=== PATIENT | female | born 1965 | race Caucasian/White ===

== ENCOUNTER 2022-12-14 13:15 | Emergency (ER) | payer OTHER, SELFPAY ==
[2022-12-14 13:18] VITALS: PULSE 85; RESP 20; TEMP 36.8; O2SAT 95; BMI 39.9
[2022-12-14 13:22] VITALS: BP 150/90
--- NOTE | 2022-12-14 13:31 | XR_ITS ---
The [address] [address] Patient Name: BRENDON FONG MRN: [id number] date: 1965 Sex: F Assigned Patient Location: ER Current Patient Location: ER Accession/Order Number: [id number] Exam Date: 12/14/2022 13:45 Report Date: 12/14/2022 14:14 At the request of: EFRAIN TOLEDO Procedure: XR knee RT 4V EXAM: XR knee RT 4V HISTORY: injury COMPARISON: 08/25/2020 TECHNIQUE: 3 views of the right knee. FINDINGS: Bones: No acute fracture or aggressive appearing bony lesion. Joints: Moderate tricompartmental osteoarthritis. Small knee joint effusion. Soft tissues: Unremarkable. XR/XR knee RT 4V IMPRESSION: No acute fracture. Electronically authenticated by: YOSELIN JOSEPH Date: 12/14/2022 14:14
--- NOTE | 2022-12-14 13:31 | PC.NURSE ---
Pain and swelling to left knee. Denies injury to area. Skin to right leg pink and warm
--- NOTE | 2022-12-14 14:18 | ED.LOWEXI1 ---
HPI - Extremity Injury (Lower) General Chief Complaint: Extremity Injury, Lower Stated Complaint: LOWER EXTREMITY INJURY R KNEE Time Seen by Provider: 12/14/22 14:15 Source: patient Mode of arrival: walk-in Limitations: no limitations History of Present Illness HPI Narrative: 57-year-old female presents for right knee pain. She's had issues with bone spurs and recently it's been hurting. Sometimes it gives out and sometimes feels like it is locking up. Contralateral knee does not hurt and it's moderate and it's worse when she pushes on the medial aspect. Related Data Previous Rx's Medication Instructions Recorded acetaminophen 300 mg-codeine 30 mg 1 tab PO Q6H PRN pain #20 tabs 12/14/22 tablet Allergies Allergy/AdvReac Type Severity Reaction Status Date / Time naproxen [From Naprosyn] Allergy Intermediate Verified 12/14/22 13:22 Review of Systems ROS Narrative A ten point review of systems is negative except as noted above. PFSH PFSH Social History Smoking status: Never smoker Exam Narrative Exam Narrative: Nurses note and vital signs reviewed and patient is not hypoxic. General: The patient appears well and in no apparent distress. Patient is resting comfortably on cart. Skin: Warm, dry, no pallor noted. There is no rash noted. Head: Normocephalic, atraumatic Eye: Normal conjunctiva, no drainage Ears, Nose, Mouth, and Throat: oral mucosa is moist. Nares patent. Cardiovascular: Regular Rate and Rhythm Respiratory: Patient is in no distress, no accessory muscle use, lungs are clear to auscultation, no wheezing, rales or rhonchi Back: non-tender GI: soft and nontender Musculoskeletal: the right knee is not erythematous or warm to touch. She has some tenderness medially and laterally. The knee joint is stable Neurological: A&O, normal speech Psychiatric: Cooperative Constitutional Vital Signs, click to edit/add: Last Vital Signs Temp 98.2 F 12/14/22 13:18 Pulse 85 12/14/22 13:18 Resp 20 12/14/22 13:18 BP 150/90 H 12/14/22 13:22 Pulse Ox 95 12/14/22 13:18 O2 Del Method Room Air 12/14/22 13:18 Course Vital Signs Vital signs: Vital Signs Temperature 98.2 F 12/14/22 13:18 Pulse Rate 85 12/14/22 13:18 Respiratory Rate 20 12/14/22 13:18 Pulse Oximetry 95 12/14/22 13:18 Oxygen Delivery Method Room Air 12/14/22 13:18 Temperature 98.2 F 12/14/22 13:18 Pulse Rate 85 12/14/22 13:18 Respiratory Rate 20 12/14/22 13:18 Blood Pressure 150/90 H 12/14/22 13:22 Pulse Oximetry 95 12/14/22 13:18 Oxygen Delivery Method Room Air 12/14/22 13:18 MDM - Extremity Injury (Lower) MDM Narrative Medical decision making narrative: x-ray findings are discussed with the patient. She has an established orthopedist with whom she will follow. She is provided pain medication. Treatment diagnosis and follow-up were discussed with the patient. Differential Diagnosis Differential diagnosis: Likely acute internal derangement of knee and ankle fracture (arthritis, knee fracture) Discharge Plan Discharge Chief Complaint: Extremity Injury, Lower Clinical Impression: Acute pain of right knee Patient Disposition: Home, Self-Care Time of Disposition Decision: 14:35 Condition: Good Mode of Transportation: Private Vehicle Prescriptions / Home Meds: New acetaminophen-codeine 300-30 mg tablet 1 tab PO Q6H PRN (Reason: pain) Qty: 20 0RF Instructions: Osteoarthritis (ED), Knee Pain (ED) Additional Instructions: follow-up with your orthopedist Stand Alone Forms: Portal Instructions Referrals: Physician,Non-Staff, MD [Primary Care Provider] - 1 week
== END 2022-12-14 15:00 | disposition home or self-care (01) ==
PROVIDERS: Emergency Provider Emergency Medicine
DX: M25.561 Pain in right knee (principal)
CPT/HCPCS: 73564; 99283

== ENCOUNTER 2023-04-04 11:50 | Observation (INO) | payer OTHER, SELFPAY ==
[2023-04-04 11:56] VITALS: BP 160/88; PULSE 101; RESP 16; TEMP 36.7; O2SAT 99; BMI 43.3
--- OUTSIDE RECORDS SUMMARY | 2023-04-04 12:03 | XMS_ITS | CCD ---
Author Name Unknown Address [address] [place] [address] Organization [facility] Care Team Providers Care [employer]eral [employer] Attendant Name Role Phone Nguyễn, Yazan A Primary Care Physician Unavailab le Bouts, Yazan Trinh Unavailable Unavailable Bouts, Yazan Trinh Primary Care Provider Bouts, Yazan A Primary Care Physician Unavailab le Bouts, Yazan Trinh Primary Care Physician Unavailab le Bouts, Yazan Trinh Primary Care Provider Bouts, Yazan Trinh Primary Care Physician Unavailab le Bouts, Yazan Trinh Primary Care Physician Unavailab le Bouts, Yazan Trinh Primary Care Provider Bouts, Yazan Trinh Primary Care Physician Unavailab le Bouts, Yazan Trinh Primary Care Physician Unavailab le ROSEMARIE ALMAZAN Attending Unavailable MISC, DR JOHNS Primary Care Unavailable ABRAHAM, KARIN BOATENG Consulting Unavailable NORAH, ROSEMARIE Admitting Unavailable MARK, TONYA Consulting Unavailable Bouts, Yazan Trinh Primary Care Physician Unavailab le Nguyễn, Yazan Trinh Unavailable Unavailable NGUYỄN, MD YAZAN Trinh Primary Care Unavailable NGUYỄN, MD YAZAN Trinh Attending Unavailable Bouts, Yazan Trinh Primary Care Physician Unavailab le Bouts Yazan KELLER Primary Care Provider Bouts Yazan KELLER Primary Care Provider [phone] Bouts, Yazan Trinh Primary Care Physician Unavailab le Bouts, Yazan Trinh Primary Care Physician Unavailab le Bouts Yazan KELLER Primary Care Provider [phone] BOUTS, YAZAN Trinh Referring Unavailable BOUTS, YAZAN Trinh Primary Care Unavailable BOUTS, YAZAN Trinh Referring Unavailable BOUTS, YAZAN Trinh Primary Care Unavailable BOUTS, YAZAN Trinh Referring Unavailable BOUTS, YAZAN Trinh Primary Care Unavailable Bouts, Yazan Trinh Primary Care Physician Unavailab le Allergies Allergy Classification Reported Allergen(s) Allergy Type Date of Onset Reaction(s) Facility NSAIDs (1 source) Naproxen Drug Allergy 3 [facility] Repository (2 sources) atorvastatin; Translations: [atorvastatin] Drug Allergy unable to move legs [facility] (2 sources) Naproxen; Translations: [naproxen sodium] Drug Allergy nausea [facility] (8 sources) Naproxen; Translations: [naproxen] Drug Allergy [address] [place] [address] (13 sources) atorvastatin; Translations: [atorvastatin] Drug Allergy unable to move legs [facility] (13 sources) ceftibuten; Translations: [naproxen sodium] Drug Allergy nausea [facility] Medications Current Medications Medication Drug Class(es) Dates Sig (Normalized) Sig (Original) 3 ml insulin detemir 100 unt/ml pen injector (1 source) Insulin Analog Start: 12-11-2021 Levemir FlexTouch U-100 Insulin 100 unit/mL (3 mL) subcutaneous pen 12/11/2021 inject 20 units by subcutaneous route twice Start: 12-11-2021 Levemir FlexTo uch U-100 Insulin 100 unit/mL (3 mL) subcutaneous pen 12/11/2021 inject 20 units by subcutaneous route twice 3 ml insulin glargine 100 unt/ml / lixisenatide 0.033 mg/ml pen injector (12 sources) Insulin Analog Start: 08-14-2021 End: 12-11-2021 Soliqua 100/33 subcutaneous insulin pen 100 unit-33 mcg/mL 08/14/2021 12/11/2021 40 units sq daily Start: 05-06-2021 Soliqua 100/33 subcutaneous insulin pen 100 unit-33 mcg/mL 05/06/2021 40 units sq daily Start: 01-03-2021 Soliqua 100/33 subcutaneous insulin pen 100 unit-33 mcg/mL 01/03/2021 30 units daily SQ Start: 08-22-2019 inject 25 [IU] by hayden bcutaneous injection once daily at mealtime Soliqua 100/33 100 unit-33 mcg/mL subcutaneous insulin pen 08/22/2019 inject 25 unit as insulin glargine by subcutaneous route once daily within the hour prior to the first meal of the day Start: 07-19-2019 inject 20 [IU] by hayden bcutaneous injection once daily at mealtime Soliqua 100/33 100 unit-33 mcg/mL subcutaneous insulin pen 07/19/2019 inject 20 unit as insulin glargine by subcutaneous route once daily within the hour prior to the first meal of the day Insulin Glargine -Lixisenatide (SOLIQUA) 100-33 UNT-MCG/ML SOPN Inject 25 Units into the skin every morning 0 Active lisinopril 20 mg oral tablet (20 sources) Angiotensin Converting Enzyme Inhibitor Start: 12-11-2021 take 2 tablets by mouth once daily lisinopril 20 mg tablet 12/11/2021 take 2 tablets by oral route daily Start: 08-14-2021 take 1 tablet by juan carlos th once daily lisinopril 20 mg tablet 08/14/2021 take 1 tablet (20 mg) by oral route once daily Start: 01-03-2021 End: 12-29-2021 take 1 tablet by mouth once daily lisinopril 10 mg oral tablet 01/03/2021 12/29/2021 Take 1 tablet by mouth once daily Start: 12-07-2018 take 1 tablet by juan carlos th once daily lisinopril 10 mg oral tablet 12/07/2018 take 1 tablet (10 mg) by oral route once daily Start: 12-02-2017 take 1 tablet by juan carlos th once daily lisinopril 5 mg oral tablet 12/02/2017 take 1 tablet by oral route daily take 5 mg by mouth once daily li sinopril (PRINIVIL;ZESTRIL) 10 MG tablet Take 5 mg by mouth daily 0 Active oxyCODONE hydrochloride 10 mg oral tablet (1 source) Opioid Agonist Start: 12-02-2019 End: 12-07-2019 take 1 tablet by mouth every eight hours as needed for pain oxyCODONE HCl (OXY-IR) 10 MG immediate release tablet Indications: COVID-19 virus infection , Cough , Bronchitis Take 1 tablet by mouth every 8 hours as needed for Pain for up to 5 days. 15 tablet 0 12/02/2019 12/07/2019 Active Completed/Discontinued Medications Medication Drug Class(es) Dates Sig (Normalized) Sig (Original) acetaminophen 325 mg / HYDROcodone bitartrate 5 mg oral tablet (16 sources) Opioid Agonist Start: 12-02-2019 End: 12-02-2019 HYDROcodone-acetam inophen (NORCO) 5-325 MG per tablet 1 tablet End: 05-23-2016 take 1 tablet by mouth every six hours as needed for pain hydrocodone-acetaminophen 5-325 mg oral tablet 05/23/2016 take 1 tablet by oral route every 6 hours as needed for pain atorvastatin 20 mg oral tablet (15 sources) HMG-CoA Reductase Inhibitor Start: 02-05-2015 End: 05-03-2015 take 1 tablet by mouth once daily atorvastatin 20 mg oral tablet 02/05/2015 05/03/2015 take 1 tablet (20 mg) by oral route once daily azithromycin 250 mg oral tablet (15 sources) Macrolide Antimicrobial Start: 05-03-2014 End: 07-24-2014 take 2 tablets by mouth once daily, then take 1 tablet by mouth once daily azithromycin 250 mg oral tablet 05/03/2014 07/24/2014 take 2 tablets (500 mg) by oral route once daily for 1 day then 1 tablet (250 mg) by oral route once daily for 4 days benzonatate 100 mg oral capsule (20 sources) Non-narcotic Antitussive Start: 03-19-2017 End: 06-04-2017 take 1 capsule by mouth three times daily as needed for cough benzonatate 100 mg oral capsule 03/19/2017 06/04/2017 take 1 capsule (100 mg) by oral route 3 times per day as needed for cough Start: 05-04-2014 End: 07-24-2014 take 1 capsule by mouth three times daily Tessalon Perles 100 mg oral capsule 05/04/2014 07/24/2014 take 1 capsule (100 mg) by oral route 3 times per day canagliflozin 300 mg oral tablet (15 sources) Sodium-Glucose Cotransporter 2 Inhibitor Start: 05-19-2017 End: 08-04-2017 take 1 tablet by mouth once daily at mealtime Invokana 300 mg oral tablet 05/19/2017 08/04/2017 TAKE ONE TABLET BY MOUTH ONCE DAILY BEFORE THE FIRST MEAL OF THE DAY cefuroxime 500 mg oral tablet (15 sources) Cephalosporin Antibacterial Start: 07-24-2014 End: 08-03-2014 take 1 tablet by mouth twice daily cefuroxime axetil 500 mg oral tablet 07/24/2014 08/03/2014 take 1 tablet (500 mg) by oral route 2 times per day for 10 days cholecalciferol 0.05 mg oral capsule (12 sources) Vitamin D Start: 08-14-2021 take 1 capsule by mouth once daily Vitamin D3 50 mcg (2,000 unit) capsule 08/14/2021 take 1 capsule by oral route daily Start: 09-03-2020 take 1 capsule by mo [facility] once daily Vitamin D3 50 mcg (2,000 unit) capsule 09/03/2020 take 1 capsule by oral route daily take 1 tablet by juan carlos every week Cholecalciferol (VITAMIN D3) 5000 units TABS Take 5,000 Units by mouth once a week 0 Active citalopram 10 mg oral tablet (15 sources) Serotonin Reuptake Inhibitor Start: 12-07-2018 citalopram 10 mg ora l tablet 12/07/2018 ON HOLD Start: 02-11-2018 take 1 tablet by juan carlos once daily citalopram 10 mg oral tablet 02/11/2018 take 1 tablet (10 mg) by oral route once daily ergocalciferol 1.25 mg oral capsule (20 sources) Provitamin D2 Compound Start: 09-03-2020 End: 06-06-2021 take 1 capsule by mouth once daily ergocalciferol (vitamin D2) 1,250 mcg (50,000 unit) capsule 09/03/2020 06/06/2021 take 1 capsule by oral route daily Start: 09-05-2019 End: 09-03-2020 take 1 capsule by mouth every week Vitamin D2 1,250 mcg (50,000 unit) oral capsule 09/05/2019 09/03/2020 TAKE 1 CAPSULE BY MOUTH ONCE A WEEK DUPLICATE Start: 08-22-2019 take 1 capsule by mo [facility] every week Vitamin D2 1,250 mcg (50,000 unit) oral capsule 08/22/2019 TAKE 1 CAPSULE BY MOUTH ONCE A WEEK Start: 05-23-2019 take 1 capsule by mo ut every week Vitamin D2 1,250 mcg (50,000 unit) oral capsule 05/23/2019 TAKE 1 CAPSULE BY MOUTH ONCE A WEEK Start: 03-25-2018 End: 12-07-2018 take 1 capsule by mouth every week ergocalciferol (vitamin D2) 50,000 unit oral capsule 03/25/2018 12/07/2018 TAKE ONE CAPSULE BY MOUTH ONCE A WEEK Start: 05-19-2017 End: 09-02-2017 take 1 capsule by mouth every week Vitamin D2 50,000 unit oral capsule 05/19/2017 09/02/2017 TAKE ONE CAPSULE BY MOUTH ONCE A WEEK Start: 10-24-2013 End: 02-05-2015 take 1 capsule by mouth every week Vitamin D2 50,000 unit oral capsule 10/24/2013 02/05/2015 take 1 capsule (50,000 unit) by oral route once weekly duplicate on list glipiZIDE 5 mg oral tablet (4 sources) Sulfonylurea Start: 05-06-2021 take 1 tablet by mouth twice daily before mealtime glipizide oral tablet 5 mg 05/06/2021 take 1 tablet (5 mg) by oral route 2 times per day before meals hydroCHLOROthiazide 25 mg oral tablet (15 sources) Thiazide Diuretic Start: 08-15-2016 End: 08-21-2016 take 1 tablet by mouth once daily hydrochlorothiazide 25 mg Oral tablet 08/15/2016 08/21/2016 take 1 tablet (25 mg) by oral route once daily ibuprofen 800 mg oral tablet (20 sources) Nonsteroidal Anti-inflammator y Drug Start: 08-14-2021 take 1 tablet by mouth three times daily at mealtime ibuprofen 800 mg oral tablet 08/14/2021 take 1 tablet (800 mg) by oral route 3 times per day with food Start: 09-03-2020 take 1 tablet by juan carlos th three times daily at mealtime ibuprofen 800 mg oral tablet 09/03/2020 take 1 tablet (800 mg) by oral route 3 times per day with food Start: 08-22-2019 take 1 tablet by juan carlos th three times daily at mealtime ibuprofen 800 mg oral tablet 08/22/2019 take 1 tablet (800 mg) by oral route 3 times per day with food Start: 12-07-2018 take 1 tablet by juan carlos th three times daily at mealtime ibuprofen 800 mg oral tablet 12/07/2018 take 1 tablet (800 mg) by oral route 3 times per day with food Start: 12-02-2017 take 1 tablet by juan carlos th three times daily at mealtime ibuprofen 800 mg oral tablet 12/02/2017 take 1 tablet (800 mg) by oral route 3 times per day with food End: 05-23-2016 take 1 tablet by mouth three times daily at mealtime ibuprofen 800 mg oral tablet 05/23/2016 take 1 tablet (800 mg) by oral route 3 times per day with food take 1 tablet by juan carlos th every eight hours as needed for pain ibuprofen (ADVIL;MOTRIN) 800 MG tablet Take 800 mg by mouth every 8 hours as needed for Pain 0 Active 3 ml liraglutide 6 mg/ml pen injector (20 sources) GLP-1 Receptor Agonist Start: 12-07-2018 End: 08-22-2019 Victoza 3-Darinel 0.6 mg/0.1 mL (18 mg/3 mL) subcutaneous pen injector 12/07/2018 08/22/2019 inject 1.8 mg by subcutaneous route once daily Start: 08-14-2017 End: 12-02-2019 Victoza 3-Darinel 0.6 mg/0.1 mL (18 mg/3 mL) subcutaneous pen injector 08/14/2017 09/02/2017 inject 1.2 mg by subcutaneous route once daily loratadine 10 mg oral tablet (20 sources) Start: 09-03-2020 take 1 tablet by mouth once daily Allergy Relief (loratadine) 10 mg oral tablet 09/03/2020 TAKE 1 TABLET BY MOUTH ONCE DAILY Start: 08-24-2019 take 1 tablet by juan carlos once daily Allergy Relief (loratadine) 10 mg oral tablet 08/24/2019 TAKE 1 TABLET BY MOUTH ONCE DAILY Start: 08-22-2019 take 1 tablet by juan carlos once daily Allergy Relief (loratadine) 10 mg oral tablet 08/22/2019 TAKE 1 TABLET BY MOUTH ONCE DAILY Start: 07-29-2018 End: 07-19-2019 take 1 tablet by mouth once daily loratadine 10 mg oral tablet 07/29/2018 07/19/2019 take 1 tablet (10 mg) by oral route once daily Start: 09-06-2015 End: 05-23-2016 take 1 tablet by mouth once daily loratadine 10 mg oral tablet 09/06/2015 05/23/2016 take 1 tablet (10 mg) by oral route once daily 24 hr metFORMIN hydrochloride 500 mg extended release oral tablet (20 sources) Biguanide Start: 08-14-2021 take 2 tablets by mouth twice daily metformin 500 mg oral tablet extended release 24 hr 08/14/2021 TAKE TWO TABLETS BY MOUTH TWICE DAILY Start: 09-03-2020 take 2 tablets by mo [facility] twice daily metformin 500 mg oral tablet extended release 24 hr 09/03/2020 TAKE TWO TABLETS BY MOUTH TWICE DAILY Start: 03-15-2019 take 2 tablets by [facility] twice daily metformin 500 mg oral tablet extended release 24 hr 03/15/2019 TAKE TWO TABLETS BY MOUTH TWICE DAILY Start: 03-25-2018 take 2 tablets by [facility] twice daily metformin 500 mg oral tablet extended release 24 hr 03/25/2018 TAKE TWO TABLETS BY MOUTH TWICE DAILY take 1 tablet by [facility] twice daily at mealtime metFORMIN (GLUCOPHAGE) 500 MG tablet Take 500 mg by mouth 2 times daily (with meals) 0 Active 1 ml morphine sulfate 4 mg/ml cartridge (1 source) Opioid Agonist Start: 12-02-2019 End: 12-02-2019 morphine injection 4 mg omeprazole 20 mg delayed release oral capsule (15 sources) Proton Pump Inhibitor Start: 08-14-2021 take 1 capsule by mouth once daily before mealtime omeprazole 20 mg oral capsule,delayed release(DR/EC) 08/14/2021 take 1 capsule (20 mg) by oral route once daily before a meal Start: 09-03-2020 take 1 capsule by [facility] once daily before mealtime omeprazole 20 mg oral capsule,delayed release(DR/EC) 09/03/2020 take 1 capsule (20 mg) by oral route once daily before a meal Start: 03-15-2019 take 1 capsule by [facility] once daily before mealtime omeprazole 20 mg oral capsule,delayed release(DR/EC) 03/15/2019 take 1 capsule (20 mg) by oral route once daily before a meal Start: 03-25-2018 take 1 capsule by [facility] once daily before mealtime omeprazole 20 mg oral capsule,delayed release(DR/EC) 03/25/2018 take 1 capsule (20 mg) by oral route once daily before a meal 2 ml ondansetron 2 mg/ml injection (1 source) Serotonin-3 Receptor Antagonist Start: 12-02-2019 End: 12-02-2019 ondansetron (ZOFRAN) injection 4 mg oseltamivir 75 mg oral capsule (15 sources) Neuraminidase Inhibitor Start: 03-19-2017 End: 03-24-2017 take 1 capsule by mouth twice daily Tamiflu 75 mg oral capsule 03/19/2017 03/24/2017 take 1 capsule (75 mg) by oral route 2 times per day for 5 days regular insulin, human 100 unt/ml injectable solution (1 source) Insulin Start: 12-02-2019 End: 12-02-2019 insulin regular (HUMULIN R;NOVOLIN R) injection 10 Units 0.25 mg, 0.5 mg dose 1.5 ml semaglutide 1.34 mg/ml pen injector (20 sources) Start: 08-04-2017 End: 12-02-2017 Ozempic 0.25 mg or 0.5 mg(2 mg/1.5 mL) subcutaneous pen injector 08/04/2017 08/14/2017 inject 0.25 mg by subcutaneous route once weekly on the same day of each week, in the abdomen, thighs, or upper arm rotating injection sites 50 ml sodium chloride 9 mg/ml injection (1 source) Start: 12-02-2019 End: 12-02-2019 0.9 % NaCl bolus tamsulosin hydrochloride 0.4 mg oral capsule (11 sources) alpha-Adrenergic June Start: 12-14-2018 End: 01-03-2021 take 1 capsule by mouth once daily at mealtime tamsulosin 0.4 mg oral capsule 12/14/2018 01/03/2021 take 1 capsule (0.4 mg) by oral route once daily 1/2 hour following the same meal each day triamcinolone acetonide 0.001 mg/mg topical ointment (8 sources) Corticosteroid Start: 05-25-2019 End: 07-19-2019 triamcinolone acetonide 0.1 % topical ointment 05/25/2019 07/19/2019 apply a thin layer to the affected area(s) by topical route 2 times per day Problems Active Problems Problem Classification Problem Date Documented Da te Episodic/Chronic Diabetes mellitus with complications (20 sources) Diabetes mellitus without mention of complication, type II or unspecified type, uncontrolled; Translations: [Type 2 diabetes mellitus with hyperglycemia] Onset: 05-03-2014 Chronic Diabetes mellitus without complication (20 sources) Diabetes mellitus without mention of complication, type II or unspecified type, not stated as uncontrolled; Translations: [Type 2 diabetes mellitus without complications] Onset: 05-04-2014 Chronic Diabetes mellitus without complication (20 sources) Diabetes mellitus without complication Onset: 06-04-2017 Disorders of lipid metabolism (20 sources) Mixed hyperlipidemia; Translations: [Mixed hyperlipidemia] Onset: 02-05-2015 Chronic E Codes: Fall (1 source) Other fall on same level, initial encounter; Translations: [OTHER FALL ON SAME LEVEL INITIAL] Onset: 08-28-2020 Episodic Esophageal disorders (15 sources) Reflux esophagitis; Translations: [Gastro-esophageal reflux disease with esophagitis] Onset: 12-02-2017 Chronic Essential hypertension (20 sources) Unspecified essential hypertension; Translations: [Essential (primary) hypertension] Onset: 06-24-2016 Chronic Osteoarthritis (2 sources) Primary osteoarthritis, right ankle and foot; Translations: [Unilateral primary osteoarthritis, right knee] Onset: 08-28-2020 Chronic Other non-traumatic joint disorders (3 sources) Pain in right ankle and joints of right foot; Translations: [PAIN IN RIGHT ANKLE] Onset: 08-25-2020 Episodic Other upper respiratory infections (15 sources) Unspecified sinusitis (chronic); Translations: [Chronic sinusitis, unspecified] Onset: 07-24-2014 Chronic Past or Other Problems Problem Classification Problem Date Documented Date Episodic/Chronic Abdominal pain (20 sources) Abdominal pain, other specified site; Translations: [Abdominal pain, epigastric] Onset: 02-05-2015 Episodic Chronic obstructive pulmonary disease and bronchiectasis (20 sources) Bronchitis, not specified as acute or chronic; Translations: [Bronchitis] Onset: 05-03-2014 12-02-2019 Episodic Genitourinary symptoms and ill-defined conditions (20 sources) Dysuria; Translations: [Polyuria] Onset: 05-03-2014 Episodic Malaise and fatigue (10 sources) Other malaise and fatigue Onset: 10-04-2014 Episodic Nonspecific chest pain (4 sources) Other chest pain Onset: 01-17-2021 Episodic Other connective tissue disease (20 sources) Myalgia and myositis, unspecified Onset: 05-09-2016 Episodic Other connective tissue disease (20 sources) Trigger finger (acquired) Onset: 07-29-2018 Episodic Other connective tissue disease (10 sources) Myalgia Onset: 05-09-2016 Episodic Other connective tissue disease (20 sources) Trigger finger, right ring finger Onset: 07-29-2018 Episodic Other lower respiratory disease (5 sources) Cough; Translations: [Cough] Onset: 12-02-2019 Resolved: 01-01-2020 12-02-2019 Episodic Other lower respiratory disease (20 sources) Dyspnea, unspecified; Translations: [Dyspnea, unspecified] Onset: 01-03-2021 Episodic Other screening for suspected conditions (not mental disorders or infectious disease) (4 sources) Abnormal electrocardiogram [ECG] [EKG] Onset: 01-17-2021 Episodic Other skin disorders (20 sources) Sebaceous cyst Onset: 09-02-2017 Episodic Other skin disorders (20 sources) Alopecia, unspecified Onset: 05-09-2016 Episodic Other skin disorders (10 sources) Nonscarring hair loss, unspecified Onset: 05-09-2016 Episodic Other skin disorders (15 sources) Epidermal cyst Onset: 09-02-2017 Episodic Other upper respiratory infections (20 sources) Acute upper respiratory infections of unspecified site; Translations: [Acute upper respiratory infection, unspecified] Onset: 03-19-2017 Episodic Residual codes; unclassified (15 sources) Family history of other blood disorders Onset: 06-05-2014 Episodic Sprains and strains (7 sources) Sprain of unspecified ligament of right ankle, initial encounter; Translations: [Sprain of unspecified site of right knee, initial encounter] Onset: 08-28-2020 Episodic Unclassified (1 source) [id number] [email or web address] Onset: 07-24-2014 Unclassified (1 source) [id number] ss_[email or web address] Onset: 10-04-2014 Unclassified (1 source) [id number] ss_[email or web address] Onset: 10-04-2014 Unclassified (1 source) [id number] ss_[email or web address] Onset: 07-24-2014 Unclassified (1 source) [id number] ss_name_12 Onset: 10-04-2014 Unclassified (1 source) [id number] ss_[email or web address] Onset: 10-04-2014 Unclassified (1 source) [id number] ss_[email or web address] Onset: 07-24-2014 Unclassified (1 source) [id number] ss_name_12 Onset: 10-04-2014 Unclassified (1 source) [id number] ss_[email or web address] Onset: 10-04-2014 Unclassified (1 source) [id number] ss_name_10 Onset: 07-24-2014 Unclassified (1 source) [id number] ss_name_12 Onset: 10-04-2014 Unclassified (1 source) [id number] ss_[email or web address] Onset: 10-04-2014 Unclassified (1 source) [id number] ss_[email or web address] Onset: 07-24-2014 Unclassified (1 source) [id number] ss_name_12 Onset: 10-04-2014 Unclassified (1 source) [id number] ss_name_13 Onset: 10-04-2014 Viral infection (20 sources) Other specified viral infection; Translations: [Other viral agents as the cause of diseases classified elsewhere] Onset: 03-19-2017 12-02-2019 Episodic Results Test Name Value Interpretation Reference Range Facility Hemoglobin A1Con 12-07-2021 Glucose [Mass/Vol] 335 mg/dL Normal [facility] Comment on above: Result Comment: The ADA and AACC recommend providing the estimated average glucose result to permit better patient understanding of their HBA1c result. Performed By: #### G LYHGB, LIPRF, URNMAB #### [facility] [address] [id number] Craft Center Director: Harlan Yates MD #### BMP #### [facility] [address] [place], [place] [id number] Craft Center Director: César Rueda MD HbA1c (Bld) [Mass fraction] 13.3 % High 4.0-6.0 [facility] Comment on above: Performed By: #### G LYHGB, LIPRF, URNMAB #### [address] [address] Craft Center Director: Harlan Yates MD #### BMP #### [facility] [address] [place] [id number] Craft Center Director: César Rueda MD Microalb.,Random Uron 2021 Creatinine [Mass/Vol] 32.1 mg/dL Normal 28.0-217.0 [facility] Comment on above: Performed By: #### G LYHGB, LIPRF, URNMAB #### [address] [address] Craft Center Director: Harlan Yates MD #### BMP #### [address] [place] [id number] Craft Center Director: César Rueda MD Microalb/Creat Ratio Can not be calculated Normal <25 [facility] Comment on above: Performed By: #### G LYHGB, LIPRF, URNMAB #### [address] [address] Craft Center Director: Harlan Yates MD #### BMP #### [facility] [address] [place] [address] [place] [id number] Craft Center Director: César Rueda MD Microalbumin conc. <12 Normal <21 [facility] Comment on above: Performed By: #### G LYHGB, LIPRF, URNMAB #### [address] [address] Craft Center Director: Harlan Yates MD #### BMP #### [facility] [address] [place] [address] Craft Center Director: César Rueda MD Basic Metabolic Panelon 10- Anion gap [Moles/Vol] 13 mmol/L 9 - 17 mmol/L [facility] Calcium [Mass/Vol] 9.1 mg/dL 8.6 - 10. 4 mg/dL [facility] Chloride [Moles/Vol] 98 mmol/L 98 - 10 7 mmol/L [facility] CO2 [Moles/Vol] 25 mmol/L 20 - 31 mmol/L [facility] Creatinine [Mass/Vol] 0.62 mg/dL 0.50 - 0.90 mg/dL [facility] GFR/1.73 sq M.predicted MDRD (S/P/Bld) [Vol rate/Area] - PINF [facility] Comment on above: Effective Nov 18, 2021 These results are not intended for use in patients <18 years of age. eGFR results are calculated without a race factor using the 2020 CKD-EPI equation. Careful clinical correlation is recommended, particularly when comparing to results calculated using previous equations. The CKD-EPI equation is less accurate in patients with extremes of muscle mass, extra-renal metabolism of creatine, excessive creatine ingestion, or following therapy that affects renal tubular secretion. Glucose [Mass/Vol] 530 mg/dL Critically high 70 - 99 mg/d L [facility] Interpretation and review of laboratory results Abnormal [facility] Potassium [Moles/Vol] 4.6 mmol/L 3.7 - 5.3 mmol/L [facility] Sodium [Moles/Vol] 136 mmol/L 135 - 144 mmol/L [facility] Urea nitrogen (BldV) [Mass/Vol] 22 mg/dL High 6 - 20 mg/dL [facility] Urea nitrogen/Creatinine (Bld) [Mass ratio] 35 High 9 - 20 [facility] Basic Metabolic Profon 12-06 Glucose [Mass/Vol] 530 mg/dL Critically high 70-99 M [facility] Comment on above: Performed By: #### G LYHGB, LIPRF, URNMAB #### [facility] [address] [place] [address] Craft Center Director: Harlan Yates MD #### BMP #### [facility] [address] [place], [place] [id number] Craft Center Director: César Rueda MD Anion gap [Moles/Vol] 13 mmol/L Normal 9-17 [facility] Comment on above: Performed By: #### G LYHGB, LIPRF, URNMAB #### [address] [address] Craft Center Director: Harlan Yates MD #### BMP #### [facility] [address] [place], [place] [id number] Craft Center Director: César Rueda MD BUN/CRE Ratio 35 High 9-20 [facility] Comment on above: Performed By: #### G LYHGB, LIPRF, URNMAB #### [address] [address] Craft Center Director: Harlan Yates MD #### BMP #### [facility] [address] [place] [address] Dr[address] [place], [place] [phone] Craft Center Director: César Rueda MD Calcium [Mass/Vol] 9.1 mg/dL Normal 8.6-10.4 [facility] Comment on above: Performed By: #### G LYHGB, LIPRF, URNMAB #### [address] [address] Craft Center Director: Harlan Yates MD #### BMP #### [facility] [address] [place], [place] [phone] Craft Center Director: César Rueda MD Chloride [Moles/Vol] 98 mmol/L Normal 98-107 [facility] Comment on above: Performed By: #### G LYHGB, LIPRF, URNMAB #### [facility] [address] [place] [address] Craft Center Director: Harlan Yates MD #### BMP #### [facility] [address] [place], [place] [id number] Craft Center Director: César Rueda MD CO2 [Moles/Vol] 25 mmol/L Normal 20-31 [facility] Comment on above: Performed By: #### G LYHGB, LIPRF, URNMAB #### [address] [place] [address] Craft Center Director: Harlan Yates MD #### BMP #### [facility] [address] [place], [place] [phone] Craft Center Director: César Rueda MD Creatinine [Mass/Vol] 0.62 mg/dL Normal 0.50-0.90 [facility] Comment on above: Performed By: #### G LYHGB, LIPRF, URNMAB #### [address] [address] Craft Center Director: Harlan Yates MD #### BMP #### [facility] [address] [place] [address] [place], [place] [phone] Craft Center Director: César Rueda MD GFR/1.73 sq M.predicted among non-blacks MDRD (S/P/Bld) [Vol rate/Area] mL/min/{1.73_m2} Normal >60 [facility] Comment on above: Result Comment: Effective Nov 18, 2021 These results are not intended for use in patients <18 years of age. eGFR results are calculated without a race factor using the 2020 CKD-EPI equation. Careful clinical correlation is recommended, particularly when comparing to results calculated using previous equations. The CKD-EPI equation is less accurate in patients with extremes of muscle mass, extra-renal metabolism of creatine, excessive creatine ingestion, or following therapy that affects renal tubular secretion. Performed By: #### G LYHGB, LIPRF, URNMAB #### [address] [place] [address] Craft Center Director: Harlan Yates MD #### BMP #### [facility] [address] [place] [address] [address]. [place], [place] [phone] Craft Center Director: César Rueda MD Potassium [Moles/Vol] 4.6 mmol/L Normal 3.7-5.3 [facility] Comment on above: Performed By: #### G LYHGB, LIPRF, URNMAB #### [address] [address] Craft Center Director: Harlan Yates MD #### BMP #### [address] [place], [place] 1778283 Craft Center Director: César Rueda MD Sodium [Moles/Vol] 136 mmol/L Normal 135-144 [facility] Comment on above: Performed By: #### G LYHGB, LIPRF, URNMAB #### [address] [address] Craft Center Director: Harlan Yates MD #### BMP #### [address] [place] [address] Craft Center Director: César Rueda MD Urea nitrogen [Mass/Vol] 22 mg/dL High 6-20 [facility] Comment on above: Performed By: #### G LYHGB, LIPRF, URNMAB #### [address] [address] Craft Center Director: Harlan Yates MD #### BMP #### [address] [place], [place] [phone] Craft Center Director: César Rueda MD Lipid Prof, Fastingon 2021 Cholesterol [Mass/Vol] 241 mg/dL High <200 [facility] Comment on above: Result Comment: Cholesterol Guidelines: <200 Desirable 200-240 Borderline >240 Undesirable Performed By: #### G LYHGB, LIPRF, URNMAB #### [address] [address] Craft Center Director: Harlan Yates MD #### BMP #### [facility] [address] [place] [address] [address]. [place], [place] [phone] Craft Center Director: César Rueda MD Cholesterol in HDL [Mass/Vol] 34 mg/dL Low >40 [facility] Comment on above: Result Comment: HDL Guidelines: <40 Undesirable 40-59 Borderline >59 Desirable Performed By: #### G LYHGB, LIPRF, URNMAB #### [address] [address] Craft Center Director: Harlan Yates MD #### BMP #### [address] [place] [phone] Craft Center Director: César Rueda MD Cholesterol in LDL [Mass/Vol] 149 mg/dL High 0-130 [facility] Comment on above: Result Comment: LDL Guidelines: <100 Desirable 100-129 Near to/above Desirable 130-159 Borderline >159 Undesirable Direct (measured) LDL and calculated LDL are not interchangeable tests. Performed By: #### G LYHGB, LIPRF, URNMAB #### [address] [address] Craft Center Director: Harlan Yates MD #### BMP #### [address] [place] [phone] Craft Center Director: César Rueda MD Cholesterol.total/Chol esterol in HDL [Mass ratio] 7.1 {ratio} High <5 [facility] Comment on above: Performed By: #### G LYHGB, LIPRF, URNMAB #### [address] [address] Craft Center Director: Harlan Yates MD #### BMP #### [facility] [address] [place] [address] Craft Center Director: César Rueda MD Triglyceride,Fasting 290 mg/dL High <150 [facility] Comment on above: Result Comment: Triglyceride Guidelines: <150 Desirable 150-199 Borderline 200-499 High >499 Very high Based on AHA Guidelines for fasting triglyceride, November 2011. Performed By: #### G LYHGB, LIPRF, URNMAB #### [facility] [employer] [address] [place], [place] [phone] Craft Center Director: Harlan Yates MD #### BMP #### [facility] [address] [place] [address] Craft Center Director: César Rueda MD Lipid, Fastingon 12-06-2021 Cholesterol [Mass/Vol] 241 mg/dL High NINF - 200 mg/dL [facility] Comment on above: Cholesterol Guidelines: <200 Desirable 200-240 Borderline >240 Undesirable Cholesterol in HDL [Mass/Vol] 34 mg/dL Low 40 - PINF mg/dL [facility] Comment on above: HDL Guidelines: <40 Undesirable 40-59 Borderline >59 Desirable Cholesterol in LDL [Mass/Vol] 149 mg/dL High 0 - 130 mg/dL [facility] Comment on above: LDL Guidelines: <100 Desirable 100-129 Near to/above Desirable 130-159 Borderline >159 Undesirable Direct (measured) LDL and calculated LDL are not interchangeable tests. Cholesterol.total/Chol esterol in HDL [Mass ratio] 7.1 {ratio} High NINF - 5 [facility] Interpretation and review of laboratory results Abnormal [facility] Triglyceride, Fasting 290 mg/dL High NINF - 150 mg/dL [facility] Comment on above: Triglyceride Guidelines: <150 Desirable 150-199 Borderline 200-499 High >499 Very high Based on AHA Guidelines for fasting triglyceride, November 2011. [facility] Microalbumin, Uron 2 Albumin/Creatinine DL <= 20 mg/L (24H U) [Mass ratio] mg/L NINF - 21 mg/L [facility] Albumin/Creatinine DL <= 20 mg/L (U) [Ratio] Can not be calculated NINF [facility] Creatinine [Mass/Vol] 32.1 mg/dL 28.0 - 217.0 mg/dL [facility] Basic Metabolic Panelon - Anion gap [Moles/Vol] 10 mmol/L 9 - 17 mmol/L [facility] Calcium [Mass/Vol] 8.9 mg/dL 8.6 - 10. 4 mg/dL [facility] Chloride [Moles/Vol] 106 mmol/L 98 - 10 7 mmol/L [facility] CO2 [Moles/Vol] 23 mmol/L 20 - 31 mmol/L [facility] Creatinine [Mass/Vol] 0.55 mg/dL 0.50 - 0.90 mg/dL [facility] GFR >60 >60 mL/min [facility] GFR Non- >60 >60 mL/min [facility] Glucose [Mass/Vol] 293 mg/dL High 70 - 99 mg/dL [facility] Interpretation and review of laboratory results Abnormal [facility] Potassium [Moles/Vol] 4.4 mmol/L 3.7 - 5.3 mmol/L [facility] Sodium [Moles/Vol] 139 mmol/L 135 - 144 mmol/L [facility] Urea nitrogen (BldV) [Mass/Vol] 20 mg/dL 6 - 20 mg/dL [facility] Urea nitrogen/Creatinine (Bld) [Mass ratio] 36 High [facility] Basic Metabolic Profon 08-06 (cont.) Normal [facility] Comment on above: Result Comment: Aver age GFR for 50-59 years old: 93 mL/min/1.73sq m Chronic Kidney Disease: <60 mL/min/1.73sq m Kidney failure: <15 mL/min/1.73sq m eGFR calculated using average adult body mass. Additional eGFR calculator available at: http://www.[employer].Civicon/multiple_crcl_2012.htm Performed By: #### B MP, TSH #### [facility] [address] [place] [address] [address] [phone] Craft Center Director: César Rueda MD #### GLYHGB, LIPR #### [address] [place], [place] [phone] Craft Center Director: Harlan Yates MD Anion gap [Moles/Vol] 10 mmol/L Normal 9-17 [facility] Comment on above: Performed By: #### B MP, TSH #### [facility] [address] [place] [address] [address] [phone] Craft Center Director: César Rueda MD #### GLYHGB, LIPR #### [address] [address] Craft Center Director: Harlan Yates MD BUN/CRE Ratio 36 High 9-20 [facility] Comment on above: Performed By: #### B MP, TSH #### [address] [place] [phone] ( Craft Center Director: César Rueda MD #### GLYHGB, LIPR #### [address] [address] Craft Center Director: Harlan Yates MD Calcium [Mass/Vol] 8.9 mg/dL Normal 8.6-10.4 [facility] Comment on above: Performed By: #### B MP, TSH #### [facility] [address] [place] [address] [address]. [place] [phone] Craft Center Director: César Rueda MD #### GLYHGB, LIPR #### [address] [address] Craft Center Director: Harlan Yates MD Chloride [Moles/Vol] 106 mmol/L Normal 98-107 [facility] Comment on above: Performed By: #### B MP, TSH #### [facility] [address] [place] [address] [address] [place] [phone] Craft Center Director: César Rueda MD #### GLYHGB, LIPR #### [address] [place] [address] Craft Center Director: Harlan Yates MD CO2 [Moles/Vol] 23 mmol/L Normal 20-31 [facility] Comment on above: Performed By: #### B MP, TSH #### [facility] [address] [place], [place] [phone] Craft Center Director: César Rueda MD #### GLYHGB, LIPR #### [address] [address] Craft Center Director: Harlan Yates MD Creatinine [Mass/Vol] 0.55 mg/dL Normal 0.50-0.90 [facility] Comment on above: Performed By: #### B MP, TSH #### [facility] [address] [place], [place] 7245783 Craft Center Director: César Rueda MD #### GLYHGB, LIPR #### [address] [address] Craft Center Director: Harlan Yates MD GFR, Amer >60 Normal >60 [facility] Comment on above: Performed By: #### B MP, TSH #### [facility] [address] [place], [place] [phone] Craft Center Director: César Rueda MD #### GLYHGB, LIPR #### [address] [address] Craft Center Director: Harlan Yates MD GFR,non Amer >60 Normal >60 [facility] Comment on above: Performed By: #### B MP, TSH #### [facility] [address] [place] [address] Craft Center Director: César Rueda MD #### GLYHGB, LIPR #### [address] [place] [address] Craft Center Director: Harlan Yates MD Glucose [Mass/Vol] 293 mg/dL High 70-99 [facility] Comment on above: Performed By: #### B MP, TSH #### [facility] [address] [place] [address] Dr. [place], [place] [phone] Craft Center Director: César Rueda MD #### GLYHGB, LIPR #### [address] [address] Craft Center Director: Harlan Yates MD Potassium [Moles/Vol] 4.4 mmol/L Normal 3.7-5.3 [facility] Comment on above: Performed By: #### B MP, TSH #### [address] [place], [place] [phone] Craft Center Director: César Rueda MD #### GLYHGB, LIPR #### [address] [address] Craft Center Director: Harlan Yates MD Sodium [Moles/Vol] 139 mmol/L Normal 135-144 [facility] Comment on above: Performed By: #### B MP, TSH #### [address] [place], [place] [phone] Craft Center Director: César Rueda MD #### GLYHGB, LIPR #### [address] [address] Craft Center Director: Harlan Yates MD Staging: Normal [facility] Comment on above: Result Comment: Stag e 1: Some kidney damage normal GFR Stage 2: Mild kidney damage GFR 60-89 Stage 3: Moderate kidney damage GFR 30-59 Stage 4: Severe kidney damage GFR 15-29 Stage 5: Severe kidney damage GFR <15 ESRD - chronic treatment by dialysis or transplant Performed By: #### B MP, TSH #### [address] [place], [place] [phone] Craft Center Director: César Rueda MD #### GLYHGB, LIPR #### [facility] [address] [place] [address] Craft Center Director: Harlan Yates MD Urea nitrogen [Mass/Vol] 20 mg/dL Normal 6-20 [facility] Comment on above: Performed By: #### B MP, TSH #### [facility] [address] [place] [address] [place]. [place], [place] [phone] Craft Center Director: César Rueda MD #### GLYHGB, LIPR #### [address] [place] [address] Craft Center Director: Harlan Yates MD Hemoglobin A1Con 08-06-2021 Glucose [Mass/Vol] 235 mg/dL [facility] Comment on above: Result Comment: The ADA and AACC recommend providing the estimated average glucose result to permit better patient understanding of their HBA1c result. Performed By: #### B MP, TSH #### [facility] [address] [place] [address] [address] [place], [place] [phone] Craft Center Director: César Rueda MD #### GLYHGB, LIPR #### [address] [place] [address] Craft Center Director: Harlan Yates MD HbA1c (Bld) [Mass fraction] 9.8 % High 4.0-6.0 [facility] Comment on above: Performed By: #### B MP, TSH #### [facility] [address] [place] [address] [place]. [place], [place] [phone] Craft Center Director: César Rueda MD #### GLYHGB, LIPR #### [facility] [address] [place] [address] Craft Center Director: Harlan Yates MD Glucose [Mass/Vol] 235 mg/dL [facility] Comment on above: The ADA and AACC rec ommend providing the estimated average glucose result to permit better patient understanding of their HBA1c result. HbA1c (Bld) [Mass fraction] 9.8 % High 4.0 - 6.0 % [facility] Interpretation and review of laboratory results Abnormal [facility] - Chemistry and C hemistry - challengeon 08-06-2021 GFR/1.73 sq M.predicted MDRD (S/P/Bld) [Vol rate/Area] [facility] Comment on above: Average GFR for 50-5 9 years old: 93 mL/min/1.73sq m Chronic Kidney Disease: <60 mL/min/1.73sq m Kidney failure: <15 mL/min/1.73sq m eGFR calculated using average adult body mass. Additional eGFR calculator available at: http://www.[employer]qa/multiple_crcl_2012.htm Stage 1: Some kidney damage normal GFR Stage 2: Mild kidney damage GFR 60-89 Stage 3: Moderate kidney damage GFR 30-59 Stage 4: Severe kidney damage GFR 15-29 Stage 5: Severe kidney damage GFR <15 ESRD - chronic treatment by dialysis or transplant Lipid Panelon 08-06-2021 Cholesterol [Mass/Vol] 216 mg/dL High <200 [facility] [employer] Comment on above: Cholesterol Guidelines: <200 Desirable 200-240 Borderline >240 Undesirable Cholesterol in HDL [Mass/Vol] 32 mg/dL Low >40 [facility] [employer] Comment on above: HDL Guidelines: <40 Undesirable 40-59 Borderline >59 Desirable Cholesterol in LDL [Mass/Vol] 146 mg/dL High 0 - 130 mg/dL [facility] Comment on above: LDL Guidelines: <100 Desirable 100-129 Near to/above Desirable 130-159 Borderline >159 Undesirable Direct (measured) LDL and calculated LDL are not interchangeable tests. Cholesterol.total/Chol esterol in HDL [Mass ratio] 6.8 {ratio} High <5 [facility] [employer] Interpretation and review of laboratory results Abnormal [facility] [employer] Triglyceride [Mass/Vol] 189 mg/dL High <150 [facility] Comment on above: Triglyceride Guidelines: <150 Desirable 150-199 Borderline 200-499 High >499 Very high Based on AHA Guidelines for fasting triglyceride, November 2011. [facility] [employer] Lipid Profileon 08-06-2021 Cholesterol [Mass/Vol] 216 mg/dL High <200 [facility] Comment on above: Result Comment: Cholesterol Guidelines: <200 Desirable 200-240 Borderline >240 Undesirable Performed By: #### B MP, TSH #### [facility] [address] [place] [address] [address]. [place], [place] [phone] Craft Center Director: César Rueda MD #### GLYHGB, LIPR #### [address] [place], [place] [phone] Craft Center Director: Harlan Yates MD Cholesterol in HDL [Mass/Vol] 32 mg/dL Low >40 [facility] Comment on above: Result Comment: HDL Guidelines: <40 Undesirable 40-59 Borderline >59 Desirable Performed By: #### B MP, TSH #### [address] [place], [place] [phone] Craft Center Director: César Rueda MD #### GLYHGB, LIPR #### [address] [place] [address] Craft Center Director: Harlan Yates MD Cholesterol in LDL [Mass/Vol] 146 mg/dL High 0-130 [facility] Comment on above: Result Comment: LDL Guidelines: <100 Desirable 100-129 Near to/above Desirable 130-159 Borderline >159 Undesirable Direct (measured) LDL and calculated LDL are not interchangeable tests. Performed By: #### B ANILA, TSH #### [facility] [address] [place] [address] Dr. [place], [place] [phone] Craft Center Director: César Rueda MD #### GLYHGB, LIPR #### [address] [place], [place] [phone] Craft Center Director: Harlan Yates MD Cholesterol.total/Chol esterol in HDL [Mass ratio] 6.8 {ratio} High <5 [facility] Comment on above: Performed By: #### B ANILA, TSH #### [address] [place], [place] [phone] Craft Center Director: César Rueda MD #### GLYHGB, LIPR #### [facility] [address] [place] [address] Craft Center Director: Harlan Yates MD Triglyceride [Mass/Vol] 189 mg/dL High <150 [facility] Comment on above: Result Comment: Triglyceride Guidelines: <150 Desirable 150-199 Borderline 200-499 High >499 Very high Based on AHA Guidelines for fasting triglyceride, November 2011. Performed By: #### B MP, TSH #### [facility] [address] [place] [address] Craft Center Director: César Rueda MD #### ALIYAH, LIPR #### [facility] [address] [place], [place] [phone] Craft Center Director: Harlan Yates MD No Panel Informationon 08-06 [facility] TSHon 08-06-2021 TSH Qn 1.10 m[IU]/L [facility] Thyroid Stim. Horm.on 2021 Thyroid Stim. Horm. 1.10 uIU/mL Normal 0.30-5.00 [facility] Comment on above: Performed By: #### B MP, TSH #### [address] [place] [address] Craft Center Director: César Rueda MD #### ALIYAH, LIPR #### [facility] [address] [place] [address] Craft Center Director: Harlan Yates MD Basic Metabolic Panelon 04-2 Anion gap [Moles/Vol] 10 mmol/L 9 - 17 mmol/L [facility] Calcium [Mass/Vol] 9.3 mg/dL 8.6 - 10. 4 mg/dL [facility] Chloride [Moles/Vol] 102 mmol/L 98 - 10 7 mmol/L [facility] CO2 [Moles/Vol] 27 mmol/L 20 - 31 mmol/L [facility] Creatinine [Mass/Vol] 0.61 mg/dL 0.50 - 0.90 mg/dL [facility] GFR >60 >60 mL/min [facility] GFR Non- >60 >60 mL/min [facility] Glucose [Mass/Vol] 196 mg/dL High 70 - 99 mg/dL [facility] Interpretation and review of laboratory results Abnormal [facility] Potassium [Moles/Vol] 4.5 mmol/L 3.7 - 5.3 mmol/L [facility] Sodium [Moles/Vol] 139 mmol/L 135 - 144 mmol/L [facility] Urea nitrogen (BldV) [Mass/Vol] 21 mg/dL High 6 - 20 mg/dL [facility] Urea nitrogen/Creatinine (Bld) [Mass ratio] 34 High [facility] Basic Metabolic Profon 06-05 (cont.) Normal [facility] Comment on above: Result Comment: Aver age GFR for 50-59 years old: 93 mL/min/1.73sq m Chronic Kidney Disease: <60 mL/min/1.73sq m Kidney failure: <15 mL/min/1.73sq m eGFR calculated using average adult body mass. Additional eGFR calculator available at: http://www.[employer].Civicon/multiple_crcl_2012.htm Performed By: #### B ANILA UA #### [facility] [address] [place] [address] [place] [address] Craft Center Director: César Rueda MD #### GLYHGB #### [facility] [address] [place] [address] Craft Center Director: Harlan Yates MD Anion gap [Moles/Vol] 10 mmol/L Normal - [facility] Comment on above: Performed By: #### Pito HIGH, UA #### [facility] [address] [place] [address] Craft Center Director: César Rueda MD #### GLYHGB #### [facility] [address] [place] [address] Craft Center Director: Harlan Yates MD BUN/CRE Ratio 34 High - [facility] Comment on above: Performed By: #### B MP, UA #### [facility] [address] [place], [place] [phone] Craft Center Director: César Rueda MD #### GLYHGB #### [address] [id number] Craft Center Director: Harlan Yates MD Calcium [Mass/Vol] 9.3 mg/dL Normal 8.6-10.4 [facility] Comment on above: Performed By: #### B MP, UA #### [facility] [address] [place], [place] 8151683 Craft Center Director: César Rueda MD #### GLYHGB #### [address] [address] Craft Center Director: Harlan Yates MD Chloride [Moles/Vol] 102 mmol/L Normal 98-107 [facility] Comment on above: Performed By: #### B MP, UA #### [facility] [address] [place] [address] [address] [place], [place] [phone] Craft Center Director: César Rueda MD #### GLYHGB #### [address] [address] Craft Center Director: Harlan Yates MD CO2 [Moles/Vol] 27 mmol/L Normal 20-31 [facility] Comment on above: Performed By: #### B MP, UA #### [facility] [address] [place] [address] [address] [place], [place] [phone] Craft Center Director: César Rueda MD #### GLYHGB #### [address] [address] Craft Center Director: Harlan Yates MD Creatinine [Mass/Vol] 0.61 mg/dL Normal 0.50-0.90 [facility] Comment on above: Performed By: #### B MP, UA #### [facility] [address] [place] [address] [place] [place], [place] [phone] Craft Center Director: César Rueda MD #### GLYHGB #### [facility] [address] [place] [address] Craft Center Director: Harlan Yates MD GFR, Amer >60 Normal >60 [facility] Comment on above: Performed By: #### B MP, UA #### [facility] [address] [place], [place] [phone] Craft Center Director: César Rueda MD #### GLYHGB #### [address] [address] Craft Center Director: Harlan Yates MD GFR,non Amer >60 Normal >60 [facility] Comment on above: Performed By: #### B MP, UA #### [address] [place], [place] [id number] Craft Center Director: César Rueda MD #### GLYHGB #### [address] [address] Craft Center Director: Harlan Yates MD Glucose [Mass/Vol] 196 mg/dL High 70-99 [facility] Comment on above: Performed By: #### B MP, UA #### [facility] [address] [place] [address] Dr. [place], [place] [id number] Craft Center Director: César Rueda MD #### GLYHGB #### [address] [address] Craft Center Director: Harlan Yates MD Potassium [Moles/Vol] 4.5 mmol/L Normal 3.7-5.3 [facility] Comment on above: Performed By: #### B MP, UA #### [facility] [address] [place] [address] Dr. [place], [place] [id number] Craft Center Director: César Rueda MD #### GLYHGB #### [facility] [address] [place] [address] Craft Center Director: Harlan Yates MD Sodium [Moles/Vol] 139 mmol/L Normal 135-144 [facility] Comment on above: Performed By: #### B MP, UA #### [facility] [address] [place], [place] [id number] Craft Center Director: César Rueda MD #### GLYHGB #### [address] [place] [address] Craft Center Director: Harlan Yates MD Staging: Normal [facility] Comment on above: Result Comment: Stag e 1: Some kidney damage normal GFR Stage 2: Mild kidney damage GFR 60-89 Stage 3: Moderate kidney damage GFR 30-59 Stage 4: Severe kidney damage GFR 15-29 Stage 5: Severe kidney damage GFR <15 ESRD - chronic treatment by dialysis or transplant Performed By: #### B MP, UA #### [facility] [address] [place], [place] [id number] Craft Center Director: César Rueda MD #### GLYHGB #### [address] [address] Craft Center Director: Harlan Yates MD Urea nitrogen [Mass/Vol] 21 mg/dL High 6-20 [facility] Comment on above: Performed By: #### B MP, UA #### [facility] [address] [place] [address] Dr. [place], [place] [phone] Craft Center Director: César Rueda MD #### GLYHGB #### [facility] [address] [place] [address] Craft Center Director: Harlan Yates MD Hemoglobin A1Con 06-05-2021 Glucose [Mass/Vol] 258 mg/dL [facility] Comment on above: Result Comment: The ADA and AACC recommend providing the estimated average glucose result to permit better patient understanding of their HBA1c result. Performed By: #### G LYHGB, MANDYRF, URNMAB #### [facility] [address] [place], [place] [phone] Craft Center Director: Harlan Yates MD #### BMP #### [facility] [address] [place] [address] Dr. [place], [place] [phone] Craft Center Director: César Rueda MD HbA1c (Bld) [Mass fraction] 10.6 % High 4.0-6.0 [facility] Comment on above: Performed By: #### G LYHGB, LIPRF, URNMAB #### [facility] [address] [place], [place] [phone] Craft Center Director: Harlan Yates MD #### BMP #### [facility] [address] [place] [address] [place] [address] Craft Center Director: César Rueda MD Glucose [Mass/Vol] 258 mg/dL [facility] Comment on above: The ADA and AACC rec ommend providing the estimated average glucose result to permit better patient understanding of their HBA1c result. HbA1c (Bld) [Mass fraction] 10.6 % High 4.0 - 6.0 % [facility] Interpretation and review of laboratory results Abnormal [facility] - Chemistry and C hemistry - challengeon 06-05-2021 GFR/1.73 sq M.predicted MDRD (S/P/Bld) [Vol rate/Area] [facility] Comment on above: Average GFR for 50-5 9 years old: 93 mL/min/1.73sq m Chronic Kidney Disease: <60 mL/min/1.73sq m Kidney failure: <15 mL/min/1.73sq m eGFR calculated using average adult body mass. Additional eGFR calculator available at: http://www.[employer].Civicon/multiple_crcl_2012.htm Stage 1: Some kidney damage normal GFR Stage 2: Mild kidney damage GFR 60-89 Stage 3: Moderate kidney damage GFR 30-59 Stage 4: Severe kidney damage GFR 15-29 Stage 5: Severe kidney damage GFR <15 ESRD - chronic treatment by dialysis or transplant Urinalysison 04-20-2022 Bilirubin Urine Negative NEGATIVE [facility] Color, UA Yellow Yellow [facility] Glucose, Ur Negative NEGATIVE [facility] Interpretation and review of laboratory results Abnormal [facility] Ketones Ql (U) Negative NEGATIVE [facility] Leukocyte esterase Test strip Ql (U) Negative NEGATIVE [facility] Nitrite, Urine Negative NEGATIVE [facility] pH, UA 5.5 [facility] Protein, UA Negative NEGATIVE [facility] Specific Tiller, UA 1.025 High [facility] Turbidity UA Clear Clear [facility] Urine Hgb Negative NEGATIVE [facility] Urobilinogen, Urine Normal Normal [facility] Urinalysis, Routineon 2021 Bilirubin, SemiQt,Ur Negative Normal NEG [facility] Comment on above: Performed By: #### B MP, UA #### [address] [place] [address] Craft Center Director: César Rueda MD #### GLYHGB #### [address] [phone] Craft Center Director: Harlan Yates MD Blood, Urine Negative Normal NEG [facility] Comment on above: Performed By: #### B MP, UA #### [address] [place] [phone] Craft Center Director: César Rueda MD #### GLYHGB #### [address] [id number] Craft Center Director: Harlan Yates MD Clarity (U) Clear Normal CLEAR [facility] Comment on above: Performed By: #### B MP, UA #### [address] [place] [address] Craft Center Director: César Rueda MD #### GLYHGB #### [address] [address] Craft Center Director: Harlan Yates MD Color (U) Yellow Normal YEL [facility] Comment on above: Performed By: #### B MP, UA #### [facility] [address] [place] [address] [place] [address] Craft Center Director: César Rueda MD #### GLYHGB #### [facility] [address] [place] [address] Craft Center Director: Harlan Yates MD Glucose Ql (U) Negative Normal NEG [facility] Comment on above: Performed By: #### B MP, UA #### [facility] [address] [place] [address] [place] [address] Craft Center Director: César Rueda MD #### GLYHGB #### [facility] [address] [place] [address] Craft Center Director: Harlan Yates MD Ketones Ql (U) Negative Normal NEG [facility] Comment on above: Performed By: #### B MP, UA #### [address] [place] [address] Craft Center Director: César Rueda MD #### GLYHGB #### [address] [address] Craft Center Director: Harlan Yates MD Leukocyte esterase Test strip Ql (U) Negative Normal NEG [facility] Comment on above: Performed By: #### B MP, UA #### [address] [place], [place] [phone] Craft Center Director: César Rueda MD #### GLYHGB #### [facility] [address] [place] [address] Craft Center Director: Harlan Yates MD Nitrite,Ur Negative Normal NEG [facility] Comment on above: Performed By: #### B MP, UA #### [address] [place] [address] Craft Center Director: César Rueda MD #### GLYHGB #### [address] [address] Craft Center Director: Harlan Yates MD PH,Ur 5.5 Normal 5.0-9.0 [facility] Comment on above: Performed By: #### B MP, UA #### [facility] [address] [place] [address] Dr. [place], [place] [phone] Craft Center Director: César Rueda MD #### GLYHGB #### [address] [address] Craft Center Director: Harlan Yates MD Protein Ql (U) Negative Normal NEG [facility] Comment on above: Performed By: #### B ANILA, UA #### [facility] [address] [place] [address] [place] [address] Craft Center Director: César Rueda MD #### GLYHGB #### [address] [address] Craft Center Director: Harlan Yates MD Spec. Tiller,Ur 1.025 High 1.010-1.020 [facility] Comment on above: Performed By: #### B ANILA, UA #### [address] [place], [place] [phone] Craft Center Director: César Rueda MD #### GLYHGB #### [address] [address] Craft Center Director: Harlan Yates MD Urobilinogen,Ur Normal Normal NORM [facility] Comment on above: Performed By: #### B MP, UA #### [address] [place], [place] [phone] Craft Center Director: César Rueda MD #### GLYHGB #### [address] [address] Craft Center Director: Harlan Yates MD Gastroenterology Office/Clin ic Noteon 01-07-2021 Gastroenterology Office/Clinic Note Chief Complaint Here for Colonscopy Screening-No Symptoms History of Present Illness This is a 55-year-old female here for screening colonoscopy. She has never had a colonoscopy. She has had no dark tarry stools no hematochezia. She has a bowel movement almost every other day sometimes she gets constipated when she does not eat her vegetables. She has a mother who from pancreatic cancer last July a sister who 2 years ago from pancreatic cancer and uncle who passed from colon cancer. She has been talking with Dr. Adrian about getting screening for pancreatic cancer. Patient is diabetic not on blood thinners does not see cardiology or pulmonology she will not need preprocedure clearance Review of Systems Constitutional: No fevers, chills, sweats Eye: No recent visual problems ENMT: No ear pain, nasal congestion, sore throat Respiratory: No shortness of breath, cough Cardiovascular: No Chest pain, palpitations, syncope Gastrointestinal: See HPI above Genitourinary: No hematuria Nimesh/Lymph: Negative for bruising tendency, swollen lymph glands Endocrine: Negative for excessive thirst, excessive hunger Musculoskeletal: No back pain, neck pain, joint pain, muscle pain, decreased range of motion Integumentary: No rash, pruritus, abrasions Neurologic: Alert & oriented X 4 Psychiatric: No anxiety, depression Physical Exam Vitals & Measurements BP: 180/95 SpO2: 98 HT: 165 cm WT: 116.7 kg BMI: 42.87 General: Alert and oriented, well nourished, no acute distress. Eye: PERR, normal conjunctiva, no scleral icterus. HENT: Normocephalic, No active drainage noted to external ears, normal hearing, no active nasal drainage, mask in place Neck: Supple, non-tender. Lungs: non-labored respiration., Lung sounds clear Heart: Vitals reviewed, regular rate rhythm Abdomen: Soft nontender Musculoskeletal: Observed good range of motion. Skin: Skin is warm, dry and pink, no rashes or lesions to exposed areas. Neurologic: Awake, alert, and oriented X3. Psychiatric: Cooperative, appropriate mood and affect. Additional Vitals No qualifying data available. Assessment/Plan 1. Encounter for screening colonoscopy Colonoscopy: The benefits and risks associated with a colonoscopy have been outlined with the patient. The patient was advised that all potential complications include but are not limited to, perforation of the bowel, bleeding, infection, electrolyte disturbance from prep, pain/discomfort, sedation complications, . Discussed in detail with the patient the importance of adequate bowel prep, the need for a pile driver operator helper the day of procedure, to call us if unable to perform adequate bowel prep. Pt verbalize understanding. Lifestyle changes (ETOH, Smoking, NSAIDS/Tylenol, exercise, sleep, sunscreen): Diet: Immunizations: Labs: Diagnostics: Screening colonoscopy Medications/Rx: Francisca Refer/appt clearance from cardiology or pulmonology if indicated: None Follow-up 2 to 3 weeks after Time Spent with the Patient I have personally spent 12 minutes on this date, directly related to today's patient visit, including pre and post visit work, for this date of service. Time listed does not include time spent on separately billable services. Problem List/Past Medical History Ongoing Arthritis Diabetes Encounter for screening colonoscopy HTN Lipoma rt shoulder Historical No qualifying data Procedure/Surgical History c section tubal ligation Excision lipoma right shoulder (10/05/2020) Medications ibuprofen Invokana, Oral, Daily, Not taking lisinopril, Oral, Daily loratadine, Daily metFORMIN, Oral Soliqua 100/33, Subcutaneous Vitamin B Complex oral capsule, 1 caps, Oral, Daily, Not taking VITAMIN D3 50 MCG (2,000 UNIT) CAPSULE Allergies naproxen (nausea) Social History Alcohol Current Nutrition/Health Caffeine intake amount: pop 1 every other day. Substance Abuse Denies All Tobacco Never (less than 100 in lifetime) Use:. Family History Colon cancer: Uncle. Electronically signed by Monet Means 01/07/21 08:54 EST Normal [facility] Surgery Office/Clinic Noteon 10-05-2020 Surgery Office/Clinic Note Chief Complaint Lipoma of right shoulder History of Present Illness Patient presents today for excision of right shoulder lipoma. Review of Systems Respiratory: No Shortness of breath Cardiovascular: No Edema Hematological/Lymph atic: NoBruising Physical Exam Vitals & Measurements T: 37 ?C (Temporal Artery) Procedure: Multi-lobulated lipoma of the right shoulder which has been enlarging is excised. Skin incision 6cm?s in length is made in the right upper posterior shoulder region. The underlying lipoma is completely sharply dissected free. It measures approximately 5 X 6 X 1.5cm?s in size. Typical multi-lobulated lipoma and is discarded. Closed with deep interrupted 4-0 Vicryl followed by subcuticular 4-0 undyed Vicryl. Steri-strips applied. Additional Vitals No qualifying data available. Assessment/Plan Impression: 1) Lipoma right shoulder. Plan: Return p.r.n.. Scribed for Dr. Underwood by Heidi Hernandez. Scribe Attestation: The information in this document, created by the medical unit secretary for me, accurately reflects the services I personally performed and the decisions made by me. Problem List/Past Medical History Ongoing Arthritis Diabetes HTN Lipoma rt shoulder Historical No qualifying data Procedure/Surgical History c section tubal ligation Medications ibuprofen Invokana, Oral, Daily lisinopril, Oral, Daily loratadine, Daily metFORMIN, Oral Vitamin B Complex oral capsule, 1 caps, Oral, Daily Allergies naproxen (nausea) Social History Alcohol Never Nutrition/Health Caffeine intake amount: pop 1 every other day. Substance Abuse Denies All Tobacco Never (less than 100 in lifetime) Use:. Electronically signed by Osei Underwood MD 10/08/20 17:49 EDT Electronically signed by Kasandra Amor 10/08/2020 08:55 EDT Electronically signed by Heidi Hernandez 10/08/2020 11:39 EDT Normal [facility] Provider Letteron 09-19-2020 Provider Letter September 19, 2020 Dr. Zachary Adrian [address] [place] [address] RE: Milana Hteal Carbajal 67 Dear Yazan, I saw your patient Milana Red in the office today. 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 I will be excising it for her in the office in the near future. Thanks for allowing me to assist in her management. Sincerely, Osei RICO/martha Dictated but not read Normal [facility] Surgery Office/Clinic Noteon 09-19-2020 Surgery Office/Clinic Note Chief Complaint lump on right shoulder History of Present Illness 55 year old woman with a one year history of an enlarging mass of the right posterior shoulder upper back region. Review of Systems Constitutional: No Unexpected weight loss, + History of diabetes Respiratory: No Shortness of breath NOCOPD no PULMONARY EMBOLISM + Hoarseness Cardiovascular: No Chest pain or pressure, No Edema, No History of NH/CAD, No History of A-Fib Gastrointestinal: No Abdominal Pain, No Constipation, No Diarrhea, + Heartburn, No Dysphagia, No Nausea, No Black/bloody Stools, No Vomiting, No Vomiting bloodNo Liver Urinary: No Hesitancy, + Nocturia, No Prior kidney disease Skin: No Lesions, No Change in moles Musculoskeletal: + Joint Pain Neuro: No Seizures, No History of stroke Psychiatric: No Anxiety, No Depression Hematological/Lymph atic: No Bruising, No Bleeding Tendencies, No History of Transfusions no History of DVT/BLOOD CLOTS Physical Exam Vitals & Measurements T: 35.3 ?C (Temporal Artery) HT: 164 cm WT: 112.70 kg WT: 112.70 kg (Dosing) BMI: 41.9 This has now reached at least 3 to 3.5cm?s in diameter. Likely will continue to grow. Some shoulder discomfort although some of her pain probably does not relate to the lipoma. Additional Vitals No qualifying data available. Assessment/Plan Impression: 1) Lipoma, right posterior shoulder. Plan: Options discussed and we will plan to excise this for her in the office on a return appointment. ( appt: 10/05/20) Time Spent with the Patient I have personally spent 15 minutes on this date, directly related to today?s patient visit, including pre and post visit work, for this date of service. Time listed does not include time spent on separately billable services. Scribed for Dr. Underwood by Heidi Hernandez. Scribe Attestation: The information in this document, created by the medical unit secretary for me, accurately reflects the services I personally performed and the decisions made by me. Problem List/Past Medical History Ongoing Arthritis Diabetes HTN Lump Historical No qualifying data Procedure/Surgical History c section tubal ligation Medications ibuprofen Invokana, Oral, Daily lisinopril, Oral, Daily loratadine, Daily metFORMIN, Oral Vitamin B Complex oral capsule, 1 caps, Oral, Daily Allergies naproxen (nausea) Social History Alcohol Never Nutrition/Health Caffeine intake amount: pop 1 every other day. Substance Abuse Denies All Tobacco Never (less than 100 in lifetime) Use:. Electronically signed by Osei Underwood MD 09/21/20 14:34 EDT Electronically signed by Jahaira Hill 09/19/2020 16:02 EDT Electronically signed by Heidi Hernandez 09/20/2020 06:46 EDT Normal [facility] Laboratory - Chemistry and C hemistry - challengeon 09-03-2020 Albumin [Mass/Vol] 4.20 g/dL Invalid Interpretation Code 3.7-4.5 [email or web address] Albumin/Globulin [Mass ratio] 1.3 {ratio} Invalid Interpretation Code 1.0-2.4 [id number] ALP [Catalytic activity/Vol] 83.0 U/L Invalid Interpretation Code 31-155 [employer] ALT [Catalytic activity/Vol] 23.0 U/L Invalid Interpretation Code 0-50 [employer] Anion gap [Moles/Vol] 15 mmol/L Invalid Interpretation Code 10-20 [employer] AST [Catalytic activity/Vol] 15.0 U/L Invalid Interpretation Code 0-40 [employer] Bilirubin [Mass/Vol] 0.40 mg/dL Invalid Interpretation Code 0.0-1.0 [employer] Bilirubin Ql (U) Negative Invalid Interpretation Code Negative [employer] Calcium [Mass/Vol] 9.40 mg/dL Invalid Interpretation Code 8.5-10.8 [employer] Chloride [Moles/Vol] 98.0 mmol/L Invalid Interpretation Code 100-112 [employer] Cholesterol [Mass/Vol] 275.0 mg/dL Invalid Interpretation Code 0-200 [employer] Cholesterol in HDL [Mass/Vol] 37.0 mg/dL Invalid Interpretation Code 50-100 [employer] Cholesterol in LDL [Mass/Vol] 167.0 mg/dL Invalid Interpretation Code 0-130 [employer] Cholesterol in VLDL [Mass/Vol] 71.0 mg/dL Invalid Interpretation Code 0-39 [employer] Cholesterol.total/Chol esterol in HDL [Mass ratio] 7 {ratio} Invalid Interpretation Code [employer] CO2 [Moles/Vol] 29.0 mmol/L Invalid Interpretation Code 23-30 [employer] Creatinine [Mass/Vol] 0.50 mg/dL Invalid Interpretation Code 0.5-1.5 [facility] GFR/1.73 sq M.predicted among non-blacks MDRD (S/P/Bld) [Vol rate/Area] 128 mL/min/{1.73_m2} Invalid Interpretation Code [facility] Glucose [Mass/Vol] 365.0 mg/dL Invalid Interpretation Code 80-117 [facility] Ketones Ql (U) 3+ Invalid Interpretation Code Negative [facility] pH (U) 5 [pH] Invalid Interpretation Code 5.0-9.0 [facility] Potassium [Moles/Vol] 5.0 mmol/L Invalid Interpretation Code 3.5-5.3 [facility] Protein [Mass/Vol] 7.40 g/dL Invalid Interpretation Code 6.3-7.9 [facility] Sodium [Moles/Vol] 137.0 mmol/L Invalid Interpretation Code 135-148 [facility] Specific gravity (U) [Rel density] 1.015 Invalid Interpretation Code 1.003-1.030 [facility] Triglyceride [Mass/Vol] 353.0 mg/dL Invalid Interpretation Code 30-150 [facility] Urea nitrogen [Mass/Vol] 12.0 mg/dL Invalid Interpretation Code 7-25 [facility] Urea nitrogen/Creatinine [Mass ratio] 24 mg/mg Invalid Interpretation Code 6-20 [facility] Urobilinogen (U) [Mass/Vol] normal Invalid Interpretation Code normal [facility] Laboratory - Hematology and Cell countson 09-03-2020 Erythrocyte distribution width (RBC) [Ratio] 12.40 % Invalid Interpretation Code 11.5-15.5 [facility] HbA1c (Bld) [Mass fraction] 13.20 % Invalid Interpretation Code 4.3-6.3 [facility] Hematocrit (Bld) [Volume fraction] 43.40 % Invalid Interpretation Code 35.7-47.1 [facility] Hemoglobin (Bld) [Mass/Vol] 14.50 g/dL Invalid Interpretation Code 11.9-15.7 [facility] Hemoglobin Ql (U) Negative Invalid Interpretation Code Negative [facility] MCH (RBC) [Entitic mass] 30.30 pg Invalid Interpretation Code 23.2-33.3 [facility] MCHC (RBC) [Mass/Vol] 33.40 g/dL Invalid Interpretation Code 32.0-36.0 [facility] MCV (RBC) [Entitic vol] 90.60 fL Invalid Interpretation Code 83.4-101.4 [facility] Platelet mean volume (Bld) [Entitic vol] 10.80 fL Invalid Interpretation Code 8.3-11.5 [facility] Platelets (Bld) [#/Vol] 278.0 10*3/uL Invalid Interpretation Code 150-400 [facility] RBC (Bld) [#/Vol] 4.790 10*6/uL Invalid Interpretation Code 3.72-5.24 [facility] WBC (Bld) [#/Vol] 6.80 10*3/uL Invalid Interpretation Code 3.9-10.3 [facility] - Specimen inform ationon 09-03-2020 Clarity (U) clear Invalid Interpretation Code Clear [facility] Color (U) yellow Invalid Interpretation Code yellow [facility] Laboratory - Urinalysison Glucose Test strip (U) [Mass/Vol] 4+ Invalid Interpretation Code Negative [facility] Leukocyte esterase Test strip Ql (U) Negative Invalid Interpretation Code Negative [facility] Nitrite Ql (U) Negative Invalid Interpretation Code Negative [facility] Protein Ql (U) Negative Invalid Interpretation Code Negative [facility] No Panel Informationon 09-03 332.0 mg/dL Invalid Interpretation Code [facility] 574 Invalid Interpretation Code 243-911 [facility] 15.3 Invalid Interpretation Code >5.4 [employer] XR ANKLE RT MIN 3 VIEWSon XR ANKLE RT MIN 3 VIEWS IMAGES REVIEWED: XR ANKLE RT MIN 3 VIEWS COMPARISON: X-ray right tibia/fibula 09/15/2018. CLINICAL INDICATION: Injury, pain. FINDINGS/IMPRESSION : No definite radiographic evidence of acute osseous abnormality of the right ankle. Suspect 9 mm osteochondral lesion in the lateral talar dome, likely chronic. Calcaneal spurring/enthesopat hic change. Scattered mild degenerative change of the midfoot. Electronically authenticated by: TONYA FLORES Date: 2020-08-25 19:17 Normal [facility] XR KNEE RT 4V or >on 021 XR KNEE RT 4V or > IMAGES REVIEWED: XR KNEE RT 4V or > COMPARISON: None available. CLINICAL INDICATION: Pain. FINDINGS/IMPRESSION : No definite radiographic evidence of acute osseous abnormality of the right knee. No suprapatellar joint effusion. Severe patellofemoral osteoarthritis and moderate osteoarthritis of the medial femorotibial compartment. Apparent chronically fragmented suprapatellar osteophytes. Question intra-articular bodies projecting over the region of the tibial spines. Electronically authenticated by: TONYA FLORES Date: 2020-08-25 19:20 Normal [facility] Basic Metabolic Panelon 11-16 Anion gap [Moles/Vol] 11 mmol/L 9 - 17 mmol/L [place], [place] Bun/Cre Ratio 22 High [place], [place] Calcium [Mass/Vol] 8.9 mg/dL 8.6 - 10. 4 mg/dL [place] Chloride [Moles/Vol] 93 mmol/L Low 98 - 10 7 mmol/L [place] CO2 [Moles/Vol] 26 mmol/L 20 - 31 mmol/L [place] Creatinine [Mass/Vol] 0.67 mg/dL 0.5 - 0.9 mg/dL [place] GFR >60 >60 mL/min [place], [place] GFR Non- >60 >60 mL/min [place] Glucose [Mass/Vol] 365 mg/dL High 70 - 99 mg/dL [place] Interpretation and review of laboratory results Abnormal [place] Potassium [Moles/Vol] 4.3 mmol/L 3.7 - 5.3 mmol/L [place] Sodium [Moles/Vol] 130 mmol/L Low 135 - 144 mmol/L [place] Urea nitrogen [Mass/Vol] 15 mg/dL 6 - 20 mg/dL [place] CBC Auto Differentialon 11-16 Basophils (Bld) [#/Vol] 10*3/uL [place] Basophils/100 WBC (Bld) 0 % 0 - 2 % [place] Differential Type NOT REPORTED [place] Eosinophils (Bld) [#/Vol] 10*3/uL [place] Eosinophils/100 WBC (Bld) 0 % Low 1 - 4 % [place] Erythrocyte distribution width (RBC) [Ratio] 13.2 % 11.8 - 14.4 % [place] Hematocrit (Bld) [Volume fraction] 44.1 % 36.3 - 47.1 % [place] Hemoglobin (Bld) [Mass/Vol] 14.3 g/dL 11.9 - 15.1 g/dL [place] Immature granulocytes (Bld) [#/Vol] 10*3/uL [place] Immature granulocytes (Bld) [#/Vol] 0 % 0 [place] Interpretation and review of laboratory results Abnormal [place] Lymphocytes (Bld) [#/Vol] 1.03 10*3/uL Low [place] Lymphocytes/100 WBC (Bld) 18 % Low 24 - 43 % [place] MCH (RBC) [Entitic mass] 30.0 pg 25.2 - 33.5 pg [place] MCHC (RBC) [Mass/Vol] 32.4 g/dL 28.4 - 34.8 g/dL [place] MCV (RBC) [Entitic vol] 92.5 fL 82.6 - 102.9 fL [place] Monocytes (Bld) [#/Vol] 0.39 10*3/uL [place] Monocytes/100 WBC (Bld) 7 % 3 - 12 % [place] Platelet mean volume (Bld) [Entitic vol] 10.5 fL 8.1 - 13.5 fL [place] Platelets (Bld) [#/Vol] 220 10*3/uL [place] Platelets (Bld) [#/Vol] NOT REPORTED [place] RBC (Bld) [#/Vol] 4.77 10*6/uL 3.95 - 5.1 1 m/uL [place] RBC morphology finding Nom (Bld) NOT REPORTED [place] Segmented neutrophils/100 WBC (Bld) 75 % High 36 - 65 % [place] Segs Absolute 4.46 [place] WBC (Bld) [#/Vol] 5.9 10*3/uL [place] WBC (Bld) [#/Vol] 0.0 10*3/uL 0.0 per 10 0 WBC [place] WBC Morphology NOT REPORTED [place] COVID-19on 12-02-2019 Interpretation and review of laboratory results Abnormal [place] SARS-CoV-2, Rapid DETECTED Abnormal Not Detected [place] Comment on above: Rapid NAAT: The specimen is POSITIVE for SARS-Cov-2, the novel coronavirus associated with COVID-19. This test has been authorized by the FDA under an Emergency Use Authorization (EUA) for use by authorized laboratories. The ID NOW COVID-19 assay is designed to detect the virus that causes COVID-19 in patients with signs and symptoms of infection who are suspected of COVID-19. An individual without symptoms of COVID-19 and who is not shedding SARS-CoV-2 virus would expect to have a negative (not detected) result in this assay. Fact sheet for Healthcare Providers: https://www.fda.gov/media/846349/download Fact sheet for Patients: https://www.fda.gov/media/499948/download Methodology: Isothermal Nucleic Acid Amplification Results reported to the appropriate Health Department Source .NASOPHARYNGEAL SWAB [place] Glucose, Whole Bloodon 12-01 Glucose [Mass/Vol] 227 mg/dL High 74 - 100 mg/dL [place] Interpretation and review of laboratory results Abnormal [place] Lactate, Sepsison 12-02-2019 Interpretation and review of laboratory results Abnormal [place] Lactic Acid, Sepsis 2.0 mmol/L High 0.5 - 1. 9 mmol/L [place] Lactic Acid, Sepsis, Whole Blood NOT REPORTED 0.5 - 1.9 mmol/L [place] Metabolic Panelon 12-02-2019 GFR/1.73 sq M predicted among non-blacks MDRD (S/P/Bld) [Vol rate/Area] [place] Comment on above: Average GFR for 50-5 9 years old: 93 mL/min/1.73sq m Chronic Kidney Disease: <60 mL/min/1.73sq m Kidney failure: <15 mL/min/1.73sq m eGFR calculated using average adult body mass. Additional eGFR calculator available at: http://www.[employer].Civicon/multiple_crcl_2012.htm Stage 1: Some kidney damage normal GFR Stage 2: Mild kidney damage GFR 60-89 Stage 3: Moderate kidney damage GFR 30-59 Stage 4: Severe kidney damage GFR 15-29 Stage 5: Severe kidney damage GFR <15 ESRD - chronic treatment by dialysis or transplant Otheron 12-02-2019 SARS-CoV-2 [place] POCT Glucoseon 12-02-2019 Glucose [Mass/Vol] 227 mg/dL [place] Interpretation and review of laboratory results Normal [place] QC OK? yes [place] XR CHEST 1 VIEWon 12-02-2019 Andrew, [facility] Incoming Radiant Results From [employer] - 12/02/2019 12:43 PM EDT EXAMINATION: ONE XRAY VIEW OF THE CHEST 12/02/2019 12:28 pm COMPARISON: None. HISTORY: ORDERING SYSTEM PROVIDED HISTORY: ProbableCOVID-19 pneumonia TECHNOLOGIST PROVIDED HISTORY: ProbableCOVID-19 pneumonia FINDINGS: Limited low lung volume examination. Cardiac silhouette is borderline prominent. Generalized interstitial prominence noted with subtle lower lung opacities, accentuated by hypoaeration. No definite pleural effusion or pneumothorax. Osseous structures and soft tissues are grossly intact. IMPRESSION: Generalized interstitial prominence accentuated by hypoaeration. Bibasilar opacities favor atelectasis/scarrin g. No obvious focal airspace consolidation, pleural effusion, or pneumothorax. [place] EXAMINATION: ONE XRAY VIEW OF THE CHEST 12/02/2019 12:28 pm COMPARISON: None. HISTORY: ORDERING SYSTEM PROVIDED HISTORY: ProbableCOVID-19 pneumonia TECHNOLOGIST PROVIDED HISTORY: ProbableCOVID-19 pneumonia FINDINGS: Limited low lung volume examination. Cardiac silhouette is borderline prominent. Generalized interstitial prominence noted with subtle lower lung opacities, accentuated by hypoaeration. No definite pleural effusion or pneumothorax. Osseous structures and soft tissues are grossly intact. [place] Generalized interstitial prominence accentuated by hypoaeration. Bibasilar opacities favor atelectasis/scarrin g. No obvious focal airspace consolidation, pleural effusion, or pneumothorax. [facility] [place], [place] Laboratory - Chemistry and C hemistry - challengeon 10-03-2019 Bilirubin Ql (U) Negative Invalid Interpretation Code Negative [facility] Ketones Ql (U) 1+ Invalid Interpretation Code Negative [employer] pH (U) 6 [pH] Invalid Interpretation Code 5.0-9.0 [facility] Specific gravity (U) [Rel density] 1.010 Invalid Interpretation Code 1.003-1.030 [facility] Urobilinogen (U) [Mass/Vol] normal Invalid Interpretation Code normal [email or web address] Laboratory - Hematology and Cell countson 10-03-2019 HbA1c (Bld) [Mass fraction] 10.10 % Invalid Interpretation Code 4.3-6.3 [facility] Hemoglobin Ql (U) Negative Invalid Interpretation Code Negative [facility] Laboratory - Specimen inform ationon 10-03-2019 Clarity (U) clear Invalid Interpretation Code Clear [facility] Color (U) yellow Invalid Interpretation Code yellow [facility] Laboratory - Urinalysison Glucose Test strip (U) [Mass/Vol] 4+ Invalid Interpretation Code Negative [facility] Leukocyte esterase Test strip Ql (U) Negative Invalid Interpretation Code Negative [facility] Nitrite Ql (U) Negative Invalid Interpretation Code Negative [facility] Protein Ql (U) Negative Invalid Interpretation Code Negative [facility] No Panel Informationon 10-02 243.0 mg/dL Invalid Interpretation Code [employer] Basic Metabolic Panelon 06-17 Anion gap [Moles/Vol] 11 mmol/L 9 - 17 mmol/L [place] Bun/Cre Ratio 38 High [place] Calcium [Mass/Vol] 9.1 mg/dL 8.6 - 10. 4 mg/dL [place] Chloride [Moles/Vol] 103 mmol/L 98 - 10 7 mmol/L [place] CO2 [Moles/Vol] 25 mmol/L 20 - 31 mmol/L [place] Creatinine [Mass/Vol] 0.55 mg/dL 0.5 - 0.9 mg/dL [place] GFR >60 >60 mL/min [place] GFR Non- >60 >60 mL/min [place] Glucose [Mass/Vol] 291 mg/dL High 70 - 99 mg/dL [place] Potassium [Moles/Vol] 4.8 mmol/L 3.7 - 5.3 mmol/L [place] Sodium [Moles/Vol] 139 mmol/L 135 - 144 mmol/L [place] Urea nitrogen [Mass/Vol] 21 mg/dL High 6 - 20 mg/dL [place] Hemoglobin A1Con 07-14-2019 Glucose [Mass/Vol] 280 mg/dL [place] Comment on above: The ADA and AACC rec ommend providing the estimated average glucose result to permit better patient understanding of their HBA1c result. HbA1c (Bld) [Mass fraction] 11.4 % High 4.8 - 5.9 % [place] Interpretation and review of laboratory results Abnormal [place] Insulin, totalon 07-14-2019 INR Coag (Bld) [Relative time] [place] Comment on above: Fastin.6-24.9 30 min: 20-112 60 min: 29-88 90 min: 26-84 120 min: 22-79 Insulin 7.7 mU/L [place] Insulin Comment [address] [facility] [place] [place] Lipid Panelon 07-14-2019 Cholesterol [Mass/Vol] 219 mg/dL High <200 [place] Comment on above: Cholesterol Guidelines: <200 Desirable 200-240 Borderline >240 Undesirable Cholesterol in HDL [Mass/Vol] 33 mg/dL Low >40 [place] Comment on above: HDL Guidelines: <40 Undesirable 40-59 Borderline >59 Desirable Cholesterol in LDL [Mass/Vol] 110 mg/dL 0 - 130 mg/dL [place] Comment on above: LDL Guidelines: <100 Desirable 100-129 Near to/above Desirable 130-159 Borderline >159 Undesirable Direct (measured) LDL and calculated LDL are not interchangeable tests. Cholesterol in VLDL [Mass/Vol] NOT REPORTED High 1 - 30 mg/dL [place] Cholesterol.total/Chol esterol in HDL [Mass ratio] 6.6 {ratio} High <5 [place] Triglyceride [Mass/Vol] 381 mg/dL High <150 [place] Comment on above: Triglyceride Guidelines: <150 Desirable 150-199 Borderline 200-499 High >499 Very high Based on AHA Guidelines for fasting triglyceride, November 2011. Metabolic Panelon 07-14-2019 GFR/1.73 sq M predicted among non-blacks MDRD (S/P/Bld) [Vol rate/Area] [place] Comment on above: Stage 1: Some kidney damage normal GFR Stage 2: Mild kidney damage GFR 60-89 Stage 3: Moderate kidney damage GFR 30-59 Stage 4: Severe kidney damage GFR 15-29 Stage 5: Severe kidney damage GFR <15 ESRD - chronic treatment by dialysis or transplant Average GFR for 50-5 9 years old: 93 mL/min/1.73sq m Chronic Kidney Disease: <60 mL/min/1.73sq m Kidney failure: <15 mL/min/1.73sq m eGFR calculated using average adult body mass. Additional eGFR calculator available at: http://www.[employer].Civicon/multiple_crcl_2012.htm Otheron 07-14-2019 Interpretation and review of laboratory results Abnormal [place] Basic Metabolic PanelOrdered By: Yazan Adrian on 03-11-2019 Anion gap [Moles/Vol] 13 mmol/L 9 - 17 mmol/L [facility] Work Phone: Bun/Cre Ratio 28 High [facility] Work Phone: Calcium [Mass/Vol] 8.9 mg/dL 8.6 - 10. 4 mg/dL [place] Phone: Chloride [Moles/Vol] 102 mmol/L 98 - 10 7 mmol/L [facility] Phone: CO2 [Moles/Vol] 24 mmol/L 20 - 31 mmol/L [place] Phone: Creatinine [Mass/Vol] 0.54 mg/dL 0.5 - 0.9 mg/dL [place] Phone: GFR >60 >60 mL/min [place] Phone: GFR Comment [facility] Phone: Comment on above: Average GFR for 50-5 9 years old: 93 mL/min/1.73sq m Chronic Kidney Disease: <60 mL/min/1.73sq m Kidney failure: <15 mL/min/1.73sq m eGFR calculated using average adult body mass. Additional eGFR calculator available at: http://www.Spoqa/multiple_crcl_2012.htm GFR Non- >60 >60 mL/min [facility] Phone: GFR Staging [facility] Phone: Comment on above: Stage 1: Some kidney damage normal GFR Stage 2: Mild kidney damage GFR 60-89 Stage 3: Moderate kidney damage GFR 30-59 Stage 4: Severe kidney damage GFR 15-29 Stage 5: Severe kidney damage GFR <15 ESRD - chronic treatment by dialysis or transplant Glucose [Mass/Vol] 333 mg/dL High 70 - 99 mg/dL [employer] Work Phone: Potassium [Moles/Vol] 4.3 mmol/L 3.7 - 5.3 mmol/L [facility] Phone: Sodium [Moles/Vol] 139 mmol/L 135 - 144 mmol/L [facility] Phone: Urea nitrogen [Mass/Vol] 15 mg/dL 6 - 20 mg/dL [place] Phone: Hemoglobin [id number] By: Priya Adrian on 03-11-2019 Glucose [Mass/Vol] 298 mg/dL [place] Phone: Comment on above: The ADA and AACC rec ommend providing the estimated average glucose result to permit better patient understanding of their HBA1c result. HbA1c (Bld) [Mass fraction] 12.0 % High 4.8 - 5.9 % [place] Phone: Interpretation and review of laboratory results Abnormal [place] Phone: Lipid PanelOrdered By: Yazan Adrian on 03-11-2019 Cholesterol [Mass/Vol] 239 mg/dL High <200 [facility] [employer] Phone: Comment on above: Cholesterol Guidelines: <200 Desirable 200-240 Borderline >240 Undesirable Cholesterol in HDL [Mass/Vol] 39 mg/dL Low >40 [place] Phone: Comment on above: HDL Guidelines: <40 Undesirable 40-59 Borderline >59 Desirable Cholesterol in LDL [Mass/Vol] 150 mg/dL High 0 - 130 mg/dL [place] Phone: Comment on above: LDL Guidelines: <100 Desirable 100-129 Near to/above Desirable 130-159 Borderline >159 Undesirable Direct (measured) LDL and calculated LDL are not interchangeable tests. Cholesterol.total/Chol esterol in HDL [Mass ratio] 6.1 {ratio} High <5 [place] Phone: Triglyceride [Mass/Vol] 250 mg/dL High <150 [place] Phone: Comment on above: Triglyceride Guidelines: <150 Desirable 150-199 Borderline 200-499 High >499 Very high Based on AHA Guidelines for fasting triglyceride, November 2011. VLDL NOT REPORTED High 1 - 30 mg/dL [employer] Work Phone: Microalbumin, UrOrdered By: Yazan Adrian on 03-11-2019 Albumin/Creatinine DL <= 20 mg/L (24H U) [Mass ratio] <12 <21 mg/L [facility] Phone: Albumin/Creatinine DL <= 20 mg/L (U) [Ratio] CANNOT BE CALCULATED <25 mcg/mg creat [place] Phone: Creatinine [Mass/Vol] 120.7 mg/dL 28 - 2 17 mg/dL [place] Phone: No Panel InformationOrdered By: Yazan Adrian on 03-11-2019 Interpretation and review of laboratory results Abnormal [facility] Phone: Basic Metabolic Panelon 11-16 Anion gap [Moles/Vol] 13 mmol/L 9 - 17 mmol/L [place] Bun/Cre Ratio 34 High [place] Calcium [Mass/Vol] 9.2 mg/dL 8.6 - 10. 4 mg/dL [place] Chloride [Moles/Vol] 97 mmol/L Low 98 - 10 7 mmol/L [place] CO2 [Moles/Vol] 24 mmol/L 20 - 31 mmol/L [place] Creatinine [Mass/Vol] 0.47 mg/dL Low 0.5 - 0.9 mg/dL [place] GFR >60 >60 mL/min [place] GFR Non- >60 >60 mL/min [place] Glucose [Mass/Vol] 288 mg/dL High 70 - 99 mg/dL [place] Interpretation and review of laboratory results Abnormal [place] Potassium [Moles/Vol] 4.6 mmol/L 3.7 - 5.3 mmol/L [place] Sodium [Moles/Vol] 134 mmol/L Low 135 - 144 mmol/L [place] Urea nitrogen [Mass/Vol] 16 mg/dL 6 - 20 mg/dL [place] Hemoglobin A1Con 12-04-2018 Glucose [Mass/Vol] 246 mg/dL [place] Comment on above: The ADA and AACC rec ommend providing the estimated average glucose result to permit better patient understanding of their HBA1c result. HbA1c (Bld) [Mass fraction] 10.2 % High 4.8 - 5.9 % [place] Interpretation and review of laboratory results Abnormal [place] Metabolic Panelon 12-04-2018 GFR/1.73 sq M predicted among non-blacks MDRD (S/P/Bld) [Vol rate/Area] [place] Comment on above: Stage 1: Some kidney damage normal GFR Stage 2: Mild kidney damage GFR 60-89 Stage 3: Moderate kidney damage GFR 30-59 Stage 4: Severe kidney damage GFR 15-29 Stage 5: Severe kidney damage GFR <15 ESRD - chronic treatment by dialysis or transplant Average GFR for 50-5 9 years old: 93 mL/min/1.73sq m Chronic Kidney Disease: <60 mL/min/1.73sq m Kidney failure: <15 mL/min/1.73sq m eGFR calculated using average adult body mass. Additional eGFR calculator available at: http://www.Spoqa/multiple_crcl_2012.htm [facility] 12-02-2017 Cholesterol [Mass/Vol] 200.0 mg/dL Invalid Interpretation Code 0-200 [facility] Cholesterol in HDL [Mass/Vol] 45.0 mg/dL Invalid Interpretation Code 50-100 [facility] Cholesterol in LDL [Mass/Vol] 126.0 mg/dL Invalid Interpretation Code 0-130 [facility] Triglyceride [Mass/Vol] 144.0 mg/dL Invalid Interpretation Code 30-150 [facility] Laboratory - Urinalysison Glucose Test strip (U) [Mass/Vol] Negative Invalid Interpretation Code negative [facility] Protein (U) [Mass/Vol] Negative Invalid Interpretation Code negative [facility] Metabolic Panelon 12-02-2017 Glucose [Mass/Vol] 147.0 mg/dL Invalid Interpretation Code 80-117 [facility] HbA1c (Bld) [Mass fraction] 6.50 % Invalid Interpretation Code 4.3-6.3 [facility] No Panel Informationon 12-02 140.0 mg/dL Invalid Interpretation Code [facility] Otheron 12-02-2017 Cholesterol in VLDL [Mass/Vol] 29.0 mg/dL Invalid Interpretation Code 0-39 [facility] Cholesterol.total/Chol esterol in HDL [Mass ratio] 4 {ratio} Invalid Interpretation Code [id number] Glucose Test strip (U) [Mass/Vol] Negative negative [email or web address] 140 [email or web address] Urinalysison 12-02-2017 Protein (U) [Mass/Vol] Negative negative [facility] Hematologyon 05-09-2016 ESR Velocity (Bld) 10 mm/h Invalid Interpretation Code 0-20 [facility] Thyroidon 05-09-2016 T4 mass conc 4.82 ug/dL Invalid Interpretation Code 5.00-12.00 [facility] Thyrotropin Qn 1.41 m[IU]/L Invalid Interpretation Code 0.50-4.00 [facility] 01-29-2015 Cholesterol in HDL mass conc 42.0 mg/dL Invalid Interpretation Code 50-100 [employer] Cholesterol in LDL mass conc 155.0 mg/dL Invalid Interpretation Code 0-130 [facility] Cholesterol mass conc 224.0 mg/dL Invalid Interpretation Code 0-200 [facility] Triglyceride mass conc 135.0 mg/dL Invalid Interpretation Code 30-150 [facility] Laboratory - Chemistry and C hemistry - challengeon 01-29-2015 Bilirubin Ql (U) Negative Invalid Interpretation Code Negative [facility] Ketones Ql (U) Negative Invalid Interpretation Code Negative [facility] Urobilinogen (U) [Mass/Vol] normal Invalid Interpretation Code normal [facility] Laboratory - Hematology and Cell countson 01-29-2015 Hemoglobin Ql (U) Negative Invalid Interpretation Code Negative [facility] Laboratory - Urinalysison Leukocyte esterase Test strip Ql (U) Negative Invalid Interpretation Code Negative [facility] Nitrite Ql (U) Negative Invalid Interpretation Code Negative [facility] Protein Ql (U) Negative Invalid Interpretation Code Negative [facility] Metabolic Panelon 01-29-2015 Anion gap molar conc 21 mmol/L Invalid Interpretation Code 10-20 [facility] Calcium mass conc 9.20 mg/dL Invalid Interpretation Code 8.5-10.8 [facility] Chloride molar conc 99 mmol/L Invalid Interpretation Code 100-112 [facility] CO2 molar conc 24 mmol/L Invalid Interpretation Code 23-30 [facility] Creatinine mass conc 0.70 mg/dL Invalid Interpretation Code 0.5-1.5 [facility] GFR/1.73 sq M predicted among non-blacks MDRD vol rate/area (S/P/Bld) 89 mL/min/{1.73_m2} Invalid Interpretation Code [facility] Glucose mass conc 172.0 mg/dL Invalid Interpretation Code 80-117 [facility] Hemoglobin A1c/Hemoglobin.total mass fraction (Bld) 6.90 % Invalid Interpretation Code 4.3-6.3 [facility] [place] Potassium molar conc 5.0 mmol/L Invalid Interpretation Code 3.5-5.3 [facility] [place] Sodium molar conc 139 mmol/L Invalid Interpretation Code 135-148 [facility] [place] Urea nitrogen mass conc 15.0 mg/dL Invalid Interpretation Code 7-25 [facility] [place] Urea nitrogen/Creatinine mass ratio 21 mg/mg Invalid Interpretation Code 6-20 [facility] [place] No Panel Informationon 01-29 151.0 mg/dL Invalid Interpretation Code [facility] Otheron 01-29-2015 Bilirubin Ql (U) Negative Negative [facility] Cholesterol in VLDL mass conc 27.0 mg/dL Invalid Interpretation Code 0-39 [facility] [place] Cholesterol.total/Chol esterol in HDL mass ratio 5 {ratio} Invalid Interpretation Code [facility] [place] Glucose Test strip mass conc (U) 4+ Invalid Interpretation Code Negative [facility] [place] Hemoglobin Ql (U) Negative Negative [facility] Nitrite Ql (U) Negative Negative [facility] [place] pH (U) 5 [pH] Invalid Interpretation Code 4.5-7.8 [facility] [place] Protein Ql (U) Negative Negative [facility] [place] Urobilinogen Test strip mass conc (U) normal normal [facility] [place] 151 [email or web address] Urinalysison 01-29-2015 Clarity Nom (U) clear Invalid Interpretation Code Clear [facility] Color Nom (U) yellow Invalid Interpretation Code yellow [facility] Ketones Ql (U) Negative Negative [facility] Leukocyte esterase Test strip Ql (U) Negative Negative [facility] Specific gravity Relative Density (U) 1.020 Invalid Interpretation Code 1.003-1.029 [facility] 09-25-2014 Cholesterol in HDL mass conc 35.0 mg/dL Invalid Interpretation Code 50-100 [facility] Cholesterol in LDL mass conc 121.0 mg/dL Invalid Interpretation Code 0-130 [facility] Cholesterol mass conc 194.0 mg/dL Invalid Interpretation Code 0-200 [facility] Triglyceride mass conc 189.0 mg/dL Invalid Interpretation Code 30-150 [facility] Laboratory - Chemistry and C hemistry - challengeon 09-25-2014 Bilirubin Ql (U) Negative Invalid Interpretation Code Negative [facility] Ketones Ql (U) Negative Invalid Interpretation Code Negative [facility] Urobilinogen (U) [Mass/Vol] normal Invalid Interpretation Code normal [facility] Laboratory - Hematology and Cell countson 09-25-2014 Hemoglobin Ql (U) Negative Invalid Interpretation Code Negative [facility] Laboratory - Urinalysison Nitrite Ql (U) Negative Invalid Interpretation Code Negative [facility] Protein Ql (U) Negative Invalid Interpretation Code Negative [facility] Metabolic Panelon 09-25-2014 Anion gap molar conc 17 mmol/L Invalid Interpretation Code 10-20 [facility] [place] Calcium mass conc 9.30 mg/dL Invalid Interpretation Code 8.5-10.8 [facility] [place] Chloride molar conc 105 mmol/L Invalid Interpretation Code 100-112 [facility] [place] CO2 molar conc 27 mmol/L Invalid Interpretation Code 23-30 [facility] [place] Creatinine mass conc 0.70 mg/dL Invalid Interpretation Code 0.5-1.5 [facility] [place] GFR/1.73 sq M predicted among non-blacks MDRD vol rate/area (S/P/Bld) 89 mL/min/{1.73_m2} Invalid Interpretation Code [facility] [place] Glucose mass conc 162.0 mg/dL Invalid Interpretation Code 80-117 [facility] [place] Hemoglobin A1c/Hemoglobin.total mass fraction (Bld) 7.70 % Invalid Interpretation Code 4.3-6.3 [facility] [place] Potassium molar conc 4.7 mmol/L Invalid Interpretation Code 3.5-5.3 [facility] [place] Sodium molar conc 144 mmol/L Invalid Interpretation Code 135-148 [facility] [place] Urea nitrogen mass conc 16.0 mg/dL Invalid Interpretation Code 7-25 [facility] [place] Urea nitrogen/Creatinine mass ratio 23 mg/mg Invalid Interpretation Code 6-20 [facility] [place] No Panel Informationon 09-25 174.0 mg/dL Invalid Interpretation Code [facility] [place] Otheron 09-25-2014 Bilirubin Ql (U) Negative Negative [facility] [place] Cholesterol in VLDL mass conc 38.0 mg/dL Invalid Interpretation Code 0-39 [facility] Cholesterol.total/Chol esterol in HDL mass ratio 6 {ratio} Invalid Interpretation Code [facility] Glucose Test strip mass conc (U) 4+ Invalid Interpretation Code Negative [facility] Hemoglobin Ql (U) Negative Negative [facility] Nitrite Ql (U) Negative Negative [facility] [employer] [facility] pH (U) 5 [pH] Invalid Interpretation Code 4.5-7.8 [facility] [employer] [facility] Protein Ql (U) Negative Negative [facility] Urobilinogen Test strip mass conc (U) normal normal [facility] [employer] [facility] 174 [facility] [place] Urinalysison 09-25-2014 Clarity Nom (U) clear Invalid Interpretation Code Clear [facility] [facility] Color Nom (U) yellow Invalid Interpretation Code yellow [facility] [employer] [facility] Ketones Ql (U) Negative Negative [facility] [employer] [facility] Leukocyte esterase Test strip Ql (U) Trace Invalid Interpretation Code Negative [facility] Specific gravity Relative Density (U) 1.020 Invalid Interpretation Code 1.003-1.029 [facility] Laboratory - Chemistry and C hemistry - challengeon 07-21-2014 Bilirubin Ql (U) Negative Invalid Interpretation Code Negative [facility] [employer] [facility] Ketones Ql (U) Negative Invalid Interpretation Code Negative [facility] [employer] [facility] Urobilinogen (U) [Mass/Vol] normal Invalid Interpretation Code normal [facility] Laboratory - Hematology and Cell countson 07-21-2014 Hemoglobin Ql (U) Negative Invalid Interpretation Code Negative [facility] Laboratory - Urinalysison Leukocyte esterase Test strip Ql (U) Negative Invalid Interpretation Code Negative [facility] Nitrite Ql (U) Negative Invalid Interpretation Code Negative [facility] Metabolic Panelon 07-21-2014 Anion gap molar conc 18 mmol/L Invalid Interpretation Code 10-20 [facility] Calcium mass conc 9.40 mg/dL Invalid Interpretation Code 8.5-10.8 [facility] Chloride molar conc 103 mmol/L Invalid Interpretation Code 100-112 [facility] CO2 molar conc 24 mmol/L Invalid Interpretation Code 23-30 [facility] Creatinine mass conc 0.60 mg/dL Invalid Interpretation Code 0.5-1.5 [facility] GFR/1.73 sq M predicted among non-blacks MDRD vol rate/area (S/P/Bld) 106 mL/min/{1.73_m2} Invalid Interpretation Code [facility] Glucose mass conc 236.0 mg/dL Invalid Interpretation Code 80-117 [facility] Hemoglobin A1c/Hemoglobin.total mass fraction (Bld) 9.30 % Invalid Interpretation Code 4.3-6.3 [facility] Potassium molar conc 4.7 mmol/L Invalid Interpretation Code 3.5-5.3 [facility] Sodium molar conc 140 mmol/L Invalid Interpretation Code 135-148 [facility] Urea nitrogen mass conc 15.0 mg/dL Invalid Interpretation Code 7-25 [facility] Urea nitrogen/Creatinine mass ratio 25 mg/mg Invalid Interpretation Code 6-20 [facility] Otheron 07-21-2014 Bilirubin Ql (U) Negative Negative [facility] Glucose Test strip mass conc (U) 3+ Invalid Interpretation Code Negative [facility] Hemoglobin Ql (U) Negative Negative [facility] Nitrite Ql (U) Negative Negative [facility] pH (U) 5 [pH] Invalid Interpretation Code 4.5-7.8 [facility] Protein Ql (U) 1+ Invalid Interpretation Code Negative [facility] Urobilinogen Test strip mass conc (U) normal normal [facility] 220.0 mg/dL Invalid Interpretation Code [facility] Urinalysison 07-21-2014 Clarity Nom (U) clear Invalid Interpretation Code Clear [place] [facility] Color Nom (U) yellow Invalid Interpretation Code yellow [facility] Ketones Ql (U) Negative Negative [facility] Leukocyte esterase Test strip Ql (U) Negative Negative [place] [facility] Specific gravity Relative Density (U) 1.025 Invalid Interpretation Code 1.003-1.029 [facility] Otheron 06-05-2014 MTHFR gene targeted mutation analysis [employer] [facility] (Bld/Tiss) COMMENT Invalid Interpretation Code [place] [facility] COMMENT Invalid Interpretation Code [facility] Laboratory - Chemistry and C hemistry - challengeon 05-03-2014 Bilirubin Ql (U) Negative Invalid Interpretation Code Negative [facility] Ketones Ql (U) Negative Invalid Interpretation Code Negative [facility] Urobilinogen (U) [Mass/Vol] normal Invalid Interpretation Code normal [email or web address] - Hematology and Cell countson 05-03-2014 Hemoglobin Ql (U) Negative Invalid Interpretation Code Negative [facility] Laboratory - Urinalysison Leukocyte esterase Test strip Ql (U) Negative Invalid Interpretation Code Negative [facility] Nitrite Ql (U) Negative Invalid Interpretation Code Negative [facility] Protein Ql (U) Negative Invalid Interpretation Code Negative [facility] Metabolic Panelon 05-03-2014 Anion gap molar conc 19 mmol/L Invalid Interpretation Code 10-20 [facility] Calcium mass conc 9.50 mg/dL Invalid Interpretation Code 8.5-10.8 [facility] Chloride molar conc 97 mmol/L Invalid Interpretation Code 100-112 [facility] CO2 molar conc 28 mmol/L Invalid Interpretation Code 23-30 [facility] Creatinine mass conc 0.50 mg/dL Invalid Interpretation Code 0.5-1.5 [facility] GFR/1.73 sq M predicted among non-blacks MDRD vol rate/area (S/P/Bld) 132 mL/min/{1.73_m2} Invalid Interpretation Code [facility] Glucose mass conc 450.0 mg/dL Invalid Interpretation Code 80-117 [facility] Hemoglobin A1c/Hemoglobin.total mass fraction (Bld) 11.30 % Invalid Interpretation Code 4.3-6.3 [facility] Potassium molar conc 4.6 mmol/L Invalid Interpretation Code 3.5-5.3 [facility] Sodium molar conc 139 mmol/L Invalid Interpretation Code 135-148 [facility] Urea nitrogen mass conc 17.0 mg/dL Invalid Interpretation Code 7-25 [facility] Urea nitrogen/Creatinine mass ratio 34 mg/mg Invalid Interpretation Code 6-20 [facility] Otheron 05-03-2014 Bilirubin Ql (U) Negative Negative [facility] Collection time Date and time (Yahaira) 11:35 am Invalid Interpretation Code [facility] Glucose Test strip mass conc (U) 4+ Invalid Interpretation Code Negative [facility] Hemoglobin Ql (U) Negative Negative [facility] [employer] Nitrite Ql (U) Negative Negative [facility] pH (U) 5 [pH] Invalid Interpretation Code 4.5-7.8 [facility] Protein Ql (U) Negative Negative [facility] Urobilinogen Test strip mass conc (U) normal normal [facility] 278.0 mg/dL Invalid Interpretation Code [facility] Urinalysison 05-03-2014 Clarity Nom (U) clear Invalid Interpretation Code Clear [facility] Color Nom (U) yellow Invalid Interpretation Code yellow [facility] Ketones Ql (U) Negative Negative [facility] Leukocyte esterase Test strip Ql (U) Negative Negative [facility] Specific gravity Relative Density (U) 1.015 Invalid Interpretation Code 1.003-1.029 [facility] Vital Signs Date Time Vital Sign Value Performing Clinician Mynori ashley 12-11-2021 10:08-0400 Body weight 108.41 kg [employer] 12-11-2021 10:08-0400 Diastolic blood pressure 86 mm[Hg] [employer] 12-11-2021 10:08-0400 Heart rate 72 /min [employer] 12-11-2021 10:08-0400 Systolic blood pressure 164 mm[Hg] [employer] 08-14-2021 10:25-0400 Body height 165.1 cm [employer] 08-14-2021 10:25-0400 Body mass index (BMI) [Ratio] 42.35 kg/m2 [employer] 08-14-2021 10:25-0400 Body surface area Derived from formula 2.3 m2 [employer] 08-14-2021 10:25-0400 Body weight 115.44 kg [employer] 08-14-2021 10:25-0400 Diastolic blood pressure 90 mm[Hg] [employer] 08-14-2021 10:25-0400 Heart rate 72 /min [employer] 08-14-2021 10:25-0400 Systolic blood pressure 186 mm[Hg] [facility] 06-06-2021 10:21-0400 Body height 165.1 cm [facility] [employer] 06-06-2021 10:21-0400 Body mass index (BMI) [Ratio] 43.1 kg/m2 [employer] 06-06-2021 10:21-0400 Body surface area Derived from formula 2.32 m2 [employer] 06-06-2021 10:040 Body weight 117.48 kg [employer] 06-06-2021 10:21-0400 Diastolic blood pressure 86 mm[Hg] [employer] 06-06-2021 10:21-0400 Heart rate 90 /min [employer] 06-06-2021 10:21-0400 Systolic blood pressure 162 mm[Hg] [employer] 05-06-2021 11:25-0400 Body height 165.1 cm [employer] 05-06-2021 11:25-0400 Body mass index (BMI) [Ratio] 40.77 kg/m2 [employer] 05-06-2021 11:25-0400 Body surface area Derived from formula 2.26 m2 [employer] 05-06-2021 11:25-0400 Body weight 111.13 kg [employer] 05-06-2021 11:25-0400 Diastolic blood pressure 60 mm[Hg] Yazan [facility] 05-06-2021 11:25-0400 Heart rate 72 /min [employer] 05-06-2021 11:25-0400 Systolic blood pressure 122 mm[Hg] [employer] 01-03-2021 10:10-0500 Body height 165.1 cm [employer] 01-03-2021 10:10-0500 Body mass index (BMI) [Ratio] 41.6 kg/m2 [employer] 01-03-2021 10:10-0500 Body surface area Derived from formula 2.28 m2 [employer] 01-03-2021 10:10-0500 Body weight 113.4 kg [employer] 01-03-2021 10:10-0500 Diastolic blood pressure 84 mm[Hg] [employer] 01-03-2021 10:10-0500 Heart rate 76 /min [employer] 01-03-2021 10:10-0500 Systolic blood pressure 160 mm[Hg] [employer] 09-03-2020 13:40-0400 Body height 165.1 cm [employer] 09-03-2020 13:40-0400 Body mass index (BMI) [Ratio] 41.6 kg/m2 [employer] 09-03-2020 13:40-0400 Body surface area Derived from formula 2.28 m2 [employer] 09-03-2020 13:40-0400 Body weight 113.4 kg [employer] 09-03-2020 13:40-0400 Diastolic blood pressure 90 mm[Hg] [employer] 09-03-2020 13:40-0400 Heart rate 72 /min [facility] [employer] 09-03-2020 13:40-0400 Systolic blood pressure 160 mm[Hg] [employer] 12-02-2019 14:56-0400 BP Diastolic 58 mm[Hg] Joey Richardtrick [employer] [facility] 12-02-2019 14:56-0400 BP Systolic 147 mm[Hg] Joey BootheKaleidoscope [facility] 12-02-2019 14:56-0400 Pulse Oximetry 92 % Joey WaiteVenari Resources [facility] 12-02-2019 11:36-0400 BMI (Body Mass Index) 47.05 kg/m2 Joey WaiteKaleidoscope[facility] [place] 12-02-2019 11:36-0400 Body Temperature 100 [degF] Joey Rosa [facility] 12-02-2019 11:36-0400 Body weight 112.95 kg Joey Waite [employer] [facility] 12-02-2019 11:36-0400 Height 154.9 cm Joey WaiteVenari Resources [facility] 12-02-2019 11:36-0400 Pulse (Heart Rate) 98 /min [facility] [place] 12-02-2019 11:36-0400 Respiratory Rate 20 /min Joey Rosa [facility] [place] [place] 10-03-2019 10:30-0400 BMI (Body Mass Index) 42.1 kg/m2 [employer] 10-03-2019 10:30-0400 Body Temperature 98 [degF] [employer] 10-03-2019 10:30-0400 Body weight 114.76 kg [employer] 10-03-2019 10:30-0400 BP Diastolic 84 mm[Hg] [employer] 10-03-2019 10:30-0400 BP Systolic 154 mm[Hg] [employer] 10-03-2019 10:30-0400 BSA (Body Surface Area) 2.29 m2 [employer] 10-03-2019 10:30040 Height 165.1 cm [employer] 10-03-2019 10:30-0400 Pulse (Heart Rate) 84 /min Yazan [employer] 08-22-2019 11:26-0400 BMI (Body Mass Index) 41.49 kg/m2 [employer] 08-22-2019 11:26-0400 Body Temperature 98.7 [degF] [employer] 08-22-2019 11:26-0400 Body weight 113.09 kg [facility] [employer] 08-22-2019 11:26-0400 BP Diastolic 98 mm[Hg] [employer] 08-22-2019 11:26-0400 BP Systolic 160 mm[Hg] [employer] 08-22-2019 11:26-0400 BSA (Body Surface Area) 2.28 m2 [employer] 08-22-2019 11:260400 Height 165.1 cm [employer] 08-22-2019 11:26-0400 Pulse (Heart Rate) 84 /min Yazan [employer] 07-19-2019 10:20-0400 BMI (Body Mass Index) 41.35 kg/m2 [employer] 07-19-2019 10:20-0400 Body Temperature 97.6 [degF] [employer]an [employer] 07-19-2019 10:20-0400 Body weight 112.72 kg [employer] 07-19-2019 10:20-0400 BP Diastolic 82 mm[Hg] [employer] 07-19-2019 10:20-0400 BP Systolic 130 mm[Hg] [employer] 07-19-2019 10:20-0400 BSA (Body Surface Area) 2.27 m2 [employer] 07-19-2019 10:20-0400 Height 165.1 cm [employer] 07-19-2019 10:20-0400 Pulse (Heart Rate) 78 /min [employer] 03-15-2019 18:47-0500 BMI (Body Mass Index) 41.68 kg/m2 [employer] 03-15-2019 18:47-0500 BMI (Body Mass Index) 41.69 kg/m2 [employer] 03-15-2019 18:47-0500 Body weight 113.63 kg [employer] 03-15-2019 18:47-0500 BP Diastolic 84 mm[Hg] [employer] 03-15-2019 18:47-0500 BP Systolic 140 mm[Hg] [employer] 03-15-2019 18:47-0500 BSA (Body Surface Area) 2.28 m2 [employer] 03-15-2019 18:47-0500 Height 165.1 cm [employer] 03-15-2019 18:47-0500 Pulse (Heart Rate) 78 /min Yazan [employer] 01-26-2019 11:20-0500 BMI (Body Mass Index) 40.64 kg/m2 [employer] 01-26-2019 11:20-0500 Body weight 112.49 kg [employer] 01-26-2019 11:20-0500 BP Diastolic 84 mm[Hg] [employer] 01-26-2019 11:20-0500 BP Systolic 150 mm[Hg] [employer] 01-26-2019 11:20-0500 BSA (Body Surface Area) 2.28 m2 [employer] 01-26-2019 11:20-0500 Height 166.37 cm [employer] 01-26-2019 11:20-0500 Pulse (Heart Rate) 80 /min [employer] 12-07-2018 10:01-0400 BMI (Body Mass Index) 39.82 kg/m2 [employer] 12-07-2018 10:01-0400 Body weight 110.22 kg [employer] 12-07-2018 10:-0400 BP Diastolic 76 mm[Hg] [employer] 12-07-2018 10:01-0400 BP Systolic 160 mm[Hg] [employer] 12-07-2018 10:0400 BSA (Body Surface Area) 2.26 m2 [employer] 12-07-2018 10:040 Height 166.37 cm [employer] 12-07-2018 10:01-0400 Pulse (Heart Rate) 78 /min [employer] 07-29-2018 10:24-0400 BMI (Body Mass Index) 39.99 kg/m2 [employer] 07-29-2018 10:24-0400 Body weight 110.68 kg [employer] 07-29-2018 10:24-0400 BP Diastolic 86 mm[Hg] [employer] 07-29-2018 10:24-0400 BP Systolic 150 mm[Hg] [employer] 07-29-2018 10:0400 BSA (Body Surface Area) 2.26 m2 [employer] 07-29-2018 10:24040 Height 166.37 cm [employer] 07-29-2018 10:24-0400 Pulse (Heart Rate) 90 /min [employer] 07-29-2018 10:24-0400 Weight 110.68 kg [employer] 03-25-2018 10:34-0500 BMI (Body Mass Index) 40.48 kg/m2 [employer] 03-25-2018 10:34-0500 Body weight 112.04 kg [employer] 03-25-2018 10:34-0500 BP Diastolic 96 mm[Hg] [employer] 03-25-2018 10:34-0500 BP Systolic 140 mm[Hg] [employer] 03-25-2018 10:34-0500 BSA (Body Surface Area) 2.28 m2 [employer] 03-25-2018 10:34-0500 Height 166.37 cm [employer] 03-25-2018 10:34-0500 Pulse (Heart Rate) 78 /min [employer] 03-25-2018 10:34-0500 Weight 112.04 kg [employer] 12-24-2017 10:13-0500 BMI (Body Mass Index) 39.99 kg/m2 [employer] 12-24-2017 10:13-0500 Body weight 110.68 kg [employer] 12-24-2017 10:13-0500 BP Diastolic 78 mm[Hg] [employer] 12-24-2017 10:13-0500 BP Systolic 152 mm[Hg] [employer] 12-24-2017 10:13-0500 BSA (Body Surface Area) 2.26 m2 [employer] 12-24-2017 10:13-0500 Height 166.37 cm [employer] [employer] 12-24-2017 10:13-0500 Pulse (Heart Rate) 72 /min [employer] 12-24-2017 10:13-0500 Weight 110.68 kg [employer] 12-02-2017 10:49-0400 BMI (Body Mass Index) 39.87 kg/m2 [employer] 12-02-2017 10:49-0400 Body weight 110.37 kg [employer] 12-02-2017 10:49-0400 BP Diastolic 80 mm[Hg] [employer] 12-02-2017 10:49-0400 BP Systolic 142 mm[Hg] [employer] 12-02-2017 10:49-0400 BSA (Body Surface Area) 2.26 m2 [employer] 12-02-2017 10:49-0400 Height 166.37 cm [employer] 12-02-2017 10:49-0400 Pulse (Heart Rate) 72 /min [employer] 12-02-2017 10:49-0400 Weight 110.37 kg [employer] 09-02-2017 10:52-0400 BMI (Body Mass Index) 39.25 kg/m2 [employer] 09-02-2017 10:52-0400 Body weight 108.64 kg [employer] 09-02-2017 10:52-0400 BP Diastolic 94 mm[Hg] [facility] [employer] 09-02-2017 10:52-0400 BP Systolic 150 mm[Hg] [employer] 09-02-2017 10:52-0400 BSA (Body Surface Area) 2.24 m2 [employer] 09-02-2017 10:52-0400 Height 166.37 cm [employer] 09-02-2017 10:52-0400 Pulse (Heart Rate) 78 /min [employer] 09-02-2017 10:52-0400 Weight 108.64 kg [employer] 08-04-2017 18:01-0400 BMI (Body Mass Index) 39.41 kg/m2 [employer] 08-04-2017 18:01-0400 Body weight 109.09 kg [employer] 08-04-2017 18:01-0400 BP Diastolic 76 mm[Hg] [employer] 08-04-2017 18:01-0400 BP Systolic 140 mm[Hg] [employer] 08-04-2017 18:01-0400 BSA (Body Surface Area) 2.25 m2 [employer] 08-04-2017 18:01-0400 Height 166.37 cm [employer] 08-04-2017 18:01-0400 Pulse (Heart Rate) 88 /min [employer] 08-04-2017 18:01-0400 Weight 109.09 kg [employer] 06-04-2017 17:52-0400 BMI (Body Mass Index) 39.99 kg/m2 [employer] 06-04-2017 17:52-0400 Body weight 110.68 kg [employer] 06-04-2017 17:52-0400 BP Diastolic 74 mm[Hg] [employer] 06-04-2017 17:52-0400 BP Systolic 128 mm[Hg] [employer] 06-04-2017 17:52-0400 BSA (Body Surface Area) 2.26 m2 [employer] 06-04-2017 17:52-0400 Height 166.37 cm [employer] 06-04-2017 17:52-0400 Pulse (Heart Rate) 78 /min [employer] 06-04-2017 17:52-0400 Weight 110.68 kg [employer] 03-19-2017 11:54-0500 BMI (Body Mass Index) 39.82 kg/m2 [employer] 03-19-2017 11:54-0500 Body Temperature 97.1 [degF] [employer] 03-19-2017 11:54-0500 Body weight 110.22 kg [employer] 03-19-2017 11:54-0500 BP Diastolic 66 mm[Hg] [employer] 03-19-2017 11:54-0500 BP Systolic 110 mm[Hg] [employer] 03-19-2017 11:54-0500 BSA (Body Surface Area) 2.26 m2 [employer] 03-19-2017 11:54-0500 Height 166.37 cm [employer] 03-19-2017 11:54-0500 Pulse (Heart Rate) 66 /min [employer] 03-19-2017 11:54-0500 Weight 110.22 kg [employer] 01-30-2017 16:12-0500 BMI (Body Mass Index) 39.87 kg/m2 [employer] 01-30-2017 16:12-0500 Body weight 110.37 kg [employer] 01-30-2017 16:12-0500 BP Diastolic 72 mm[Hg] [employer] 01-30-2017 16:12-0500 BP Systolic 130 mm[Hg] [employer] 01-30-2017 16:12-0500 BSA (Body Surface Area) 2.26 m2 [employer] 01-30-2017 16:12-0500 Height 166.37 cm [employer] 01-30-2017 16:12-0500 Pulse (Heart Rate) 68 /min [employer] 01-30-2017 16:12-0500 Weight 110.37 kg [employer] 10-03-2016 13:34-0400 BMI (Body Mass Index) 40.07 kg/m2 [employer] 10-03-2016 13:34-0400 Body weight 110.91 kg [employer] 10-03-2016 13:34-0400 BP Diastolic 76 mm[Hg] Yazan [employer] 10-03-2016 13:34-0400 BP Systolic 132 mm[Hg] [employer] 10-03-2016 13:34-0400 BSA (Body Surface Area) 2.26 m2 [employer] 10-03-2016 13:34-0400 Height 166.37 cm [employer] 10-03-2016 13:34-0400 Pulse (Heart Rate) 72 /min Yazan [employer] 10-03-2016 13:34-0400 Weight 110.91 kg [employer] 08-21-2016 12:00-0400 BMI (Body Mass Index) 40.89 kg/m2 [employer] 08-21-2016 12:00-0400 Body weight 113.17 kg [employer] 08-21-2016 12:00-0400 BP Diastolic 88 mm[Hg] [employer] 08-21-2016 12:00-0400 BP Systolic 146 mm[Hg] [employer] 08-21-2016 12:00-0400 BSA (Body Surface Area) 2.29 m2 [employer] 08-21-2016 12:00-0400 Height 166.37 cm [employer] 08-21-2016 12:00-0400 Pulse (Heart Rate) 70 /min [employer] 08-21-2016 12:00-0400 Weight 113.17 kg [facility] [employer] 06-24-2016 13:39-0400 BMI (Body Mass Index) 41.54 kg/m2 [employer] 06-24-2016 13:39-0400 Body weight 114.99 kg [employer] 06-24-2016 13:39-0400 BP Diastolic 70 mm[Hg] [employer] 06-24-2016 13:39-0400 BP Systolic 122 mm[Hg] [employer] 06-24-2016 13:39-0400 BSA (Body Surface Area) 2.31 m2 [employer] 06-24-2016 13:39-0400 Height 166.37 cm [employer] 06-24-2016 13:39-0400 Pulse (Heart Rate) 76 /min [employer] 06-24-2016 13:39-0400 Weight 114.99 kg [employer] 05-23-2016 16:06-0400 Body weight 114 kg [employer] 05-23-2016 16:06-0400 BP Diastolic 70 mm[Hg] [employer] 05-23-2016 16:06-0400 BP Systolic 112 mm[Hg] [employer] 05-23-2016 16:06-0400 Pulse (Heart Rate) 68 /min [employer] 05-23-2016 16:06-0400 Weight 114 kg [facility] [employer] 05-09-2016 16:50-0400 BMI (Body Mass Index) 41.3 kg/m2 [employer] 05-09-2016 16:50-0400 Body weight 114.31 kg [employer] 05-09-2016 16:50-0400 BP Diastolic 80 mm[Hg] [employer] 05-09-2016 16:50-0400 BP Systolic 140 mm[Hg] [employer] 05-09-2016 16:50-0400 BSA (Body Surface Area) 2.3 m2 [employer] 05-09-2016 16:50-0400 Height 166.37 cm [employer] 05-09-2016 16:50-0400 Pulse (Heart Rate) 64 /min [employer] 05-09-2016 16:50-0400 Weight 114.31 kg [employer] 01-03-2016 11:53-0500 Body weight 115.21 kg [employer] 01-03-2016 11:53-0500 BP Diastolic 80 mm[Hg] [employer] 01-03-2016 11:53-0500 BP Systolic 140 mm[Hg] [employer] 01-03-2016 11:53-0500 Pulse (Heart Rate) 72 /min [employer] 01-03-2016 11:53-0500 Weight 115.21 kg [employer] [employer] 09-06-2015 12:07040 BMI (Body Mass Index) 40.27 kg/m2 [employer] 09-06-2015 12:07040 Body weight 109.77 kg [employer] 09-06-2015 12:07-0400 BP Diastolic 78 mm[Hg] [employer] 09-06-2015 12:070400 BP Systolic 122 mm[Hg] [employer] 09-06-2015 12:040 BSA (Body Surface Area) 2.24 m2 [employer] 09-06-2015 12:040 Height 165.1 cm [employer] 09-06-2015 12:070400 Pulse (Heart Rate) 76 /min [employer] 09-06-2015 12:070400 Weight 109.77 kg [employer] 05-03-2015 10:040 BMI (Body Mass Index) 41.35 kg/m2 [employer] 05-03-2015 10:29040 Body weight 112.72 kg [employer] 05-03-2015 10:29-0400 BP Diastolic 98 mm[Hg] [employer] 05-03-2015 10:290400 BP Systolic 138 mm[Hg] [employer] 05-03-2015 10:290400 BSA (Body Surface Area) 2.27 m2 [employer] 05-03-2015 10:290400 Height 165.1 cm [employer] 05-03-2015 10:290400 Pulse (Heart Rate) 72 /min [employer] 05-03-2015 10:290400 Weight 112.72 kg [employer] 02-05-2015 11:02-0500 BMI (Body Mass Index) 40.52 kg/m2 [employer] 02-05-2015 11:02-0500 Body weight 110.45 kg [employer] 02-05-2015 11:02-0500 BP Diastolic 68 mm[Hg] [employer] 02-05-2015 11:02-0500 BP Systolic 128 mm[Hg] [employer] 02-05-2015 11:02-0500 BSA (Body Surface Area) 2.25 m2 [employer] 02-05-2015 11:020500 Height 165.1 cm [employer] 02-05-2015 11:02-0500 Pulse (Heart Rate) 72 /min [employer] 02-05-2015 11:02-0500 Weight 110.45 kg [employer] 10-04-2014 12:26-0400 BMI (Body Mass Index) 40.77 kg/m2 [employer] 10-04-2014 12:26-0400 Body weight 111.13 kg [employer] 10-04-2014 12:26-0400 BP Diastolic 80 mm[Hg] [employer] 10-04-2014 12:26-0400 BP Systolic 130 mm[Hg] [employer] 10-04-2014 12:26-0400 BSA (Body Surface Area) 2.26 m2 [employer] 10-04-2014 12:260400 Height 165.1 cm [employer] 10-04-2014 12:26-0400 Pulse (Heart Rate) 80 /min [employer] 10-04-2014 12:26-0400 Weight 111.13 kg [employer] 07-24-2014 14:38-0400 BMI (Body Mass Index) 42.6 kg/m2 [employer] 07-24-2014 14:38-0400 Body weight 116.12 kg [employer] 07-24-2014 14:38-0400 BP Diastolic 78 mm[Hg] [employer] 07-24-2014 14:38-0400 BP Systolic 132 mm[Hg] [employer] 07-24-2014 14:38-0400 BSA (Body Surface Area) 2.31 m2 [employer] 07-24-2014 14:38-0400 Height 165.1 cm [employer] 07-24-2014 14:38-0400 Pulse (Heart Rate) 66 /min [employer] 07-24-2014 14:38-0400 Weight 116.12 kg [facility]azan Adrian [employer] 06-05-2014 11:05-0400 Body weight 116.8 kg Yazan [employer] 06-05-2014 11:05-0400 Weight 116.8 kg Yazan Adrian [employer] 05-03-2014 12:54-0400 BMI (Body Mass Index) 43.77 kg/m2 [facility]azan [employer] 05-03-2014 12:54-0400 Body Temperature 98.7 [degF] Yazan Ellis [employer] 05-03-2014 12:54-0400 Body weight 119.3 kg [facility] [employer] 05-03-2014 12:54-0400 BP Diastolic 80 mm[Hg] [employer] 05-03-2014 12:54-0400 BP Systolic 120 mm[Hg] [employer] 05-03-2014 12:54-0400 BSA (Body Surface Area) 2.34 m2 Yazan [employer] 05-03-2014 12:54-0400 Height 165.1 cm [employer] 05-03-2014 12:54-0400 Pulse (Heart Rate) 72 /min Yazan Adrian [place] Sylvia gusman [employer] 05-03-2014 12:54-0400 Weight 119.3 kg [facility] [employer] Encounters Encounter Date Encounter Type Care Provider Facility Start: 12-11-2021 Office outpatient visit 15 minutes Yazan Ike Adrian Other [facility] Office Start: 12-06-2021 End: 12-07-2021 [facility] Start: 12-06-2021 End: 12-06-2021 Subsequent hospital visit by physician Yazan Adrian MD Work Phone: [facility] Laboratory Start: 08-14-2021 Office outpatient visit 15 minutes Yazan A Bouts Other [facility] Office Start: 08-06-2021 End: 08-07-2021 [facility] Start: 08-06-2021 End: 08-06-2021 Subsequent hospital visit by physician Yazan Adrian MD Work Phone: [facility] Laboratory Start: 06-06-2021 Office outpatient visit 15 minutes Yazan A Bouts Other [facility] Office Start: 06-05-2021 End: 06-06-2021 [facility] Start: 06-05-2021 End: 06-05-2021 Subsequent hospital visit by physician Yazan Adrian MD Work Phone: [facility] Laboratory Start: 05-06-2021 Office outpatient visit 15 minutes Yazan A Bouts Other [facility] [place] Office Start: 01-17-2021 End: 01-17-2021 Split Srvc Yazan A Bouts Other [facility] [place] Office Start: 01-16-2021 ambulatory MD YAZAN ADRIAN Facili ty:[facility] Start: 01-03-2021 Office outpatient visit 25 minutes Yazan A Bouts Other [facility] [place] Office Start: 09-03-2020 Office outpatient visit 25 minutes Yazan A Bouts [facility] [facility] Office Start: 08-25-2020 End: 08-25-2020 ambulatory ROSEMARIE NORAH Facility:[facility]1 Start: 12-02-2019 End: 12-02-2019 Emergency department patient visit [facility] ED Comment on above: COVID-19 virus infec tion (Primary Dx); Cough; Bronchitis Start: 10-03-2019 Office outpatient visit 15 minutes Yazan A Bouts Other [facility] Office Start: 08-22-2019 Office outpatient visit 15 minutes Yazan A Bouts Other [facility] Office Start: 07-19-2019 Office outpatient visit 15 minutes Yazan A Bouts Other [facility] Office Start: 07-14-2019 End: 07-14-2019 Subsequent hospital visit by physician Yazan Adrian [facility] Laboratory Start: 03-15-2019 Office outpatient visit 15 minutes Yazan A Bouts Other [facility] Office Start: 03-11-2019 End: 03-11-2019 Subsequent hospital visit by physician Yazan Adrian MD Work Phone: [facility] Laboratory Start: 01-26-2019 Office outpatient visit 15 minutes Yazan A Bouts Other [facility] Office Start: 12-07-2018 Office outpatient visit 25 minutes Yazan A Bouts Other [facility] Office Start: 12-04-2018 End: 12-04-2018 Subsequent hospital visit by physician Yazan Adrian [facility] Laboratory Start: 07-29-2018 Office outpatient visit 25 minutes Yazan A Bouts Other [facility] Office Start: 03-25-2018 Office outpatient visit 15 minutes Yazan A Bouts Other [facility] Office Start: 12-24-2017 Office outpatient visit 15 minutes Yazan A Bouts Other [facility] Office Start: 12-02-2017 Office outpatient visit 15 minutes Yazan A Bouts Other [facility] Office Start: 09-02-2017 Office outpatient visit 15 minutes Yazan A Bouts Other [facility] Office Start: 08-04-2017 Office outpatient visit 15 minutes Yazan A Bouts Other [facility] Office Start: 06-04-2017 Office outpatient visit 15 minutes Yazan A Bouts Other [facility] Office Start: 03-19-2017 Office outpatient visit 15 minutes Yazan A Bouts Other [facility] Office Start: 01-30-2017 Office outpatient visit 15 minutes Yazan A Bouts Other [facility] Office Start: 10-03-2016 Office outpatient visit 15 minutes Yazan A Bouts Other [facility] Office Start: 08-21-2016 Office outpatient visit 15 minutes Yazan A Bouts Other [facility] Office Start: 06-24-2016 Office outpatient visit 15 minutes Yazan A Bouts Other [facility] Office Start: 05-23-2016 Office outpatient visit 15 minutes Yazan A Bouts Other [facility] Office Start: 05-09-2016 Office outpatient visit 15 minutes Yazan A Bouts Other [facility] Office Start: 01-03-2016 Office outpatient visit 15 minutes Yazan A Bouts Other [facility] Office Start: 09-06-2015 Office outpatient visit 15 minutes Yazan A Bouts Other [facility] Office Start: 05-03-2015 Office outpatient visit 15 minutes Yazan A Bouts Other [facility] Office Start: 02-05-2015 Office outpatient visit 15 minutes Yazan A Bouts Other [facility] Office Start: 01-29-2015 Lab Yazan A Bouts Other [facility] Office Start: 10-04-2014 Office outpatient visit 15 minutes Yazan A Bouts Other [facility] Office Start: 09-25-2014 Lab Yazan A Bouts Other [facility] Office Start: 07-24-2014 Office outpatient visit 25 minutes Yazan A Bouts Other [facility] Office Start: 07-21-2014 Lab Yazan A Bouts Other [facility] Office Start: 06-05-2014 Postop follow up vis it related to original px Yazan A Bouts Other [facility] Office Start: 05-04-2014 Office Services Yazan A Bouts Other [facility] Office Start: 05-03-2014 Office outpatient visit 15 minutes Yazan A Bouts Other [facility] Office Procedures Date Procedure Procedure Detail Performing Clinician Start: 12-11-2021 Docrev cur meds by toro Hand Bouts Start: 12-06-2021 Basic metabolic panel calcium total Yazan Adrian MD Work Phone: Start: 12-06-2021 Lipid panel Yazan Adrian MD Work Phone: Start: 12-06-2021 Urine albumin quantitative Yazan Ike Adrian MD Work Phone: Start: 11-14-2021 Basic metabolic panel calcium total Yazan Bouts Start: 11-14-2021 Hemoglobin A1c measurement Yazan Bouts Start: 11-14-2021 Lipid panel Yazan Bouts Start: 11-14-2021 MICROALBUMIN/Urine Creat Ratio Yazan Ilan ts Start: 08-14-2021 Docrev cur meds by 24/7 Card Yazan Bouts Start: 08-06-2021 Hemoglobin A1c measurement Yazan Bouts Start: 08-06-2021 Lipid panel Yazan Bouts Start: 08-06-2021 Thyroid stimulating hormone measurement Yazan Bouts Start: 08-06-2021 End: 08-06-2021 Basic metabolic panel calcium total Yazan A Bouts Work Phone: Start: 08-06-2021 Lipid panel Yazan A Bouts Work Phone: Start: 06-06-2021 Docrev cur meds by 24/7 Card Yazan Bouts Start: 06-05-2021 Basic metabolic panel calcium total Yazan A Bouts Work Phone: Start: 06-05-2021 Urnls dip stick/tablet rgnt auto w/o microscopy Yazan Ike Adrian MD Work Phone: Start: 05-06-2021 Docrev cur meds by 24/7 Card Yazan Bouts Start: 05-06-2021 Hemoglobin A1c measurement Yazan Bouts Start: 05-06-2021 Blood chemistry Yazan Bouts Start: 05-06-2021 Dip UA (for Ketones) Yazan Bouts Start: 01-17-2021 Electrocardiogram with exercise test Yazan Bouts Start: 01-16-2021 Electrocardiogram with exercise test Yazan Bouts Start: 01-03-2021 Docrev cur meds by 24/7 Card Yazan Bouts Start: 01-03-2021 Electrocardiographic procedure Yazan Ilan ts Start: 01-03-2021 Hemoglobin A1c measurement Yazan Bouts Start: 01-03-2021 Lipid panel Yazan Bouts Start: 01-03-2021 MICROALBUMIN/Urine Creat Ratio Yazan Ilan ts Start: 01-03-2021 Blood chemistry Yazan Bouts Start: 01-03-2021 Dip UA (for Ketones) Yazan Bouts Start: 01-03-2021 Mammogram, screening Yazan Bouts Start: 09-03-2020 Dip UA (for Ketones) Yazan Bouts Start: 09-03-2020 Comprehensive metabolic panel Yazan Bout s Start: 09-03-2020 Docrev cur meds by toro garcia Ayzan Bouts Start: 09-03-2020 Erythrocyte mean corpuscular volume determination Yazan Bouts Start: 09-03-2020 Hemoglobin A1c measurement Yazan Bouts Start: 09-03-2020 Lipid panel Yazan Bouts Start: 09-03-2020 Vitamin B12 and Folate Yazan Bouts Start: 12-03-2019 Basic metabolic panel calcium total Yazan Bouts Start: 12-03-2019 Hemoglobin A1c measurement Yazan Bouts Start: 12-03-2019 Lipid panel Yazan Bouts Start: 12-03-2019 MICROALBUMIN/Urine Creat Ratio Yazan Ilan ts Start: 12-02-2019 Gluc bld gluc mntr dev cleared fda spec home use Joey Waite Start: 12-02-2019 GLUCOSE, WHOLE BLOOD Joey Rooney ck Start: 12-02-2019 Basic metabolic panel calcium total Joey Waite Start: 12-02-2019 Blood count complete auto&auto difrntl wbc Joey Waite Start: 12-02-2019 LACTATE, SEPSIS Joey currie Start: 12-02-2019 Radiologic exam chest single view Joey Waite Start: 12-02-2019 COVID-19 Joey currie Start: 10-03-2019 Doc meds verified w/pt or re Yazan Bouts Start: 10-03-2019 Hemoglobin A1c measurement Yazan Bouts Start: 10-03-2019 Hemoglobin glycosylated a1c Yazan Bouts Start: 10-03-2019 Dip UA (for Ketones) Yazan Bouts Start: 08-22-2019 Doc meds verified w/pt or re Yazan Bouts Start: 07-19-2019 Doc meds verified w/pt or re Yazan Bouts Start: 07-14-2019 Hemoglobin A1c measurement Yazan Bouts Start: 07-14-2019 Insulin, total measurement Yazan Bouts Start: 07-14-2019 Lipid panel Yazan Bouts Start: 07-14-2019 End: 07-14-2019 Assay of insulin total Yazan A Bouts Work Phone: Start: 07-14-2019 End: 07-14-2019 Basic metabolic panel calcium total Yazan A Bouts Work Phone: Start: 07-14-2019 End: 07-14-2019 Hemoglobin glycosylated a1c Yazan A Bout s Work Phone: Start: 07-14-2019 End: 07-14-2019 Lipid panel Yazan A Bouts Work Phone: Start: 03-15-2019 Doc meds verified w/pt or re Yazan Bouts Start: 03-11-2019 Basic metabolic panel calcium total Yazan A Bouts Work Phone: Start: 03-11-2019 Lipid panel Yazan A Bouts Work Phone: Start: 03-11-2019 Urine albumin quantitative Yazan A Bouts Work Phone: Start: 03-09-2019 Basic metabolic panel calcium total Yazan Bouts Start: 03-09-2019 Hemoglobin A1c measurement Yazan Bouts Start: 03-09-2019 Hemoglobin glycosylated a1c Yazan Bouts Start: 03-09-2019 Lipid panel Yazan Bouts Start: 03-09-2019 Lipid panel Yazan Bouts Start: 03-09-2019 MICROALBUMIN/Urine Creat Ratio Yazan Ilan ts Start: 01-26-2019 Doc meds verified w/pt or re Yazan Bouts Start: 12-28-2018 Ultrasonography of abdomen and urinary system Yazan Bouts Start: 12-28-2018 Us retroperitoneal real time w/image complete Yazan Bouts Start: 12-14-2018 Us retroperitoneal real time w/image complete Yazan Bouts Start: 12-14-2018 Us retroperitoneal real time w/image limited Yazan Bouts Start: 12-07-2018 Doc meds verified w/pt or re Yazan Bouts Start: 12-07-2018 Us retroperitoneal real time w/image limited Yazan A Bouts Other Start: 12-04-2018 Basic metabolic panel calcium total Yazan A Bouts Work Phone: Start: 12-04-2018 Hemoglobin glycosylated a1c Yazan A Bout s Work Phone: Start: 11-28-2018 Basic metabolic panel calcium total Yazan Bouts Start: 11-28-2018 Hemoglobin A1c measurement Yazan Bouts Start: 07-29-2018 Doc meds verified w/pt or re Yazan Bouts Start: 07-23-2018 Basic metabolic panel calcium total Yazan Bouts Start: 07-23-2018 Hemoglobin A1c measurement Yazan Bouts Start: 07-23-2018 Hemoglobin glycosylated a1c Yazan Bouts Start: 07-23-2018 Lipid panel Yazan Bouts Start: 07-23-2018 Lipid panel Yazan Bouts Start: 07-23-2018 MICROALBUMIN/Urine Creat Ratio Yazan Ilan ts Start: 03-26-2018 Basic metabolic panel calcium total Yazan Bouts Start: 03-26-2018 Hemoglobin A1c measurement Yazan Bouts Start: 03-26-2018 Hemoglobin glycosylated a1c Yazan Bouts Start: 03-26-2018 Lipid panel Yazan Bouts Start: 03-26-2018 Lipid panel Yazan Bouts Start: 03-26-2018 MICROALBUMIN/Urine Creat Ratio Yazan Ilan ts Start: 03-25-2018 Doc meds verified w/pt or re Yazan Bouts Start: 12-24-2017 Doc meds verified w/pt or re Yazan Bouts Start: 12-02-2017 Doc meds verified w/pt or re Yazan Bouts Start: 12-02-2017 Glucose measurement, quantitative Yazan Bouts Start: 12-02-2017 Glucose quantitative blood xcpt reagent strip Yazan Bouts Start: 12-02-2017 Hemoglobin A1c measurement Yazan Bouts Start: 12-02-2017 Hemoglobin glycosylated a1c Yazan Bouts Start: 12-02-2017 Lipid panel Yazan Bouts Start: 12-02-2017 Lipid panel Yazan Bouts Start: 12-02-2017 BS-Dip Yazan Bouts Start: 09-02-2017 Doc meds verified w/pt or re Yazan Bouts Start: 09-02-2017 Incision & drainage abscess simple/single Yazan Bouts Start: 09-02-2017 Incision and drainage of abscess Yazan Bouts Start: 08-04-2017 Doc meds verified w/pt or re Yazan Bouts Start: 06-04-2017 Doc meds verified w/pt or re Yazan Bouts Start: 05-31-2017 Basic metabolic panel calcium ionized Yazan Bouts Start: 05-31-2017 Blood chemistry Yazan Bouts Start: 05-31-2017 Hemoglobin A1c measurement Yazan Bouts Start: 05-31-2017 Hemoglobin glycosylated a1c Yazan Bouts Start: 03-19-2017 Doc meds verified w/pt or re Yazan Bouts Start: 2017 Basic metabolic panel calcium total Yazan Bouts Start: 2017 Hemoglobin A1c measurement Yazan Bouts Start: 2017 Hemoglobin glycosylated a1c Yazan Bouts Start: 2017 Lipid panel Yazan Bouts Start: 2017 Lipid panel Yazan Bouts Start: 2017 MICROALBUMIN/Urine Creat Ratio Yazan Ilan ts Start: 01-30-2017 Current Medications Verified MIPS Yazan Bouts Start: 09-24-2016 Basic metabolic panel calcium ionized Yazan Bouts Start: 09-24-2016 Blood chemistry Yazan Bouts Start: 09-24-2016 Hemoglobin A1c measurement Yazan Bouts Start: 09-24-2016 Hemoglobin glycosylated a1c Yazan Bouts Start: 05-14-2016 Pelvic echography Yazan Bouts Start: 05-14-2016 Ultrasonography of abdomen Yazan Bouts Start: 05-14-2016 Us abdominal real time w/image documentation Yazan Bouts Start: 05-14-2016 Us pelvic nonobstetric real-time image complete Yazan Bouts Start: 05-09-2016 Ct abdomen & pelvis w/contrast material Yazan A Bouts Other Start: 05-09-2016 Assay of thyroid stimulating hormone tsh Yazan Bouts Start: 05-09-2016 Assay of thyroxine total Yazan Bouts Start: 05-09-2016 Erythrocyte sedimentation rate, non-automated Yazan Bouts Start: 05-09-2016 Sedimentation rate rbc non-automated Yazan Bouts Start: 05-09-2016 Thyroid stimulating hormone measurement Yazan Bouts Start: 05-09-2016 Thyroxine measurement Yazan Bouts Start: 05-02-2016 Basic metabolic panel calcium total Yazan Bouts Start: 05-02-2016 Hemoglobin A1c measurement Yazan Bouts Start: 05-02-2016 Hemoglobin glycosylated a1c Yazan Bouts Start: 05-02-2016 Lipid panel Yazan Bouts Start: 05-02-2016 Lipid panel Yazan Bouts Start: 01-07-2016 Basic metabolic panel calcium total Yazan Bouts Start: 01-07-2016 Hemoglobin A1c measurement Yazan Bouts Start: 01-07-2016 Hemoglobin glycosylated a1c Yazan Bouts Start: 01-07-2016 Lipid panel Yazan Bouts Start: 01-07-2016 Lipid panel Yazan Bouts Start: 01-07-2016 MICROALBUMIN/Urine Creat Ratio Yazan Ilan ts Start: 09-02-2015 Basic metabolic panel calcium total Yazan Bouts Start: 09-02-2015 Hemoglobin A1c measurement Yazan Bouts Start: 09-02-2015 Hemoglobin glycosylated a1c Yazan Bouts Start: 09-02-2015 Lipid panel Yazan Bouts Start: 09-02-2015 Lipid panel Yazan Bouts Start: 05-07-2015 Basic metabolic panel calcium total Yazan Bouts Start: 05-07-2015 Hemoglobin A1c measurement Yazan Bouts Start: 05-07-2015 Hemoglobin glycosylated a1c Yazan Bouts Start: 05-07-2015 Lipid panel Yazan Bouts Start: 05-07-2015 Lipid panel Yazan Bouts Start: 02-12-2015 Ultrasonography of abdomen Yazan Bouts Start: 02-12-2015 Us abdominal real time w/image limited Yazan Bouts Start: 02-03-2015 Basic metabolic panel calcium total Yazan Bouts Start: 02-03-2015 Hemoglobin A1c measurement Yazan Bouts Start: 02-03-2015 Hemoglobin glycosylated a1c Yazan Bouts Start: 02-03-2015 Lipid panel Yazan Bouts Start: 02-03-2015 Lipid panel Yazan Bouts Start: 10-04-2014 Doc meds verified w/pt or re Yazan Bouts Start: 10-04-2014 Hemoglobin A1c measurement Yazan Bouts Start: 10-04-2014 Hemoglobin glycosylated a1c Yazan Bouts Start: 10-04-2014 Lipid panel Yazan Bouts Start: 10-04-2014 Lipid panel Yazan Bouts Start: 10-04-2014 TOBACCO NON-USER Yazan Bouts Start: 09-23-2014 Basic metabolic panel calcium total Yazan Bouts Start: 09-23-2014 Hemoglobin A1c measurement Yazan Bouts Start: 09-23-2014 Hemoglobin glycosylated a1c Yazan Bouts Start: 09-23-2014 Lipid panel Yazan Bouts Start: 09-23-2014 Lipid panel Yazan Bouts Start: 07-24-2014 Doc meds verified w/pt or re Yazan Bouts Start: 07-24-2014 TOBACCO NON-USER Yazan Bouts Start: 07-21-2014 Basic metabolic panel calcium total Yazan Bouts Start: 07-21-2014 Hemoglobin A1c measurement Yazan Bouts Start: 07-21-2014 Hemoglobin glycosylated a1c Yazan Bouts Start: 07-21-2014 Urnls dip stick/tablet rgnt auto w/o microscopy Yazan Bouts Start: 06-05-2014 5,10-methylenetetrahydrofolate reductase gene analysis Yazan Bouts Start: 06-05-2014 Mthfr gene analysis common variants Yazan Bouts Start: 05-04-2014 Diab manage trn per indiv Yazan Bouts Start: 05-04-2014 Diabetes self-monitoring health education Yazan Bouts Start: 05-03-2014 Basic metabolic panel calcium ionized Yazan Bouts Start: 05-03-2014 Basic metabolic panel calcium total Yazan Bouts Start: 05-03-2014 Blood chemistry Yazan Bouts Start: 05-03-2014 Doc meds verified w/pt or re Yazan Bouts Start: 05-03-2014 Flu immunize no order/admin Yazan Bouts Start: 05-03-2014 Hemoglobin glycosylated a1c Yazan Bouts Start: 05-03-2014 TOBACCO NON-USER Yazan Bouts Start: 05-03-2014 Urinalysis, automated Yazan Bouts Start: 05-03-2014 Urnls dip stick/tablet rgnt auto w/o microscopy Yazan Nguyễn Plan of Treatment Date Care Activity Detail Author Start: 12-06-2022 Lipid panel Lipids [facility] Start: 08-06-2022 [facility] Start: 02-10-2022 Basic metabolic panel calcium ionized CHEM 8 PANEL [email or web address] Start: 02-10-2022 Hemoglobin glycosylated a1c A1c [email or web address] Start: 11-14-2021 Basic metabolic panel calcium total Chem 8 [email or web address] Start: 11-14-2021 Hemoglobin glycosylated a1c Hgb A1c [email or web address] Start: 11-14-2021 Lipid panel Lipid profile [email or web address] Start: 11-06-2021 Hemoglobin A1c measurement A1C test (Diabetic or Prediabetic) [facility] Start: 10-17-2021 Influenza vaccination Flu vaccine (Season Ended) [facility] Start: 09-16-2021 Influenza vaccination Flu vaccine (#1) [facility] Start: 08-06-2021 Assay of thyroid stimulating hormone tsh TSH [email or web address] Start: 08-06-2021 Basic metabolic panel calcium total Chem 8 [email or web address] Start: 08-06-2021 Hemoglobin glycosylated a1c A1c [employer] Start: 08-06-2021 Lipid panel Lipid panel [email or web address] Start: 06-03-2021 Basic metabolic panel calcium total Chem 8 [email or web address] Start: 06-03-2021 Hemoglobin glycosylated a1c A1c [employer] Start: 05-06-2021 Basic metabolic panel calcium total Chem 8 [email or web address] Start: 01-16-2021 Cv strs tst xers&/or rx cont ecg w/si&r Treadmill Stress [facility] Start: 01-03-2021 Screening mammography Mammogram breast screening digital [employer] Start: 12-01-2020 Creatinine measurement Creatinine [employer] Start: 12-01-2020 Potassium [Moles/volume] in Serum or Plasma Potassium [employer] Start: 10-02-2020 Hemoglobin A1c measurement [facility]C test [facility] Prediabetic[facility] Start: 07-13-2020 [facility]inine [facility] [place] Start: 07-13-2020 Lipid panel [facility] Start: 07-13-2020 Potassium monitoring Potassium monitoring [place], [place] Start: 03-11-2020 Diabetic microalbuminuria test Diabetic microalbuminuria test [place], [place] Start: 03-11-2020 Urine screening for protein Diabetic microalbuminuria test [employer] Start: 12-05-2019 Creatinine monitoring Creatinine monitoring [employer] Work Phone: Start: 12-05-2019 Potassium [facility] Work [facility]: Start: 12-03-2019 Basic metabolic panel calcium total Chem 8 [email or web address] Start: 12-03-2019 HbA1c (Bld) [Mass fraction] Hgb A1c [facility] Start: 12-03-2019 Lipid panel Lipid profile [facility] Start: 10-18-2019 Influenza vaccination [place], [place] Start: 10-14-2019 HbA1c (Bld) [Mass fraction] A1C test (Diabetic or Prediabetic) [place] Start: 10-03-2019 HbA1c (Bld) [Mass fraction] A1c [facility] Start: 08-17-2019 Creatinine monitoring Creatinine monitoring [place], [place] Start: 08-17-2019 Potassium monitoring Potassium monitoring [place], [place] Start: 07-25-2019 Diabetic microalbuminuria test Diabetic microalbuminuria test [place], [place] Start: 07-25-2019 Lipid screen Lipid screen [place], [place] Start: 07-14-2019 Assay of insulin total INSULIN [email or web address] Start: 07-14-2019 Basic metabolic panel calcium total Chem 8 [email or web address] Start: 07-14-2019 HbA1c (Bld) [Mass fraction] Hgb A1c [employer] Start: 07-14-2019 Lipid panel Lipid profile [email or web address] Start: 03-09-2019 Basic metabolic panel calcium total Chem 8 [email or web address] Start: 03-09-2019 HbA1c (Bld) [Mass fraction] Hgb A1c [employer] Start: 03-09-2019 Lipid panel Lipid profile [employer] Start: 03-06-2019 A1C test (Diabetic or Prediabetic) A1C test (Diabetic or Prediabetic) [facility] Work Phone: Start: 12-28-2018 Ultrasonography of abdomen and urinary system US kidney and bladder [employer] Start: 12-14-2018 Ultrasound Kidneys and Bladder [employer] Start: 11-28-2018 Basic metabolic panel calcium total Chem 8 [email or web address] Start: 11-28-2018 Hemoglobin A1c/Hemoglobin.total mass fraction (Bld) A1c [employer] Start: 10-24-2018 A1C test (Diabetic or Prediabetic) A1C test (Diabetic or Prediabetic) [place], [place] Start: 10-17-2018 Influenza vaccination Flu vaccine (#1) [place], [place] Start: 07-29-2018 Basic metabolic panel calcium total Chem 8 [email or web address] Start: 07-29-2018 Hemoglobin A1c/Hemoglobin.total mass fraction (Bld) A1c [facility] [employer] Start: 02-03-2016 Breast cancer screen Breast cancer screen [place], [place] Start: 02-03-2016 Colon cancer screen colonoscopy Colon cancer screen colonoscopy [place], [place] Start: 02-03-2016 Screening for malignant neoplasm of breast Breast cancer screen [facility] Start: 02-03-2016 Screening for malignant neoplasm of colon Colon cancer screen colonoscopy [place], [place] Start: 02-03-2016 Shingles Vaccine (1 of 2) Shingles Vaccine (1 of 2) [facility] Start: 2011 Screening for malignant neoplasm of colon [facility] Start: 02-03-1996 Screening for malignant neoplasm of cervix [facility] Start: 1987 Cervical cancer screen Cervical cancer screen [place], [place] Start: 1987 Screening for malignant neoplasm of cervix [facility] Start: 1985 DTaP/Tdap/Td vaccine (1 - Tdap) DTaP/Tdap/Td vaccine (1 - Tdap) [facility] Start: 02-03-1984 Diabetic retinal exam Diabetic retinal exam [facility] Start: 02-03-1984 Hepatitis C screening Hepatitis C screen [facility] Start: 1981 HIV screen HIV screen [place], [place] Start: 1981 HIV screening HIV screen [facility] Start: 1978 Depression Screen Depression Screen [facility] Start: 1977 DTaP/Tdap/Td vaccine (1 - Tdap) DTaP/Tdap/Td vaccine (1 - Tdap) [facility] Work Phone: Start: 02-03-1976 [object Object] Diabetic foot exam [place], [place] Start: 02-03-1976 Diabetic foot examination Diabetic foot exam [facility] Start: 02-03-1976 Diabetic retinal exam Diabetic retinal exam [place], [place] Start: 1971 COVID-19 Vaccine (1) COVID-19 Vaccine (1) [facility] Start: 1966 COVID-19 Vaccine (#1) COVID-19 Vaccine (#1) [facility] End: 12-02-2019 Culture, Blood 1 Culture, Blood 1 Microbiology STAT One Time for 1 Occurrences starting 12/02/2019 until 12/02/2019 [place], [place] Comment on above: One Time for 1 Occurrences starting 11/16 until 12/02/2019 Culture, Blood 1 Culture, Blood 1 Microbiology STAT 12/02/2019 1:10 PM EDT [place], [place] End: 12-02-2019 Culture, Blood 2 Culture, Blood 2 Microbiology STAT One Time for 1 Occurrences starting 12/02/2019 until 12/02/2019 [place], [place] Comment on above: One Time for 1 Occurrences starting 11/16 until 12/02/2019 Culture, Blood 2 Culture, Blood 2 Microbiology STAT 12/02/2019 1:07 PM EDT [place], [place] End: 12-06-2021 Hemoglobin A1c/Hemoglobin.total in Blood [facility] Work Phone: Comment on above: Once for 1 Occurrences starting 12/07/19 until 12/06/2021 Immunizations Immunization Date Immunization Notes Care Provider Collin botello 01-03-2021 Influenza, injectabl e, Madin Dai Canine Kidney, quadrivalent with preservative; Translations: [Influenza virus vaccine, quadrivalent (cciiv4), derived from cell cultures, subunit, antibiotic free, 0.5 ml dosage, for intramuscular use] [employer] 01-03-2021 influenza, injectabl e, quadrivalent, contains preservative [employer] 01-03-2021 IMMUNIZATION ADMIN; Translations: [IMMUNIZATION ADMIN] [employer] 12-02-2017 influenza, seasonal, injectable; Translations: [FLU VACCINE 3 YRS & > IM] [employer] 12-02-2017 IMMUNIZATION ADMIN; Translations: [IMMUNIZATION ADMIN] [employer] Payers Date Payer Category Payer Unknown [address] [facility] [employer] [facility] xxxxxxxxxxxx 2016-Present [phone] [address] [place] [address] xxxxxxxxxxxx [id number] 1966 Unknown [id number] 1966 Unknown [id number] 1966 Unknown [id number] 1966 Unknown [id number] 1966 Unknown [id number] 1958 Medicaid [id number] Private Health Insurance [id number] Social History Date Type Detail Facility Start: [email or web address] Start: soda [email or web address] Start: 11-24-2017 End: 12-02-2019 Tobacco smoking status NHIS Never smoker [place], [place] Start: 1965 Sex Assigned At Not on file M [place], [place] Start: 11-24-2017 End: 12-02-2019 Tobacco use and exposure Never used [employer] [place], [place] Exposure to SARS-CoV -2 (event) Yes [place], [place] Medical Equipment Procedure Code Equipment Code Equipment Origin al Text Equipment Identifier Dates USE DIRECTED Start: 03-04-2019 Advance Directives No Advanced Directives Records FoundDocuments on File Type Date Recorded Patient Automatic Trimming Sewer Expl anation Advance Directives and Living Will Power of Business Travel Consultant Documents on File Type Date Recorded Patient Automatic Trimming Sewer Expl anation ACP-Advance Directive ACP-Power of Business Travel Consultant Discharge Instructions * Instructions* Joey Waite MD - 12/02/2019 Please return to the ED if you are feeling worse or short of breath. * Attachments The following attachments cannot be sent through Care Everywhere. * Coronavirus Disease (COVID-19): General Info (Armenian) * Video: COVID-19: Taking Care of Yourself If You Have It (Armenian) documented in this encounter Assessments Diagnosis COVID-19 virus infection Cough Bronchitis Bronchitis, not specified as acute or chronic Summary Purpose Family History No Family History Records FoundNo Family History Records FoundNo Family History Records Found Additional Source Comments Reason for Visit (unrecogniz ed section and content) Reason Comments Cough Daughter tested posi tive for Covid. C/o cough and fever. Fever INFORMATION SOURCE (unrecogn ized section and content) DATE CREATED AUTHOR 08/29/2020 [facility] DATE CREATED AUTHOR AUTHOR'S ORGANIZ ATION 01/17/2021 [facility] DATE CREATED AUTHOR AUTHOR'S ORGANIZ ATION 12/10/2021 [facility] Care Teams (unrecognized sec tion and content) Funeral Home Attendant Relationship Specialty Start Date End Date Yazan Adrian MD [address] [place] [address] PCP - General Internal Medicine 04/26/15 [employer] Relationship Specialty Start Date End Date Yazan Adrian MD [address] [place] [address] PCP - General Internal Medicine 04/26/15 [employer] Home Attendant Relationship Specialty Start Date End Date Yazan Adrian MD [address] [place] [address] PCP - General Internal Medicine 04/26/15 FOR RECORDS PERTAINING TO PATIENTS WHO ARE OR HAVE BEEN ENROLLED IN A CHEMICAL DEPENDENCY/SUBSTANCEABUSE PROGRAM, SOME INFORMATION MAY BE OMITTED. This clinical summary was aggregated from multiple sources. Caution should be exercised in using it in the provision of clinical care. This summary normalizes information from multiple sources, and as a consequence, information in this document may materially change the coding, format and clinical context of patient data. In addition, data may be omitted in some cases. CLINICAL DECISIONS SHOULD BE BASED ON THE PRIMARY CLINICAL RECORDS. [facility]. provides no warranty or guarantee of the accuracy or completeness of information in this document.
--- NOTE | 2023-04-04 12:13 | CT_ITS ---
The [address] [address] Patient Name: BRENDON FONG MRN: [id number] date: 1965 Sex: F Assigned Patient Location: ER Current Patient Location: ER Accession/Order Number: [id number] Exam Date: 04/04/2023 13:05 Report Date: 04/04/2023 14:04 At the request of: EFRAIN TOLEDO Procedure: CT pelvis w con EXAMINATION: CT pelvis w con REASON FOR EXAM: Painful, red, superior inner thigh. Swelling inside the left thigh and groin region. TECHNIQUE: Dose reduction techniques were achieved by using automated exposure control and/or adjustment of mA and/or kV according to patient size and/or use of iterative reconstruction technique. FINDINGS: There is skin thickening in the inner left thigh region and subjacent subcutaneous fluid/stranding. This suggests cellulitis. No organized abscess. No gas-forming infection. This is not emanating from the anal sphincter or rectum. Borderline prominent left inguinal lymph nodes measuring up to 1.1 cm. Uterus and adnexa otherwise unremarkable. No abnormal bladder distention or thickening. CT/CT pelvis w con IMPRESSION: 1. The inflammatory changes in the inner left thigh region involve the skin and underlying subcutaneous fat with no evidence for abscess or gas-forming infection or foreign body. Findings suggest cellulitis. 2. No drainable abscess. 3. No other acute findings. Electronically authenticated by: YOGI SOLANO Date: 04/04/2023 14:04
--- NOTE | 2023-04-04 12:14 | ED.GENADUL1 ---
HPI - General Adult General Chief complaint: Ear Stated complaint: EAR & GROIN PAIN Time Seen by Provider: 04/04/23 11:53 Source: patient Mode of arrival: walk-in History of Present Illness HPI narrative: 58-year-old female presents for pain to her left ear. No sore throat or drainage. Sometimes her voice sounds muffled. Second she is complaining of a red painful swollen area on her left inner thigh superiorly. It has been there for about a week. No drainage. No injury. Related Data Allergies Allergy/AdvReac Type Severity Reaction Status Date / Time naproxen [From Naprosyn] Allergy Intermediate Verified 12/14/22 13:22 Review of Systems ROS Narrative A ten point review of systems is negative except as noted above. PFSH PFSH Social History Smoking status: Never smoker Exam Narrative Exam Narrative: Nurses note and vital signs reviewed and patient is not hypoxic. General: The patient appears well and in no apparent distress. Patient is resting comfortably on cart. Skin: Warm, dry, no pallor noted. There is no rash noted. Head: Normocephalic, atraumatic Eye: Normal conjunctiva, no drainage Ears, Nose, Mouth, and Throat: oral mucosa is moist. Nares patent. Both TMs are normal in appearance and both external canals are normal in appearance. Cardiovascular: Regular Rate and Rhythm Respiratory: Patient is in no distress, no accessory muscle use, lungs are clear to auscultation, no wheezing, rales or rhonchi Back: non-tender GI: Soft and nontender Musculoskeletal: Left superior medial thigh adjacent to the inguinal area has an erythematous tender nonfluctuant area approximately 3 inches in diameter. Neurological: A&O, normal speech Psychiatric: Cooperative Constitutional Vital Signs, click to edit/add: Last Vital Signs Temp 98.0 F 04/04/23 11:56 Pulse 101 H 04/04/23 13:57 Resp 18 04/04/23 13:57 BP 164/87 H 04/04/23 13:57 Pulse Ox 97 04/04/23 13:57 O2 Del Method Room Air 04/04/23 11:56 Course Vital Signs Vital signs: Vital Signs Temperature 98.0 F 04/04/23 11:56 Pulse Rate 101 H 04/04/23 11:56 Respiratory Rate 16 04/04/23 11:56 Blood Pressure 160/88 H 04/04/23 11:56 Pulse Oximetry 99 04/04/23 11:56 Oxygen Delivery Method Room Air 04/04/23 11:56 Temperature 98.0 F 04/04/23 11:56 Pulse Rate 101 H 04/04/23 13:57 Respiratory Rate 18 04/04/23 13:57 Blood Pressure 164/87 H 04/04/23 13:57 Pulse Oximetry 97 04/04/23 13:57 Oxygen Delivery Method Room Air 04/04/23 11:56 Medical Decision Making MDM Narrative Medical decision making narrative: CAT scan shows no abscess. Cellulitis is identified. She has diabetes and will require admission the hospital for IV antibiotic. Findings are discussed with the patient. Differential Diagnosis Differential Diagnosis: Abscess, cellulitis Lab Data Lab results reviewed: Yes I reviewed the patient's lab results Labs: Lab Results 04/04/23 Range/Units 12:21 WBC 10.4 (4.0-11.0) 10^3/uL RBC 4.30 (4.20-5.40) 10^6/uL Hgb 13.0 (12.0-16.0) g/dL Hct 40.8 (36.0-48.0) % MCV 94.9 (81.0-99.0) fL MCH 30.2 (26.7-34.0) pg MCHC 31.9 (29.9-35.2) g/dL RDW 13.1 (11.0-15.0) % Plt Count 235 (150-450) 10^3/uL MPV 10.4 (9.5-13.5) fL Neut % (Auto) 77.1 H (43.0-75.0) % Lymph % (Auto) 13.0 L (20.5-60.0) % [place] % (Auto) 7.5 (1.7-12.0) % Eos % (Auto) 1.3 (0.9-7.0) % Baso % (Auto) 0.8 (0.2-2.0) % Neut # (Auto) 8.0 H (1.4-6.5) 10^3/uL Lymph # (Auto) 1.4 (1.2-3.8) 10^3/uL [place] # (Auto) 0.8 (0.3-0.8) 10^3/uL Eos # (Auto) 0.1 (0.0-0.7) 10^3/uL Baso # (Auto) 0.1 (0.0-0.1) 10^3/uL Abs Immat Gran (auto) 0.03 (0.00-0.03) 10^3/uL Imm/Tot Granulo (auto) 0.3 (0.0-0.5) % Sodium 135 L (136-145) mmol/L Potassium 4.7 (3.5-5.1) mmol/L Chloride 99 (98-107) mmol/L Carbon Dioxide 22.0 (21.0-32.0) mmol/L Anion Gap 18.7 BUN 18.0 (7.0-18.0) mg/dL Creatinine 0.79 (0.55-1.02) mg/dL Est GFR ( Amer) >60 (>=60) Est GFR (Non-Af Amer) >60 (>=60) BUN/Creatinine Ratio 22.8 Glucose 493 H (74-106) mg/dL Calcium 9.0 (8.5-10.1) mg/dL Imaging Data CT pelvis: Radiologist's impression: ITS Impressions Pelvis CT 04/04/23 12:13 IMPRESSION: 1. The inflammatory changes in the inner left thigh region involve the skin and underlying subcutaneous fat with no evidence for abscess or gas-forming infection or foreign body. Findings suggest cellulitis. 2. No drainable abscess. 3. No other acute findings. Electronically authenticated by: YOGI SOLANO Date: 04/04/2023 14:04 Discharge Plan Discharge Chief Complaint: Ear Clinical Impression: Cellulitis Patient Disposition: Admitted As Inpatient Time of Disposition Decision: 14:16 Condition: Good
[2023-04-04 12:28] LABS: Basophils Absolute Auto 0.1 10^3/uL (0.0-0.1); Basophils Percent Auto 0.8 % (0.2-2.0); Eosinophils Absolute Auto 0.1 10^3/uL (0.0-0.7); Eosinophils Percent Auto 1.3 % (0.9-7.0); Hematocrit 40.8 % (36.0-48.0); Immature Granulocytes Abs Auto 0.03 10^3/uL (0.00-0.03); Immature Granulocytes Pct Auto 0.3 % (0.0-0.5); Lymphocytes Absolute Auto 1.4 10^3/uL (1.2-3.8); Mean Corpuscular HGB Conc 31.9 g/dL (29.9-35.2); Mean Corpuscular Hemoglobin 30.2 pg (26.7-34.0); Mean Corpuscular Volume 94.9 fL (81.0-99.0); Mean Platelet Volume 10.4 fL (9.5-13.5); Monocytes Absolute Auto 0.8 10^3/uL (0.3-0.8); Monocytes Percent Auto 7.5 % (1.7-12.0); Neutrophils Percent Auto 77.1 % (43.0-75.0); Platelet Count 235 10^3/uL (150-450); Red Cell Distribution Width 13.1 % (11.0-15.0); White Blood Count 10.4 10^3/uL (4.0-11.0)
[2023-04-04 12:35] LABS: Anion Gap 18.7; BUN Creatinine Ratio 22.8; Chloride 99 mmol/L (98-107); Estimated GFR (African America >60 (>=60); Estimated GFR (Non-African Ame >60 (>=60); Glucose 493 mg/dL (74-106); Potassium 4.7 mmol/L (3.5-5.1); Sodium 135 mmol/L (136-145)
[2023-04-04 13:57] VITALS: BP 164/87; PULSE 101; RESP 18; O2SAT 97
[2023-04-04] MEDS: VANCOMYCIN HCL 2,000 MG in 0.9 % SODIUM CHLORIDE 500 ML 250 MG IV (14:34)
[2023-04-04 14:39] LABS: Lactate/Lactic Acid 0.8 mmol/L (0.4-2.0)
[2023-04-04 14:46] LABS: Alanine Aminotransferase 20 U/L (14-59); Albumin Globulin Ratio 0.6; Alkaline Phosphatase 101 U/L (46-116); Aspartate Amino Transferase 11 U/L (15-37); Bilirubin Direct 0.1 mg/dL (0.0-0.2); Bilirubin Total 0.7 mg/dL (0.2-1.0); Globulin 4.9 g/dL; Total Protein 7.9 g/dL (6.4-8.2)
[2023-04-04 14:48] VITALS: BP 150/90; PULSE 60; RESP 18; O2SAT 96
[2023-04-04 14:53] LABS: Bilirubin Urine NEGATIVE (NEGATIVE); Blood Urine NEGATIVE (NEGATIVE); Clarity Urine CLEAR (CLEAR); Color Urine LT. YELLOW (YELLOW); Glucose Urine UA >=1000 mg/dL (NEGATIVE); Ketones Urine >=80 mg/dL (NEGATIVE); Leukocyte Esterase Urine NEGATIVE (NEGATIVE); Nitrite Urine NEGATIVE (NEGATIVE); Protein Urine NEGATIVE (NEG/TRACE); Urobilinogen Urine 0.2 EU/dL (0.2-1.0); pH Urine 5.5 (5.0-9.0)
[2023-04-04 14:54] LABS: Urine Microscopic Indicated NO
[2023-04-04] MEDS: MORPHINE SULFATE 4 MG/ML VIAL IV (14:58)
[2023-04-04] MEDS: ONDANSETRON PF 4 MG/2 ML VIAL IV (14:58)
[2023-04-04 15:08] LABS: PROCALCITONIN <0.05 ng/mL (0.00-0.50)
--- OUTSIDE RECORDS SUMMARY | 2023-04-04 15:35 | XMS_ITS | CCD ---
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 Name Role Phone Nguyễn, Yazan A Primary Care Physician Unavailab le Bouts, Yazan Trinh Unavailable Unavailable Bouts, Yazan Trinh Primary Care Provider Bouts, Yazan A Primary Care Physician Unavailab le Bouts, Yazan Trinh Primary Care Physician Unavailab le Bouts, Yazan Trinh Primary Care Provider [phone] Bouts, Yazan Trinh Primary Care Physician Unavailab [...] Provider Bouts Yazan KELLER Primary Care Provider [phone] Bouts, Yazan Trinh Primary Care Physician Unavailab le Bouts, Yazan Trinh Primary Care Physician Unavailab le Bouts Yazan KELLER Primary Care Provider BOUTS, YAZAN Trinh Referring Unavailable BOUTS, YAZAN Trinh Primary Care Unavailable BOUTS, YAZAN Trinh Referring Unavailable BOUTS, YAZAN Trinh Primary Care Unavailable BOUTS, YAZAN Trinh Referring Unavailable BOUTS, YAZAN Trinh Primary Care Unavailable Bouts, Yazan Trinh Primary Care Physician Unavailab le Allergies Allergy Classification Reported Allergen(s) Allergy Type Date of Onset Reaction(s) Facility NSAIDs (1 source) Naproxen Drug Allergy 3 [facility] (2 sources) atorvastatin; Translations: [atorvastatin] Drug Allergy unable to move legs [facility] (2 sources) Naproxen; Translations: [naproxen sodium] Drug Allergy nausea [facility] (8 sources) Naproxen; Translations: [naproxen] Drug Allergy [address] [place] [address] (13 sources) atorvastatin; Translations: [atorvastatin] Drug Allergy unable to move legs [facility] (13 sources) ceftibuten; Translations: [naproxen sodium] Drug Allergy nausea [facility] Medications Current Medications Medication Drug Class(es) Dates [...] Start: 09-03-2020 take 1 capsule by mo [facility] once daily Vitamin D3 50 mcg (2,000 [...] Start: 08-22-2019 take 1 capsule by mo [facility] every week Vitamin D2 1,250 mcg (50,000 [...] Start: 09-03-2020 take 2 tablets by mo [facility] twice daily metformin 500 mg oral tablet extended release 24 hr 09/03/2020 TAKE TWO TABLETS BY MOUTH TWICE DAILY Start: 03-15-2019 take 2 tablets by [facility] twice daily metformin 500 mg oral tablet extended release 24 hr 03/15/2019 TAKE TWO TABLETS BY MOUTH TWICE DAILY Start: 03-25-2018 take 2 tablets by [facility] twice daily metformin 500 mg oral tablet extended release 24 hr 03/25/2018 TAKE TWO TABLETS BY MOUTH TWICE DAILY take 1 tablet by [facility] twice daily at mealtime metFORMIN (GLUCOPHAGE) 500 [...] meal Start: 09-03-2020 take 1 capsule by [facility] once daily before mealtime omeprazole 20 mg oral capsule,delayed release(DR/EC) 09/03/2020 take 1 capsule (20 mg) by oral route once daily before a meal Start: 03-15-2019 take 1 capsule by [facility] once daily before mealtime omeprazole 20 mg oral capsule,delayed release(DR/EC) 03/15/2019 take 1 capsule (20 mg) by oral route once daily before a meal Start: 03-25-2018 take 1 capsule by [facility] once daily before mealtime omeprazole 20 mg [...] Onset: 08-28-2020 Episodic Unclassified (1 source) [id number] ss_name_10 Onset: 07-24-2014 Unclassified (1 source) [id number] ss_name_12 Onset: 10-04-2014 Unclassified (1 source) [id number] ss_name_13 Onset: 10-04-2014 Unclassified (1 source) [id number] ss_name_13 Onset: 10-04-2014 Unclassified (1 source) [id number] ss_name_10 Onset: 07-24-2014 Unclassified (1 source) [id number] ss_name_12 Onset: 10-04-2014 Unclassified (1 source) [id number] ss_name_13 Onset: 10-04-2014 Viral infection (20 sources) Other specified viral infection; Translations: [Other viral agents as the cause of diseases classified elsewhere] Onset: 03-19-2017 12-02-2019 Episodic Results Test Name Value Interpretation Reference Range Facility Hemoglobin A1Con 12-07-2021 Glucose [Mass/Vol] 335 mg/dL Normal [facility] Comment on above: Result Comment: The ADA and AACC recommend providing the estimated average glucose result to permit better patient understanding of their HBA1c result. Performed By: #### G LYHGB, LIPRF, URNMAB #### [facility] [address] [id number] Waiter/Waitress Head: Harlan Yates MD #### BMP #### [facility] [address] [place], [place] [phone] Waiter/Waitress Head: César Rueda MD HbA1c (Bld) [Mass fraction] 13.3 % High 4.0-6.0 [facility] Comment on above: Performed By: #### G LYHGB, LIPRF, URNMAB #### [address] [address] Waiter/Waitress Head: Harlan Yates MD #### BMP #### [facility] [address] [place] [id number] Waiter/Waitress Head: César Rueda MD Microalb.,Random Uron 2021 Creatinine [Mass/Vol] 32.1 mg/dL Normal 28.0-217.0 [facility] Comment on above: Performed By: #### G LYHGB, LIPRF, URNMAB #### [address] [address] Waiter/Waitress Head: Harlan Yates MD #### BMP #### [address] [place] [id number] Waiter/Waitress Head: César Rueda MD Microalb/Creat Ratio Can not be calculated Normal <25 [facility] Comment on above: Performed By: #### G LYHGB, LIPRF, URNMAB #### [address] [address] Waiter/Waitress Head: Harlan Yates MD #### BMP #### [facility] [address] [place] [address] [address]. [place] [phone] Waiter/Waitress Head: César Rueda MD Microalbumin conc. <12 Normal <21 [facility] Comment on above: Performed By: #### G LYHGB, LIPRF, URNMAB #### [address] [address] Waiter/Waitress Head: Harlan Yates MD #### BMP #### [facility] [address] [place] [place] [address] Waiter/Waitress Head: César Rueda MD Basic Metabolic Panelon 10- Anion gap [Moles/Vol] 13 mmol/L 9 - 17 mmol/L [facility] Calcium [Mass/Vol] 9.1 mg/dL 8.6 - 10. 4 mg/dL [facility] Chloride [Moles/Vol] 98 mmol/L 98 - 10 7 mmol/L [facility] CO2 [Moles/Vol] 25 mmol/L 20 - 31 mmol/L [facility] Creatinine [Mass/Vol] 0.62 mg/dL 0.50 - 0.90 mg/dL [facility] GFR/1.73 sq M.predicted MDRD (S/P/Bld) [Vol rate/Area] - PINF [facility] Comment on above: Effective Nov 18, 2021 [...] Critically high 70 - 99 mg/d L [facility] Interpretation and review of laboratory results Abnormal [facility] Potassium [Moles/Vol] 4.6 mmol/L 3.7 - 5.3 mmol/L [facility] Sodium [Moles/Vol] 136 mmol/L 135 - 144 mmol/L [facility] Urea nitrogen (BldV) [Mass/Vol] 22 mg/dL High 6 - 20 mg/dL [facility] Urea nitrogen/Creatinine (Bld) [Mass ratio] 35 High 9 - 20 [facility] Basic Metabolic Profon 12-06 Glucose [Mass/Vol] 530 mg/dL Critically high 70-99 M [facility] Comment on above: Performed By: #### G LYHGB, LIPRF, URNMAB #### [facility] [address] [place] [address] Waiter/Waitress Head: Harlan Yates MD #### BMP #### [facility] [address] [place], [place] [phone] Waiter/Waitress Head: César Rueda MD Anion gap [Moles/Vol] 13 mmol/L Normal 9-17 [facility] Comment on above: Performed By: #### G LYHGB, LIPRF, URNMAB #### [address] [address] Waiter/Waitress Head: Harlan Yates MD #### BMP #### [facility] [address] [place], [place] [phone] Waiter/Waitress Head: César Rueda MD BUN/CRE Ratio 35 High 9-20 [facility] Comment on above: Performed By: #### G LYHGB, LIPRF, URNMAB #### [address] [address] Waiter/Waitress Head: Harlan Yates MD #### BMP #### [facility] [address] [place] [address] Dr. [place], [place] [phone] Waiter/Waitress Head: César Rueda MD Calcium [Mass/Vol] 9.1 mg/dL Normal 8.6-10.4 [facility] Comment on above: Performed By: #### G LYHGB, LIPRF, URNMAB #### [address] [address] Waiter/Waitress Head: Harlan Yates MD #### BMP #### [facility] [address] [place], [place] [phone] Waiter/Waitress Head: César Rueda MD Chloride [Moles/Vol] 98 mmol/L Normal 98-107 [facility] Comment on above: Performed By: #### G LYHGB, LIPRF, URNMAB #### [facility] [address] [place] [address] Waiter/Waitress Head: Harlan Yates MD #### BMP #### [facility] [address] [place], [place] [phone] Waiter/Waitress Head: César Rueda MD CO2 [Moles/Vol] 25 mmol/L Normal 20-31 [facility] Comment on above: Performed By: #### G LYHGB, LIPRF, URNMAB #### [address] [place] [address] Waiter/Waitress Head: Harlan Yates MD #### BMP #### [facility] [address] [place], [place] [phone] Waiter/Waitress Head: César Rueda MD Creatinine [Mass/Vol] 0.62 mg/dL Normal 0.50-0.90 [facility] Comment on above: Performed By: #### G LYHGB, LIPRF, URNMAB #### [address] [address] Waiter/Waitress Head: Harlan Yates MD #### BMP #### [facility] [address] [place] [address] [place], [place] [phone] Waiter/Waitress Head: César Rueda MD GFR/1.73 sq M.predicted among non-blacks MDRD (S/P/Bld) [Vol rate/Area] mL/min/{1.73_m2} Normal >60 [facility] Comment on above: Result Comment: Effective Nov [...] By: #### G LYHGB, LIPRF, URNMAB #### [address] [place] [address] Waiter/Waitress Head: Harlan Yates MD #### BMP #### [facility] [address] [place] [address] Dr. [place], [place] [phone] Waiter/Waitress Head: César Rueda MD Potassium [Moles/Vol] 4.6 mmol/L Normal 3.7-5.3 [facility] Comment on above: Performed By: #### G LYHGB, LIPRF, URNMAB #### [address] [address] Waiter/Waitress Head: Harlan Yates MD #### BMP #### [address] [place], [place] [phone] Waiter/Waitress Head: César Rueda MD Sodium [Moles/Vol] 136 mmol/L Normal 135-144 [facility] Comment on above: Performed By: #### G LYHGB, LIPRF, URNMAB #### [address] [address] Waiter/Waitress Head: Harlan Yates MD #### BMP #### [address] [place] [address] Waiter/Waitress Head: César Rueda MD Urea nitrogen [Mass/Vol] 22 mg/dL High 6-20 [facility] Comment on above: Performed By: #### G LYHGB, LIPRF, URNMAB #### [address] [address] Waiter/Waitress Head: Harlan Yates MD #### BMP #### [address] [place], [place] [phone] Waiter/Waitress Head: César Rueda MD Lipid Prof, Fastingon 2021 Cholesterol [Mass/Vol] 241 mg/dL High <200 [facility] Comment on above: Result Comment: Cholesterol Guidelines: <200 Desirable 200-240 Borderline >240 Undesirable Performed By: #### G LYHGB, LIPRF, URNMAB #### [address] [address] Waiter/Waitress Head: Harlan Yates MD #### BMP #### [facility] [address] [place] [address] Dr. [place], [place] [phone] Waiter/Waitress Head: César Rueda MD Cholesterol in HDL [Mass/Vol] 34 mg/dL Low >40 [facility] Comment on above: Result Comment: HDL Guidelines: <40 Undesirable 40-59 Borderline >59 Desirable Performed By: #### G LYHGB, LIPRF, URNMAB #### [address] [address] Waiter/Waitress Head: Harlan Yates MD #### BMP #### [address] [place] [phone] Waiter/Waitress Head: César Rueda MD Cholesterol in LDL [Mass/Vol] 149 mg/dL High 0-130 [facility] Comment on above: Result Comment: LDL Guidelines: <100 Desirable 100-129 Near to/above Desirable 130-159 Borderline >159 Undesirable Direct (measured) LDL and calculated LDL are not interchangeable tests. Performed By: #### G LYHGB, LIPRF, URNMAB #### [address] [address] Waiter/Waitress Head: Harlan Yates MD #### BMP #### [address] [place] [phone] Waiter/Waitress Head: César Rueda MD Cholesterol.total/Chol esterol in HDL [Mass ratio] 7.1 {ratio} High <5 [facility] Comment on above: Performed By: #### G LYHGB, LIPRF, URNMAB #### [address] [address] Waiter/Waitress Head: Harlan Yates MD #### BMP #### [facility] [address] [place] [place] [address] Waiter/Waitress Head: César Rueda MD Triglyceride,Fasting 290 mg/dL High <150 [facility] Comment on above: Result Comment: Triglyceride Guidelines: <150 Desirable 150-199 Borderline 200-499 High >499 Very high Based on AHA Guidelines for fasting triglyceride, November 2011. Performed By: #### G LYHGB, LIPRF, URNMAB #### [facility] [employer] [address] [place], [place] [id number] Waiter/Waitress Head: Harlan Yates MD #### BMP #### [facility] [address] [place] [place] [address] Waiter/Waitress Head: César Rueda MD Lipid, Fastingon 12-06-2021 Cholesterol [Mass/Vol] 241 mg/dL High NINF - 200 mg/dL [facility] Comment on above: Cholesterol Guidelines: <200 Desirable 200-240 Borderline >240 Undesirable Cholesterol in HDL [Mass/Vol] 34 mg/dL Low 40 - PINF mg/dL [facility] Comment on above: HDL Guidelines: <40 Undesirable 40-59 Borderline >59 Desirable Cholesterol in LDL [Mass/Vol] 149 mg/dL High 0 - 130 mg/dL [facility] Comment on above: LDL Guidelines: <100 Desirable 100-129 Near to/above Desirable 130-159 Borderline >159 Undesirable Direct (measured) LDL and calculated LDL are not interchangeable tests. Cholesterol.total/Chol esterol in HDL [Mass ratio] 7.1 {ratio} High NINF - 5 [facility] Interpretation and review of laboratory results Abnormal [facility] Triglyceride, Fasting 290 mg/dL High NINF - 150 mg/dL [facility] Comment on above: Triglyceride Guidelines: <150 Desirable 150-199 Borderline 200-499 High >499 Very high Based on AHA Guidelines for fasting triglyceride, November 2011. [facility] Microalbumin, Uron 2 Albumin/Creatinine DL <= 20 mg/L (24H U) [Mass ratio] mg/L NINF - 21 mg/L [facility] Albumin/Creatinine DL <= 20 mg/L (U) [Ratio] Can not be calculated NINF [facility] Creatinine [Mass/Vol] 32.1 mg/dL 28.0 - 217.0 mg/dL [facility] Basic Metabolic Panelon - Anion gap [Moles/Vol] 10 mmol/L 9 - 17 mmol/L [facility] Calcium [Mass/Vol] 8.9 mg/dL 8.6 - 10. 4 mg/dL [facility] Chloride [Moles/Vol] 106 mmol/L 98 - 10 7 mmol/L [facility] CO2 [Moles/Vol] 23 mmol/L 20 - 31 mmol/L [facility] Creatinine [Mass/Vol] 0.55 mg/dL 0.50 - 0.90 mg/dL [facility] GFR >60 >60 mL/min [facility] GFR Non- >60 >60 mL/min [facility] Glucose [Mass/Vol] 293 mg/dL High 70 - 99 mg/dL [facility] Interpretation and review of laboratory results Abnormal [facility] Potassium [Moles/Vol] 4.4 mmol/L 3.7 - 5.3 mmol/L [facility] Sodium [Moles/Vol] 139 mmol/L 135 - 144 mmol/L [facility] Urea nitrogen (BldV) [Mass/Vol] 20 mg/dL 6 - 20 mg/dL [facility] Urea nitrogen/Creatinine (Bld) [Mass ratio] 36 High [facility] Basic Metabolic Profon 08-06 (cont.) Normal [facility] Comment on above: Result Comment: Aver age GFR for 50-59 years old: 93 mL/min/1.73sq m Chronic Kidney Disease: <60 mL/min/1.73sq m Kidney failure: <15 mL/min/1.73sq m eGFR calculated using average adult body mass. Additional eGFR calculator available at: http://www.Covario.PrimeSense/multiple_crcl_2012.htm Performed By: #### B MP, TSH #### [facility] [address] [place] [address] [address] [place] [phone] Waiter/Waitress Head: César Rueda MD #### GLYHGB, LIPR #### [address] [place], [place] [phone] Waiter/Waitress Head: Harlan Yates MD Anion gap [Moles/Vol] 10 mmol/L Normal 9-17 [facility] Comment on above: Performed By: #### B MP, TSH #### [facility] [address] [place] [address] Dr. [place] [phone] Waiter/Waitress Head: César Rueda MD #### GLYHGB, LIPR #### [address] [address] Waiter/Waitress Head: Harlan Yates MD BUN/CRE Ratio 36 High 9-20 [facility] Comment on above: Performed By: #### B MP, TSH #### [address] [place] [phone] ( Waiter/Waitress Head: César Rueda MD #### GLYHGB, LIPR #### [address] [address] Waiter/Waitress Head: Harlan Yates MD Calcium [Mass/Vol] 8.9 mg/dL Normal 8.6-10.4 [facility] Comment on above: Performed By: #### B MP, TSH #### [facility] [address] [place] [address] Dr. [place] [phone] Waiter/Waitress Head: César Rueda MD #### GLYHGB, LIPR #### [address] [address] Waiter/Waitress Head: Harlan Yates MD Chloride [Moles/Vol] 106 mmol/L Normal 98-107 [facility] Comment on above: Performed By: #### B MP, TSH #### [facility] [address] [place] [address] Dr. [place] [phone] Waiter/Waitress Head: César Rueda MD #### GLYHGB, LIPR #### [address] [place] [address] Waiter/Waitress Head: Harlan Yates MD CO2 [Moles/Vol] 23 mmol/L Normal 20-31 [facility] Comment on above: Performed By: #### B MP, TSH #### [facility] [address] [place], [place] [phone] Waiter/Waitress Head: César Rueda MD #### GLYHGB, LIPR #### [address] [address] Waiter/Waitress Head: Harlan Yates MD Creatinine [Mass/Vol] 0.55 mg/dL Normal 0.50-0.90 [facility] Comment on above: Performed By: #### B MP, TSH #### [facility] [address] [place], [place] [phone] Waiter/Waitress Head: César Rueda MD #### GLYHGB, LIPR #### [address] [address] Waiter/Waitress Head: Harlan Yates MD GFR, Amer >60 Normal >60 [facility] Comment on above: Performed By: #### B MP, TSH #### [facility] [address] [place], [place] [phone] Waiter/Waitress Head: César Rueda MD #### GLYHGB, LIPR #### [address] [address] Waiter/Waitress Head: Harlan Yates MD GFR,non Amer >60 Normal >60 [facility] Comment on above: Performed By: #### B MP, TSH #### [facility] [address] [place] [address] Waiter/Waitress Head: César Rueda MD #### GLYHGB, LIPR #### [address] [place] [address] Waiter/Waitress Head: Harlan Yates MD Glucose [Mass/Vol] 293 mg/dL High 70-99 [facility] Comment on above: Performed By: #### B MP, TSH #### [facility] [address] [place] [address] Dr. [place], [place] [phone] Waiter/Waitress Head: César Rueda MD #### GLYHGB, LIPR #### [address] [address] Waiter/Waitress Head: Harlan Yates MD Potassium [Moles/Vol] 4.4 mmol/L Normal 3.7-5.3 [facility] Comment on above: Performed By: #### B MP, TSH #### [address] [place], [place] [phone] Waiter/Waitress Head: César Rueda MD #### GLYHGB, LIPR #### [address] [address] Waiter/Waitress Head: Harlan Yates MD Sodium [Moles/Vol] 139 mmol/L Normal 135-144 [facility] Comment on above: Performed By: #### B MP, TSH #### [address] [place], [place] [phone] Waiter/Waitress Head: César Rueda MD #### GLYHGB, LIPR #### [address] [address] Waiter/Waitress Head: Harlan Yates MD Staging: Normal [facility] Comment on above: Result Comment: Stag e 1: Some kidney damage normal GFR Stage 2: Mild kidney damage GFR 60-89 Stage 3: Moderate kidney damage GFR 30-59 Stage 4: Severe kidney damage GFR 15-29 Stage 5: Severe kidney damage GFR <15 ESRD - chronic treatment by dialysis or transplant Performed By: #### B MP, TSH #### [address] [place], [place] [id number] Waiter/Waitress Head: César Rueda MD #### GLYHGB, LIPR #### [facility] [address] [place] [address] Waiter/Waitress Head: Harlan Yates MD Urea nitrogen [Mass/Vol] 20 mg/dL Normal 6-20 [facility] Comment on above: Performed By: #### B MP, TSH #### [facility] [address] [place] [address] Dr. [place], [place] [phone] Waiter/Waitress Head: César Rueda MD #### GLYHGB, LIPR #### [address] [place] [address] Waiter/Waitress Head: Harlan Yates MD Hemoglobin A1Con 08-06-2021 Glucose [Mass/Vol] 235 mg/dL [facility] Comment on above: Result Comment: The ADA and AACC recommend providing the estimated average glucose result to permit better patient understanding of their HBA1c result. Performed By: #### B MP, TSH #### [facility] [address] [place] [address] Dr. [place], [place] [phone] Waiter/Waitress Head: César Rueda MD #### GLYHGB, LIPR #### [address] [place] [address] Waiter/Waitress Head: Harlan Yates MD HbA1c (Bld) [Mass fraction] 9.8 % High 4.0-6.0 [facility] Comment on above: Performed By: #### B MP, TSH #### [facility] [address] [place] [address] Dr. [place], [place] [phone] Waiter/Waitress Head: César Rueda MD #### GLYHGB, LIPR #### [facility] [address] [place] [address] Waiter/Waitress Head: Harlan Yates MD Glucose [Mass/Vol] 235 mg/dL [facility] Comment on above: The ADA and AACC rec ommend providing the estimated average glucose result to permit better patient understanding of their HBA1c result. HbA1c (Bld) [Mass fraction] 9.8 % High 4.0 - 6.0 % [facility] Interpretation and review of laboratory results Abnormal [facility] - Chemistry and C hemistry - challengeon 08-06-2021 GFR/1.73 sq M.predicted MDRD (S/P/Bld) [Vol rate/Area] [facility] Comment on above: Average GFR for 50-5 9 years old: 93 mL/min/1.73sq m Chronic Kidney Disease: <60 mL/min/1.73sq m Kidney failure: <15 mL/min/1.73sq m eGFR calculated using average adult body mass. Additional eGFR calculator available at: http://www.Opathica/multiple_crcl_2012.htm Stage 1: Some kidney damage normal GFR Stage 2: Mild kidney damage GFR 60-89 Stage 3: Moderate kidney damage GFR 30-59 Stage 4: Severe kidney damage GFR 15-29 Stage 5: Severe kidney damage GFR <15 ESRD - chronic treatment by dialysis or transplant Lipid Panelon 08-06-2021 Cholesterol [Mass/Vol] 216 mg/dL High <200 [facility] [employer] Comment on above: Cholesterol Guidelines: <200 Desirable 200-240 Borderline >240 Undesirable Cholesterol in HDL [Mass/Vol] 32 mg/dL Low >40 [facility] [employer] Comment on above: HDL Guidelines: <40 Undesirable 40-59 Borderline >59 Desirable Cholesterol in LDL [Mass/Vol] 146 mg/dL High 0 - 130 mg/dL [facility] Comment on above: LDL Guidelines: <100 Desirable 100-129 Near to/above Desirable 130-159 Borderline >159 Undesirable Direct (measured) LDL and calculated LDL are not interchangeable tests. Cholesterol.total/Chol esterol in HDL [Mass ratio] 6.8 {ratio} High <5 [facility] [employer] Interpretation and review of laboratory results Abnormal [facility] [employer] Triglyceride [Mass/Vol] 189 mg/dL High <150 [facility] Comment on above: Triglyceride Guidelines: <150 Desirable 150-199 Borderline 200-499 High >499 Very high Based on AHA Guidelines for fasting triglyceride, November 2011. [facility] [employer] Lipid Profileon 08-06-2021 Cholesterol [Mass/Vol] 216 mg/dL High <200 [facility] Comment on above: Result Comment: Cholesterol Guidelines: <200 Desirable 200-240 Borderline >240 Undesirable Performed By: #### B MP, TSH #### [facility] [address] [place] [address] Dr. [place], [place] [id number] Waiter/Waitress Head: César Rueda MD #### GLYHGB, LIPR #### [address] [place], [place] [id number] Waiter/Waitress Head: Harlan Yates MD Cholesterol in HDL [Mass/Vol] 32 mg/dL Low >40 [facility] Comment on above: Result Comment: HDL Guidelines: <40 Undesirable 40-59 Borderline >59 Desirable Performed By: #### B MP, TSH #### [address] [place], [place] [id number] Waiter/Waitress Head: César Rueda MD #### GLYHGB, LIPR #### [id number] [place] [address] Waiter/Waitress Head: Harlan Yates MD Cholesterol in LDL [Mass/Vol] 146 mg/dL High 0-130 [facility] Comment on above: Result Comment: LDL Guidelines: <100 Desirable 100-129 Near to/above Desirable 130-159 Borderline >159 Undesirable Direct (measured) LDL and calculated LDL are not interchangeable tests. Performed By: #### B ANILA, TSH #### [facility] [address] [place] [address] Dr. [place], [place] [phone] Waiter/Waitress Head: César Rueda MD #### GLYHGB, LIPR #### [id number] [place], [place] [id number] Waiter/Waitress Head: Harlan Yates MD Cholesterol.total/Chol esterol in HDL [Mass ratio] 6.8 {ratio} High <5 [facility] Comment on above: Performed By: #### B ANILA, TSH #### [address] [place], [place] [id number] Waiter/Waitress Head: César Rueda MD #### GLYHGB, LIPR #### [facility] [address] [place] [address] Waiter/Waitress Head: Harlan Yates MD Triglyceride [Mass/Vol] 189 mg/dL High <150 [facility] Comment on above: Result Comment: Triglyceride Guidelines: <150 Desirable 150-199 Borderline 200-499 High >499 Very high Based on AHA Guidelines for fasting triglyceride, November 2011. Performed By: #### B MP, TSH #### [facility] [address] [place] [address] Waiter/Waitress Head: César Rueda MD #### ALIAYH, LIPR #### [facility] [address] [place], [place] [phone] Waiter/Waitress Head: Harlan Yates MD No Panel Informationon 08-06 [facility] TSHon 08-06-2021 TSH Qn 1.10 m[IU]/L [facility] Thyroid Stim. Horm.on 2021 Thyroid Stim. Horm. 1.10 uIU/mL Normal 0.30-5.00 [facility] Comment on above: Performed By: #### B MP, TSH #### [address] [place] [address] Waiter/Waitress Head: César Rueda MD #### ALIYAH, LIPR #### [facility] [address] [place] [address] Waiter/Waitress Head: Harlan Yates MD Basic Metabolic Panelon 04-2 Anion gap [Moles/Vol] 10 mmol/L 9 - 17 mmol/L [facility] Calcium [Mass/Vol] 9.3 mg/dL 8.6 - 10. 4 mg/dL [facility] Chloride [Moles/Vol] 102 mmol/L 98 - 10 7 mmol/L [facility] CO2 [Moles/Vol] 27 mmol/L 20 - 31 mmol/L [facility] Creatinine [Mass/Vol] 0.61 mg/dL 0.50 - 0.90 mg/dL [facility] GFR >60 >60 mL/min [facility] GFR Non- >60 >60 mL/min [facility] Glucose [Mass/Vol] 196 mg/dL High 70 - 99 mg/dL [facility] Interpretation and review of laboratory results Abnormal [facility] Potassium [Moles/Vol] 4.5 mmol/L 3.7 - 5.3 mmol/L [facility] Sodium [Moles/Vol] 139 mmol/L 135 - 144 mmol/L [facility] Urea nitrogen (BldV) [Mass/Vol] 21 mg/dL High 6 - 20 mg/dL [facility] Urea nitrogen/Creatinine (Bld) [Mass ratio] 34 High [facility][Note 2] Basic Metabolic Profon 06-05 (cont.) Normal [facility] Comment on above: Result Comment: Aver age GFR for 50-59 years old: 93 mL/min/1.73sq m Chronic Kidney Disease: <60 mL/min/1.73sq m Kidney failure: <15 mL/min/1.73sq m eGFR calculated using average adult body mass. Additional eGFR calculator available at: http://www.Covario.PrimeSense/multiple_crcl_2012.htm Performed By: #### B ANILA UA #### [facility] [address] [place] [address] [place] [address] Waiter/Waitress Head: César Rueda MD #### GLYHGB #### [facility] [address] [place] [address] Waiter/Waitress Head: Harlan Yates MD Anion gap [Moles/Vol] 10 mmol/L Normal - [facility] Comment on above: Performed By: #### Pito HIGH, UA #### [facility] [address] [place] [address] Waiter/Waitress Head: César Rueda MD #### GLYHGB #### [facility] [address] [place] [address] Waiter/Waitress Head: Harlan Yates MD BUN/CRE Ratio 34 High - [facility] Comment on above: Performed By: #### B MP, UA #### [facility] [address] [place], [place] [phone] Waiter/Waitress Head: César Rueda MD #### GLYHGB #### [address] [id number] Waiter/Waitress Head: Harlan Yates MD Calcium [Mass/Vol] 9.3 mg/dL Normal 8.6-10.4 [facility] Comment on above: Performed By: #### B MP, UA #### [facility] [address] [place], [place] [id number] Waiter/Waitress Head: César Rueda MD #### GLYHGB #### [address] [address] Waiter/Waitress Head: Harlan Yates MD Chloride [Moles/Vol] 102 mmol/L Normal 98-107 [facility] Comment on above: Performed By: #### B MP, UA #### [facility] [address] [place] [address] Dr. [place], [place] [id number] Waiter/Waitress Head: César Rueda MD #### GLYHGB #### [address] [address] Waiter/Waitress Head: Harlan Yates MD CO2 [Moles/Vol] 27 mmol/L Normal 20-31 [facility] Comment on above: Performed By: #### B MP, UA #### [facility] [address] [place] [address] Dr. [place], [place] [id number] Waiter/Waitress Head: César Rueda MD #### GLYHGB #### [address] [address] Waiter/Waitress Head: Harlan Yates MD Creatinine [Mass/Vol] 0.61 mg/dL Normal 0.50-0.90 [facility] Comment on above: Performed By: #### B MP, UA #### [facility] [address] [place] [address] Dr. [place], [place] [phone] Waiter/Waitress Head: César Rueda MD #### GLYHGB #### [facility] [address] [place] [address] Waiter/Waitress Head: Harlan Yates MD GFR, Amer >60 Normal >60 [facility] Comment on above: Performed By: #### B MP, UA #### [facility] [address] [place], [place] [phone] Waiter/Waitress Head: César Rudea MD #### GLYHGB #### [address] [address] Waiter/Waitress Head: Harlan Yates MD GFR,non Amer >60 Normal >60 [facility] Comment on above: Performed By: #### B MP, UA #### [address] [place], [place] 1599383 Waiter/Waitress Head: César Rueda MD #### GLYHGB #### [address] [address] Waiter/Waitress Head: Harlan Yates MD Glucose [Mass/Vol] 196 mg/dL High 70-99 [facility] Comment on above: Performed By: #### B MP, UA #### [facility] [address] [place] [address] Dr. [place], [place] [phone] Waiter/Waitress Head: César Rueda MD #### GLYHGB #### [address] [address] Waiter/Waitress Head: Harlan Yates MD Potassium [Moles/Vol] 4.5 mmol/L Normal 3.7-5.3 [facility] Comment on above: Performed By: #### B MP, UA #### [facility] [address] [place] [address] Dr. [place], [place] [phone] Waiter/Waitress Head: César Rueda MD #### GLYHGB #### [facility] [address] [place] [address] Waiter/Waitress Head: Harlan Yates MD Sodium [Moles/Vol] 139 mmol/L Normal 135-144 [facility] Comment on above: Performed By: #### B MP, UA #### [facility] [address] [place], [place] [phone] Waiter/Waitress Head: César Rueda MD #### GLYHGB #### [address] [place] [address] Waiter/Waitress Head: Harlan Yates MD Staging: Normal [facility] Comment on above: Result Comment: Stag e 1: Some kidney damage normal GFR Stage 2: Mild kidney damage GFR 60-89 Stage 3: Moderate kidney damage GFR 30-59 Stage 4: Severe kidney damage GFR 15-29 Stage 5: Severe kidney damage GFR <15 ESRD - chronic treatment by dialysis or transplant Performed By: #### B MP, UA #### [facility] [address] [place], [place] [phone] Waiter/Waitress Head: César Rueda MD #### GLYHGB #### [address] [address] Waiter/Waitress Head: Harlan Yates MD Urea nitrogen [Mass/Vol] 21 mg/dL High 6-20 [facility] Comment on above: Performed By: #### B MP, UA #### [facility] [address] [place] [address] Dr. [place], [place] [phone] Waiter/Waitress Head: César Rueda MD #### GLYHGB #### [facility] [address] [place] [address] Waiter/Waitress Head: Harlan Yates MD Hemoglobin A1Con 06-05-2021 Glucose [Mass/Vol] 258 mg/dL [facility] Comment on above: Result Comment: The ADA and AACC recommend providing the estimated average glucose result to permit better patient understanding of their HBA1c result. Performed By: #### G LYHGB, MANDYRF, URNMAB #### [facility] [address] [place], [place] [phone] Waiter/Waitress Head: Harlan Yates MD #### BMP #### [facility] [address] [place] [address] Dr. [place], [place] [phone] Waiter/Waitress Head: César Rueda MD HbA1c (Bld) [Mass fraction] 10.6 % High 4.0-6.0 [facility] Comment on above: Performed By: #### G LYHGB, LIPRF, URNMAB #### [facility] [address] [place], [place] [phone] Waiter/Waitress Head: Harlan Yates MD #### BMP #### [facility] [address] [place] [address] [place] [address] Waiter/Waitress Head: César Rueda MD Glucose [Mass/Vol] 258 mg/dL [facility] Comment on above: The ADA and AACC rec ommend providing the estimated average glucose result to permit better patient understanding of their HBA1c result. HbA1c (Bld) [Mass fraction] 10.6 % High 4.0 - 6.0 % [facility] Interpretation and review of laboratory results Abnormal [facility][Note 2] Laboratory - Chemistry and C hemistry - challengeon 06-05-2021 GFR/1.73 sq M.predicted MDRD (S/P/Bld) [Vol rate/Area] [facility] Comment on above: Average GFR for 50-5 9 years old: 93 mL/min/1.73sq m Chronic Kidney Disease: <60 mL/min/1.73sq m Kidney failure: <15 mL/min/1.73sq m eGFR calculated using average adult body mass. Additional eGFR calculator available at: http://www.Covario.PrimeSense/multiple_crcl_2012.htm Stage 1: Some kidney damage normal GFR Stage 2: Mild kidney damage GFR 60-89 Stage 3: Moderate kidney damage GFR 30-59 Stage 4: Severe kidney damage GFR 15-29 Stage 5: Severe kidney damage GFR <15 ESRD - chronic treatment by dialysis or transplant Urinalysison 04-20-2022 Bilirubin Urine Negative NEGATIVE [facility] Color, UA Yellow Yellow [facility] Glucose, Ur Negative NEGATIVE [facility] Interpretation and review of laboratory results Abnormal [facility] Ketones Ql (U) Negative NEGATIVE [facility] Leukocyte esterase Test strip Ql (U) Negative NEGATIVE [facility] Nitrite, Urine Negative NEGATIVE [facility] pH, UA 5.5 [facility] Protein, UA Negative NEGATIVE [facility] Specific [place], UA 1.025 High [facility] Turbidity UA Clear Clear [facility] Urine Hgb Negative NEGATIVE [facility] Urobilinogen, Urine Normal Normal [facility][Note 2] Urinalysis, Routineon 2021 Bilirubin, SemiQt,Ur Negative Normal NEG [facility] Comment on above: Performed By: #### B MP, UA #### [address] [place] [address] Waiter/Waitress Head: César Rueda MD #### GLYHGB #### [address] [phone] Waiter/Waitress Head: Harlan Yates MD Blood, Urine Negative Normal NEG [facility] Comment on above: Performed By: #### B MP, UA #### [address] [place] [id number] Waiter/Waitress Head: César Rueda MD #### GLYHGB #### [address] [phone] Waiter/Waitress Head: Harlan Yates MD Clarity (U) Clear Normal CLEAR [facility] Comment on above: Performed By: #### B MP, UA #### [address] [place] [address] Waiter/Waitress Head: César Rueda MD #### GLYHGB #### [address] [address] Waiter/Waitress Head: Harlan Yates MD Color (U) Yellow Normal YEL [facility] Comment on above: Performed By: #### B MP, UA #### [facility] [address] [place] [address] [place] [address] Waiter/Waitress Head: César Rueda MD #### GLYHGB #### [facility] [address] [place] [address] Waiter/Waitress Head: Harlan Yates MD Glucose Ql (U) Negative Normal NEG [facility] Comment on above: Performed By: #### B MP, UA #### [facility] [address] [place] [address] [place] [address] Waiter/Waitress Head: César Rueda MD #### GLYHGB #### [facility] [address] [place] [address] Waiter/Waitress Head: Harlan Yates MD Ketones Ql (U) Negative Normal NEG [facility] Comment on above: Performed By: #### B MP, UA #### [address] [place] [address] Waiter/Waitress Head: César Rueda MD #### GLYHGB #### [address] [address] Waiter/Waitress Head: Harlan Yates MD Leukocyte esterase Test strip Ql (U) Negative Normal NEG [facility] Comment on above: Performed By: #### B MP, UA #### [address] [place], [place] [phone] Waiter/Waitress Head: César Rueda MD #### GLYHGB #### [facility] [address] [place] [address] Waiter/Waitress Head: Harlan Yates MD Nitrite,Ur Negative Normal NEG [facility] Comment on above: Performed By: #### B MP, UA #### [address] [place] [address] Waiter/Waitress Head: César Rueda MD #### GLYHGB #### [address] [address] Waiter/Waitress Head: Harlan Yates MD PH,Ur 5.5 Normal 5.0-9.0 [facility] Comment on above: Performed By: #### B MP, UA #### [facility] [address] [place] [address] Dr. [place], [place] [phone] Waiter/Waitress Head: César Rueda MD #### GLYHGB #### [address] [address] Waiter/Waitress Head: Harlan Yates MD Protein Ql (U) Negative Normal NEG [facility] Comment on above: Performed By: #### B ANILA, UA #### [facility] [address] [place] [address] [place] [address] Waiter/Waitress Head: César Rueda MD #### GLYHGB #### [address] [address] Waiter/Waitress Head: Harlan Yates MD Spec. Otis,Ur 1.025 High 1.010-1.020 [facility] Comment on above: Performed By: #### B ANILA, UA #### [address] [place], [place] 3664583 Waiter/Waitress Head: César Rueda MD #### GLYHGB #### [address] [address] Waiter/Waitress Head: Harlan Yates MD Urobilinogen,Ur Normal Normal NORM [facility] Comment on above: Performed By: #### B MP, UA #### [address] 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 Zachary Adrian [address] [place] [address] RE: Milana Hetal Carbajal 67 Dear Yazan, I saw your [...] Osei RICO/martha Dictated but not read Normal [facility] Surgery Office/Clinic Noteon 09-19-2020 Surgery Office/Clinic Note [...] or pressure, No Edema, No History of [place]/CAD, No History of A-Fib Gastrointestinal: No Abdominal [...] in this document, created by the medical director of hospice for me, accurately reflects the services I [...] by Heidi Hernandez 09/20/2020 06:46 EDT Normal [facility] Laboratory - Chemistry and C hemistry - challengeon 09-03-2020 Albumin [Mass/Vol] 4.20 g/dL Invalid Interpretation Code 3.7-4.5 [facility] Albumin/Globulin [Mass ratio] 1.3 {ratio} Invalid Interpretation Code 1.0-2.4 [facility] ALP [Catalytic activity/Vol] 83.0 U/L Invalid Interpretation Code 31-155 [facility] ALT [Catalytic activity/Vol] 23.0 U/L Invalid Interpretation Code 0-50 [facility] Anion gap [Moles/Vol] 15 mmol/L Invalid Interpretation Code 10-20 [facility] AST [Catalytic activity/Vol] 15.0 U/L Invalid Interpretation Code 0-40 [facility] Bilirubin [Mass/Vol] 0.40 mg/dL Invalid Interpretation Code 0.0-1.0 [facility] Bilirubin Ql (U) Negative Invalid Interpretation Code Negative [facility] Calcium [Mass/Vol] 9.40 mg/dL Invalid Interpretation Code 8.5-10.8 [facility] Chloride [Moles/Vol] 98.0 mmol/L Invalid Interpretation Code 100-112 [facility] Cholesterol [Mass/Vol] 275.0 mg/dL Invalid Interpretation Code 0-200 [facility] Cholesterol in HDL [Mass/Vol] 37.0 mg/dL Invalid Interpretation Code 50-100 [facility] Cholesterol in LDL [Mass/Vol] 167.0 mg/dL Invalid Interpretation Code 0-130 [facility] Cholesterol in VLDL [Mass/Vol] 71.0 mg/dL Invalid Interpretation Code 0-39 [facility] Cholesterol.total/Chol esterol in HDL [Mass ratio] 7 {ratio} Invalid Interpretation Code [facility] CO2 [Moles/Vol] 29.0 mmol/L Invalid Interpretation Code 23-30 [facility] Creatinine [Mass/Vol] 0.50 mg/dL Invalid Interpretation Code 0.5-1.5 [employer] GFR/1.73 sq M.predicted among non-blacks MDRD (S/P/Bld) [Vol rate/Area] 128 mL/min/{1.73_m2} Invalid Interpretation Code [employer] Glucose [Mass/Vol] 365.0 mg/dL Invalid Interpretation Code 80-117 [employer] Ketones Ql (U) 3+ Invalid Interpretation Code Negative [employer] pH (U) 5 [pH] Invalid Interpretation Code 5.0-9.0 [facility] Potassium [Moles/Vol] 5.0 mmol/L Invalid Interpretation Code 3.5-5.3 [employer] [facility] Protein [Mass/Vol] 7.40 g/dL Invalid Interpretation Code 6.3-7.9 [employer] Sodium [Moles/Vol] 137.0 mmol/L Invalid Interpretation Code 135-148 [employer] Specific gravity (U) [Rel density] 1.015 Invalid Interpretation Code 1.003-1.030 [employer] [facility] Triglyceride [Mass/Vol] 353.0 mg/dL Invalid Interpretation Code 30-150 [employer] [facility] Urea nitrogen [Mass/Vol] 12.0 mg/dL Invalid Interpretation Code 7-25 [employer] Urea nitrogen/Creatinine [Mass ratio] 24 mg/mg Invalid Interpretation Code 6-20 [employer] [facility] Urobilinogen (U) [Mass/Vol] normal Invalid Interpretation Code normal [employer] [facility] Laboratory - Hematology and Cell countson 09-03-2020 Erythrocyte distribution width (RBC) [Ratio] 12.40 % Invalid Interpretation Code 11.5-15.5 [employer] [facility] HbA1c (Bld) [Mass fraction] 13.20 % Invalid Interpretation Code 4.3-6.3 [employer] Hematocrit (Bld) [Volume fraction] 43.40 % Invalid Interpretation Code 35.7-47.1 [employer] Hemoglobin (Bld) [Mass/Vol] 14.50 g/dL Invalid Interpretation Code 11.9-15.7 [employer] Hemoglobin Ql (U) Negative Invalid Interpretation Code Negative [employer] MCH (RBC) [Entitic mass] 30.30 pg Invalid Interpretation Code 23.2-33.3 [employer] [facility] MCHC (RBC) [Mass/Vol] 33.40 g/dL Invalid Interpretation Code 32.0-36.0 [employer] MCV (RBC) [Entitic vol] 90.60 fL Invalid Interpretation Code 83.4-101.4 [employer] Platelet mean volume (Bld) [Entitic vol] 10.80 fL Invalid Interpretation Code 8.3-11.5 [employer] Platelets (Bld) [#/Vol] 278.0 10*3/uL Invalid Interpretation Code 150-400 [employer] RBC (Bld) [#/Vol] 4.790 10*6/uL Invalid Interpretation Code 3.72-5.24 [employer] WBC (Bld) [#/Vol] 6.80 10*3/uL Invalid Interpretation Code 3.9-10.3 [employer] [facility] Laboratory - Specimen inform ationon 09-03-2020 Clarity (U) clear Invalid Interpretation Code Clear [facility] Color (U) yellow Invalid Interpretation Code yellow [facility] Laboratory - Urinalysison Glucose Test strip (U) [Mass/Vol] 4+ Invalid Interpretation Code Negative [facility] Leukocyte esterase Test strip Ql (U) Negative Invalid Interpretation Code Negative [facility] Nitrite Ql (U) Negative Invalid Interpretation Code Negative [facility] Protein Ql (U) Negative Invalid Interpretation Code Negative [facility] No Panel Informationon 09-03 332.0 mg/dL Invalid Interpretation Code [facility] 574 Invalid Interpretation Code 243-911 [facility] 15.3 Invalid Interpretation Code >5.4 [facility] XR ANKLE RT MIN 3 VIEWSon XR [...] by: TONYA FLORES Date: 2020-08-25 19:17 Normal [facility] XR KNEE RT 4V or >on 021 [...] TONYA FLORES Date: 2020-08-25 19:20 Normal [facility] Basic Metabolic Panelon 11-16 Anion gap [Moles/Vol] 11 mmol/L 9 - 17 mmol/L [place] Bun/Cre Ratio 22 High [place], [place] Calcium [Mass/Vol] 8.9 mg/dL 8.6 - 10. 4 mg/dL [place] Chloride [Moles/Vol] 93 mmol/L Low 98 - 10 7 mmol/L [place] CO2 [Moles/Vol] 26 mmol/L 20 - 31 mmol/L [place] Creatinine [Mass/Vol] 0.67 mg/dL 0.5 - 0.9 mg/dL [place] GFR >60 >60 mL/min [place] GFR Non- >60 >60 mL/min [place] Glucose [Mass/Vol] 365 mg/dL High 70 - 99 mg/dL [place], [place] Interpretation and review of laboratory results Abnormal [place] Potassium [Moles/Vol] 4.3 mmol/L 3.7 - 5.3 mmol/L [place] Sodium [Moles/Vol] 130 mmol/L Low 135 - 144 mmol/L [place] Urea nitrogen [Mass/Vol] 15 mg/dL 6 - 20 mg/dL [place] CBC Auto Differentialon 11-16 Basophils (Bld) [#/Vol] 10*3/uL [place] Basophils/100 WBC (Bld) 0 % 0 - 2 % [place] Differential Type NOT REPORTED [place] Eosinophils (Bld) [#/Vol] 10*3/uL [place] Eosinophils/100 WBC (Bld) 0 % Low 1 - 4 % [place] Erythrocyte distribution width (RBC) [Ratio] 13.2 % 11.8 - 14.4 % [place] Hematocrit (Bld) [Volume fraction] 44.1 % 36.3 - 47.1 % [place] Hemoglobin (Bld) [Mass/Vol] 14.3 g/dL 11.9 - 15.1 g/dL [place] Immature granulocytes (Bld) [#/Vol] 10*3/uL [place] Immature granulocytes (Bld) [#/Vol] 0 % 0 [place] Interpretation and review of laboratory results Abnormal [place] Lymphocytes (Bld) [#/Vol] 1.03 10*3/uL Low [place] Lymphocytes/100 WBC (Bld) 18 % Low 24 - 43 % [place] MCH (RBC) [Entitic mass] 30.0 pg 25.2 - 33.5 pg [place] MCHC (RBC) [Mass/Vol] 32.4 g/dL 28.4 - 34.8 g/dL [place] MCV (RBC) [Entitic vol] 92.5 fL 82.6 - 102.9 fL [place] Monocytes (Bld) [#/Vol] 0.39 10*3/uL [place] Monocytes/100 WBC (Bld) 7 % 3 - 12 % [place] Platelet mean volume (Bld) [Entitic vol] 10.5 fL 8.1 - 13.5 fL [place] Platelets (Bld) [#/Vol] 220 10*3/uL [place] Platelets (Bld) [#/Vol] NOT REPORTED [place] RBC (Bld) [#/Vol] 4.77 10*6/uL 3.95 - 5.1 1 m/uL [place] RBC morphology finding Nom (Bld) NOT REPORTED [place] Segmented neutrophils/100 WBC (Bld) 75 % High 36 - 65 % [place] Segs Absolute 4.46 [place] WBC (Bld) [#/Vol] 5.9 10*3/uL [place] WBC (Bld) [#/Vol] 0.0 10*3/uL 0.0 per 10 0 WBC [place] WBC Morphology NOT REPORTED [place] COVID-19on 12-02-2019 Interpretation and review of laboratory results Abnormal [place] SARS-CoV-2, Rapid DETECTED Abnormal Not Detected [place] Comment on above: Rapid NAAT: The [...] this assay. Fact sheet for Healthcare Providers: https://www.fda.gov/media/961861/download Fact sheet for Patients: https://www.fda.gov/media/110271/download Methodology: Isothermal Nucleic Acid Amplification Results reported to the appropriate Health Department Source .NASOPHARYNGEAL SWAB [place], [place] Glucose, Whole Bloodon 12-01 Glucose [Mass/Vol] 227 mg/dL High 74 - 100 mg/dL [place] Interpretation and review of laboratory results Abnormal [place] Lactate, Sepsison 12-02-2019 Interpretation and review of laboratory results Abnormal [place] Lactic Acid, Sepsis 2.0 mmol/L High 0.5 - 1. 9 mmol/L [place] Lactic Acid, Sepsis, Whole Blood NOT REPORTED 0.5 - 1.9 mmol/L [place] Metabolic Panelon 12-02-2019 GFR/1.73 sq M predicted among non-blacks MDRD (S/P/Bld) [Vol rate/Area] [place] Comment on above: Average GFR for 50-5 9 years old: 93 mL/min/1.73sq m Chronic Kidney Disease: <60 mL/min/1.73sq m Kidney failure: <15 mL/min/1.73sq m eGFR calculated using average adult body mass. Additional eGFR calculator available at: http://www.Covario.PrimeSense/multiple_crcl_2012.htm Stage 1: Some kidney damage normal GFR Stage 2: Mild kidney damage GFR 60-89 Stage 3: Moderate kidney damage GFR 30-59 Stage 4: Severe kidney damage GFR 15-29 Stage 5: Severe kidney damage GFR <15 ESRD - chronic treatment by dialysis or transplant Otheron 12-02-2019 SARS-CoV-2 [place] POCT Glucoseon 12-02-2019 Glucose [Mass/Vol] 227 mg/dL [place] Interpretation and review of laboratory results Normal [place] QC OK? yes [place] XR CHEST 1 VIEWon 12-02-2019 Andrew, Mhpn Incoming Radiant Results From [employer] - 12/02/2019 12:43 PM EDT EXAMINATION: ONE [...] focal airspace consolidation, pleural effusion, or pneumothorax. [place] EXAMINATION: ONE XRAY VIEW OF THE CHEST 12/02/2019 12:28 pm COMPARISON: None. HISTORY: ORDERING SYSTEM PROVIDED HISTORY: ProbableCOVID-19 pneumonia TECHNOLOGIST PROVIDED HISTORY: ProbableCOVID-19 pneumonia FINDINGS: Limited low lung volume examination. Cardiac silhouette is borderline prominent. Generalized interstitial prominence noted with subtle lower lung opacities, accentuated by hypoaeration. No definite pleural effusion or pneumothorax. Osseous structures and soft tissues are grossly intact. [place] Generalized interstitial prominence accentuated by hypoaeration. Bibasilar opacities favor atelectasis/scarrin g. No obvious focal airspace consolidation, pleural effusion, or pneumothorax. [facility] [place], [place] Laboratory - Chemistry and C hemistry - challengeon 10-03-2019 Bilirubin Ql (U) Negative Invalid Interpretation Code Negative [facility] Ketones Ql (U) 1+ Invalid Interpretation Code Negative [facility] pH (U) 6 [pH] Invalid Interpretation Code 5.0-9.0 [facility] Specific gravity (U) [Rel density] 1.010 Invalid Interpretation Code 1.003-1.030 [facility] Urobilinogen (U) [Mass/Vol] normal Invalid Interpretation Code normal [facility] - Hematology and Cell countson 10-03-2019 HbA1c (Bld) [Mass fraction] 10.10 % Invalid Interpretation Code 4.3-6.3 [facility] Hemoglobin Ql (U) Negative Invalid Interpretation Code Negative [facility] Laboratory - Specimen inform ationon 10-03-2019 Clarity (U) clear Invalid Interpretation Code Clear [facility] Color (U) yellow Invalid Interpretation Code yellow [facility] - Urinalysison Glucose Test strip (U) [Mass/Vol] 4+ Invalid Interpretation Code Negative [facility] Leukocyte esterase Test strip Ql (U) Negative Invalid Interpretation Code Negative [facility] Nitrite Ql (U) Negative Invalid Interpretation Code Negative [facility] Protein Ql (U) Negative Invalid Interpretation Code Negative [facility] No Panel Informationon 10-02 243.0 mg/dL Invalid Interpretation Code [facility] Basic Metabolic Panelon 06-17 Anion gap [Moles/Vol] 11 mmol/L 9 - 17 mmol/L [place] Bun/Cre Ratio 38 High [place] Calcium [Mass/Vol] 9.1 mg/dL 8.6 - 10. 4 mg/dL [place] Chloride [Moles/Vol] 103 mmol/L 98 - 10 7 mmol/L [place] CO2 [Moles/Vol] 25 mmol/L 20 - 31 mmol/L [place] Creatinine [Mass/Vol] 0.55 mg/dL 0.5 - 0.9 mg/dL [place] GFR >60 >60 mL/min [place] GFR Non- >60 >60 mL/min [place] Glucose [Mass/Vol] 291 mg/dL High 70 - 99 mg/dL [place], [place] Potassium [Moles/Vol] 4.8 mmol/L 3.7 - 5.3 mmol/L [place] Sodium [Moles/Vol] 139 mmol/L 135 - 144 mmol/L [place] Urea nitrogen [Mass/Vol] 21 mg/dL High 6 - 20 mg/dL [place] Hemoglobin A1Con 07-14-2019 Glucose [Mass/Vol] 280 mg/dL [place] Comment on above: The ADA and AACC rec ommend providing the estimated average glucose result to permit better patient understanding of their HBA1c result. HbA1c (Bld) [Mass fraction] 11.4 % High 4.8 - 5.9 % [place] Interpretation and review of laboratory results Abnormal [place] Insulin, totalon 07-14-2019 INR Coag (Bld) [Relative time] [place] Comment on above: Fastin.6-24.9 30 min: 20-112 60 min: 29-88 90 min: 26-84 120 min: 22-79 Insulin 7.7 mU/L [place] Insulin Comment [address] [place] Lipid Panelon 07-14-2019 Cholesterol [Mass/Vol] 219 mg/dL High <200 [place], [place] Comment on above: Cholesterol Guidelines: <200 Desirable 200-240 Borderline >240 Undesirable Cholesterol in HDL [Mass/Vol] 33 mg/dL Low >40 [place] Comment on above: HDL Guidelines: <40 Undesirable 40-59 Borderline >59 Desirable Cholesterol in LDL [Mass/Vol] 110 mg/dL 0 - 130 mg/dL [place] Comment on above: LDL Guidelines: <100 Desirable 100-129 Near to/above Desirable 130-159 Borderline >159 Undesirable Direct (measured) LDL and calculated LDL are not interchangeable tests. Cholesterol in VLDL [Mass/Vol] NOT REPORTED High 1 - 30 mg/dL [place] Cholesterol.total/Chol esterol in HDL [Mass ratio] 6.6 {ratio} High <5 [place] Triglyceride [Mass/Vol] 381 mg/dL High <150 [place] Comment on above: Triglyceride Guidelines: <150 Desirable 150-199 Borderline 200-499 High >499 Very high Based on AHA Guidelines for fasting triglyceride, November 2011. Metabolic Panelon 07-14-2019 GFR/1.73 sq M predicted among non-blacks MDRD (S/P/Bld) [Vol rate/Area] [place] Comment on above: Stage 1: Some [...] body mass. Additional eGFR calculator available at: http://www.Covario.PrimeSense/multiple_crcl_2012.htm Otheron 07-14-2019 Interpretation and review of laboratory results Abnormal [place] Basic Metabolic PanelOrdered By: Yazan Adrian on 03-11-2019 Anion gap [Moles/Vol] 13 mmol/L 9 - 17 mmol/L [facility] Work Phone: Bun/Cre Ratio 28 High [facility] Work Phone: Calcium [Mass/Vol] 8.9 mg/dL 8.6 - 10. 4 mg/dL [employer] Phone: Chloride [Moles/Vol] 102 mmol/L 98 - 10 7 mmol/L [facility] Phone: CO2 [Moles/Vol] 24 mmol/L 20 - 31 mmol/L [employer] Phone: Creatinine [Mass/Vol] 0.54 mg/dL 0.5 - 0.9 mg/dL [employer] Phone: GFR >60 >60 mL/min [employer] Phone: GFR Comment [facility] Phone: Comment on above: Average GFR for 50-5 9 years old: 93 mL/min/1.73sq m Chronic Kidney Disease: <60 mL/min/1.73sq m Kidney failure: <15 mL/min/1.73sq m eGFR calculated using average adult body mass. Additional eGFR calculator available at: http://www.Opathica/multiple_crcl_2012.htm GFR Non- >60 >60 mL/min [facility] Phone: GFR Staging [facility] Phone: Comment on above: Stage 1: Some kidney damage normal GFR Stage 2: Mild kidney damage GFR 60-89 Stage 3: Moderate kidney damage GFR 30-59 Stage 4: Severe kidney damage GFR 15-29 Stage 5: Severe kidney damage GFR <15 ESRD - chronic treatment by dialysis or transplant Glucose [Mass/Vol] 333 mg/dL High 70 - 99 mg/dL [employer] Work Phone: Potassium [Moles/Vol] 4.3 mmol/L 3.7 - 5.3 mmol/L [facility] Phone: Sodium [Moles/Vol] 139 mmol/L 135 - 144 mmol/L [facility] Phone: Urea nitrogen [Mass/Vol] 15 mg/dL 6 - 20 mg/dL [employer] Phone: Hemoglobin [id number] By: Priya Adrian on 03-11-2019 Glucose [Mass/Vol] 298 mg/dL [employer] Phone: Comment on above: The ADA and AACC rec ommend providing the estimated average glucose result to permit better patient understanding of their HBA1c result. HbA1c (Bld) [Mass fraction] 12.0 % High 4.8 - 5.9 % [employer] Phone: Interpretation and review of laboratory results Abnormal [employer] Phone: Lipid PanelOrdered By: Yazan Adrian on 03-11-2019 Cholesterol [Mass/Vol] 239 mg/dL High <200 [facility] [employer] Phone: Comment on above: Cholesterol Guidelines: <200 Desirable 200-240 Borderline >240 Undesirable Cholesterol in HDL [Mass/Vol] 39 mg/dL Low >40 [employer] Phone: Comment on above: HDL Guidelines: <40 Undesirable 40-59 Borderline >59 Desirable Cholesterol in LDL [Mass/Vol] 150 mg/dL High 0 - 130 mg/dL [employer] Phone: Comment on above: LDL Guidelines: <100 Desirable 100-129 Near to/above Desirable 130-159 Borderline >159 Undesirable Direct (measured) LDL and calculated LDL are not interchangeable tests. Cholesterol.total/Chol esterol in HDL [Mass ratio] 6.1 {ratio} High <5 [employer] Phone: Triglyceride [Mass/Vol] 250 mg/dL High <150 [employer] Phone: Comment on above: Triglyceride Guidelines: <150 Desirable 150-199 Borderline 200-499 High >499 Very high Based on AHA Guidelines for fasting triglyceride, November 2011. VLDL NOT REPORTED High 1 - 30 mg/dL [employer] Work Phone: Microalbumin, UrOrdered By: Yazan Adrian on 03-11-2019 Albumin/Creatinine DL <= 20 mg/L (24H U) [Mass ratio] <12 <21 mg/L [facility] Phone: Albumin/Creatinine DL <= 20 mg/L (U) [Ratio] CANNOT BE CALCULATED <25 mcg/mg creat [employer] Phone: Creatinine [Mass/Vol] 120.7 mg/dL 28 - 2 17 mg/dL [employer] Phone: No Panel InformationOrdered By: Yazan Adrian on 03-11-2019 Interpretation and review of laboratory results Abnormal [facility] Phone: Basic Metabolic Panelon 11-16 Anion gap [Moles/Vol] 13 mmol/L 9 - 17 mmol/L [place] Bun/Cre Ratio 34 [place] Calcium [Mass/Vol] 9.2 mg/dL 8.6 - 10. 4 mg/dL [place] Chloride [Moles/Vol] 97 mmol/L Low 98 - 10 7 mmol/L [place] CO2 [Moles/Vol] 24 mmol/L 20 - 31 mmol/L [place] Creatinine [Mass/Vol] 0.47 mg/dL Low 0.5 - 0.9 mg/dL [place] GFR >60 >60 mL/min [place] GFR Non- >60 >60 mL/min [place] Glucose [Mass/Vol] 288 mg/dL High 70 - 99 mg/dL [place] Interpretation and review of laboratory results Abnormal [place] Potassium [Moles/Vol] 4.6 mmol/L 3.7 - 5.3 mmol/L [place] Sodium [Moles/Vol] 134 mmol/L Low 135 - 144 mmol/L [place] Urea nitrogen [Mass/Vol] 16 mg/dL 6 - 20 mg/dL [place] Hemoglobin A1Con 12-04-2018 Glucose [Mass/Vol] 246 mg/dL [place] Comment on above: The ADA and AACC rec ommend providing the estimated average glucose result to permit better patient understanding of their HBA1c result. HbA1c (Bld) [Mass fraction] 10.2 % High 4.8 - 5.9 % [place] Interpretation and review of laboratory results Abnormal [place] Metabolic Panelon 12-04-2018 GFR/1.73 sq M predicted among non-blacks MDRD (S/P/Bld) [Vol rate/Area] [place] Comment on above: Stage 1: Some [...] body mass. Additional eGFR calculator available at: http://www.Opathica/multiple_crcl_2012.htm [facility] 12-02-2017 Cholesterol [Mass/Vol] 200.0 mg/dL Invalid Interpretation Code 0-200 [facility] Cholesterol in HDL [Mass/Vol] 45.0 mg/dL Invalid Interpretation Code 50-100 [facility] Cholesterol in LDL [Mass/Vol] 126.0 mg/dL Invalid Interpretation Code 0-130 [facility] Triglyceride [Mass/Vol] 144.0 mg/dL Invalid Interpretation Code 30-150 [facility] Laboratory - Urinalysison Glucose Test strip (U) [Mass/Vol] Negative Invalid Interpretation Code negative [facility] Protein (U) [Mass/Vol] Negative Invalid Interpretation Code negative [facility] Metabolic Panelon 12-02-2017 Glucose [Mass/Vol] 147.0 mg/dL Invalid Interpretation Code 80-117 [facility] HbA1c (Bld) [Mass fraction] 6.50 % Invalid Interpretation Code 4.3-6.3 [facility] No Panel Informationon 12-02 140.0 mg/dL Invalid Interpretation Code [employer] Otheron 12-02-2017 Cholesterol in VLDL [Mass/Vol] 29.0 mg/dL Invalid Interpretation Code 0-39 [facility] Cholesterol.total/Chol esterol in HDL [Mass ratio] 4 {ratio} Invalid Interpretation Code [facility] Glucose Test strip (U) [Mass/Vol] Negative negative [facility] 140 [facility] Urinalysison 12-02-2017 Protein (U) [Mass/Vol] Negative negative Bl [facility] [employer] Hematologyon 05-09-2016 ESR Velocity (Bld) 10 mm/h Invalid Interpretation Code 0-20 [facility] Thyroidon 05-09-2016 T4 mass conc 4.82 ug/dL Invalid Interpretation Code 5.00-12.00 [facility] Thyrotropin Qn 1.41 m[IU]/L Invalid Interpretation Code 0.50-4.00 [facility] 01-29-2015 Cholesterol in HDL mass conc 42.0 mg/dL Invalid Interpretation Code 50-100 [facility] Cholesterol in LDL mass conc 155.0 mg/dL Invalid Interpretation Code 0-130 [facility] Cholesterol mass conc 224.0 mg/dL Invalid Interpretation Code 0-200 [facility] Triglyceride mass conc 135.0 mg/dL Invalid Interpretation Code 30-150 [facility] Laboratory - Chemistry and C hemistry - challengeon 01-29-2015 Bilirubin Ql (U) Negative Invalid Interpretation Code Negative [facility] Ketones Ql (U) Negative Invalid Interpretation Code Negative [facility] Urobilinogen (U) [Mass/Vol] normal Invalid Interpretation Code normal [facility] - Hematology and Cell countson 01-29-2015 Hemoglobin Ql (U) Negative Invalid Interpretation Code Negative [facility] - Urinalysison Leukocyte esterase Test strip Ql (U) Negative Invalid Interpretation Code Negative [facility] Nitrite Ql (U) Negative Invalid Interpretation Code Negative [facility] Protein Ql (U) Negative Invalid Interpretation Code Negative [facility] Metabolic Panelon 01-29-2015 Anion gap molar conc 21 mmol/L Invalid Interpretation Code 10-20 [facility] Calcium mass conc 9.20 mg/dL Invalid Interpretation Code 8.5-10.8 [facility] Chloride molar conc 99 mmol/L Invalid Interpretation Code 100-112 [facility] CO2 molar conc 24 mmol/L Invalid Interpretation Code 23-30 [facility] Creatinine mass conc 0.70 mg/dL Invalid Interpretation Code 0.5-1.5 [facility] GFR/1.73 sq M predicted among non-blacks MDRD vol rate/area (S/P/Bld) 89 mL/min/{1.73_m2} Invalid Interpretation Code [facility] Glucose mass conc 172.0 mg/dL Invalid Interpretation Code 80-117 [facility] Hemoglobin A1c/Hemoglobin.total mass fraction (Bld) 6.90 % Invalid Interpretation Code 4.3-6.3 [place] [employer] Potassium molar conc 5.0 mmol/L Invalid Interpretation Code 3.5-5.3 [place] [employer] Sodium molar conc 139 mmol/L Invalid Interpretation Code 135-148 [place] [employer] Urea nitrogen mass conc 15.0 mg/dL Invalid Interpretation Code 7-25 [place] [employer] Urea nitrogen/Creatinine mass ratio 21 mg/mg Invalid Interpretation Code 6-20 [place] [employer] No Panel Informationon 01-29 151.0 mg/dL Invalid Interpretation Code [place] [employer] Otheron 01-29-2015 Bilirubin Ql (U) Negative Negative [facility] [employer] Cholesterol in VLDL mass conc 27.0 mg/dL Invalid Interpretation Code 0-39 [place] [employer] Cholesterol.total/Chol esterol in HDL mass ratio 5 {ratio} Invalid Interpretation Code [place] [employer] Glucose Test strip mass conc (U) 4+ Invalid Interpretation Code Negative [place] [employer] Hemoglobin Ql (U) Negative Negative [facility] [employer] Nitrite Ql (U) Negative Negative [place] [employer] pH (U) 5 [pH] Invalid Interpretation Code 4.5-7.8 [place] [employer] Protein Ql (U) Negative Negative [place] [employer] Urobilinogen Test strip mass conc (U) normal normal [place] [employer] 151 [facility] Urinalysison 01-29-2015 Clarity Nom (U) clear Invalid Interpretation Code Clear [facility] Color Nom (U) yellow Invalid Interpretation Code yellow [facility] Ketones Ql (U) Negative Negative [facility] Leukocyte esterase Test strip Ql (U) Negative Negative [facility] Specific gravity Relative Density (U) 1.020 Invalid Interpretation Code 1.003-1.029 [facility] 09-25-2014 Cholesterol in HDL mass conc 35.0 mg/dL Invalid Interpretation Code 50-100 [facility] Cholesterol in LDL mass conc 121.0 mg/dL Invalid Interpretation Code 0-130 [facility] Cholesterol mass conc 194.0 mg/dL Invalid Interpretation Code 0-200 [facility] Triglyceride mass conc 189.0 mg/dL Invalid Interpretation Code 30-150 [facility] Laboratory - Chemistry and C hemistry - challengeon 09-25-2014 Bilirubin Ql (U) Negative Invalid Interpretation Code Negative [facility] Ketones Ql (U) Negative Invalid Interpretation Code Negative [facility] Urobilinogen (U) [Mass/Vol] normal Invalid Interpretation Code normal [facility] - Hematology and Cell countson 09-25-2014 Hemoglobin Ql (U) Negative Invalid Interpretation Code Negative [facility] - Urinalysison Nitrite Ql (U) Negative Invalid Interpretation Code Negative [facility] Protein Ql (U) Negative Invalid Interpretation Code Negative [facility] Metabolic Panelon 09-25-2014 Anion gap molar conc 17 mmol/L Invalid Interpretation Code 10-20 [place] [employer] Calcium mass conc 9.30 mg/dL Invalid Interpretation Code 8.5-10.8 [place] [employer] Chloride molar conc 105 mmol/L Invalid Interpretation Code 100-112 [place] [employer] CO2 molar conc 27 mmol/L Invalid Interpretation Code 23-30 [place] [employer] Creatinine mass conc 0.70 mg/dL Invalid Interpretation Code 0.5-1.5 [place] [employer] GFR/1.73 sq M predicted among non-blacks MDRD vol rate/area (S/P/Bld) 89 mL/min/{1.73_m2} Invalid Interpretation Code [place] [employer] Glucose mass conc 162.0 mg/dL Invalid Interpretation Code 80-117 [place] [employer] Hemoglobin A1c/Hemoglobin.total mass fraction (Bld) 7.70 % Invalid Interpretation Code 4.3-6.3 [place] [employer] Potassium molar conc 4.7 mmol/L Invalid Interpretation Code 3.5-5.3 [place] [employer] Sodium molar conc 144 mmol/L Invalid Interpretation Code 135-148 [place] [employer] Urea nitrogen mass conc 16.0 mg/dL Invalid Interpretation Code 7-25 [place] [employer] Urea nitrogen/Creatinine mass ratio 23 mg/mg Invalid Interpretation Code 6-20 [place] [employer] No Panel Informationon 09-25 174.0 mg/dL Invalid Interpretation Code [place] [employer] Otheron 09-25-2014 Bilirubin Ql (U) Negative Negative [facility] [employer] Cholesterol in VLDL mass conc 38.0 mg/dL Invalid Interpretation Code 0-39 [facility] [employer] [facility] Cholesterol.total/Chol esterol in HDL mass ratio 6 {ratio} Invalid Interpretation Code [facility] [employer] [facility] Glucose Test strip mass conc (U) 4+ Invalid Interpretation Code Negative [facility] [employer] [facility] Hemoglobin Ql (U) Negative Negative [facility] [employer] [facility] Nitrite Ql (U) Negative Negative [facility] [employer] [facility] pH (U) 5 [pH] Invalid Interpretation Code 4.5-7.8 [facility] [employer] [facility] Protein Ql (U) Negative Negative [facility] [employer] [facility] Urobilinogen Test strip mass conc (U) normal normal [facility] [employer] [facility] 174 [place] [employer] Urinalysison 09-25-2014 Clarity Nom (U) clear Invalid Interpretation Code Clear [facility] [employer] [facility] Color Nom (U) yellow Invalid Interpretation Code yellow [facility] [employer] [facility] Ketones Ql (U) Negative Negative [facility] [employer] [facility] Leukocyte esterase Test strip Ql (U) Trace Invalid Interpretation Code Negative [facility] [employer] [facility] Specific gravity Relative Density (U) 1.020 Invalid Interpretation Code 1.003-1.029 [facility] [employer] Laboratory - Chemistry and C hemistry - challengeon 07-21-2014 Bilirubin Ql (U) Negative Invalid Interpretation Code Negative [facility] [employer] [facility] Ketones Ql (U) Negative Invalid Interpretation Code Negative [facility] [employer] [facility] Urobilinogen (U) [Mass/Vol] normal Invalid Interpretation Code normal [facility] - Hematology and Cell countson 07-21-2014 Hemoglobin Ql (U) Negative Invalid Interpretation Code Negative [facility] Laboratory - Urinalysison Leukocyte esterase Test strip Ql (U) Negative Invalid Interpretation Code Negative [facility] Nitrite Ql (U) Negative Invalid Interpretation Code Negative [facility] Metabolic Panelon 07-21-2014 Anion gap molar conc 18 mmol/L Invalid Interpretation Code 10-20 [facility] Calcium mass conc 9.40 mg/dL Invalid Interpretation Code 8.5-10.8 [facility] Chloride molar conc 103 mmol/L Invalid Interpretation Code 100-112 [facility] CO2 molar conc 24 mmol/L Invalid Interpretation Code 23-30 [facility] Creatinine mass conc 0.60 mg/dL Invalid Interpretation Code 0.5-1.5 [facility] GFR/1.73 sq M predicted among non-blacks MDRD vol rate/area (S/P/Bld) 106 mL/min/{1.73_m2} Invalid Interpretation Code [facility] Glucose mass conc 236.0 mg/dL Invalid Interpretation Code 80-117 [facility] Hemoglobin A1c/Hemoglobin.total mass fraction (Bld) 9.30 % Invalid Interpretation Code 4.3-6.3 [facility] Potassium molar conc 4.7 mmol/L Invalid Interpretation Code 3.5-5.3 [facility] Sodium molar conc 140 mmol/L Invalid Interpretation Code 135-148 [facility] Urea nitrogen mass conc 15.0 mg/dL Invalid Interpretation Code 7-25 [place] [employer] Urea nitrogen/Creatinine mass ratio 25 mg/mg Invalid Interpretation Code 6-20 [place] [employer] Otheron 07-21-2014 Bilirubin Ql (U) Negative Negative [facility] [employer] Glucose Test strip mass conc (U) 3+ Invalid Interpretation Code Negative [place] [employer] Hemoglobin Ql (U) Negative Negative [facility] [employer] Nitrite Ql (U) Negative Negative [place] [employer] pH (U) 5 [pH] Invalid Interpretation Code 4.5-7.8 [place] [employer] Protein Ql (U) 1+ Invalid Interpretation Code Negative [place] [employer] Urobilinogen Test strip mass conc (U) normal normal [place] [employer] 220.0 mg/dL Invalid Interpretation Code [place] [employer] Urinalysison 07-21-2014 Clarity Nom (U) clear Invalid Interpretation Code [facility] [employer] Color Nom (U) yellow Invalid Interpretation Code yellow [place] [employer] Ketones Ql (U) Negative Negative [place] [employer] Leukocyte esterase Test strip Ql (U) Negative Negative [facility] [employer] Specific gravity Relative Density (U) 1.025 Invalid Interpretation Code 1.003-1.029 [place] [employer] Otheron 06-05-2014 MTHFR gene targeted mutation analysis [employer] (Bld/Tiss) COMMENT Invalid Interpretation Code [facility] [employer] COMMENT Invalid Interpretation Code [facility] Laboratory - Chemistry and C hemistry - challengeon 05-03-2014 Bilirubin Ql (U) Negative Invalid Interpretation Code Negative [facility] Ketones Ql (U) Negative Invalid Interpretation Code Negative [facility] Urobilinogen (U) [Mass/Vol] normal Invalid Interpretation Code normal [facility] Laboratory - Hematology and Cell countson 05-03-2014 Hemoglobin Ql (U) Negative Invalid Interpretation Code Negative [facility] Laboratory - Urinalysison Leukocyte esterase Test strip Ql (U) Negative Invalid Interpretation Code Negative [facility] Nitrite Ql (U) Negative Invalid Interpretation Code Negative [facility] Protein Ql (U) Negative Invalid Interpretation Code Negative [facility] Metabolic Panelon 05-03-2014 Anion gap molar conc 19 mmol/L Invalid Interpretation Code 10-20 [facility] Calcium mass conc 9.50 mg/dL Invalid Interpretation Code 8.5-10.8 [facility] Chloride molar conc 97 mmol/L Invalid Interpretation Code 100-112 [facility] CO2 molar conc 28 mmol/L Invalid Interpretation Code 23-30 [facility] Creatinine mass conc 0.50 mg/dL Invalid Interpretation Code 0.5-1.5 [facility] GFR/1.73 sq M predicted among non-blacks MDRD vol rate/area (S/P/Bld) 132 mL/min/{1.73_m2} Invalid Interpretation Code [facility] Glucose mass conc 450.0 mg/dL Invalid Interpretation Code 80-117 [place] [employer] Hemoglobin A1c/Hemoglobin.total mass fraction (Bld) 11.30 % Invalid Interpretation Code 4.3-6.3 [place] [employer] Potassium molar conc 4.6 mmol/L Invalid Interpretation Code 3.5-5.3 [place] [employer] Sodium molar conc 139 mmol/L Invalid Interpretation Code 135-148 [place] [employer] Urea nitrogen mass conc 17.0 mg/dL Invalid Interpretation Code 7-25 [place] [employer] Urea nitrogen/Creatinine mass ratio 34 mg/mg Invalid Interpretation Code 6-20 [place] [employer] Otheron 05-03-2014 Bilirubin Ql (U) Negative Negative [facility] [employer] Collection time Date and time (Yahaira) 11:35 am Invalid Interpretation Code [place] [employer] Glucose Test strip mass conc (U) 4+ Invalid Interpretation Code Negative [place] [employer] Hemoglobin Ql (U) Negative Negative [facility] [employer] Nitrite Ql (U) Negative Negative [place] [employer] pH (U) 5 [pH] Invalid Interpretation Code 4.5-7.8 [place] [employer] Protein Ql (U) Negative Negative [place] [employer] Urobilinogen Test strip mass conc (U) normal normal [place] [employer] 278.0 mg/dL Invalid Interpretation Code [place] [employer] Urinalysison 05-03-2014 Clarity Nom (U) clear Invalid Interpretation Code Clear [place] [employer] Color Nom (U) yellow Invalid Interpretation Code yellow [facility] Ketones Ql (U) Negative Negative [facility] Leukocyte esterase Test strip Ql (U) Negative Negative [facility] Specific gravity Relative Density (U) 1.015 Invalid Interpretation Code 1.003-1.029 [facility] Vital Signs Date Time Vital Sign Value Performing Clinician Mynori ashley 12-11-2021 10:08-0400 Body weight 108.41 kg [employer] 12-11-2021 10:08-0400 Diastolic blood pressure 86 mm[Hg] [employer] 12-11-2021 10:08-0400 Heart rate 72 /min [employer] 12-11-2021 10:08-0400 Systolic blood pressure 164 mm[Hg] [employer] 08-14-2021 10:25-0400 Body height 165.1 cm [employer] 08-14-2021 10:25-0400 Body mass index (BMI) [Ratio] 42.35 kg/m2 [employer] 08-14-2021 10:25-0400 Body surface area Derived from formula 2.3 m2 [employer] 08-14-2021 10:25-0400 Body weight 115.44 kg [employer] 08-14-2021 10:25-0400 Diastolic blood pressure 90 mm[Hg] [employer] 08-14-2021 10:25-0400 Heart rate 72 /min [employer] 08-14-2021 10:25-0400 Systolic blood pressure 186 mm[Hg] Yazan Tabber 06-06-2021 10:21-0400 Body height 165.1 cm Yazan [facility] 06-06-2021 10:21-0400 Body mass index (BMI) [Ratio] 43.1 kg/m2 [employer] 06-06-2021 10:21-0400 Body surface area Derived from formula 2.32 m2 [employer] 06-06-2021 10:040 Body weight 117.48 kg [employer] 06-06-2021 10:21-0400 Diastolic blood pressure 86 mm[Hg] [employer] 06-06-2021 10:21-0400 Heart rate 90 /min [employer] 06-06-2021 10:21-0400 Systolic blood pressure 162 mm[Hg] [employer] 05-06-2021 11:25-0400 Body height 165.1 cm [employer] 05-06-2021 11:25-0400 Body mass index (BMI) [Ratio] 40.77 kg/m2 [employer] 05-06-2021 11:25-0400 Body surface area Derived from formula 2.26 m2 [employer] 05-06-2021 11:25-0400 Body weight 111.13 kg [employer] 05-06-2021 11:25-0400 Diastolic blood pressure 60 mm[Hg] Yazan [employer] [facility] 05-06-2021 11:25-0400 Heart rate 72 /min [employer] 05-06-2021 11:25-0400 Systolic blood pressure 122 mm[Hg] [employer] 01-03-2021 10:10-0500 Body height 165.1 cm [employer] 01-03-2021 10:10-0500 Body mass index (BMI) [Ratio] 41.6 kg/m2 [employer] 01-03-2021 10:10-0500 Body surface area Derived from formula 2.28 m2 [employer] 01-03-2021 10:10-0500 Body weight 113.4 kg [employer] 01-03-2021 10:10-0500 Diastolic blood pressure 84 mm[Hg] [employer] 01-03-2021 10:10-0500 Heart rate 76 /min [employer] 01-03-2021 10:10-0500 Systolic blood pressure 160 mm[Hg] [employer] 09-03-2020 13:40-0400 Body height 165.1 cm [employer] 09-03-2020 13:40-0400 Body mass index (BMI) [Ratio] 41.6 kg/m2 [employer] 09-03-2020 13:40-0400 Body surface area Derived from formula 2.28 m2 [employer] 09-03-2020 13:40-0400 Body weight 113.4 kg Yazan [employer] 09-03-2020 13:40-0400 Diastolic blood pressure 90 mm[Hg] Yazan [employer] 09-03-2020 13:40-0400 Heart rate 72 /min Yazan Tabber 09-03-2020 13:40-0400 Systolic blood pressure 160 mm[Hg] Yazan Tabber 12-02-2019 14:56-0400 BP Diastolic 58 mm[Hg] Joey Richardtrick [employer] [facility] [place] 12-02-2019 14:56-0400 BP Systolic 147 mm[Hg] Joey BoothePriori Data [facility] 12-02-2019 14:56-0400 Pulse Oximetry 92 % Joey WaiteBooms[employer] [facility], [place] 12-02-2019 11:36-0400 BMI (Body Mass Index) 47.05 kg/m2 [facility] WaitePriori [facility] [place] 12-02-2019 11:36-0400 Body Temperature 100 [degF] Joey Rosa [facility] 12-02-2019 11:36-0400 Body weight 112.95 kg Joey Waite [employer] [facility] 12-02-2019 11:36-0400 Height 154.9 cm Joey Waite[employer] [facility] 12-02-2019 11:36-0400 Pulse (Heart Rate) 98 /min [facility] [place] 12-02-2019 11:36-0400 Respiratory Rate 20 /min Joey Rosa [facility] [place] [place] 10-03-2019 10:30-0400 BMI (Body Mass Index) 42.1 kg/m2 [employer] 10-03-2019 10:30-0400 Body Temperature 98 [degF] Consano [employer] 10-03-2019 10:30-0400 Body weight 114.76 kg Yazan [employer] 10-03-2019 10:30-0400 BP Diastolic 84 mm[Hg] Yazan [employer] 10-03-2019 10:30-0400 BP Systolic 154 mm[Hg] Yazan [employer] 10-03-2019 10:30-0400 BSA (Body Surface Area) 2.29 m2 Yazan [employer] 10-03-2019 10:30040 Height 165.1 cm [employer] 10-03-2019 10:30-0400 Pulse (Heart Rate) 84 /min [facility]azan [facility] [facility] 08-22-2019 11:26-0400 BMI (Body Mass Index) 41.49 kg/m2 Yazan [employer] 08-22-2019 11:26-0400 Body Temperature 98.7 [degF] Yazan [employer] 08-22-2019 11:26-0400 Body weight 113.09 kg Yazan Tab[facility] 08-22-2019 11:26-0400 BP Diastolic 98 mm[Hg] Yazan [employer] 08-22-2019 11:26-0400 BP Systolic 160 mm[Hg] [employer] 08-22-2019 11:26-0400 BSA (Body Surface Area) 2.28 m2 Yazan Tabber 08-22-2019 11:260400 Height 165.1 cm Yazan Tabber 08-22-2019 11:26-0400 Pulse (Heart Rate) 84 /min Yazan [employer] 07-19-2019 10:20-0400 BMI (Body Mass Index) 41.35 kg/m2 Yazan Tabber 07-19-2019 10:20-0400 Body Temperature 97.6 [degF] Yazan [employer] 07-19-2019 10:20-0400 Body weight 112.72 kg Yazan Tabber 07-19-2019 10:20-0400 BP Diastolic 82 mm[Hg] [employer] 07-19-2019 10:20-0400 BP Systolic 130 mm[Hg] [employer] 07-19-2019 10:20-0400 BSA (Body Surface Area) 2.27 m2 [employer] 07-19-2019 10:20-0400 Height 165.1 cm [employer] 07-19-2019 10:20-0400 Pulse (Heart Rate) 78 /min [employer] 03-15-2019 18:47-0500 BMI (Body Mass Index) 41.68 kg/m2 [employer] 03-15-2019 18:47-0500 BMI (Body Mass Index) 41.69 kg/m2 [employer] 03-15-2019 18:47-0500 Body weight 113.63 kg [employer] 03-15-2019 18:47-0500 BP Diastolic 84 mm[Hg] [employer] 03-15-2019 18:47-0500 BP Systolic 140 mm[Hg] Yazan [employer] 03-15-2019 18:47-0500 BSA (Body Surface Area) 2.28 m2 Y[facility]an [employer] 03-15-2019 18:47-0500 Height 165.1 cm Yazan [employer] 03-15-2019 18:47-0500 Pulse (Heart Rate) 78 /min Yazan [employer] 01-26-2019 11:20-0500 BMI (Body Mass Index) 40.64 kg/m2 [employer] 01-26-2019 11:20-0500 Body weight 112.49 kg [employer] 01-26-2019 11:20-0500 BP Diastolic 84 mm[Hg] [employer] 01-26-2019 11:20-0500 BP Systolic 150 mm[Hg] [employer] 01-26-2019 11:20-0500 BSA (Body Surface Area) 2.28 m2 Y[facility]an [employer] 01-26-2019 11:20-0500 Height 166.37 cm [employer] 01-26-2019 11:20-0500 Pulse (Heart Rate) 80 /min [employer] 12-07-2018 10:01-0400 BMI (Body Mass Index) 39.82 kg/m2 Yazan [employer] 12-07-2018 10:01-0400 Body weight 110.22 kg [employer] 12-07-2018 10:-0400 BP Diastolic 76 mm[Hg] [employer] [employer] 12-07-2018 10:01-0400 BP Systolic 160 mm[Hg] Y[facility]an [employer] 12-07-2018 10:0400 BSA (Body Surface Area) 2.26 m2 [employer] 12-07-2018 10:040 Height 166.37 cm [employer] 12-07-2018 10:01-0400 Pulse (Heart Rate) 78 /min [employer] 07-29-2018 10:24-0400 BMI (Body Mass Index) 39.99 kg/m2 [employer] 07-29-2018 10:24-0400 Body weight 110.68 kg [employer] 07-29-2018 10:24-0400 BP Diastolic 86 mm[Hg] [employer] 07-29-2018 10:24-0400 BP Systolic 150 mm[Hg] [employer] 07-29-2018 10:0400 BSA (Body Surface Area) 2.26 m2 [employer] 07-29-2018 10:24040 Height 166.37 cm [employer] 07-29-2018 10:24-0400 Pulse (Heart Rate) 90 /min [employer] 07-29-2018 10:24-0400 Weight 110.68 kg [employer] 03-25-2018 10:34-0500 BMI (Body Mass Index) 40.48 kg/m2 [employer] 03-25-2018 10:34-0500 Body weight 112.04 kg Yazan [employer] 03-25-2018 10:34-0500 BP Diastolic 96 mm[Hg] [employer] 03-25-2018 10:34-0500 BP Systolic 140 mm[Hg] [employer] 03-25-2018 10:34-0500 BSA (Body Surface Area) 2.28 m2 [employer] 03-25-2018 10:34-0500 Height 166.37 cm [employer] 03-25-2018 10:34-0500 Pulse (Heart Rate) 78 /min [employer] 03-25-2018 10:34-0500 Weight 112.04 kg [employer] 12-24-2017 10:13-0500 BMI (Body Mass Index) 39.99 kg/m2 [employer] 12-24-2017 10:13-0500 Body weight 110.68 kg [employer] 12-24-2017 10:13-0500 BP Diastolic 78 mm[Hg] [employer] 12-24-2017 10:13-0500 BP Systolic 152 mm[Hg] [employer] 12-24-2017 10:13-0500 BSA (Body Surface Area) 2.26 m2 [employer] 12-24-2017 10:13-0500 Height 166.37 cm Yazan [facility]ber 12-24-2017 10:13-0500 Pulse (Heart Rate) 72 /min [employer] 12-24-2017 10:13-0500 Weight 110.68 kg [employer] 12-02-2017 10:49-0400 BMI (Body Mass Index) 39.87 kg/m2 [employer] 12-02-2017 10:49-0400 Body weight 110.37 kg [employer] 12-02-2017 10:49-0400 BP Diastolic 80 mm[Hg] [employer] 12-02-2017 10:49-0400 BP Systolic 142 mm[Hg] [employer] 12-02-2017 10:49-0400 BSA (Body Surface Area) 2.26 m2 [employer] 12-02-2017 10:49-0400 Height 166.37 cm [employer] 12-02-2017 10:49-0400 Pulse (Heart Rate) 72 /min [employer] 12-02-2017 10:49-0400 Weight 110.37 kg [employer] 09-02-2017 10:52-0400 BMI (Body Mass Index) 39.25 kg/m2 [employer] 09-02-2017 10:52-0400 Body weight 108.64 kg [employer] 09-02-2017 10:52-0400 BP Diastolic 94 mm[Hg] Yazan Tabber 09-02-2017 10:52-0400 BP Systolic 150 mm[Hg] [employer] 09-02-2017 10:52-0400 BSA (Body Surface Area) 2.24 m2 [employer] 09-02-2017 10:52-0400 Height 166.37 cm [employer] 09-02-2017 10:52-0400 Pulse (Heart Rate) 78 /min [employer] 09-02-2017 10:52-0400 Weight 108.64 kg [employer] 08-04-2017 18:01-0400 BMI (Body Mass Index) 39.41 kg/m2 [employer] 08-04-2017 18:01-0400 Body weight 109.09 kg [employer] 08-04-2017 18:01-0400 BP Diastolic 76 mm[Hg] [employer] 08-04-2017 18:01-0400 BP Systolic 140 mm[Hg] [employer] 08-04-2017 18:01-0400 BSA (Body Surface Area) 2.25 m2 [employer] 08-04-2017 18:01-0400 Height 166.37 cm [employer] 08-04-2017 18:01-0400 Pulse (Heart Rate) 88 /min [employer] 08-04-2017 18:01-0400 Weight 109.09 kg [employer] 06-04-2017 17:52-0400 BMI (Body Mass Index) 39.99 kg/m2 [facility] [employer] 06-04-2017 17:52-0400 Body weight 110.68 kg Yazan [employer] 06-04-2017 17:52-0400 BP Diastolic 74 mm[Hg] [employer] 06-04-2017 17:52-0400 BP Systolic 128 mm[Hg] [employer] 06-04-2017 17:52-0400 BSA (Body Surface Area) 2.26 m2 [employer] 06-04-2017 17:52-0400 Height 166.37 cm [employer] 06-04-2017 17:52-0400 Pulse (Heart Rate) 78 /min [facility] 06-04-2017 17:52-0400 Weight 110.68 kg [employer] 03-19-2017 11:54-0500 BMI (Body Mass Index) 39.82 kg/m2 [employer] 03-19-2017 11:54-0500 Body Temperature 97.1 [degF] [facility] 03-19-2017 11:54-0500 Body weight 110.22 kg [employer] 03-19-2017 11:54-0500 BP Diastolic 66 mm[Hg] [employer] 03-19-2017 11:54-0500 BP Systolic 110 mm[Hg] [employer] 03-19-2017 11:54-0500 BSA (Body Surface Area) 2.26 m2 [employer] 03-19-2017 11:54-0500 Height 166.37 cm [employer] 03-19-2017 11:54-0500 Pulse (Heart Rate) 66 /min [facility] Sylvia [employer] 03-19-2017 11:54-0500 Weight 110.22 kg [employer] 01-30-2017 16:12-0500 BMI (Body Mass Index) 39.87 kg/m2 [employer] 01-30-2017 16:12-0500 Body weight 110.37 kg [employer] 01-30-2017 16:12-0500 BP Diastolic 72 mm[Hg] [employer] 01-30-2017 16:12-0500 BP Systolic 130 mm[Hg] [employer] 01-30-2017 16:12-0500 BSA (Body Surface Area) 2.26 m2 [employer] 01-30-2017 16:12-0500 Height 166.37 cm [employer] 01-30-2017 16:12-0500 Pulse (Heart Rate) 68 /min [facility] [employer]via [employer] 01-30-2017 16:12-0500 Weight 110.37 kg [employer] 10-03-2016 13:34-0400 BMI (Body Mass Index) 40.07 kg/m2 [employer] 10-03-2016 13:34-0400 Body weight 110.91 kg Yazan [employer] 10-03-2016 13:34-0400 BP Diastolic 76 mm[Hg] Yazan [employer] 10-03-2016 13:34-0400 BP Systolic 132 mm[Hg] [employer]an [employer] 10-03-2016 13:34-0400 BSA (Body Surface Area) 2.26 m2 [facility] [employer] 10-03-2016 13:34-0400 Height 166.37 cm [facility]an [employer] 10-03-2016 13:34-0400 Pulse (Heart Rate) 72 /min Yazan [employer]via [employer] 10-03-2016 13:34-0400 Weight 110.91 kg Yazan [employer] 08-21-2016 12:00-0400 BMI (Body Mass Index) 40.89 kg/m2 [employer] 08-21-2016 12:00-0400 Body weight 113.17 kg Yazan [employer] 08-21-2016 12:00-0400 BP Diastolic 88 mm[Hg] [employer] [employer] 08-21-2016 12:00-0400 BP Systolic 146 mm[Hg] [employer] [employer] 08-21-2016 12:00-0400 BSA (Body Surface Area) 2.29 m2 [facility] [employer] 08-21-2016 12:00-0400 Height 166.37 cm [employer] 08-21-2016 12:00-0400 Pulse (Heart Rate) 70 /min [employer] 08-21-2016 12:00-0400 Weight 113.17 kg Yazan Tabber 06-24-2016 13:39-0400 BMI (Body Mass Index) 41.54 kg/m2 [employer] 06-24-2016 13:39-0400 Body weight 114.99 kg [employer] 06-24-2016 13:39-0400 BP Diastolic 70 mm[Hg] [employer] 06-24-2016 13:39-0400 BP Systolic 122 mm[Hg] [employer] 06-24-2016 13:39-0400 BSA (Body Surface Area) 2.31 m2 [employer] 06-24-2016 13:39-0400 Height 166.37 cm [employer] 06-24-2016 13:39-0400 Pulse (Heart Rate) 76 /min [employer] 06-24-2016 13:39-0400 Weight 114.99 kg [employer] 05-23-2016 16:06-0400 Body weight 114 kg [employer] 05-23-2016 16:06-0400 BP Diastolic 70 mm[Hg] [employer] 05-23-2016 16:06-0400 BP Systolic 112 mm[Hg] [employer] 05-23-2016 16:06-0400 Pulse (Heart Rate) 68 /min [employer] 05-23-2016 16:06-0400 Weight 114 kg Yazan Tabber 05-09-2016 16:50-0400 BMI (Body Mass Index) 41.3 kg/m2 [employer] 05-09-2016 16:50-0400 Body weight 114.31 kg [employer] 05-09-2016 16:50-0400 BP Diastolic 80 mm[Hg] [employer] 05-09-2016 16:50-0400 BP Systolic 140 mm[Hg] [employer] 05-09-2016 16:50-0400 BSA (Body Surface Area) 2.3 m2 [employer] 05-09-2016 16:50-0400 Height 166.37 cm [employer] 05-09-2016 16:50-0400 Pulse (Heart Rate) 64 /min [employer] 05-09-2016 16:50-0400 Weight 114.31 kg [employer] 01-03-2016 11:53-0500 Body weight 115.21 kg [employer] 01-03-2016 11:53-0500 BP Diastolic 80 mm[Hg] [employer] 01-03-2016 11:53-0500 BP Systolic 140 mm[Hg] [employer] 01-03-2016 11:53-0500 Pulse (Heart Rate) 72 /min [employer] 01-03-2016 11:53-0500 Weight 115.21 kg Yazan [facility] 09-06-2015 12:07040 BMI (Body Mass Index) 40.27 kg/m2 [employer] 09-06-2015 12:07040 Body weight 109.77 kg [employer] 09-06-2015 12:07-0400 BP Diastolic 78 mm[Hg] [employer] 09-06-2015 12:070400 BP Systolic 122 mm[Hg] [employer] 09-06-2015 12:040 BSA (Body Surface Area) 2.24 m2 [employer] 09-06-2015 12:040 Height 165.1 cm [employer] 09-06-2015 12:070400 Pulse (Heart Rate) 76 /min [employer] 09-06-2015 12:070400 Weight 109.77 kg [employer] 05-03-2015 10:040 BMI (Body Mass Index) 41.35 kg/m2 [employer] 05-03-2015 10:29040 Body weight 112.72 kg [employer] 05-03-2015 10:29-0400 BP Diastolic 98 mm[Hg] [employer] 05-03-2015 10:290400 BP Systolic 138 mm[Hg] [employer] 05-03-2015 10:290400 BSA (Body Surface Area) 2.27 m2 [employer] 05-03-2015 10:290400 Height 165.1 cm [employer] 05-03-2015 10:290400 Pulse (Heart Rate) 72 /min [employer] 05-03-2015 10:290400 Weight 112.72 kg [employer] 02-05-2015 11:02-0500 BMI (Body Mass Index) 40.52 kg/m2 [employer] 02-05-2015 11:02-0500 Body weight 110.45 kg [employer] 02-05-2015 11:02-0500 BP Diastolic 68 mm[Hg] [employer] 02-05-2015 11:02-0500 BP Systolic 128 mm[Hg] [employer] 02-05-2015 11:02-0500 BSA (Body Surface Area) 2.25 m2 [employer] 02-05-2015 11:020500 Height 165.1 cm [employer] 02-05-2015 11:02-0500 Pulse (Heart Rate) 72 /min [employer] 02-05-2015 11:02-0500 Weight 110.45 kg [employer] 10-04-2014 12:26-0400 BMI (Body Mass Index) 40.77 kg/m2 [employer] 10-04-2014 12:26-0400 Body weight 111.13 kg [employer] 10-04-2014 12:26-0400 BP Diastolic 80 mm[Hg] [employer] 10-04-2014 12:26-0400 BP Systolic 130 mm[Hg] [employer] 10-04-2014 12:26-0400 BSA (Body Surface Area) 2.26 m2 [employer] 10-04-2014 12:260400 Height 165.1 cm [employer] 10-04-2014 12:26-0400 Pulse (Heart Rate) 80 /min [employer] 10-04-2014 12:26-0400 Weight 111.13 kg [employer] 07-24-2014 14:38-0400 BMI (Body Mass Index) 42.6 kg/m2 [employer] 07-24-2014 14:38-0400 Body weight 116.12 kg [employer] 07-24-2014 14:38-0400 BP Diastolic 78 mm[Hg] [employer] 07-24-2014 14:38-0400 BP Systolic 132 mm[Hg] [employer] 07-24-2014 14:38-0400 BSA (Body Surface Area) 2.31 m2 [employer] 07-24-2014 14:38-0400 Height 165.1 cm [employer] 07-24-2014 14:38-0400 Pulse (Heart Rate) 66 /min [facility] 07-24-2014 14:38-0400 Weight 116.12 kg Yazan Adrian [employer] 06-05-2014 11:05-0400 Body weight 116.8 kg Yazan [employer] 06-05-2014 11:05-0400 Weight 116.8 kg Yazan Adrian [employer] 05-03-2014 12:54-0400 BMI (Body Mass Index) 43.77 kg/m2 [facility]azan [employer] 05-03-2014 12:54-0400 Body Temperature 98.7 [degF] Yazan Ellis [employer] 05-03-2014 12:54-0400 Body weight 119.3 kg Yazan [facility] 05-03-2014 12:54-0400 BP Diastolic 80 mm[Hg] Yazan [facility] 05-03-2014 12:54-0400 BP Systolic 120 mm[Hg] Yazan [facility] 05-03-2014 12:54-0400 BSA (Body Surface Area) 2.34 m2 [employer]azan [employer] 05-03-2014 12:54-0400 Height 165.1 cm Yazan [facility] 05-03-2014 12:54-0400 Pulse (Heart Rate) 72 /min Yazan Adrian [place] Sylvia gusman [employer] 05-03-2014 12:54-0400 Weight 119.3 kg Yazan Tabber Encounters Encounter Date Encounter Type Care Provider Facility Start: 12-11-2021 Office outpatient visit 15 minutes Yazan Ike Adrian Other [facility] Office Start: 12-06-2021 End: 12-07-2021 [facility] Start: 12-06-2021 End: 12-06-2021 Subsequent hospital visit by physician Yazan Adrian MD Work Phone: [facility] Start: 08-14-2021 Office outpatient visit 15 minutes Yazan A Bouts Other [facility] Office Start: 08-06-2021 End: 08-07-2021 [facility] Start: 08-06-2021 End: 08-06-2021 Subsequent hospital visit by physician Yazan Adrian MD Work Phone: [facility] Start: 06-06-2021 Office outpatient visit 15 minutes Yazan A Bouts Other [facility] Office Start: 06-05-2021 End: 06-06-2021 [facility] Start: 06-05-2021 End: 06-05-2021 Subsequent hospital visit by physician Yazan Adrian MD Work Phone: [facility] Start: 05-06-2021 Office outpatient visit 15 minutes Yazan A Bouts Other [facility] Office Start: 01-17-2021 End: 01-17-2021 Split Srvc Yazan A Bouts Other [facility] Office Start: 01-16-2021 ambulatory MD YAZAN ADRIAN Facili ty:[facility] Start: 01-03-2021 Office outpatient visit 25 minutes Yazan A Bouts Other [facility] Office Start: 09-03-2020 Office outpatient visit 25 minutes Yazan A Bouts Other [facility] Office Start: 08-25-2020 End: 08-25-2020 ambulatory ROSEMARIE NORAH Facility:[facility] Start: 12-02-2019 End: 12-02-2019 Emergency department patient visit [facility] ED Comment on above: COVID-19 virus infec tion (Primary Dx); Cough; Bronchitis Start: 10-03-2019 Office outpatient visit 15 minutes Yazan A Bouts Other [facility] Office Start: 08-22-2019 Office outpatient visit 15 minutes Yazan A Bouts Other [facility] Office Start: 07-19-2019 Office outpatient visit 15 minutes Yazan A Bouts Other [facility] Office Start: 07-14-2019 End: 07-14-2019 Subsequent hospital visit by physician Yazan Adrian [facility] Start: 03-15-2019 Office outpatient visit 15 minutes Yazan A Bouts Other [facility] Office Start: 03-11-2019 End: 03-11-2019 Subsequent hospital visit by physician Yazan Adrian MD Work Phone: [facility] Start: 01-26-2019 Office outpatient visit 15 minutes Yazan A Bouts Other [facility] Office Start: 12-07-2018 Office outpatient visit 25 minutes Yazan A Bouts Other [facility] Office Start: 12-04-2018 End: 12-04-2018 Subsequent hospital visit by physician Yazan Adrian [facility] Start: 07-29-2018 Office outpatient visit 25 minutes Yazan A Bouts Other [facility] Office Start: 03-25-2018 Office outpatient visit 15 minutes Yazan A Bouts Other [facility] Office Start: 12-24-2017 Office outpatient visit 15 minutes Yazan A Bouts Other [facility] Office Start: 12-02-2017 Office outpatient visit 15 minutes Yazan A Bouts Other [facility] Office Start: 09-02-2017 Office outpatient visit 15 minutes Yazan A Bouts Other [facility] Office Start: 08-04-2017 Office outpatient visit 15 minutes Yazan A Bouts Other [facility] Office Start: 06-04-2017 Office outpatient visit 15 minutes Yazan A Bouts Other [facility] Office Start: 03-19-2017 Office outpatient visit 15 minutes Yazan A Bouts Other [facility] Office Start: 01-30-2017 Office outpatient visit 15 minutes Yazan A Bouts Other [facility] Office Start: 10-03-2016 Office outpatient visit 15 minutes Yazan A Bouts Other [facility] Office Start: 08-21-2016 Office outpatient visit 15 minutes Yazan A Bouts Other [facility] Office Start: 06-24-2016 Office outpatient visit 15 minutes Yazan A Bouts Other [facility] Office Start: 05-23-2016 Office outpatient visit 15 minutes Yazan A Bouts Other [facility] Office Start: 05-09-2016 Office outpatient visit 15 minutes Yazan A Bouts Other [facility] Office Start: 01-03-2016 Office outpatient visit 15 minutes Yazan A Bouts Other [facility] Office Start: 09-06-2015 Office outpatient visit 15 minutes Yazan A Bouts Other [facility] Office Start: 05-03-2015 Office outpatient visit 15 minutes Yazan A Bouts Other [facility] Office Start: 02-05-2015 Office outpatient visit 15 minutes Yazan A Bouts Other [facility] Office Start: 01-29-2015 Lab Yazan A Bouts Other [facility] Office Start: 10-04-2014 Office outpatient visit 15 minutes Yazan A Bouts Other [facility] Office Start: 09-25-2014 Lab Yazan A Bouts Other [facility] Office Start: 07-24-2014 Office outpatient visit 25 minutes Yazan A Bouts Other [facility] Office Start: 07-21-2014 Lab Yazan A Bouts Other [facility] Office Start: 06-05-2014 Postop follow up vis it related to original px Yazan A Bouts Other [facility] Office Start: 05-04-2014 Office Services Yazan A Bouts Other [facility] Office Start: 05-03-2014 Office outpatient visit 15 minutes Yazan A Bouts Other [facility] Office Procedures Date Procedure Procedure Detail Performing [...] ts Start: 08-14-2021 Docrev cur meds by Aptela Yazan Bouts Start: 08-06-2021 Hemoglobin A1c measurement Yazan Bouts Start: 08-06-2021 Lipid panel Yazan Bouts Start: 08-06-2021 Thyroid stimulating hormone measurement Yazan Bouts Start: 08-06-2021 End: 08-06-2021 Basic metabolic panel calcium total Yazan A Bouts Work Phone: Start: 08-06-2021 Lipid panel Yazan A Bouts Work Phone: Start: 06-06-2021 Docrev cur meds by Aptela Yazan Bouts Start: 06-05-2021 Basic metabolic panel calcium total Yazan A Bouts Work Phone: Start: 06-05-2021 Urnls dip stick/tablet rgnt auto w/o microscopy Yazan Ike Adrian MD Work Phone: Start: 05-06-2021 Docrev cur meds by Aptela Yazan Bouts Start: 05-06-2021 Hemoglobin A1c measurement Yazan Bouts Start: 05-06-2021 Blood chemistry Yazan Bouts Start: 05-06-2021 Dip UA (for Ketones) Yazan Bouts Start: 01-17-2021 Electrocardiogram with exercise test Yazan Bouts Start: 01-16-2021 Electrocardiogram with exercise test Yazan Bouts Start: 01-03-2021 Docrev cur meds by Aptela Yazan Bouts Start: 01-03-2021 Electrocardiographic procedure Yazan [...] 09-03-2020 Docrev cur meds by toro garcia Yazan Bouts Start: 09-03-2020 Erythrocyte mean corpuscular volume [...] Start: 09-02-2017 Incision and drainage of abscess Yaazn Bouts Start: 08-04-2017 Doc meds verified w/pt or re Yazan Bouts Start: 06-04-2017 Doc meds verified w/pt or re Yazan Bouts Start: 05-31-2017 Basic metabolic panel calcium ionized Ayzan Bouts Start: 05-31-2017 Blood chemistry Yazan Bouts [...] Start: 05-03-2014 Basic metabolic panel calcium total Yzaan Bouts Start: 05-03-2014 Blood chemistry Yazan Bouts [...] Detail Author Start: 12-06-2022 Lipid panel Lipids [facility] [employer] Start: 08-06-2022 [email or web address] Start: 02-10-2022 Basic metabolic panel calcium ionized CHEM 8 PANEL [employer] Start: 02-10-2022 Hemoglobin glycosylated a1c A1c [facility] Start: 11-14-2021 Basic metabolic panel calcium total Chem 8 [employer] Start: 11-14-2021 Hemoglobin glycosylated a1c Hgb A1c [facility] Start: 11-14-2021 Lipid panel Lipid profile [employer] Start: 11-06-2021 Hemoglobin A1c measurement [facility]C [facility] (Diabetic or Prediabetic) [facility] Start: 10-17-2021 Influenza vaccination Flu vaccine (Season Ended) [facility] Start: 09-16-2021 Influenza vaccination Flu [facility] (#1) [facility] Start: 08-06-2021 Assay of thyroid stimulating hormone tsh TSH [facility] Start: 08-06-2021 Basic metabolic panel calcium total Chem 8 [facility] Start: 08-06-2021 Hemoglobin glycosylated a1c A1c [facility] Start: 08-06-2021 Lipid panel Lipid panel [facility] Start: 06-03-2021 Basic metabolic panel calcium total Chem 8 [facility] Start: 06-03-2021 Hemoglobin glycosylated a1c A1c [facility] Start: 05-06-2021 Basic metabolic panel calcium total Chem 8 [facility] Start: 01-16-2021 Cv strs tst xers&/or rx cont ecg w/si&r Treadmill Stress [employer] [facility] Start: 01-03-2021 Screening mammography Mammogram breast screening digital [employer] Start: 12-01-2020 Creatinine measurement Creatinine [employer] Start: 12-01-2020 Potassium [Moles/volume] in Serum or Plasma Potassium [employer] Start: 10-02-2020 Hemoglobin A1c measurement A[facility]C test [facility]Diabetic [facility] Prediabetic) [facility] Start: 07-13-2020 Creatinine measurement Creatinine [facility] [place] Start: 07-13-[address] [facility] [employer] Start: 07-13-2020 Potassium monitoring Potassium monitoring [place], [place] Start: 03-11-2020 Diabetic microalbuminuria test Diabetic microalbuminuria test [place] Start: 03-11-2020 Urine screening for protein Diabetic microalbuminuria test [employer] Start: 12-05-2019 Creatinine monitoring Creatinine monitoring [employer] Work Phone: Start: 12-05-2019 Potassium monitoring [facility] Work Phone: Start: 12-03-2019 Basic metabolic panel calcium total Chem 8 [employer] Start: 12-03-2019 HbA1c (Bld) [Mass fraction] Hgb A1c [employer] [facility] Start: 12-03-2019 Lipid panel Lipid profile [employer] [facility] Start: 10-18-2019 Influenza vaccination [place] Start: 10-14-2019 HbA1c (Bld) [Mass fraction] A1C test (Diabetic or Prediabetic) [place] Start: 10-03-2019 HbA1c (Bld) [Mass fraction] A1c [employer] Start: 08-17-2019 Creatinine monitoring Creatinine monitoring [place], [place] Start: 08-17-2019 Potassium monitoring Potassium monitoring [place] Start: 07-25-2019 Diabetic microalbuminuria test Diabetic microalbuminuria test [place] Start: 07-25-2019 Lipid screen Lipid screen [place] Start: 07-14-2019 Assay of insulin total INSULIN [facility] Start: 07-14-2019 Basic metabolic panel calcium total Chem 8 [facility] Start: 07-14-2019 HbA1c (Bld) [Mass fraction] Hgb A1c [facility] Start: 07-14-2019 Lipid panel Lipid profile [facility] Start: 03-09-2019 Basic metabolic panel calcium total Chem 8 [facility] Start: 03-09-2019 HbA1c (Bld) [Mass fraction] Hgb A1c [facility] Start: 03-09-2019 Lipid panel Lipid profile [facility] Start: 03-06-2019 A1C test (Diabetic or Prediabetic) A1C test (Diabetic or Prediabetic) [facility] Work Phone: Start: 12-28-2018 Ultrasonography of abdomen and urinary system US kidney and bladder [facility] Start: 12-14-2018 Ultrasound Kidneys and Bladder [facility] Start: 11-28-2018 Basic metabolic panel calcium total Chem 8 [facility] Start: 11-28-2018 Hemoglobin A1c/Hemoglobin.total mass fraction (Bld) A1c [facility] Start: 10-24-2018 A1C test (Diabetic or Prediabetic) A1C test (Diabetic or Prediabetic) [place] Start: 10-17-2018 Influenza vaccination Flu vaccine (#1) [place] Start: 07-29-2018 Basic metabolic panel calcium total Chem 8 [facility] Start: 07-29-2018 Hemoglobin A1c/Hemoglobin.total mass fraction (Bld) A1c [facility] [employer] Start: 02-03-2016 Breast cancer screen Breast cancer screen [place] Start: 02-03-2016 Colon cancer screen colonoscopy Colon cancer screen colonoscopy [place] Start: 02-03-2016 Screening for malignant neoplasm of breast Breast cancer screen [facility] Start: 02-03-2016 Screening for malignant neoplasm of colon Colon cancer screen colonoscopy [place] Start: 02-03-2016 Shingles Vaccine (1 of 2) Shingles Vaccine (1 of 2) [facility] Start: 2011 Screening for malignant neoplasm of colon [facility] Start: 02-03-1996 Screening for malignant neoplasm of cervix [facility] Start: 1987 Cervical cancer screen Cervical cancer screen [place] Start: 1987 Screening for malignant neoplasm of cervix [facility] Start: 1985 DTaP/Tdap/Td vaccine (1 - Tdap) DTaP/Tdap/Td vaccine (1 - Tdap) [facility] Start: 02-03-1984 Diabetic retinal exam Diabetic retinal exam [facility] Start: 02-03-1984 Hepatitis C screening Hepatitis C screen [facility] Start: 1981 HIV screen HIV screen [place] Start: 1981 HIV screening HIV screen [facility] Start: 1978 Depression Screen Depression Screen [facility] Start: 1977 DTaP/Tdap/Td vaccine (1 - Tdap) DTaP/Tdap/Td vaccine (1 - Tdap) [facility] Work Phone: Start: 02-03-1976 [object Object] Diabetic foot exam [place] Start: 02-03-1976 Diabetic foot examination Diabetic foot exam [facility] Start: 02-03-1976 Diabetic retinal exam Diabetic retinal exam [place], [place] Start: 1971 COVID-19 Vaccine (1) COVID-19 Vaccine (1) [facility] Start: 1966 COVID-19 Vaccine (#1) COVID-19 Vaccine (#1) [facility] End: 12-02-2019 Culture, Blood 1 Culture, Blood 1 Microbiology STAT One Time for 1 Occurrences starting 12/02/2019 until 12/02/2019 [place] Comment on above: One Time for 1 Occurrences starting 11/16 until 12/02/2019 Culture, Blood 1 Culture, Blood 1 Microbiology STAT 12/02/2019 1:10 PM EDT [place] End: 12-02-2019 Culture, Blood 2 Culture, Blood 2 Microbiology STAT One Time for 1 Occurrences starting 12/02/2019 until 12/02/2019 [place] Comment on above: One Time for 1 Occurrences starting 11/16 until 12/02/2019 Culture, Blood 2 Culture, Blood 2 Microbiology STAT 12/02/2019 1:07 PM EDT [place] End: 12-06-2021 Hemoglobin A1c/Hemoglobin.total in Blood [facility] Work Phone: Comment on above: Once for 1 Occurrences starting 12/07/19 until 12/06/2021 Immunizations Immunization Date Immunization Notes Care Provider Collin botello 01-03-2021 Influenza, injectabl e, Madin Dai Canine Kidney, quadrivalent with preservative; Translations: [Influenza virus vaccine, quadrivalent (cciiv4), derived from cell cultures, subunit, antibiotic free, 0.5 ml dosage, for intramuscular use] [employer] 01-03-2021 influenza, injectabl e, quadrivalent, contains preservative [employer] 01-03-2021 IMMUNIZATION ADMIN; Translations: [IMMUNIZATION ADMIN] [employer] 12-02-2017 influenza, seasonal, injectable; Translations: [FLU VACCINE 3 YRS & > IM] [employer] 12-02-2017 IMMUNIZATION ADMIN; Translations: [IMMUNIZATION ADMIN] [employer] Payers Date Payer Category Payer Unknown 2016 Unknown [facility] HEALTH PLAN ON LICENSE OF [facility] xxxxxxxxxxxx 2016-Present [phone] [address] [place] [address] xxxxxxxxxxxx [id number] 1966 Unknown [id number] 1966 Unknown [id number] 1966 Unknown [id number] 1966 Unknown [id number] 1966 Unknown [id number] 1958 Medicaid [id number] Private Health Insurance [id number] Social History Date Type Detail Facility Start: [facility] Start: soda [facility] Start: 11-24-2017 End: 12-02-2019 Tobacco smoking status NHIS Never smoker [place], [place] Start: 1965 Sex Assigned At Not on file [place] Start: 11-24-2017 End: 12-02-2019 Tobacco use and exposure Never used [employer] [place] Exposure to SARS-CoV -2 (event) Yes [place], [place] Medical Equipment Procedure Code Equipment Code Equipment Origin al Text Equipment Identifier Dates USE DIRECTED Start: 03-04-2019 Advance Directives No Advanced Directives Records FoundDocuments on File Type Date Recorded Patient Professional Nursing Assistant Expl anation Advance Directives and Living Will Power of Flight Test Supervisor Documents on File Type Date Recorded Patient Professional Nursing Assistant Expl anation ACP-Advance Directive ACP-Power of Flight Test Supervisor Discharge Instructions * Instructions* Joey Waite MD - 12/02/2019 Please return to the ED if you are feeling worse or short of breath. * Attachments The following attachments cannot be sent through Care Everywhere. * Coronavirus Disease (COVID-19): General Info ([place]) * Video: COVID-19: Taking Care of Yourself If You Have It ([place]) documented in this encounter Assessments Diagnosis COVID-19 [...] and content) DATE CREATED AUTHOR 08/29/2020 [facility] DATE CREATED AUTHOR AUTHOR'S ORGANIZ ATION 01/17/2021 [facility] DATE CREATED AUTHOR AUTHOR'S ORGANIZ ATION 12/10/2021 [facility] Care Teams (unrecognized sec tion and content) Supercharger Mechanic Relationship Specialty Start Date End Date Yazan Adrian MD [address] [place] [address] PCP - General Internal Medicine 04/26/15 Supercharger Mechanic Relationship Specialty Start Date End Date Yazan Adrian MD [address] [place] [address] PCP - General Internal Medicine 04/26/15 Supercharger Mechanic Relationship Specialty Start Date End Date Yazan Adrian MD [address] [place] [address] PCP - General Internal Medicine [...] BE BASED ON THE PRIMARY CLINICAL RECORDS. [facility] [employer] [facility]. provides no warranty or guarantee of the accuracy or completeness of information in this document.
[2023-04-04 15:43] VITALS: BP 157/76; PULSE 109; RESP 18; RESP 24; TEMP 37.8; O2SAT 90; BMI 39.6
[2023-04-04 16:11] LABS: Glucometer 361 mg/dL (74-106)
[2023-04-04] MEDS: 0.9 % SODIUM CHLORIDE 1,000 ML 125 ML IV (16:18)
[2023-04-04] MEDS: INSULIN ASPART 300 UNIT/3 ML PEN SUBQ (16:24)
[2023-04-04 21:00] VITALS: BP 117/65; PULSE 109; RESP 16; TEMP 38; O2SAT 91
[2023-04-04] MEDS: ACETAMINOPHEN 500 MG TABLET 1000 MG PO (21:03)
[2023-04-04] MEDS: CLINDAMYCIN PHOS 300 MG/50 ML PIGGYBACK 100 MG IV (21:04)
[2023-04-04 21:05] VITALS: PULSE 109; RESP 16
[2023-04-04 21:27] LABS: Glucometer 315 mg/dL (74-106)
[2023-04-05] MEDS: KETOROLAC TROMETHAMINE 30 MG/ML VIAL IVP ×2 (00:50→08:14)
[2023-04-05] MEDS: 0.9 % SODIUM CHLORIDE 1,000 ML 125 ML IV ×2 (01:30→08:19)
[2023-04-05] MEDS: CLINDAMYCIN PHOS 300 MG/50 ML PIGGYBACK 100 MG IV ×2 (03:11→08:13)
[2023-04-05 04:38] VITALS: BP 145/72; PULSE 82; RESP 16; TEMP 36.7; O2SAT 92
[2023-04-05 06:39] LABS: Basophils Percent Auto 0.5 % (0.2-2.0); Eosinophils Absolute Auto 0.2 10^3/uL (0.0-0.7); Eosinophils Percent Auto 1.8 % (0.9-7.0); Hematocrit 38.9 % (36.0-48.0); Hemoglobin 12.3 g/dL (12.0-16.0); Immature Granulocytes Abs Auto 0.03 10^3/uL (0.00-0.03); Immature Granulocytes Pct Auto 0.3 % (0.0-0.5); Lymphocytes Absolute Auto 1.3 10^3/uL (1.2-3.8); Lymphocytes Percent Auto 14.3 % (20.5-60.0); Mean Corpuscular HGB Conc 31.6 g/dL (29.9-35.2); Mean Corpuscular Hemoglobin 30.6 pg (26.7-34.0); Mean Corpuscular Volume 96.8 fL (81.0-99.0); Mean Platelet Volume 10.5 fL (9.5-13.5); Monocytes Absolute Auto 0.7 10^3/uL (0.3-0.8); Monocytes Percent Auto 7.4 % (1.7-12.0); Neutrophils Absolute Auto 6.6 10^3/uL (1.4-6.5); Neutrophils Percent Auto 75.7 % (43.0-75.0); Platelet Count 201 10^3/uL (150-450); Red Blood Count 4.02 10^6/uL (4.20-5.40); White Blood Count 8.8 10^3/uL (4.0-11.0)
[2023-04-05 06:46] LABS: Anion Gap 14.2; BUN Creatinine Ratio 24.2; Calcium 8.6 mg/dL (8.5-10.1); Carbon Dioxide 24.6 mmol/L (21.0-32.0); Chloride 102 mmol/L (98-107); Estimated GFR (African America >60 (>=60); Estimated GFR (Non-African Ame >60 (>=60); Glucose 380 mg/dL (74-106); Potassium 3.8 mmol/L (3.5-5.1); Sodium 137 mmol/L (136-145)
[2023-04-05 07:36] LABS: Glucometer 377 mg/dL (74-106)
[2023-04-05 08:00] VITALS: RESP 16
[2023-04-05] MEDS: INSULIN ASPART 300 UNIT/3 ML PEN SUBQ ×2 (08:14→11:44)
[2023-04-05 11:18] LABS: Glucometer 443 mg/dL (74-106)
--- NOTE | 2023-04-05 11:57 | PM.HP ---
H&P: HPI History of Present Illness Chief complaint: EAR & GROIN PAIN CELLULITIS Narrative: 58 y/o female to ER with pain in left ear and left groin for several days. Initially c/o pain in ear. Reported redness to left groin for about 1 week. Started as small area and increased in size. Pain to sit or walk. Skin very tender and warm to touch. To ER and WBC normal. CT showed inflammation but no abscess. Admitted for IV antibiotics. Started clindamycin. Noted elevated BS and patient reports always high. No home medication listed but reports she takes glipizide and metformin at home. Feels well this am. Less pain and redness improved. Low grade temp overnight. Normal appetite and ambulating well. Review of Systems ROS Constitutional Denies: fever, chills or fatigue Cardiovascular Denies: chest pain, palpitations or edema Respiratory Denies: shortness of breath, cough or wheezing Gastrointestinal Denies: abdominal pain, nausea, vomiting or diarrhea Genitourinary Denies: painful urination [facility] Medical History (Updated 04/05/23 @ 09:50 by Dalton Lamar MD) Cellulitis ?L03.90 - Cellulitis, unspecified (ICD-10) Acute pain of right knee ?M25.561 - Pain in right knee (ICD-10) Social History Smoking status: Never smoker Meds Home Medications and Allergies Home Medications Medication Instructions Recorded Confirmed Type clindamycin HCl 300 mg capsule 300 mg PO Q6H 10 days #40 caps 04/05/23 Rx Allergies Allergy/AdvReac Type Severity Reaction Status Date / Time naproxen [From Naprosyn] Allergy Intermediate Verified 12/14/22 13:22 Exam Constitutional Vital Signs, click to edit/add: Last Vital Signs Temp 98.1 F 04/05/23 04:38 Pulse 82 04/05/23 04:38 Resp 16 04/05/23 08:00 BP 145/72 H 04/05/23 04:38 Pulse Ox 92 L 04/05/23 04:38 O2 Del Method Room Air 04/05/23 04:38 Results Labs Labs: Short CBC 04/04/23 04/05/23 Range/Units 12:21 06:14 WBC 10.4 8.8 (4.0-11.0) 10^3/uL Hgb 13.0 12.3 (12.0-16.0) g/dL Hct 40.8 38.9 (36.0-48.0) % Plt Count 235 201 (150-450) 10^3/uL BMP 04/04/23 04/05/23 12:21 06:14 Sodium 135 L 137 Potassium 4.7 3.8 Chloride 99 102 Carbon Dioxide 22.0 24.6 BUN 18.0 16.0 Creatinine 0.79 0.66 Glucose 493 H 380 H Calcium 9.0 8.6 Liver Function 04/04/23 Range/Units 12:21 Total Bilirubin 0.7 (0.2-1.0) mg/dL Direct Bilirubin 0.1 (0.0-0.2) mg/dL AST 11 L (15-37) U/L ALT 20 (14-59) U/L Alkaline Phosphatase 101 (46-116) U/L Albumin 3.0 L (3.4-5.0) g/dL Urine 04/04/23 Range/Units 14:41 Urine Color Lt. yellow (YELLOW) Urine Clarity Clear (CLEAR) Urine pH 5.5 (5.0-9.0) Ur Specific [place] 1.010 (1.005-1.025) Urine Protein Negative (NEG/TRACE) mg/dL Urine Glucose (UA) >=1000 A (NEGATIVE) mg/dL Imaging CT scan - pelvis: Attestation: I have reviewed the pertinent imaging results. Assessment and Plan Assessment and Plan (1) Cellulitis of left groin: (2) Type 2 diabetes mellitus with hyperglycemia: (3) Obesity (BMI 30-39.9): Plan Presented with cellulitis and responded well to clindamycin. Redness and pain improved. Discharge home on oral clindamycin. Resume home medication as directed. Monitor BS and need to stick to ADA diet. Follow up with PCP in 1-2 weeks.
[2023-04-05] MEDS: ACETAMINOPHEN 500 MG TABLET 1000 MG PO (12:45)
--- OUTSIDE RECORDS SUMMARY | 2023-04-06 08:50 | XMS_ITS | CCD ---
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 Role Phone Nguyễn, Yazan A Primary [...] le Bouts, Yazan Trinh Primary Care Provider [phone] Bouts, Yazan Trinh Primary Care Physician Unavailab [...] Provider Bouts Yazan KELLER Primary Care Provider [phone] Bouts, Yazan Trinh Primary Care Physician Unavailab le Bouts, Yazan Trinh Primary Care Physician Unavailab le Bouts Yazan KELLER Primary Care Provider [phone] BOUTS, YAZAN Trinh Referring Unavailable BOUTS, YAZNA Trinh Primary Care Unavailable BOUTS, YAZAN Trinh Referring Unavailable BOUTS, YAZAN Trinh Primary Care Unavailable BOUTS, YAZAN Trinh Referring Unavailable BOUTS, YAZAN Trinh Primary Care Unavailable Bouts, Yazan Trnih Primary Care Physician Unavailab le Allergies Allergy Classification Reported Allergen(s) Allergy Type Date of Onset Reaction(s) Facility NSAIDs (1 source) Naproxen Drug Allergy 3 [facility] (2 sources) atorvastatin; Translations: [atorvastatin] Drug Allergy unable to move legs [facility] (2 sources) Naproxen; Translations: [naproxen sodium] Drug Allergy nausea [facility] (8 sources) Naproxen; Translations: [naproxen] Drug Allergy [address] [place] [address] (13 sources) atorvastatin; Translations: [atorvastatin] Drug Allergy unable to move legs [employer] (13 sources) ceftibuten; Translations: [naproxen sodium] Drug Allergy nausea [facility] Medications Current Medications Medication Drug Class(es) Dates [...] Start: 09-03-2020 take 1 capsule by mo [facility] once daily Vitamin D3 50 mcg (2,000 [...] Start: 08-22-2019 take 1 capsule by mo [facility] every week Vitamin D2 1,250 mcg (50,000 [...] Start: 09-03-2020 take 2 tablets by mo [facility] twice daily metformin 500 mg oral tablet extended release 24 hr 09/03/2020 TAKE TWO TABLETS BY MOUTH TWICE DAILY Start: 03-15-2019 take 2 tablets by [facility] twice daily metformin 500 mg oral tablet extended release 24 hr 03/15/2019 TAKE TWO TABLETS BY MOUTH TWICE DAILY Start: 03-25-2018 take 2 tablets by [facility] twice daily metformin 500 mg oral tablet extended release 24 hr 03/25/2018 TAKE TWO TABLETS BY MOUTH TWICE DAILY take 1 tablet by [facility] twice daily at mealtime metFORMIN (GLUCOPHAGE) 500 [...] meal Start: 09-03-2020 take 1 capsule by [facility] once daily before mealtime omeprazole 20 mg oral capsule,delayed release(DR/EC) 09/03/2020 take 1 capsule (20 mg) by oral route once daily before a meal Start: 03-15-2019 take 1 capsule by [facility] once daily before mealtime omeprazole 20 mg oral capsule,delayed release(DR/EC) 03/15/2019 take 1 capsule (20 mg) by oral route once daily before a meal Start: 03-25-2018 take 1 capsule by [facility] once daily before mealtime omeprazole 20 [...] Onset: 08-28-2020 Episodic Unclassified (1 source) [id number] ss_name_10 Onset: 07-24-2014 Unclassified (1 source) [id number] ss_name_12 Onset: 10-04-2014 Unclassified (1 source) [id number] ss_name_13 Onset: 10-04-2014 Unclassified (1 source) [id number] ss_name_13 Onset: 10-04-2014 Unclassified (1 source) [id number] ss_name_10 Onset: 07-24-2014 Unclassified (1 source) [id number] ss_name_12 Onset: 10-04-2014 Unclassified (1 source) [id number] ss_name_13 Onset: 10-04-2014 Viral infection (20 sources) Other specified viral infection; Translations: [Other viral agents as the cause of diseases classified elsewhere] Onset: 03-19-2017 12-02-2019 Episodic Results Test Name Value Interpretation Reference Range Facility Hemoglobin A1Con 12-07-2021 Glucose [Mass/Vol] 335 mg/dL Normal [facility] Comment on above: Result Comment: The ADA and AACC recommend providing the estimated average glucose result to permit better patient understanding of their HBA1c result. Performed By: #### G LYHGB, LIPRF, URNMAB #### [facility] [address] [id number] Screen Tacker: Harlan Yates MD #### BMP #### [facility] [address] [place], [place] [phone] Screen Tacker: César Rueda MD HbA1c (Bld) [Mass fraction] 13.3 % High 4.0-6.0 [facility] Comment on above: Performed By: #### G LYHGB, LIPRF, URNMAB #### [address] [address] Screen Tacker: Harlan Yates MD #### BMP #### [facility] [address] [place] [id number] Screen Tacker: César Rueda MD Microalb.,Random Uron 2021 Creatinine [Mass/Vol] 32.1 mg/dL Normal 28.0-217.0 [facility] Comment on above: Performed By: #### G LYHGB, LIPRF, URNMAB #### [address] [address] Screen Tacker: Harlan Yates MD #### BMP #### [address] [place] 9[address]83 Screen Tacker: César Rueda MD Microalb/Creat Ratio Can not be calculated Normal <25 [facility] Comment on above: Performed By: #### G LYHGB, LIPRF, URNMAB #### [address] [address] Screen Tacker: Harlan Yates MD #### BMP #### [facility] [address] [place] [address] [address] [place] [phone] Screen Tacker: César Rueda MD Microalbumin conc. <12 Normal <21 [facility] Comment on above: Performed By: #### G LYHGB, LIPRF, URNMAB #### [address] [address] Screen Tacker: Harlan Yates MD #### BMP #### [facility] [address] [place] [address] Screen Tacker: César Rueda MD Basic Metabolic Panelon 10- Anion gap [Moles/Vol] 13 mmol/L 9 - 17 mmol/L [facility] Calcium [Mass/Vol] 9.1 mg/dL 8.6 - 10. 4 mg/dL [facility] Chloride [Moles/Vol] 98 mmol/L 98 - 10 7 mmol/L [facility] CO2 [Moles/Vol] 25 mmol/L 20 - 31 mmol/L [facility] Creatinine [Mass/Vol] 0.62 mg/dL 0.50 - 0.90 mg/dL [facility] GFR/1.73 sq M.predicted MDRD (S/P/Bld) [Vol rate/Area] - PINF [facility] Comment on above: Effective Nov 18, 2021 [...] Critically high 70 - 99 mg/d L [facility] Interpretation and review of laboratory results Abnormal [facility] Potassium [Moles/Vol] 4.6 mmol/L 3.7 - 5.3 mmol/L [facility] Sodium [Moles/Vol] 136 mmol/L 135 - 144 mmol/L [facility] Urea nitrogen (BldV) [Mass/Vol] 22 mg/dL High 6 - 20 mg/dL [facility] Urea nitrogen/Creatinine (Bld) [Mass ratio] 35 High 9 - 20 [facility] Basic Metabolic Profon 12-06 Glucose [Mass/Vol] 530 mg/dL Critically high 70-99 [facility] Comment on above: Performed By: #### G LYHGB, LIPRF, URNMAB #### [facility] [address] [place] [address] Screen Tacker: Harlan Yates MD #### BMP #### [facility] [address] [place], [place] [phone] Screen Tacker: César Rueda MD Anion gap [Moles/Vol] 13 mmol/L Normal 9-17 [facility] Comment on above: Performed By: #### G LYHGB, LIPRF, URNMAB #### [address] [address] Screen Tacker: Harlan Yates MD #### BMP #### [facility] [address] [place], [place] [phone] Screen Tacker: César Rueda MD BUN/CRE Ratio 35 High 9-20 [facility] Comment on above: Performed By: #### G LYHGB, LIPRF, URNMAB #### [address] [address] Screen Tacker: Harlan Yates MD #### BMP #### [facility] [address] [place] [address] [address] [place], [place] [phone] Screen Tacker: César Rueda MD Calcium [Mass/Vol] 9.1 mg/dL Normal 8.6-10.4 [facility] Comment on above: Performed By: #### G LYHGB, LIPRF, URNMAB #### [address] [address] Screen Tacker: Harlan Yates MD #### BMP #### [facility] [address] [place], [place] 7376783 Screen Tacker: César Rueda MD Chloride [Moles/Vol] 98 mmol/L Normal 98-107 [facility] Comment on above: Performed By: #### G LYHGB, LIPRF, URNMAB #### [facility] [address] [place] [address] Screen Tacker: Harlan Yates MD #### BMP #### [facility] [address] [place], [place] 264[address]83 Screen Tacker: César Rueda MD CO2 [Moles/Vol] 25 mmol/L Normal 20-31 [facility] Comment on above: Performed By: #### G LYHGB, LIPRF, URNMAB #### [address] [place] [address] Screen Tacker: Harlan Yates MD #### BMP #### [facility] [address] [place], [place] [address] Screen Tacker: César Rueda MD Creatinine [Mass/Vol] 0.62 mg/dL Normal 0.50-0.90 [facility] Comment on above: Performed By: #### G LYHGB, LIPRF, URNMAB #### [address] [address] Screen Tacker: Harlan Yates MD #### BMP #### [facility] [address] [place] [address] [place], [place] [phone] Screen Tacker: César Rueda MD GFR/1.73 sq M.predicted among non-blacks MDRD (S/P/Bld) [Vol rate/Area] mL/min/{1.73_m2} Normal >60 [facility] Comment on above: Result Comment: Effective Nov [...] By: #### G LYHGB, LIPRF, URNMAB #### [address] [place] [address] Screen Tacker: Harlan Yates MD #### BMP #### [facility] [address] [place] [address] [place]. [place], [place] [phone] Screen Tacker: César Rueda MD Potassium [Moles/Vol] 4.6 mmol/L Normal 3.7-5.3 [facility] Comment on above: Performed By: #### G LYHGB, LIPRF, URNMAB #### [address] [address] Screen Tacker: Harlan Yates MD #### BMP #### [address] [place], [place] 8173283 Screen Tacker: César Rueda MD Sodium [Moles/Vol] 136 mmol/L Normal 135-144 [facility] Comment on above: Performed By: #### G LYHGB, LIPRF, URNMAB #### [address] [address] Screen Tacker: Harlan Yates MD #### BMP #### [address] [place] [address] Screen Tacker: César Rueda MD Urea nitrogen [Mass/Vol] 22 mg/dL High 6-20 [facility] Comment on above: Performed By: #### G LYHGB, LIPRF, URNMAB #### [address] [address] Screen Tacker: Harlan Yates MD #### BMP #### [address] [place], [place] 5[address] Screen Tacker: César Rueda MD Lipid Prof, Fastingon 2021 Cholesterol [Mass/Vol] 241 mg/dL High <200 [facility] Comment on above: Result Comment: Cholesterol Guidelines: <200 Desirable 200-240 Borderline >240 Undesirable Performed By: #### G LYHGB, LIPRF, URNMAB #### [address] [address] Screen Tacker: Harlan Yates MD #### BMP #### [facility] [address] [place] [address] Dr. [place], [place] 3198883 Screen Tacker: César Rueda MD Cholesterol in HDL [Mass/Vol] 34 mg/dL Low >40 [facility] Comment on above: Result Comment: HDL Guidelines: <40 Undesirable 40-59 Borderline >59 Desirable Performed By: #### G LYHGB, LIPRF, URNMAB #### [address] [address] Screen Tacker: Harlan Yates MD #### BMP #### [address] [place] [address]83 Screen Tacker: César Rueda MD Cholesterol in LDL [Mass/Vol] 149 mg/dL High 0-130 [facility] Comment on above: Result Comment: LDL Guidelines: <100 Desirable 100-129 Near to/above Desirable 130-159 Borderline >159 Undesirable Direct (measured) LDL and calculated LDL are not interchangeable tests. Performed By: #### G LYHGB, LIPRF, URNMAB #### [address] [address] Screen Tacker: Harlan Yates MD #### BMP #### [address] [place] [address]2283 Screen Tacker: César Rueda MD Cholesterol.total/Chol esterol in HDL [Mass ratio] 7.1 {ratio} High <5 [facility] Comment on above: Performed By: #### G LYHGB, LIPRF, URNMAB #### [address] [address] Screen Tacker: Harlan Yates MD #### BMP #### [facility] [address] [place] [address] Screen Tacker: César Rueda MD Triglyceride,Fasting 290 mg/dL High <150 [facility] Comment on above: Result Comment: Triglyceride Guidelines: <150 Desirable 150-199 Borderline 200-499 High >499 Very high Based on AHA Guidelines for fasting triglyceride, November 2011. Performed By: #### G LYHGB, LIPRF, URNMAB #### [facility] [address] [place], [place] [phone] Screen Tacker: Harlan Yates MD #### BMP #### [facility] [address] [place] [address] Screen Tacker: César Rueda MD Lipid, Fastingon 12-06-2021 Cholesterol [Mass/Vol] 241 mg/dL High NINF - 200 mg/dL [facility] Comment on above: Cholesterol Guidelines: <200 Desirable 200-240 Borderline >240 Undesirable Cholesterol in HDL [Mass/Vol] 34 mg/dL Low 40 - PINF mg/dL [facility] Comment on above: HDL Guidelines: <40 Undesirable 40-59 Borderline >59 Desirable Cholesterol in LDL [Mass/Vol] 149 mg/dL High 0 - 130 mg/dL [facility] Comment on above: LDL Guidelines: <100 Desirable 100-129 Near to/above Desirable 130-159 Borderline >159 Undesirable Direct (measured) LDL and calculated LDL are not interchangeable tests. Cholesterol.total/Chol esterol in HDL [Mass ratio] 7.1 {ratio} High NINF - 5 [facility] Interpretation and review of laboratory results Abnormal [facility] Triglyceride, Fasting 290 mg/dL High NINF - 150 mg/dL [facility] Comment on above: Triglyceride Guidelines: <150 Desirable 150-199 Borderline 200-499 High >499 Very high Based on AHA Guidelines for fasting triglyceride, November 2011. [facility] Microalbumin, Uron 2 Albumin/Creatinine DL <= 20 mg/L (24H U) [Mass ratio] mg/L NINF - 21 mg/L [facility] Albumin/Creatinine DL <= 20 mg/L (U) [Ratio] Can not be calculated NINF [facility] Creatinine [Mass/Vol] 32.1 mg/dL 28.0 - 217.0 mg/dL [facility] Basic Metabolic Panelon - Anion gap [Moles/Vol] 10 mmol/L 9 - 17 mmol/L [facility] Calcium [Mass/Vol] 8.9 mg/dL 8.6 - 10. 4 mg/dL [facility] Chloride [Moles/Vol] 106 mmol/L 98 - 10 7 mmol/L [facility] CO2 [Moles/Vol] 23 mmol/L 20 - 31 mmol/L [facility] Creatinine [Mass/Vol] 0.55 mg/dL 0.50 - 0.90 mg/dL [facility] GFR >60 >60 mL/min [facility] GFR Non- >60 >60 mL/min [facility] Glucose [Mass/Vol] 293 mg/dL High 70 - 99 mg/dL [facility] Interpretation and review of laboratory results Abnormal [facility] Potassium [Moles/Vol] 4.4 mmol/L 3.7 - 5.3 mmol/L [facility] Sodium [Moles/Vol] 139 mmol/L 135 - 144 mmol/L [facility] Urea nitrogen (BldV) [Mass/Vol] 20 mg/dL 6 - 20 mg/dL [facility] Urea nitrogen/Creatinine (Bld) [Mass ratio] 36 High [facility] Basic Metabolic Profon 08-06 (cont.) Normal [facility] Comment on above: Result Comment: Aver age GFR for 50-59 years old: 93 mL/min/1.73sq m Chronic Kidney Disease: <60 mL/min/1.73sq m Kidney failure: <15 mL/min/1.73sq m eGFR calculated using average adult body mass. Additional eGFR calculator available at: http://www.[employer].inFreeDA/multiple_crcl_2012.htm Performed By: #### B MP, TSH #### [facility] [address] [place] [address] [address] [place] [phone] Screen Tacker: César Rueda MD #### GLYHGB, LIPR #### [address] [place], [place] 1489[address] Screen Tacker: Harlan Yates MD Anion gap [Moles/Vol] 10 mmol/L Normal 9-17 [facility] Comment on above: Performed By: #### B MP, TSH #### [facility] [address] [place] [address] [address] [place] [phone] Screen Tacker: César Rueda MD #### GLYHGB, LIPR #### [address] [address] Screen Tacker: Harlan Yates MD BUN/CRE Ratio 36 High 9-20 [facility] Comment on above: Performed By: #### B MP, TSH #### [address] [place] [address]63 ( Screen Tacker: César Rueda MD #### GLYHGB, LIPR #### [address] [address] Screen Tacker: Harlan Yates MD Calcium [Mass/Vol] 8.9 mg/dL Normal 8.6-10.4 [facility] Comment on above: Performed By: #### B MP, TSH #### [facility] [address] [place] [address] [address]. [place] [phone] Screen Tacker: César Rueda MD #### GLYHGB, LIPR #### [address] [address] Screen Tacker: Harlan Yates MD Chloride [Moles/Vol] 106 mmol/L Normal 98-107 [facility] Comment on above: Performed By: #### B MP, TSH #### [facility] [address] [place] [address] [address]. [place] [phone] Screen Tacker: César Rueda MD #### GLYHGB, LIPR #### [address] [place] [address] Screen Tacker: Harlan Yates MD CO2 [Moles/Vol] 23 mmol/L Normal 20-31 [facility] Comment on above: Performed By: #### B MP, TSH #### [facility] [address] [place], [place] [phone] Screen Tacker: César Rueda MD #### GLYHGB, LIPR #### [address] [address] Screen Tacker: Harlan Yates MD Creatinine [Mass/Vol] 0.55 mg/dL Normal 0.50-0.90 [facility] Comment on above: Performed By: #### B MP, TSH #### [facility] [address] [place], [place] [phone] Screen Tacker: César Rueda MD #### GLYHGB, LIPR #### [address] [address] Screen Tacker: Harlan Yates MD GFR, Amer >60 Normal >60 [facility] Comment on above: Performed By: #### B MP, TSH #### [facility] [address] [place], [place] [phone] Screen Tacker: César Rueda MD #### GLYHGB, LIPR #### [address] [address] Screen Tacker: Harlan Yates MD GFR,non Amer >60 Normal >60 [facility] Comment on above: Performed By: #### B MP, TSH #### [facility] [address] [place] [address] Screen Tacker: César Rueda MD #### GLYHGB, LIPR #### [address] [place] [address] Screen Tacker: Harlan Yates MD Glucose [Mass/Vol] 293 mg/dL High 70-99 [facility] Comment on above: Performed By: #### B MP, TSH #### [facility] [address] [place] [address] [address]. [place], [place] 766[address]83 Screen Tacker: César Rueda MD #### GLYHGB, LIPR #### [address] [address] Screen Tacker: Harlan Yates MD Potassium [Moles/Vol] 4.4 mmol/L Normal 3.7-5.3 [facility] Comment on above: Performed By: #### B MP, TSH #### [address] [place], [place] 4712883 Screen Tacker: César Rueda MD #### GLYHGB, LIPR #### [address] [address] Screen Tacker: Harlan Yates MD Sodium [Moles/Vol] 139 mmol/L Normal 135-144 [facility] Comment on above: Performed By: #### B MP, TSH #### [address] [place], [place] 4185483 Screen Tacker: César Rueda MD #### GLYHGB, LIPR #### [address] [address] Screen Tacker: Harlan Yates MD Staging: Normal [facility] Comment on above: Result Comment: Stag e 1: Some kidney damage normal GFR Stage 2: Mild kidney damage GFR 60-89 Stage 3: Moderate kidney damage GFR 30-59 Stage 4: Severe kidney damage GFR 15-29 Stage 5: Severe kidney damage GFR <15 ESRD - chronic treatment by dialysis or transplant Performed By: #### B MP, TSH #### [address] [place], [place] 150[address] Screen Tacker: César Rueda MD #### GLYHGB, LIPR #### [facility] [address] [place] [address] Screen Tacker: Harlan Yates MD Urea nitrogen [Mass/Vol] 20 mg/dL Normal 6-20 [facility] Comment on above: Performed By: #### B MP, TSH #### [facility] [address] [place] [address] [address]. [place], [place] [phone] Screen Tacker: César Rueda MD #### GLYHGB, LIPR #### [address] [place] [address] Screen Tacker: Harlan Yates MD Hemoglobin A1Con 08-06-2021 Glucose [Mass/Vol] 235 mg/dL [facility] Comment on above: Result Comment: The ADA and AACC recommend providing the estimated average glucose result to permit better patient understanding of their HBA1c result. Performed By: #### B MP, TSH #### [facility] [address] [place] [address] [address]. [place], [place] [phone] Screen Tacker: César Rueda MD #### GLYHGB, LIPR #### [address] [place] [address] Screen Tacker: Harlan Yates MD HbA1c (Bld) [Mass fraction] 9.8 % High 4.0-6.0 [facility] Comment on above: Performed By: #### B MP, TSH #### [facility] [address] [place] [address] [address]. [place], [place] [phone] Screen Tacker: César Rueda MD #### GLYHGB, LIPR #### [facility] [address] [place] [address] Screen Tacker: Harlan Yates MD Glucose [Mass/Vol] 235 mg/dL [facility] Comment on above: The ADA and AACC rec ommend providing the estimated average glucose result to permit better patient understanding of their HBA1c result. HbA1c (Bld) [Mass fraction] 9.8 % High 4.0 - 6.0 % [facility] Interpretation and review of laboratory results Abnormal [facility] Laboratory - Chemistry and C hemistry - challengeon 08-06-2021 GFR/1.73 sq M.predicted MDRD (S/P/Bld) [Vol rate/Area] [facility] Comment on above: Average GFR for 50-5 9 years old: 93 mL/min/1.73sq m Chronic Kidney Disease: <60 mL/min/1.73sq m Kidney failure: <15 mL/min/1.73sq m eGFR calculated using average adult body mass. Additional eGFR calculator available at: http://www.[employer]/multiple_crcl_2012.htm Stage 1: Some kidney damage normal GFR Stage 2: Mild kidney damage GFR 60-89 Stage 3: Moderate kidney damage GFR 30-59 Stage 4: Severe kidney damage GFR 15-29 Stage 5: Severe kidney damage GFR <15 ESRD - chronic treatment by dialysis or transplant Lipid Panelon 08-06-2021 Cholesterol [Mass/Vol] 216 mg/dL High <200 [facility] [employer] Comment on above: Cholesterol Guidelines: <200 Desirable 200-240 Borderline >240 Undesirable Cholesterol in HDL [Mass/Vol] 32 mg/dL Low >40 [facility] [employer] Comment on above: HDL Guidelines: <40 Undesirable 40-59 Borderline >59 Desirable Cholesterol in LDL [Mass/Vol] 146 mg/dL High 0 - 130 mg/dL [facility] Comment on above: LDL Guidelines: <100 Desirable 100-129 Near to/above Desirable 130-159 Borderline >159 Undesirable Direct (measured) LDL and calculated LDL are not interchangeable tests. Cholesterol.total/Chol esterol in HDL [Mass ratio] 6.8 {ratio} High <5 [facility] [employer] Interpretation and review of laboratory results Abnormal [facility] [employer] Triglyceride [Mass/Vol] 189 mg/dL High <150 [facility] Comment on above: Triglyceride Guidelines: <150 Desirable 150-199 Borderline 200-499 High >499 Very high Based on AHA Guidelines for fasting triglyceride, November 2011. [facility] [employer] Lipid Profileon 08-06-2021 Cholesterol [Mass/Vol] 216 mg/dL High <200 [facility] Comment on above: Result Comment: Cholesterol Guidelines: <200 Desirable 200-240 Borderline >240 Undesirable Performed By: #### B MP, TSH #### [facility] [address] [place] [address] [place]. [place], [place] [phone] Screen Tacker: César Rueda MD #### GLYHGB, LIPR #### [address] [place], [place] 1983208 Screen Tacker: Harlan Yates MD Cholesterol in HDL [Mass/Vol] 32 mg/dL Low >40 [facility] Comment on above: Result Comment: HDL Guidelines: <40 Undesirable 40-59 Borderline >59 Desirable Performed By: #### B MP, TSH #### [address] [place], [place] [phone] Screen Tacker: César Rueda MD #### GLYHGB, LIPR #### [address] [place] [address] Screen Tacker: Harlan Yates MD Cholesterol in LDL [Mass/Vol] 146 mg/dL High 0-130 [facility] Comment on above: Result Comment: LDL Guidelines: <100 Desirable 100-129 Near to/above Desirable 130-159 Borderline >159 Undesirable Direct (measured) LDL and calculated LDL are not interchangeable tests. Performed By: #### B ANILA, TSH #### [facility] [address] [place] [address] [address] [place], [place] [phone] Screen Tacker: César Rueda MD #### GLYHGB, LIPR #### [address] [place], [place] [phone] Screen Tacker: Harlan Yates MD Cholesterol.total/Chol esterol in HDL [Mass ratio] 6.8 {ratio} High <5 [facility] Comment on above: Performed By: #### B ANILA, TSH #### [address] [place], [place] [id number] Screen Tacker: César Rueda MD #### GLYHGB, LIPR #### [facility] [address] [place] [address] Screen Tacker: Harlan Yates MD Triglyceride [Mass/Vol] 189 mg/dL High <150 [facility] Comment on above: Result Comment: Triglyceride Guidelines: <150 Desirable 150-199 Borderline 200-499 High >499 Very high Based on AHA Guidelines for fasting triglyceride, November 2011. Performed By: #### B MP, TSH #### [facility] [address] [place] [address] Screen Tacker: César Rueda MD #### ALIYAH, LIPR #### [facility] [address] [place], [place] [phone] Screen Tacker: Harlan Yates MD No Panel Informationon 08-06 [facility] TSHon 08-06-2021 TSH Qn 1.10 m[IU]/L [facility] Thyroid Stim. Horm.on 2021 Thyroid Stim. Horm. 1.10 uIU/mL Normal 0.30-5.00 [facility] Comment on above: Performed By: #### B MP, TSH #### [address] [place] [address] Screen Tacker: César Rueda MD #### ALIYAH, LIPR #### [facility] [address] [place] [address] Screen Tacker: Harlan Yates MD Basic Metabolic Panelon 04-2 Anion gap [Moles/Vol] 10 mmol/L 9 - 17 mmol/L [facility] Calcium [Mass/Vol] 9.3 mg/dL 8.6 - 10. 4 mg/dL [facility] Chloride [Moles/Vol] 102 mmol/L 98 - 10 7 mmol/L [facility] CO2 [Moles/Vol] 27 mmol/L 20 - 31 mmol/L [facility] Creatinine [Mass/Vol] 0.61 mg/dL 0.50 - 0.90 mg/dL [facility] GFR >60 >60 mL/min [facility] GFR Non- >60 >60 mL/min [facility] Glucose [Mass/Vol] 196 mg/dL High 70 - 99 mg/dL [facility] Interpretation and review of laboratory results Abnormal [facility] Potassium [Moles/Vol] 4.5 mmol/L 3.7 - 5.3 mmol/L [facility] Sodium [Moles/Vol] 139 mmol/L 135 - 144 mmol/L [facility] Urea nitrogen (BldV) [Mass/Vol] 21 mg/dL High 6 - 20 mg/dL [facility] Urea nitrogen/Creatinine (Bld) [Mass ratio] [address] [facility] Basic Metabolic Profon 06-05 (cont.) Normal [facility] Comment on above: Result Comment: Aver age GFR for 50-59 years old: 93 mL/min/1.73sq m Chronic Kidney Disease: <60 mL/min/1.73sq m Kidney failure: <15 mL/min/1.73sq m eGFR calculated using average adult body mass. Additional eGFR calculator available at: http://www.[employer].inFreeDA/multiple_crcl_2012.htm Performed By: #### B ANILA UA #### [facility] [address] [place] [address] [place] [address] Screen Tacker: César Rueda MD #### GLYHGB #### [facility] [address] [place] [address] Screen Tacker: Harlan Yates MD Anion gap [Moles/Vol] 10 mmol/L Normal - [facility] Comment on above: Performed By: #### Pito HIGH, UA #### [facility] [address] [place] [address] Screen Tacker: César Rueda MD #### GLYHGB #### [facility] [address] [place] [address] Screen Tacker: Harlan Yates MD BUN/CRE Ratio 34 High - [facility] Comment on above: Performed By: #### B MP, UA #### [facility] [address] [place], [place] [phone] Screen Tacker: César Rueda MD #### GLYHGB #### [address] [phone] Screen Tacker: Harlan Yates MD Calcium [Mass/Vol] 9.3 mg/dL Normal 8.6-10.4 [facility] Comment on above: Performed By: #### B MP, UA #### [facility] [address] [place], [place] [phone] Screen Tacker: César Rueda MD #### GLYHGB #### [address] [address] Screen Tacker: Harlan Yates MD Chloride [Moles/Vol] 102 mmol/L Normal 98-107 [facility] Comment on above: Performed By: #### B MP, UA #### [facility] [address] [place] [address] [address]. [place], [place] [phone] Screen Tacker: César Rueda MD #### GLYHGB #### [address] [address] Screen Tacker: Harlan Yates MD CO2 [Moles/Vol] 27 mmol/L Normal 20-31 [facility] Comment on above: Performed By: #### B MP, UA #### [facility] [address] [place] [address] [address]. [place], [place] [phone] Screen Tacker: César Rueda MD #### GLYHGB #### [address] [address] Screen Tacker: Harlan Yates MD Creatinine [Mass/Vol] 0.61 mg/dL Normal 0.50-0.90 [facility] Comment on above: Performed By: #### B MP, UA #### [facility] [address] [place] [address] Dr. [place], [place] [phone] Screen Tacker: César Rueda MD #### GLYHGB #### [facility] [address] [place] [address] Screen Tacker: Harlan Yates MD GFR, Amer >60 Normal >60 [facility] Comment on above: Performed By: #### B MP, UA #### [facility] [address] [place], [place] [phone] Screen Tacker: César Rueda MD #### GLYHGB #### [address] [address] Screen Tacker: Harlan Yates MD GFR,non Amer >60 Normal >60 [facility] Comment on above: Performed By: #### B MP, UA #### [address] [place], [place] [phone] Screen Tacker: César Rueda MD #### GLYHGB #### [address] [address] Screen Tacker: Harlan Yates MD Glucose [Mass/Vol] 196 mg/dL High 70-99 [facility] Comment on above: Performed By: #### B MP, UA #### [facility] [address] [place] [address] Dr. [place], [place] [phone] Screen Tacker: César Rueda MD #### GLYHGB #### [address] [address] Screen Tacker: Harlan Yates MD Potassium [Moles/Vol] 4.5 mmol/L Normal 3.7-5.3 [facility] Comment on above: Performed By: #### B MP, UA #### [facility] [address] [place] [address] Dr. [place], [place] [phone] Screen Tacker: César Rueda MD #### GLYHGB #### [facility] [address] [place] [address] Screen Tacker: Harlan Yates MD Sodium [Moles/Vol] 139 mmol/L Normal 135-144 [facility] Comment on above: Performed By: #### B MP, UA #### [facility] [address] [place], [place] 1505983 Screen Tacker: César Rueda MD #### GLYHGB #### [address] [place] [address] Screen Tacker: Harlan Yates MD Staging: Normal [facility] Comment on above: Result Comment: Stag e 1: Some kidney damage normal GFR Stage 2: Mild kidney damage GFR 60-89 Stage 3: Moderate kidney damage GFR 30-59 Stage 4: Severe kidney damage GFR 15-29 Stage 5: Severe kidney damage GFR <15 ESRD - chronic treatment by dialysis or transplant Performed By: #### B MP, UA #### [facility] [address] [place], [place] 2285383 Screen Tacker: César Rueda MD #### GLYHGB #### [address] [address] Screen Tacker: Harlan Yates MD Urea nitrogen [Mass/Vol] 21 mg/dL High 6-20 [facility] Comment on above: Performed By: #### B MP, UA #### [facility] [address] [place] [address] [address]. [place], [place] [phone] Screen Tacker: César Rueda MD #### GLYHGB #### [facility] [address] [place] [address] Screen Tacker: Harlan Yates MD Hemoglobin A1Con 06-05-2021 Glucose [Mass/Vol] 258 mg/dL [facility] Comment on above: Result Comment: The ADA and AACC recommend providing the estimated average glucose result to permit better patient understanding of their HBA1c result. Performed By: #### G LYHGB, MANDYRF, URNMAB #### [facility] [address] [place], [place] [phone] Screen Tacker: Harlan Yates MD #### BMP #### [facility] [address] [place] [address] [address]. [place], [place] 2953683 Screen Tacker: César Rueda MD HbA1c (Bld) [Mass fraction] 10.6 % High 4.0-6.0 [facility] Comment on above: Performed By: #### G LYHGB, LIPRF, URNMAB #### [facility] [address] [place], [place] 1959208 Screen Tacker: Harlan Yates MD #### BMP #### [facility] [address] [place] [address] [place] [address] Screen Tacker: César Rueda MD Glucose [Mass/Vol] 258 mg/dL [facility] Comment on above: The ADA and AACC rec ommend providing the estimated average glucose result to permit better patient understanding of their HBA1c result. HbA1c (Bld) [Mass fraction] 10.6 % High 4.0 - 6.0 % [facility] Interpretation and review of laboratory results Abnormal [facility] - Chemistry and C hemistry - challengeon 06-05-2021 GFR/1.73 sq M.predicted MDRD (S/P/Bld) [Vol rate/Area] [facility] Comment on above: Average GFR for 50-5 9 years old: 93 mL/min/1.73sq m Chronic Kidney Disease: <60 mL/min/1.73sq m Kidney failure: <15 mL/min/1.73sq m eGFR calculated using average adult body mass. Additional eGFR calculator available at: http://www.[employer].inFreeDA/multiple_crcl_2012.htm Stage 1: Some kidney damage normal GFR Stage 2: Mild kidney damage GFR 60-89 Stage 3: Moderate kidney damage GFR 30-59 Stage 4: Severe kidney damage GFR 15-29 Stage 5: Severe kidney damage GFR <15 ESRD - chronic treatment by dialysis or transplant Urinalysison 04-20-2022 Bilirubin Urine Negative NEGATIVE [facility] Color, UA Yellow Yellow [facility] Glucose, Ur Negative NEGATIVE [facility] Interpretation and review of laboratory results Abnormal [facility] Ketones Ql (U) Negative NEGATIVE [facility] Leukocyte esterase Test strip Ql (U) Negative NEGATIVE [facility] Nitrite, Urine Negative NEGATIVE [facility] pH, UA 5.5 [facility] Protein, UA Negative NEGATIVE [facility] Specific [place], UA 1.025 High [facility] Turbidity UA Clear Clear [facility] Urine Hgb Negative NEGATIVE [facility] Urobilinogen, Urine Normal Normal [facility] Urinalysis, Routineon 2021 Bilirubin, SemiQt,Ur Negative Normal NEG [facility] Comment on above: Performed By: #### B MP, UA #### [address] [place] [address] Screen Tacker: César Rueda MD #### GLYHGB #### [address] [phone] Screen Tacker: Harlan Yates MD Blood, Urine Negative Normal NEG [facility] Comment on above: Performed By: #### B MP, UA #### [address] [place] [phone] Screen Tacker: César Rueda MD #### GLYHGB #### [address] [phone] Screen Tacker: Harlan Yates MD Clarity (U) Clear Normal CLEAR [facility] Comment on above: Performed By: #### B MP, UA #### [address] [place] [address] Screen Tacker: César Rueda MD #### GLYHGB #### [address] [address] Screen Tacker: Harlan Yates MD Color (U) Yellow Normal YEL [facility] Comment on above: Performed By: #### B MP, UA #### [facility] [address] [place] [address] [place] [address] Screen Tacker: César Rueda MD #### GLYHGB #### [facility] [address] [place] [address] Screen Tacker: Harlan Yates MD Glucose Ql (U) Negative Normal NEG [facility] Comment on above: Performed By: #### B MP, UA #### [facility] [address] [place] [address] [place] [address] Screen Tacker: César Rueda MD #### GLYHGB #### [facility] [address] [place] [address] Screen Tacker: Harlan Yates MD Ketones Ql (U) Negative Normal NEG [facility] Comment on above: Performed By: #### B MP, UA #### [address] [place] [address] Screen Tacker: César Rueda MD #### GLYHGB #### [address] [address] Screen Tacker: Harlan Yates MD Leukocyte esterase Test strip Ql (U) Negative Normal NEG [facility] Comment on above: Performed By: #### B MP, UA #### [address] [place], [place] [phone] Screen Tacker: César Rueda MD #### GLYHGB #### [facility] [address] [place] [address] Screen Tacker: Harlan Yates MD Nitrite,Ur Negative Normal NEG [facility] Comment on above: Performed By: #### B MP, UA #### [address] [place] [address] Screen Tacker: César Rueda MD #### GLYHGB #### [address] [address] Screen Tacker: Harlan Yates MD PH,Ur 5.5 Normal 5.0-9.0 [facility] Comment on above: Performed By: #### B MP, UA #### [facility] [address] [place] [address] [address]. [place], [place] [phone] Screen Tacker: César Rueda MD #### GLYHGB #### [address] [address] Screen Tacker: Harlan Yates MD Protein Ql (U) Negative Normal NEG [facility] Comment on above: Performed By: #### B ANILA, UA #### [facility] [address] [place] [address] [place] [address] Screen Tacker: César Rueda MD #### GLYHGB #### [address] [address] Screen Tacker: Harlan Yates MD Spec. [place],Ur 1.025 High 1.010-1.020 [facility] Comment on above: Performed By: #### B ANILA, UA #### [address] [place], [place] [phone] Screen Tacker: César Rueda MD #### GLYHGB #### [address] [address] Screen Tacker: Harlan Yates MD Urobilinogen,Ur Normal Normal NORM [facility] Comment on above: Performed By: #### B MP, UA #### [address] 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 Zachary Adrian [address] [place] [address] RE: Milana Hetal Carbajal 67 Dear Yazan, [...] Osei RICO/martha Dictated but not read Normal [facility] Surgery Office/Clinic Noteon 09-19-2020 Surgery Office/Clinic [...] or pressure, No Edema, No History of VT/CAD, No History of A-Fib Gastrointestinal: No Abdominal [...] in this document, created by the medical record coder for me, accurately reflects the services I [...] by Heidi Hernandez 09/20/2020 06:46 EDT Normal [facility] Laboratory - Chemistry and C hemistry - challengeon 09-03-2020 Albumin [Mass/Vol] 4.20 g/dL Invalid Interpretation Code 3.7-4.5 [employer] Albumin/Globulin [Mass ratio] 1.3 {ratio} Invalid Interpretation Code 1.0-2.4 [employer] ALP [Catalytic activity/Vol] 83.0 U/L Invalid Interpretation Code 31-155 [employer] ALT [Catalytic activity/Vol] 23.0 U/L Invalid Interpretation Code 0-50 [employer] Anion gap [Moles/Vol] 15 mmol/L Invalid Interpretation Code 10-20 [employer] AST [Catalytic activity/Vol] 15.0 U/L Invalid Interpretation Code 0-40 [employer] Bilirubin [Mass/Vol] 0.40 mg/dL Invalid Interpretation Code 0.0-1.0 [employer] Bilirubin Ql (U) Negative Invalid Interpretation Code Negative [employer] Calcium [Mass/Vol] 9.40 mg/dL Invalid Interpretation Code 8.5-10.8 [employer] Chloride [Moles/Vol] 98.0 mmol/L Invalid Interpretation Code 100-112 [employer] Cholesterol [Mass/Vol] 275.0 mg/dL Invalid Interpretation Code 0-200 [employer] Cholesterol in HDL [Mass/Vol] 37.0 mg/dL Invalid Interpretation Code 50-100 [employer] Cholesterol in LDL [Mass/Vol] 167.0 mg/dL Invalid Interpretation Code 0-130 [employer] Cholesterol in VLDL [Mass/Vol] 71.0 mg/dL Invalid Interpretation Code 0-39 [employer] Cholesterol.total/Chol esterol in HDL [Mass ratio] 7 {ratio} Invalid Interpretation Code [employer] CO2 [Moles/Vol] 29.0 mmol/L Invalid Interpretation Code 23-30 [employer] Creatinine [Mass/Vol] 0.50 mg/dL Invalid Interpretation Code 0.5-1.5 [employer] GFR/1.73 sq M.predicted among non-blacks MDRD (S/P/Bld) [Vol rate/Area] 128 mL/min/{1.73_m2} Invalid Interpretation Code [employer] Glucose [Mass/Vol] 365.0 mg/dL Invalid Interpretation Code 80-117 [employer] Ketones Ql (U) 3+ Invalid Interpretation Code Negative [employer] pH (U) 5 [pH] Invalid Interpretation Code 5.0-9.0 [employer] Potassium [Moles/Vol] 5.0 mmol/L Invalid Interpretation Code 3.5-5.3 [employer] Protein [Mass/Vol] 7.40 g/dL Invalid Interpretation Code 6.3-7.9 [employer] Sodium [Moles/Vol] 137.0 mmol/L Invalid Interpretation Code 135-148 [employer] Specific gravity (U) [Rel density] 1.015 Invalid Interpretation Code 1.003-1.030 [employer] Triglyceride [Mass/Vol] 353.0 mg/dL Invalid Interpretation Code 30-150 [employer] Urea nitrogen [Mass/Vol] 12.0 mg/dL Invalid Interpretation Code 7-25 [employer] Urea nitrogen/Creatinine [Mass ratio] 24 mg/mg Invalid Interpretation Code 6-20 [employer] Urobilinogen (U) [Mass/Vol] normal Invalid Interpretation Code normal [employer] Laboratory - Hematology and Cell countson 09-03-2020 Erythrocyte distribution width (RBC) [Ratio] 12.40 % Invalid Interpretation Code 11.5-15.5 [employer] HbA1c (Bld) [Mass fraction] 13.20 % Invalid Interpretation Code 4.3-6.3 [employer] Hematocrit (Bld) [Volume fraction] 43.40 % Invalid Interpretation Code 35.7-47.1 [employer] Hemoglobin (Bld) [Mass/Vol] 14.50 g/dL Invalid Interpretation Code 11.9-15.7 [employer] Hemoglobin Ql (U) Negative Invalid Interpretation Code Negative [employer] MCH (RBC) [Entitic mass] 30.30 pg Invalid Interpretation Code 23.2-33.3 [employer] MCHC (RBC) [Mass/Vol] 33.40 g/dL Invalid Interpretation Code 32.0-36.0 [employer] MCV (RBC) [Entitic vol] 90.60 fL Invalid Interpretation Code 83.4-101.4 [employer] Platelet mean volume (Bld) [Entitic vol] 10.80 fL Invalid Interpretation Code 8.3-11.5 [employer] Platelets (Bld) [#/Vol] 278.0 10*3/uL Invalid Interpretation Code 150-400 [employer] RBC (Bld) [#/Vol] 4.790 10*6/uL Invalid Interpretation Code 3.72-5.24 [employer] WBC (Bld) [#/Vol] 6.80 10*3/uL Invalid Interpretation Code 3.9-10.3 [employer] Laboratory - Specimen inform ationon 09-03-2020 Clarity (U) clear Invalid Interpretation Code Clear [employer] Color (U) yellow Invalid Interpretation Code yellow [employer] Laboratory - Urinalysison Glucose Test strip (U) [Mass/Vol] 4+ Invalid Interpretation Code Negative [employer] Leukocyte esterase Test strip Ql (U) Negative Invalid Interpretation Code Negative [employer] Nitrite Ql (U) Negative Invalid Interpretation Code Negative [employer] Protein Ql (U) Negative Invalid Interpretation Code Negative [employer] No Panel Informationon 09-03 332.0 mg/dL Invalid Interpretation Code [employer] 574 Invalid Interpretation Code 243-911 [employer] 15.3 Invalid Interpretation Code >5.4 [employer] XR ANKLE RT MIN 3 VIEWSon XR [...] by: TONYA FLORES Date: 2020-08-25 19:17 Normal [facility] XR KNEE RT 4V or [...] TONYA FLORES Date: 2020-08-25 19:20 Normal [facility] Basic Metabolic Panelon 11-16 Anion gap [Moles/Vol] 11 mmol/L 9 - 17 mmol/L [place] Bun/Cre Ratio 22 High [place], [place] Calcium [Mass/Vol] 8.9 mg/dL 8.6 - 10. 4 mg/dL [place] Chloride [Moles/Vol] 93 mmol/L Low 98 - 10 7 mmol/L [place] CO2 [Moles/Vol] 26 mmol/L 20 - 31 mmol/L [place] Creatinine [Mass/Vol] 0.67 mg/dL 0.5 - 0.9 mg/dL [place] GFR >60 >60 mL/min [place] GFR Non- >60 >60 mL/min [place] Glucose [Mass/Vol] 365 mg/dL High 70 - 99 mg/dL [place] Interpretation and review of laboratory results Abnormal [place] Potassium [Moles/Vol] 4.3 mmol/L 3.7 - 5.3 mmol/L [place] Sodium [Moles/Vol] 130 mmol/L Low 135 - 144 mmol/L [place] Urea nitrogen [Mass/Vol] 15 mg/dL 6 - 20 mg/dL [place] CBC Auto Differentialon 11-16 Basophils (Bld) [#/Vol] 10*3/uL [place] Basophils/100 WBC (Bld) 0 % 0 - 2 % [place] Differential Type NOT REPORTED [place] Eosinophils (Bld) [#/Vol] 10*3/uL [place] Eosinophils/100 WBC (Bld) 0 % Low 1 - 4 % [place] Erythrocyte distribution width (RBC) [Ratio] 13.2 % 11.8 - 14.4 % [place] Hematocrit (Bld) [Volume fraction] 44.1 % 36.3 - 47.1 % [place] Hemoglobin (Bld) [Mass/Vol] 14.3 g/dL 11.9 - 15.1 g/dL [place] Immature granulocytes (Bld) [#/Vol] 10*3/uL [place] Immature granulocytes (Bld) [#/Vol] 0 % 0 [place] Interpretation and review of laboratory results Abnormal [place] Lymphocytes (Bld) [#/Vol] 1.03 10*3/uL [place] Lymphocytes/100 WBC (Bld) 18 % Low 24 - 43 % [place] MCH (RBC) [Entitic mass] 30.0 pg 25.2 - 33.5 pg [place] MCHC (RBC) [Mass/Vol] 32.4 g/dL 28.4 - 34.8 g/dL [place] MCV (RBC) [Entitic vol] 92.5 fL 82.6 - 102.9 fL [place] Monocytes (Bld) [#/Vol] 0.39 10*3/uL [place] Monocytes/100 WBC (Bld) 7 % 3 - 12 % [place] Platelet mean volume (Bld) [Entitic vol] 10.5 fL 8.1 - 13.5 fL [place] Platelets (Bld) [#/Vol] 220 10*3/uL [place] Platelets (Bld) [#/Vol] NOT REPORTED [place] RBC (Bld) [#/Vol] 4.77 10*6/uL 3.95 - 5.1 1 m/uL [place] RBC morphology finding Nom (Bld) NOT REPORTED [place] Segmented neutrophils/100 WBC (Bld) 75 % High 36 - 65 % [place] Segs Absolute 4.46 [place] WBC (Bld) [#/Vol] 5.9 10*3/uL [place] WBC (Bld) [#/Vol] 0.0 10*3/uL 0.0 per 10 0 WBC [place] WBC Morphology NOT REPORTED [place] COVID-19on 12-02-2019 Interpretation and review of laboratory results Abnormal [place] SARS-CoV-2, Rapid DETECTED Abnormal Not Detected [place] Comment on above: Rapid NAAT: The [...] this assay. Fact sheet for Healthcare Providers: https://www.fda.gov/media/138088/download Fact sheet for Patients: https://www.fda.gov/media/557804/download Methodology: Isothermal Nucleic Acid Amplification Results reported to the appropriate Health Department Source .NASOPHARYNGEAL SWAB [place] Glucose, Whole Bloodon 12-01 Glucose [Mass/Vol] 227 mg/dL High 74 - 100 mg/dL [place] Interpretation and review of laboratory results Abnormal [place] Lactate, Sepsison 12-02-2019 Interpretation and review of laboratory results Abnormal [place] Lactic Acid, Sepsis 2.0 mmol/L High 0.5 - 1. 9 mmol/L [place] Lactic Acid, Sepsis, Whole Blood NOT REPORTED 0.5 - 1.9 mmol/L [place] Metabolic Panelon 12-02-2019 GFR/1.73 sq M predicted among non-blacks MDRD (S/P/Bld) [Vol rate/Area] [place] Comment on above: Average GFR for 50-5 9 years old: 93 mL/min/1.73sq m Chronic Kidney Disease: <60 mL/min/1.73sq m Kidney failure: <15 mL/min/1.73sq m eGFR calculated using average adult body mass. Additional eGFR calculator available at: http://www.iLEVEL Solutions.inFreeDA/multiple_crcl_2012.htm Stage 1: Some kidney damage normal GFR Stage 2: Mild kidney damage GFR 60-89 Stage 3: Moderate kidney damage GFR 30-59 Stage 4: Severe kidney damage GFR 15-29 Stage 5: Severe kidney damage GFR <15 ESRD - chronic treatment by dialysis or transplant Otheron 12-02-2019 SARS-CoV-2 [place] POCT Glucoseon 12-02-2019 Glucose [Mass/Vol] 227 mg/dL [place] Interpretation and review of laboratory results Normal [place] QC OK? yes [place] XR CHEST 1 VIEWon 12-02-2019 Andrew, Mhpn Incoming Radiant Results From [facility] - 12/02/2019 12:43 PM EDT EXAMINATION: ONE [...] focal airspace consolidation, pleural effusion, or pneumothorax. [place] EXAMINATION: ONE XRAY VIEW OF THE CHEST 12/02/2019 12:28 pm COMPARISON: None. HISTORY: ORDERING SYSTEM PROVIDED HISTORY: ProbableCOVID-19 pneumonia TECHNOLOGIST PROVIDED HISTORY: ProbableCOVID-19 pneumonia FINDINGS: Limited low lung volume examination. Cardiac silhouette is borderline prominent. Generalized interstitial prominence noted with subtle lower lung opacities, accentuated by hypoaeration. No definite pleural effusion or pneumothorax. Osseous structures and soft tissues are grossly intact. [place] Generalized interstitial prominence accentuated by hypoaeration. Bibasilar opacities favor atelectasis/scarrin g. No obvious focal airspace consolidation, pleural effusion, or pneumothorax. [facility] [place], [place] Laboratory - Chemistry and C hemistry - challengeon 10-03-2019 Bilirubin Ql (U) Negative Invalid Interpretation Code Negative [employer] Ketones Ql (U) 1+ Invalid Interpretation Code Negative [employer] pH (U) 6 [pH] Invalid Interpretation Code 5.0-9.0 [facility] Specific gravity (U) [Rel density] 1.010 Invalid Interpretation Code 1.003-1.030 [employer] Urobilinogen (U) [Mass/Vol] normal Invalid Interpretation Code normal [employer] Laboratory - Hematology and Cell countson 10-03-2019 HbA1c (Bld) [Mass fraction] 10.10 % Invalid Interpretation Code 4.3-6.3 [employer] Hemoglobin Ql (U) Negative Invalid Interpretation Code Negative [facility] Laboratory - Specimen inform ationon 10-03-2019 Clarity (U) clear Invalid Interpretation Code Clear [employer] Color (U) yellow Invalid Interpretation Code yellow [facility] Laboratory - Urinalysison Glucose Test strip (U) [Mass/Vol] 4+ Invalid Interpretation Code Negative [employer] Leukocyte esterase Test strip Ql (U) Negative Invalid Interpretation Code Negative [facility] Nitrite Ql (U) Negative Invalid Interpretation Code Negative [facility] Protein Ql (U) Negative Invalid Interpretation Code Negative [employer] No Panel Informationon 10-02 243.0 mg/dL Invalid Interpretation Code [employer] Basic Metabolic Panelon 06-17 Anion gap [Moles/Vol] 11 mmol/L 9 - 17 mmol/L [place] Bun/Cre Ratio 38 High [place] Calcium [Mass/Vol] 9.1 mg/dL 8.6 - 10. 4 mg/dL [place] Chloride [Moles/Vol] 103 mmol/L 98 - 10 7 mmol/L [place] CO2 [Moles/Vol] 25 mmol/L 20 - 31 mmol/L [place] Creatinine [Mass/Vol] 0.55 mg/dL 0.5 - 0.9 mg/dL [place] GFR >60 >60 mL/min [place] GFR Non- >60 >60 mL/min [place] Glucose [Mass/Vol] 291 mg/dL High 70 - 99 mg/dL [place] Potassium [Moles/Vol] 4.8 mmol/L 3.7 - 5.3 mmol/L [place] Sodium [Moles/Vol] 139 mmol/L 135 - 144 mmol/L [place] Urea nitrogen [Mass/Vol] 21 mg/dL High 6 - 20 mg/dL [place] Hemoglobin A1Con 07-14-2019 Glucose [Mass/Vol] 280 mg/dL [place] Comment on above: The ADA and AACC rec ommend providing the estimated average glucose result to permit better patient understanding of their HBA1c result. HbA1c (Bld) [Mass fraction] 11.4 % High 4.8 - 5.9 % [place] Interpretation and review of laboratory results Abnormal [place] Insulin, totalon 07-14-2019 INR Coag (Bld) [Relative time] [place] Comment on above: Fastin.6-24.9 30 min: 20-112 60 min: 29-88 90 min: 26-84 120 min: 22-79 Insulin 7.7 mU/L [place] Insulin Comment [address] [facility] [place] Lipid Panelon 07-14-2019 Cholesterol [Mass/Vol] 219 mg/dL High <200 [place] Comment on above: Cholesterol Guidelines: <200 Desirable 200-240 Borderline >240 Undesirable Cholesterol in HDL [Mass/Vol] 33 mg/dL Low >40 [place] Comment on above: HDL Guidelines: <40 Undesirable 40-59 Borderline >59 Desirable Cholesterol in LDL [Mass/Vol] 110 mg/dL 0 - 130 mg/dL [place] Comment on above: LDL Guidelines: <100 Desirable 100-129 Near to/above Desirable 130-159 Borderline >159 Undesirable Direct (measured) LDL and calculated LDL are not interchangeable tests. Cholesterol in VLDL [Mass/Vol] NOT REPORTED High 1 - 30 mg/dL [place] Cholesterol.total/Chol esterol in HDL [Mass ratio] 6.6 {ratio} High <5 [place] Triglyceride [Mass/Vol] 381 mg/dL High <150 [place] Comment on above: Triglyceride Guidelines: <150 Desirable 150-199 Borderline 200-499 High >499 Very high Based on AHA Guidelines for fasting triglyceride, November 2011. Metabolic Panelon 07-14-2019 GFR/1.73 sq M predicted among non-blacks MDRD (S/P/Bld) [Vol rate/Area] [place], [place] Comment on above: Stage 1: Some [...] body mass. Additional eGFR calculator available at: http://www.iLEVEL Solutions.inFreeDA/multiple_crcl_2012.htm Otheron 07-14-2019 Interpretation and review of laboratory results Abnormal [place] Basic Metabolic PanelOrdered By: Yazan Adrian on 03-11-2019 Anion gap [Moles/Vol] 13 mmol/L 9 - 17 mmol/L [facility] Work Phone: Bun/Cre Ratio 28 High [facility] [place] Work Phone: Calcium [Mass/Vol] 8.9 mg/dL 8.6 - 10. 4 mg/dL [employer] Phone: Chloride [Moles/Vol] 102 mmol/L 98 - 10 7 mmol/L [facility] Phone: CO2 [Moles/Vol] 24 mmol/L 20 - 31 mmol/L [employer] Phone: Creatinine [Mass/Vol] 0.54 mg/dL 0.5 - 0.9 mg/dL [employer] Phone: GFR >60 >60 mL/min [employer] Phone: GFR Comment [facility] Phone: Comment on above: Average GFR for 50-5 9 years old: 93 mL/min/1.73sq m Chronic Kidney Disease: <60 mL/min/1.73sq m Kidney failure: <15 mL/min/1.73sq m eGFR calculated using average adult body mass. Additional eGFR calculator available at: http://www.SenseData/multiple_crcl_2012.htm GFR Non- >60 >60 mL/min [facility] Phone: GFR Staging [facility] Phone: Comment on above: Stage 1: Some kidney damage normal GFR Stage 2: Mild kidney damage GFR 60-89 Stage 3: Moderate kidney damage GFR 30-59 Stage 4: Severe kidney damage GFR 15-29 Stage 5: Severe kidney damage GFR <15 ESRD - chronic treatment by dialysis or transplant Glucose [Mass/Vol] 333 mg/dL High 70 - 99 mg/dL [employer] Work Phone: Potassium [Moles/Vol] 4.3 mmol/L 3.7 - 5.3 mmol/L [facility] Phone: Sodium [Moles/Vol] 139 mmol/L 135 - 144 mmol/L [facility] Phone: Urea nitrogen [Mass/Vol] 15 mg/dL 6 - 20 mg/dL [employer] Phone: Hemoglobin [id number] By: Priya Adrian on 03-11-2019 Glucose [Mass/Vol] 298 mg/dL [employer] Phone: Comment on above: The ADA and AACC rec ommend providing the estimated average glucose result to permit better patient understanding of their HBA1c result. HbA1c (Bld) [Mass fraction] 12.0 % High 4.8 - 5.9 % [employer] Phone: Interpretation and review of laboratory results Abnormal [employer] Phone: Lipid PanelOrdered By: Yazan Adrian on 03-11-2019 Cholesterol [Mass/Vol] 239 mg/dL High <200 Me [employer] Phone: Comment on above: Cholesterol Guidelines: <200 Desirable 200-240 Borderline >240 Undesirable Cholesterol in HDL [Mass/Vol] 39 mg/dL Low >40 [employer] Phone: Comment on above: HDL Guidelines: <40 Undesirable 40-59 Borderline >59 Desirable Cholesterol in LDL [Mass/Vol] 150 mg/dL High 0 - 130 mg/dL [employer] Phone: Comment on above: LDL Guidelines: <100 Desirable 100-129 Near to/above Desirable 130-159 Borderline >159 Undesirable Direct (measured) LDL and calculated LDL are not interchangeable tests. Cholesterol.total/Chol esterol in HDL [Mass ratio] 6.1 {ratio} High <5 [employer] Phone: Triglyceride [Mass/Vol] 250 mg/dL High <150 [employer] Phone: Comment on above: Triglyceride Guidelines: <150 Desirable 150-199 Borderline 200-499 High >499 Very high Based on AHA Guidelines for fasting triglyceride, November 2011. VLDL NOT REPORTED High 1 - 30 mg/dL [employer] Work Phone: Microalbumin, UrOrdered By: Yazan Adrian on 03-11-2019 Albumin/Creatinine DL <= 20 mg/L (24H U) [Mass ratio] <12 <21 mg/L [facility] Phone: Albumin/Creatinine DL <= 20 mg/L (U) [Ratio] CANNOT BE CALCULATED <25 mcg/mg creat [employer] Phone: Creatinine [Mass/Vol] 120.7 mg/dL 28 - 2 17 mg/dL [employer] Phone: No Panel InformationOrdered By: Yazan Adrian on 03-11-2019 Interpretation and review of laboratory results Abnormal [facility] Phone: Basic Metabolic Panelon 11-16 Anion gap [Moles/Vol] 13 mmol/L 9 - 17 mmol/L [place] Bun/Cre Ratio 34 High [place] Calcium [Mass/Vol] 9.2 mg/dL 8.6 - 10. 4 mg/dL [place] Chloride [Moles/Vol] 97 mmol/L Low 98 - 10 7 mmol/L [place] CO2 [Moles/Vol] 24 mmol/L 20 - 31 mmol/L [place] Creatinine [Mass/Vol] 0.47 mg/dL Low 0.5 - 0.9 mg/dL [place] GFR >60 >60 mL/min [place] GFR Non- >60 >60 mL/min [place] Glucose [Mass/Vol] 288 mg/dL High 70 - 99 mg/dL [place] Interpretation and review of laboratory results Abnormal [place] Potassium [Moles/Vol] 4.6 mmol/L 3.7 - 5.3 mmol/L [place] Sodium [Moles/Vol] 134 mmol/L Low 135 - 144 mmol/L [place] Urea nitrogen [Mass/Vol] 16 mg/dL 6 - 20 mg/dL [place] Hemoglobin A1Con 12-04-2018 Glucose [Mass/Vol] 246 mg/dL [place] Comment on above: The ADA and AACC rec ommend providing the estimated average glucose result to permit better patient understanding of their HBA1c result. HbA1c (Bld) [Mass fraction] 10.2 % High 4.8 - 5.9 % [place] Interpretation and review of laboratory results Abnormal [place] Metabolic Panelon 12-04-2018 GFR/1.73 sq M predicted among non-blacks MDRD (S/P/Bld) [Vol rate/Area] [place] Comment on above: Stage 1: Some [...] body mass. Additional eGFR calculator available at: http://www.SenseData/multiple_crcl_2012.htm [facility] 12-02-2017 Cholesterol [Mass/Vol] 200.0 mg/dL Invalid Interpretation Code 0-200 [facility] Cholesterol in HDL [Mass/Vol] 45.0 mg/dL Invalid Interpretation Code 50-100 [employer] Cholesterol in LDL [Mass/Vol] 126.0 mg/dL Invalid Interpretation Code 0-130 [employer] Triglyceride [Mass/Vol] 144.0 mg/dL Invalid Interpretation Code 30-150 [facility] Laboratory - Urinalysison Glucose Test strip (U) [Mass/Vol] Negative Invalid Interpretation Code negative [employer] Protein (U) [Mass/Vol] Negative Invalid Interpretation Code negative [employer] Metabolic Panelon 12-02-2017 Glucose [Mass/Vol] 147.0 mg/dL Invalid Interpretation Code 80-117 [employer] HbA1c (Bld) [Mass fraction] 6.50 % Invalid Interpretation Code 4.3-6.3 [employer] No Panel Informationon 12-02 140.0 mg/dL Invalid Interpretation Code [email or web address] Otheron 12-02-2017 Cholesterol in VLDL [Mass/Vol] 29.0 mg/dL Invalid Interpretation Code 0-39 [employer] Cholesterol.total/Chol esterol in HDL [Mass ratio] 4 {ratio} Invalid Interpretation Code [employer] Glucose Test strip (U) [Mass/Vol] Negative negative [employer] 140 [employer] Urinalysison 12-02-2017 Protein (U) [Mass/Vol] Negative negative Bl [facility] [employer] Hematologyon 05-09-2016 ESR Velocity (Bld) 10 mm/h Invalid Interpretation Code 0-20 [employer] Thyroidon 05-09-2016 T4 mass conc 4.82 ug/dL Invalid Interpretation Code 5.00-12.00 [employer] Thyrotropin Qn 1.41 m[IU]/L Invalid Interpretation Code 0.50-4.00 [facility] 01-29-2015 Cholesterol in HDL mass conc 42.0 mg/dL Invalid Interpretation Code 50-100 [employer] Cholesterol in LDL mass conc 155.0 mg/dL Invalid Interpretation Code 0-130 [employer] Cholesterol mass conc 224.0 mg/dL Invalid Interpretation Code 0-200 [employer] Triglyceride mass conc 135.0 mg/dL Invalid Interpretation Code 30-150 [facility] Laboratory - Chemistry and C hemistry - challengeon 01-29-2015 Bilirubin Ql (U) Negative Invalid Interpretation Code Negative [employer] Ketones Ql (U) Negative Invalid Interpretation Code Negative [employer] Urobilinogen (U) [Mass/Vol] normal Invalid Interpretation Code normal [facility] Laboratory - Hematology and Cell countson 01-29-2015 Hemoglobin Ql (U) Negative Invalid Interpretation Code Negative [facility] Laboratory - Urinalysison Leukocyte esterase Test strip Ql (U) Negative Invalid Interpretation Code Negative [employer] Nitrite Ql (U) Negative Invalid Interpretation Code Negative [employer] Protein Ql (U) Negative Invalid Interpretation Code Negative [employer] Metabolic Panelon 01-29-2015 Anion gap molar conc 21 mmol/L Invalid Interpretation Code 10-20 [employer] Calcium mass conc 9.20 mg/dL Invalid Interpretation Code 8.5-10.8 [employer] Chloride molar conc 99 mmol/L Invalid Interpretation Code 100-112 [employer] CO2 molar conc 24 mmol/L Invalid Interpretation Code 23-30 [employer] Creatinine mass conc 0.70 mg/dL Invalid Interpretation Code 0.5-1.5 [employer] GFR/1.73 sq M predicted among non-blacks MDRD vol rate/area (S/P/Bld) 89 mL/min/{1.73_m2} Invalid Interpretation Code [employer] Glucose mass conc 172.0 mg/dL Invalid Interpretation Code 80-117 [employer] Hemoglobin A1c/Hemoglobin.total mass fraction (Bld) 6.90 % Invalid Interpretation Code 4.3-6.3 [employer] Potassium molar conc 5.0 mmol/L Invalid Interpretation Code 3.5-5.3 [place] [employer] Sodium molar conc 139 mmol/L Invalid Interpretation Code 135-148 [place] [employer] Urea nitrogen mass conc 15.0 mg/dL Invalid Interpretation Code 7-25 [place] [employer] Urea nitrogen/Creatinine mass ratio 21 mg/mg Invalid Interpretation Code 6-20 [place] [employer] No Panel Informationon 01-29 151.0 mg/dL Invalid Interpretation Code [place] [employer] Otheron 01-29-2015 Bilirubin Ql (U) Negative Negative [facility] [employer] Cholesterol in VLDL mass conc 27.0 mg/dL Invalid Interpretation Code 0-39 [employer] Cholesterol.total/Chol esterol in HDL mass ratio 5 {ratio} Invalid Interpretation Code [employer] Glucose Test strip mass conc (U) 4+ Invalid Interpretation Code Negative [employer] Hemoglobin Ql (U) Negative Negative [facility] [employer] Nitrite Ql (U) Negative Negative [employer] pH (U) 5 [pH] Invalid Interpretation Code 4.5-7.8 [place] [employer] Protein Ql (U) Negative Negative [place] [employer] Test strip mass conc (U) normal normal [place] [employer] Urinalysison 01-29-2015 Clarity Nom (U) clear Invalid Interpretation Code Clear [employer] Color Nom (U) yellow Invalid Interpretation Code yellow [employer] Ketones Ql (U) Negative Negative [employer] Leukocyte esterase Test strip Ql (U) Negative Negative [employer] Specific gravity Relative Density (U) 1.020 Invalid Interpretation Code 1.003-1.029 [employer] 09-25-2014 Cholesterol in HDL mass conc 35.0 mg/dL Invalid Interpretation Code 50-100 [employer] Cholesterol in LDL mass conc 121.0 mg/dL Invalid Interpretation Code 0-130 [employer] Cholesterol mass conc 194.0 mg/dL Invalid Interpretation Code 0-200 [employer] Triglyceride mass conc 189.0 mg/dL Invalid Interpretation Code 30-150 [facility] Laboratory - Chemistry and C hemistry - challengeon 09-25-2014 Bilirubin Ql (U) Negative Invalid Interpretation Code Negative [facility] Ketones Ql (U) Negative Invalid Interpretation Code Negative [employer] Urobilinogen (U) [Mass/Vol] normal Invalid Interpretation Code normal [facility] Laboratory - Hematology and Cell countson 09-25-2014 Hemoglobin Ql (U) Negative Invalid Interpretation Code Negative [facility] Laboratory - Urinalysison Nitrite Ql (U) Negative Invalid Interpretation Code Negative [employer] Protein Ql (U) Negative Invalid Interpretation Code Negative [employer] Metabolic Panelon 09-25-2014 Anion gap molar conc 17 mmol/L Invalid Interpretation Code 10-20 [employer] Calcium mass conc 9.30 mg/dL Invalid Interpretation Code 8.5-10.8 [employer] Chloride molar conc 105 mmol/L Invalid Interpretation Code 100-112 [employer] CO2 molar conc 27 mmol/L Invalid Interpretation Code 23-30 [place] [employer] Creatinine mass conc 0.70 mg/dL Invalid Interpretation Code 0.5-1.5 [employer] GFR/1.73 sq M predicted among non-blacks MDRD vol rate/area (S/P/Bld) 89 mL/min/{1.73_m2} Invalid Interpretation Code [employer] Glucose mass conc 162.0 mg/dL Invalid Interpretation Code 80-117 [place] [employer] Hemoglobin A1c/Hemoglobin.total mass fraction (Bld) 7.70 % Invalid Interpretation Code 4.3-6.3 [place] [employer] Potassium molar conc 4.7 mmol/L Invalid Interpretation Code 3.5-5.3 [place] [employer] Sodium molar conc 144 mmol/L Invalid Interpretation Code 135-148 [place] [employer] Urea nitrogen mass conc 16.0 mg/dL Invalid Interpretation Code 7-25 [place] [employer] Urea nitrogen/Creatinine mass ratio 23 mg/mg Invalid Interpretation Code 6-20 [place] [employer] No Panel Informationon 09-25 174.0 mg/dL Invalid Interpretation Code [place] [employer] Otheron 09-25-2014 Bilirubin Ql (U) Negative Negative [employer] Cholesterol in VLDL mass conc 38.0 mg/dL Invalid Interpretation Code 0-39 [facility] [employer] [facility] Cholesterol.total/Chol esterol in HDL mass ratio 6 {ratio} Invalid Interpretation Code [facility] [employer] [facility] Glucose Test strip mass conc (U) 4+ Invalid Interpretation Code Negative [facility] [employer] [facility] Hemoglobin Ql (U) Negative Negative [facility] [employer] [facility] Nitrite Ql (U) Negative Negative [facility] [employer] [facility] pH (U) 5 [pH] Invalid Interpretation Code 4.5-7.8 [facility] [employer] [facility] Protein Ql (U) Negative Negative [facility] [employer] [facility] Urobilinogen Test strip mass conc (U) normal normal [facility] [employer] [facility] 174 [place] [employer] Urinalysison 09-25-2014 Clarity Nom (U) clear Invalid Interpretation Code Clear [facility] [employer] [facility] Color Nom (U) yellow Invalid Interpretation Code yellow [facility] [employer] [facility] Ketones Ql (U) Negative Negative [facility] [employer] [facility] Leukocyte esterase Test strip Ql (U) Trace Invalid Interpretation Code Negative [facility] [employer] [facility] Specific gravity Relative Density (U) 1.020 Invalid Interpretation Code 1.003-1.029 [facility] [employer] Laboratory - Chemistry and C hemistry - challengeon 07-21-2014 Bilirubin Ql (U) Negative Invalid Interpretation Code Negative [facility] [employer] [facility] Ketones Ql (U) Negative Invalid Interpretation Code Negative [facility] [employer] [facility] Urob[employer]ogen (U) [Mass/Vol] normal Invalid Interpretation Code normal [facility] Laboratory - Hematology and Cell countson 07-21-2014 Hemoglobin Ql (U) Negative Invalid Interpretation Code Negative [facility] Laboratory - Urinalysison Leukocyte esterase Test strip Ql (U) Negative Invalid Interpretation Code Negative [employer] Nitrite Ql (U) Negative Invalid Interpretation Code Negative [employer] Metabolic Panelon 07-21-2014 Anion gap molar conc 18 mmol/L Invalid Interpretation Code 10-20 [employer] Calcium mass conc 9.40 mg/dL Invalid Interpretation Code 8.5-10.8 [employer] Chloride molar conc 103 mmol/L Invalid Interpretation Code 100-112 [employer] CO2 molar conc 24 mmol/L Invalid Interpretation Code 23-30 [employer] Creatinine mass conc 0.60 mg/dL Invalid Interpretation Code 0.5-1.5 [employer] GFR/1.73 sq M predicted among non-blacks MDRD vol rate/area (S/P/Bld) 106 mL/min/{1.73_m2} Invalid Interpretation Code [employer] Glucose mass conc 236.0 mg/dL Invalid Interpretation Code 80-117 [employer] Hemoglobin A1c/Hemoglobin.total mass fraction (Bld) 9.30 % Invalid Interpretation Code 4.3-6.3 [employer] Potassium molar conc 4.7 mmol/L Invalid Interpretation Code 3.5-5.3 [employer] Sodium molar conc 140 mmol/L Invalid Interpretation Code 135-148 [employer] Urea nitrogen mass conc 15.0 mg/dL Invalid Interpretation Code 7-25 [employer] Urea nitrogen/Creatinine mass ratio 25 mg/mg Invalid Interpretation Code 6-20 [employer] Otheron 07-21-2014 Bilirubin Ql (U) Negative Negative [facility] [employer] Glucose Test strip mass conc (U) 3+ Invalid Interpretation Code Negative [employer] Hemoglobin Ql (U) Negative Negative [facility] [employer] Nitrite Ql (U) Negative Negative [employer] pH (U) 5 [pH] Invalid Interpretation Code 4.5-7.8 [facility] [employer] Protein Ql (U) 1+ Invalid Interpretation Code Negative [facility] [employer] Test strip mass conc (U) normal normal [employer] 220.0 mg/dL Invalid Interpretation Code [place] [employer] Urinalysison 07-21-2014 Clarity Nom (U) clear Invalid Interpretation Code Clear [employer] Color Nom (U) yellow Invalid Interpretation Code yellow [place] [employer] Ketones Ql (U) Negative Negative [place] [employer] Leukocyte esterase Test strip Ql (U) Negative Negative [employer] Specific gravity Relative Density (U) 1.025 Invalid Interpretation Code 1.003-1.029 [place] [employer] Otheron 06-05-2014 MTHFR gene targeted mutation analysis [employer] (Bld/Tiss) COMMENT Invalid Interpretation Code [employer] COMMENT Invalid Interpretation Code [facility] Laboratory - Chemistry and C hemistry - challengeon 05-03-2014 Bilirubin Ql (U) Negative Invalid Interpretation Code Negative [facility] Ketones Ql (U) Negative Invalid Interpretation Code Negative [employer] Urobilinogen (U) [Mass/Vol] normal Invalid Interpretation Code normal [facility] Hematology and Cell countson 05-03-2014 Hemoglobin Ql (U) Negative Invalid Interpretation Code Negative [facility] - Urinalysison Leukocyte esterase Test strip Ql (U) Negative Invalid Interpretation Code Negative [employer] Nitrite Ql (U) Negative Invalid Interpretation Code Negative [employer] Protein Ql (U) Negative Invalid Interpretation Code Negative [facility] Metabolic Panelon 05-03-2014 Anion gap molar conc 19 mmol/L Invalid Interpretation Code 10-20 [employer] Calcium mass conc 9.50 mg/dL Invalid Interpretation Code 8.5-10.8 [employer] Chloride molar conc 97 mmol/L Invalid Interpretation Code 100-112 [employer] CO2 molar conc 28 mmol/L Invalid Interpretation Code 23-30 [employer] Creatinine mass conc 0.50 mg/dL Invalid Interpretation Code 0.5-1.5 [employer] GFR/1.73 sq M predicted among non-blacks MDRD vol rate/area (S/P/Bld) 132 mL/min/{1.73_m2} Invalid Interpretation Code [employer] Glucose mass conc 450.0 mg/dL Invalid Interpretation Code 80-117 [employer] Hemoglobin A1c/Hemoglobin.total mass fraction (Bld) 11.30 % Invalid Interpretation Code 4.3-6.3 [employer] Potassium molar conc 4.6 mmol/L Invalid Interpretation Code 3.5-5.3 [employer] Sodium molar conc 139 mmol/L Invalid Interpretation Code 135-148 [employer] Urea nitrogen mass conc 17.0 mg/dL Invalid Interpretation Code 7-25 [employer] [facility] [employer] Urea nitrogen/Creatinine mass ratio 34 mg/mg Invalid Interpretation Code 6-20 [employer] Otheron 05-03-2014 Bilirubin Ql (U) Negative Negative [facility] [employer] Collection time Date and time (Yahaira) 11:35 am Invalid Interpretation Code [employer] Glucose Test strip mass conc (U) 4+ Invalid Interpretation Code Negative [employer] Hemoglobin Ql (U) Negative Negative [facility] [employer] Nitrite Ql (U) Negative Negative [employer] pH (U) 5 [pH] Invalid Interpretation Code 4.5-7.8 [employer] Protein Ql (U) Negative Negative [employer] Urobilinogen Test strip mass conc (U) normal normal [employer] 278.0 mg/dL Invalid Interpretation Code [employer] Urinalysison 05-03-2014 Clarity Nom (U) clear Invalid Interpretation Code Clear [employer] Color Nom (U) yellow Invalid Interpretation Code yellow [employer] Ketones Ql (U) Negative Negative [facility] Leukocyte esterase Test strip Ql (U) Negative Negative [facility] Specific gravity Relative Density (U) 1.015 Invalid Interpretation Code 1.003-1.029 [facility] Vital Signs Date Time Vital Sign Value Performing Clinician Mynori ashley 12-11-2021 10:08-0400 Body weight 108.41 kg [employer] 12-11-2021 10:08-0400 Diastolic blood pressure 86 mm[Hg] [employer] 12-11-2021 10:08-0400 Heart rate 72 /min [employer] 12-11-2021 10:08-0400 Systolic blood pressure 164 mm[Hg] [employer] 08-14-2021 10:25-0400 Body height 165.1 cm [employer] 08-14-2021 10:25-0400 Body mass index (BMI) [Ratio] 42.35 kg/m2 [employer] 08-14-2021 10:25-0400 Body surface area Derived from formula 2.3 m2 [employer] 08-14-2021 10:25-0400 Body weight 115.44 kg [employer] 08-14-2021 10:25-0400 Diastolic blood pressure 90 mm[Hg] [employer] 08-14-2021 10:25-0400 Heart rate 72 /min [employer] 08-14-2021 10:25-0400 Systolic blood pressure 186 mm[Hg] [facility] [employer] 06-06-2021 10:21-0400 Body height 165.1 cm [facility] [employer] 06-06-2021 10:21-0400 Body mass index (BMI) [Ratio] 43.1 kg/m2 [employer] 06-06-2021 10:21-0400 Body surface area Derived from formula 2.32 m2 [employer] 06-06-2021 10:040 Body weight 117.48 kg [employer] 06-06-2021 10:21-0400 Diastolic blood pressure 86 mm[Hg] [employer] 06-06-2021 10:21-0400 Heart rate 90 /min [employer] 06-06-2021 10:21-0400 Systolic blood pressure 162 mm[Hg] [employer] 05-06-2021 11:25-0400 Body height 165.1 cm [employer] 05-06-2021 11:25-0400 Body mass index (BMI) [Ratio] 40.77 kg/m2 [employer] 05-06-2021 11:25-0400 Body surface area Derived from formula 2.26 m2 [employer] 05-06-2021 11:25-0400 Body weight 111.13 kg [employer] 05-06-2021 11:25-0400 Diastolic blood pressure 60 mm[Hg] [facility]an [employer] [facility] 05-06-2021 11:25-0400 Heart rate 72 /min [employer] 05-06-2021 11:25-0400 Systolic blood pressure 122 mm[Hg] [employer] 01-03-2021 10:10-0500 Body height 165.1 cm [employer] 01-03-2021 10:10-0500 Body mass index (BMI) [Ratio] 41.6 kg/m2 [employer] 01-03-2021 10:10-0500 Body surface area Derived from formula 2.28 m2 [employer] 01-03-2021 10:10-0500 Body weight 113.4 kg [employer] 01-03-2021 10:10-0500 Diastolic blood pressure 84 mm[Hg] [employer] 01-03-2021 10:10-0500 Heart rate 76 /min [employer] 01-03-2021 10:10-0500 Systolic blood pressure 160 mm[Hg] [employer] 09-03-2020 13:40-0400 Body height 165.1 cm [employer] 09-03-2020 13:40-0400 Body mass index (BMI) [Ratio] 41.6 kg/m2 [employer] 09-03-2020 13:40-0400 Body surface area Derived from formula 2.28 m2 [employer] 09-03-2020 13:40-0400 Body weight 113.4 kg [facility] [employer] 09-03-2020 13:40-0400 Diastolic blood pressure 90 mm[Hg] [facility] [employer] 09-03-2020 13:40-0400 Heart rate 72 /min [facility] [employer] 09-03-2020 13:40-0400 Systolic blood pressure 160 mm[Hg] [facility] [employer] 12-02-2019 14:56-0400 BP Diastolic 58 mm[Hg] Joey [employer] [facility] [place] 12-02-2019 14:56-0400 BP Systolic 147 mm[Hg] Joey [employer] [facility] [place] 12-02-2019 14:56-0400 Pulse Oximetry 92 % Joey WaiteMixaloo [facility], [place] 12-02-2019 11:36-0400 BMI (Body Mass Index) 47.05 kg/m2 Joey WaiteNet-Marketing [facility] [place] 12-02-2019 11:36-0400 Body Temperature 100 [degF] Joey Rosa [facility], [place] 12-02-2019 11:36-0400 Body weight 112.95 kg Joey [employer]ite [employer] [facility] [place] 12-02-2019 11:36-0400 Height 154.9 cm Joey [employer] [facility] [place] 12-02-2019 11:36-0400 Pulse (Heart Rate) 98 /min [facility] [place] 12-02-2019 11:36-0400 Respiratory Rate 20 /min Joey Rosa [facility] [place] 10-03-2019 10:30-0400 BMI (Body Mass Index) 42.1 kg/m2 [employer] 10-03-2019 10:30-0400 Body Temperature 98 [degF] [employer] 10-03-2019 10:30-0400 Body weight 114.76 kg [facility] [employer] 10-03-2019 10:30-0400 BP Diastolic 84 mm[Hg] [facility] [employer] 10-03-2019 10:30-0400 BP Systolic 154 mm[Hg] [facility] [employer] 10-03-2019 10:30-0400 BSA (Body Surface Area) 2.29 m2 [facility] [employer] 10-03-2019 10:30040 Height 165.1 cm [employer] 10-03-2019 10:30-0400 Pulse (Heart Rate) 84 /min [facility] [employer] 08-22-2019 11:26-0400 BMI (Body Mass Index) 41.49 kg/m2 [facility] [employer] 08-22-2019 11:26-0400 Body Temperature 98.7 [degF] [facility]an [employer] 08-22-2019 11:26-0400 Body weight 113.09 kg [facility] [employer] 08-22-2019 11:26-0400 BP Diastolic 98 mm[Hg] [facility] [employer] 08-22-2019 11:26-0400 BP Systolic 160 mm[Hg] [employer] 08-22-2019 11:26-0400 BSA (Body Surface Area) 2.28 m2 [facility] [employer] 08-22-2019 11:260400 Height 165.1 cm [employer] 08-22-2019 11:26-0400 Pulse (Heart Rate) 84 /min [facility] [employer] 07-19-2019 10:20-0400 BMI (Body Mass Index) 41.35 kg/m2 [employer] [employer] 07-19-2019 10:20-0400 Body Temperature 97.6 [degF] [facility]azan [employer] 07-19-2019 10:20-0400 Body weight 112.72 kg [facility] [employer] 07-19-2019 10:20-0400 BP Diastolic 82 mm[Hg] [employer] 07-19-2019 10:20-0400 BP Systolic 130 mm[Hg] [employer] 07-19-2019 10:20-0400 BSA (Body Surface Area) 2.27 m2 [employer] 07-19-2019 10:20-0400 Height 165.1 cm [employer] 07-19-2019 10:20-0400 Pulse (Heart Rate) 78 /min [employer] 03-15-2019 18:47-0500 BMI (Body Mass Index) 41.68 kg/m2 [employer] 03-15-2019 18:47-0500 BMI (Body Mass Index) 41.69 kg/m2 [employer] 03-15-2019 18:47-0500 Body weight 113.63 kg [employer] 03-15-2019 18:47-0500 BP Diastolic 84 mm[Hg] [employer] 03-15-2019 18:47-0500 BP Systolic 140 mm[Hg] [facility] [employer] 03-15-2019 18:47-0500 BSA (Body Surface Area) 2.28 m2 [facility] [employer] 03-15-2019 18:47-0500 Height 165.1 cm [facility] [employer] 03-15-2019 18:47-0500 Pulse (Heart Rate) 78 /min [facility] [employer] 01-26-2019 11:20-0500 BMI (Body Mass Index) 40.64 kg/m2 [employer] 01-26-2019 11:20-0500 Body weight 112.49 kg [employer] 01-26-2019 11:20-0500 BP Diastolic 84 mm[Hg] [employer] 01-26-2019 11:20-0500 BP Systolic 150 mm[Hg] [employer] 01-26-2019 11:20-0500 BSA (Body Surface Area) 2.28 m2 [facility] [employer] 01-26-2019 11:20-0500 Height 166.37 cm [employer] 01-26-2019 11:20-0500 Pulse (Heart Rate) 80 /min [facility] 12-07-2018 10:01-0400 BMI (Body Mass Index) 39.82 kg/m2 [facility] [employer] 12-07-2018 10:01-0400 Body weight 110.22 kg [employer] 12-07-2018 10:-0400 BP Diastolic 76 mm[Hg] [employer] [employer] 12-07-2018 10:01-0400 BP Systolic 160 mm[Hg] [employer] [employer] 12-07-2018 10:0400 BSA (Body Surface Area) 2.26 m2 [employer] 12-07-2018 10:040 Height 166.37 cm [employer] 12-07-2018 10:01-0400 Pulse (Heart Rate) 78 /min [employer] 07-29-2018 10:24-0400 BMI (Body Mass Index) 39.99 kg/m2 [employer] 07-29-2018 10:24-0400 Body weight 110.68 kg [employer] 07-29-2018 10:24-0400 BP Diastolic 86 mm[Hg] [employer] 07-29-2018 10:24-0400 BP Systolic 150 mm[Hg] [employer] 07-29-2018 10:0400 BSA (Body Surface Area) 2.26 m2 [employer] 07-29-2018 10:24040 Height 166.37 cm [employer] 07-29-2018 10:24-0400 Pulse (Heart Rate) 90 /min [employer] 07-29-2018 10:24-0400 Weight 110.68 kg [employer] 03-25-2018 10:34-0500 BMI (Body Mass Index) 40.48 kg/m2 [employer] 03-25-2018 10:34-0500 Body weight 112.04 kg [facility] [employer] 03-25-2018 10:34-0500 BP Diastolic 96 mm[Hg] [employer] 03-25-2018 10:34-0500 BP Systolic 140 mm[Hg] [employer] 03-25-2018 10:34-0500 BSA (Body Surface Area) 2.28 m2 [employer] 03-25-2018 10:34-0500 Height 166.37 cm [employer] 03-25-2018 10:34-0500 Pulse (Heart Rate) 78 /min [employer] 03-25-2018 10:34-0500 Weight 112.04 kg [employer] 12-24-2017 10:13-0500 BMI (Body Mass Index) 39.99 kg/m2 [employer] 12-24-2017 10:13-0500 Body weight 110.68 kg [employer] 12-24-2017 10:13-0500 BP Diastolic 78 mm[Hg] [employer] 12-24-2017 10:13-0500 BP Systolic 152 mm[Hg] [employer] 12-24-2017 10:13-0500 BSA (Body Surface Area) 2.26 m2 [employer] 12-24-2017 10:13-0500 Height 166.37 cm [facility] [employer] 12-24-2017 10:13-0500 Pulse (Heart Rate) 72 /min [employer] 12-24-2017 10:13-0500 Weight 110.68 kg [employer] 12-02-2017 10:49-0400 BMI (Body Mass Index) 39.87 kg/m2 [employer] 12-02-2017 10:49-0400 Body weight 110.37 kg [employer] 12-02-2017 10:49-0400 BP Diastolic 80 mm[Hg] [employer] 12-02-2017 10:49-0400 BP Systolic 142 mm[Hg] [employer] 12-02-2017 10:49-0400 BSA (Body Surface Area) 2.26 m2 [employer] 12-02-2017 10:49-0400 Height 166.37 cm [employer] 12-02-2017 10:49-0400 Pulse (Heart Rate) 72 /min [facility] 12-02-2017 10:49-0400 Weight 110.37 kg [employer] 09-02-2017 10:52-0400 BMI (Body Mass Index) 39.25 kg/m2 [employer] 09-02-2017 10:52-0400 Body weight 108.64 kg [employer] 09-02-2017 10:52-0400 BP Diastolic 94 mm[Hg] [facility] [employer] 09-02-2017 10:52-0400 BP Systolic 150 mm[Hg] [employer] 09-02-2017 10:52-0400 BSA (Body Surface Area) 2.24 m2 [employer] 09-02-2017 10:52-0400 Height 166.37 cm [employer] 09-02-2017 10:52-0400 Pulse (Heart Rate) 78 /min [facility] 09-02-2017 10:52-0400 Weight 108.64 kg [employer] 08-04-2017 18:01-0400 BMI (Body Mass Index) 39.41 kg/m2 [employer] 08-04-2017 18:01-0400 Body weight 109.09 kg [employer] 08-04-2017 18:01-0400 BP Diastolic 76 mm[Hg] [employer] 08-04-2017 18:01-0400 BP Systolic 140 mm[Hg] [employer] 08-04-2017 18:01-0400 BSA (Body Surface Area) 2.25 m2 [employer] 08-04-2017 18:01-0400 Height 166.37 cm [employer] 08-04-2017 18:01-0400 Pulse (Heart Rate) 88 /min [employer] 08-04-2017 18:01-0400 Weight 109.09 kg [employer] 06-04-2017 17:52-0400 BMI (Body Mass Index) 39.99 kg/m2 [facility] [employer] 06-04-2017 17:52-0400 Body weight 110.68 kg [facility] [employer] 06-04-2017 17:52-0400 BP Diastolic 74 mm[Hg] [employer] 06-04-2017 17:52-0400 BP Systolic 128 mm[Hg] [employer] 06-04-2017 17:52-0400 BSA (Body Surface Area) 2.26 m2 [employer] 06-04-2017 17:52-0400 Height 166.37 cm [employer] 06-04-2017 17:52-0400 Pulse (Heart Rate) 78 /min [employer] 06-04-2017 17:52-0400 Weight 110.68 kg [employer] 03-19-2017 11:54-0500 BMI (Body Mass Index) 39.82 kg/m2 [employer] 03-19-2017 11:54-0500 Body Temperature 97.1 [degF] [employer] 03-19-2017 11:54-0500 Body weight 110.22 kg [employer] 03-19-2017 11:54-0500 BP Diastolic 66 mm[Hg] [employer] 03-19-2017 11:54-0500 BP Systolic 110 mm[Hg] [employer] 03-19-2017 11:54-0500 BSA (Body Surface Area) 2.26 m2 [employer] 03-19-2017 11:54-0500 Height 166.37 cm [employer] 03-19-2017 11:54-0500 Pulse (Heart Rate) 66 /min [employer] 03-19-2017 11:54-0500 Weight 110.22 kg [employer] 01-30-2017 16:12-0500 BMI (Body Mass Index) 39.87 kg/m2 [employer] 01-30-2017 16:12-0500 Body weight 110.37 kg [employer] 01-30-2017 16:12-0500 BP Diastolic 72 mm[Hg] [employer] 01-30-2017 16:12-0500 BP Systolic 130 mm[Hg] [employer] 01-30-2017 16:12-0500 BSA (Body Surface Area) 2.26 m2 [employer] 01-30-2017 16:12-0500 Height 166.37 cm [employer] 01-30-2017 16:12-0500 Pulse (Heart Rate) 68 /min [employer] 01-30-2017 16:12-0500 Weight 110.37 kg [employer] 10-03-2016 13:34-0400 BMI (Body Mass Index) 40.07 kg/m2 [employer] 10-03-2016 13:34-0400 Body weight 110.91 kg [facility] [employer] 10-03-2016 13:34-0400 BP Diastolic 76 mm[Hg] Yazan [id number] 10-03-2016 13:34-0400 BP Systolic 132 mm[Hg] [employer] [employer] 10-03-2016 13:34-0400 BSA (Body Surface Area) 2.26 m2 [facility] [employer] 10-03-2016 13:34-0400 Height 166.37 cm [facility] [employer] 10-03-2016 13:34-0400 Pulse (Heart Rate) 72 /min [facility] [employer] 10-03-2016 13:34-0400 Weight 110.91 kg [facility] [employer] 08-21-2016 12:00-0400 BMI (Body Mass Index) 40.89 kg/m2 [employer] 08-21-2016 12:00-0400 Body weight 113.17 kg [facility] [employer] 08-21-2016 12:00-0400 BP Diastolic 88 mm[Hg] [facility] [employer] 08-21-2016 12:00-0400 BP Systolic 146 mm[Hg] [facility] [employer] 08-21-2016 12:00-0400 BSA (Body Surface Area) 2.29 m2 [facility] [employer] 08-21-2016 12:00-0400 Height 166.37 cm [employer] 08-21-2016 12:00-0400 Pulse (Heart Rate) 70 /min [employer] 08-21-2016 12:00-0400 Weight 113.17 kg [facility] [employer] 06-24-2016 13:39-0400 BMI (Body Mass Index) 41.54 kg/m2 [employer] 06-24-2016 13:39-0400 Body weight 114.99 kg [employer] 06-24-2016 13:39-0400 BP Diastolic 70 mm[Hg] [employer] 06-24-2016 13:39-0400 BP Systolic 122 mm[Hg] [employer] 06-24-2016 13:39-0400 BSA (Body Surface Area) 2.31 m2 [employer] 06-24-2016 13:39-0400 Height 166.37 cm [employer] 06-24-2016 13:39-0400 Pulse (Heart Rate) 76 /min [employer] 06-24-2016 13:39-0400 Weight 114.99 kg [employer] 05-23-2016 16:06-0400 Body weight 114 kg [employer] 05-23-2016 16:06-0400 BP Diastolic 70 mm[Hg] [employer] 05-23-2016 16:06-0400 BP Systolic 112 mm[Hg] [employer] 05-23-2016 16:06-0400 Pulse (Heart Rate) 68 /min [employer] 05-23-2016 16:06-0400 Weight 114 kg [facility] [employer] 05-09-2016 16:50-0400 BMI (Body Mass Index) 41.3 kg/m2 [employer] 05-09-2016 16:50-0400 Body weight 114.31 kg [employer] 05-09-2016 16:50-0400 BP Diastolic 80 mm[Hg] [employer] 05-09-2016 16:50-0400 BP Systolic 140 mm[Hg] [employer] 05-09-2016 16:50-0400 BSA (Body Surface Area) 2.3 m2 [employer] 05-09-2016 16:50-0400 Height 166.37 cm [employer] 05-09-2016 16:50-0400 Pulse (Heart Rate) 64 /min [employer] 05-09-2016 16:50-0400 Weight 114.31 kg [employer] 01-03-2016 11:53-0500 Body weight 115.21 kg [employer] 01-03-2016 11:53-0500 BP Diastolic 80 mm[Hg] [employer] 01-03-2016 11:53-0500 BP Systolic 140 mm[Hg] [employer] 01-03-2016 11:53-0500 Pulse (Heart Rate) 72 /min [employer] 01-03-2016 11:53-0500 Weight 115.21 kg [facility] [employer] 09-06-2015 12:07040 BMI (Body Mass Index) 40.27 kg/m2 [employer] 09-06-2015 12:07040 Body weight 109.77 kg [employer] 09-06-2015 12:07-0400 BP Diastolic 78 mm[Hg] [employer] 09-06-2015 12:070400 BP Systolic 122 mm[Hg] [employer] 09-06-2015 12:040 BSA (Body Surface Area) 2.24 m2 [employer] 09-06-2015 12:040 Height 165.1 cm [employer] 09-06-2015 12:070400 Pulse (Heart Rate) 76 /min [employer] 09-06-2015 12:070400 Weight 109.77 kg [employer] 05-03-2015 10:040 BMI (Body Mass Index) 41.35 kg/m2 [employer] 05-03-2015 10:29040 Body weight 112.72 kg [employer] 05-03-2015 10:29-0400 BP Diastolic 98 mm[Hg] [employer] 05-03-2015 10:290400 BP Systolic 138 mm[Hg] [employer] 05-03-2015 10:290400 BSA (Body Surface Area) 2.27 m2 [employer] 05-03-2015 10:290400 Height 165.1 cm [employer] 05-03-2015 10:290400 Pulse (Heart Rate) 72 /min [employer] 05-03-2015 10:290400 Weight 112.72 kg [employer] 02-05-2015 11:02-0500 BMI (Body Mass Index) 40.52 kg/m2 [employer] 02-05-2015 11:02-0500 Body weight 110.45 kg [employer] 02-05-2015 11:02-0500 BP Diastolic 68 mm[Hg] [employer] 02-05-2015 11:02-0500 BP Systolic 128 mm[Hg] [employer] 02-05-2015 11:02-0500 BSA (Body Surface Area) 2.25 m2 [employer] 02-05-2015 11:020500 Height 165.1 cm [employer] 02-05-2015 11:02-0500 Pulse (Heart Rate) 72 /min [employer] 02-05-2015 11:02-0500 Weight 110.45 kg [employer] 10-04-2014 12:26-0400 BMI (Body Mass Index) 40.77 kg/m2 [employer] 10-04-2014 12:26-0400 Body weight 111.13 kg [employer] 10-04-2014 12:26-0400 BP Diastolic 80 mm[Hg] [employer] 10-04-2014 12:26-0400 BP Systolic 130 mm[Hg] [employer] 10-04-2014 12:26-0400 BSA (Body Surface Area) 2.26 m2 [employer] 10-04-2014 12:260400 Height 165.1 cm [employer] 10-04-2014 12:26-0400 Pulse (Heart Rate) 80 /min [employer] 10-04-2014 12:26-0400 Weight 111.13 kg [employer] 07-24-2014 14:38-0400 BMI (Body Mass Index) 42.6 kg/m2 [employer] 07-24-2014 14:38-0400 Body weight 116.12 kg [employer] 07-24-2014 14:38-0400 BP Diastolic 78 mm[Hg] [employer] 07-24-2014 14:38-0400 BP Systolic 132 mm[Hg] [employer] 07-24-2014 14:38-0400 BSA (Body Surface Area) 2.31 m2 [employer] 07-24-2014 14:38-0400 Height 165.1 cm [employer] 07-24-2014 14:38-0400 Pulse (Heart Rate) 66 /min [facility] 07-24-2014 14:38-0400 Weight 116.12 kg Yazan Adrian [employer] 06-05-2014 11:05-0400 Body weight 116.8 kg [facility]azan [employer] 06-05-2014 11:05-0400 Weight 116.8 kg Yazan Adrian [employer] 05-03-2014 12:54-0400 BMI (Body Mass Index) 43.77 kg/m2 [facility] [id number] 05-03-2014 12:54-0400 Body Temperature 98.7 [degF] Yazan [employer] 05-03-2014 12:54-0400 Body weight 119.3 kg [employer] [employer] 05-03-2014 12:54-0400 BP Diastolic 80 mm[Hg] [employer] 05-03-2014 12:54-0400 BP Systolic 120 mm[Hg] [employer] 05-03-2014 12:54-0400 BSA (Body Surface Area) 2.34 m2 [facility] [id number] 05-03-2014 12:54-0400 Height 165.1 cm [employer] 05-03-2014 12:54-0400 Pulse (Heart Rate) 72 /min Yazan Adrian [place] [employer]via [employer] 05-03-2014 12:54-0400 Weight 119.3 kg [employer] [employer] Encounters Encounter Date Encounter Type Care Provider Facility Start: 12-11-2021 Office outpatient visit 15 minutes Yazan Ike Adrian Other [facility] Office Start: 12-06-2021 End: 12-07-2021 [facility] Start: 12-06-2021 End: 12-06-2021 Subsequent hospital visit by physician Yazan Adrian MD Work Phone: [facility] Start: 08-14-2021 Office outpatient visit 15 minutes Yazan A Bouts Other [facility] Office Start: 08-06-2021 End: 08-07-2021 ambulatory [facility] Start: 08-06-2021 End: 08-06-2021 Subsequent hospital visit by physician Yazan Adrian MD Work Phone: [facility] Start: 06-06-2021 Office outpatient visit 15 minutes Yazan A Bouts Other [facility] Office Start: 06-05-2021 End: 06-06-2021 ambulatory [facility]OU[facility] Start: 06-05-2021 End: 06-05-2021 Subsequent hospital visit by physician Yazan Adrian MD Work Phone: [facility] Start: 05-06-2021 Office outpatient visit 15 minutes Yazan A Bouts Other [facility] Office Start: 01-17-2021 End: 01-17-2021 Split Srvc Yazan A Bouts Other [facility] Office Start: 01-16-2021 ambulatory MD YAZAN ADRIAN Facili ty:[facility] Start: 01-03-2021 Office outpatient visit 25 minutes Yazan A Bouts Other [facility] Office Start: 09-03-2020 Office outpatient visit 25 minutes Yazan A Bouts Other [facility] Office Start: 08-25-2020 End: 08-25-2020 ambulatory ROSEMARIE NORAH Facility:[facility] Start: 12-02-2019 End: 12-02-2019 Emergency department patient visit [facility] ED Comment on above: COVID-19 virus infec tion (Primary Dx); Cough; Bronchitis Start: 10-03-2019 Office outpatient visit 15 minutes Yazan A Bouts Other [facility] Office Start: 08-22-2019 Office outpatient visit 15 minutes Yazan A Bouts Other [facility] Office Start: 07-19-2019 Office outpatient visit 15 minutes Yazan A Bouts Other [facility] Office Start: 07-14-2019 End: 07-14-2019 Subsequent hospital visit by physician Yazan Adrian [facility] Start: 03-15-2019 Office outpatient visit 15 minutes Yazan A Bouts Other [facility] Office Start: 03-11-2019 End: 03-11-2019 Subsequent hospital visit by physician Yazan Adrian MD Work Phone: [facility] Start: 01-26-2019 Office outpatient visit 15 minutes Yazan A Bouts Other [facility] Office Start: 12-07-2018 Office outpatient visit 25 minutes Yazan A Bouts Other [facility] Office Start: 12-04-2018 End: 12-04-2018 Subsequent hospital visit by physician Yazan Adrian [facility] Start: 07-29-2018 Office outpatient visit 25 minutes Yazan A Bouts Other [facility] Office Start: 03-25-2018 Office outpatient visit 15 minutes Yazan A Bouts Other [facility] Office Start: 12-24-2017 Office outpatient visit 15 minutes Yazan A Bouts Other [facility] Office Start: 12-02-2017 Office outpatient visit 15 minutes Yazan A Bouts Other [facility] Office Start: 09-02-2017 Office outpatient visit 15 minutes Yazan A Bouts Other [facility] Office Start: 08-04-2017 Office outpatient visit 15 minutes Yazan A Bouts Other [facility] Office Start: 06-04-2017 Office outpatient visit 15 minutes Yazan A Bouts Other [facility] Office Start: 03-19-2017 Office outpatient visit 15 minutes Yazan A Bouts Other [facility] Office Start: 01-30-2017 Office outpatient visit 15 minutes Yazan A Bouts Other [facility] Office Start: 10-03-2016 Office outpatient visit 15 minutes Yazan A Bouts Other [facility] Office Start: 08-21-2016 Office outpatient visit 15 minutes Yazan A Bouts Other [facility] Office Start: 06-24-2016 Office outpatient visit 15 minutes Yazan A Bouts Other [facility] Office Start: 05-23-2016 Office outpatient visit 15 minutes Yazan A Bouts Other [facility] Office Start: 05-09-2016 Office outpatient visit 15 minutes Yazan A Bouts Other [facility] Office Start: 01-03-2016 Office outpatient visit 15 minutes Yazan A Bouts Other [facility] Office Start: 09-06-2015 Office outpatient visit 15 minutes Yazan A Bouts Other [facility] Office Start: 05-03-2015 Office outpatient visit 15 minutes Yazan A Bouts Other [facility] Office Start: 02-05-2015 Office outpatient visit 15 minutes Yazan A Bouts Other [facility] Office Start: 01-29-2015 Lab Yazan A Bouts Other [facility] Office Start: 10-04-2014 Office outpatient visit 15 minutes Yazan A Bouts Other [facility] Office Start: 09-25-2014 Lab Yazan A Bouts Other [facility] Office Start: 07-24-2014 Office outpatient visit 25 minutes Yazan A Bouts Other [facility] Office Start: 07-21-2014 Lab Yazan A Bouts Other [facility] Office Start: 06-05-2014 Postop follow up vis it related to original px Yazan A Bouts Other [facility] Office Start: 05-04-2014 Office Services Yazan A Bouts Other [facility] Office Start: 05-03-2014 Office outpatient visit 15 minutes Yazan A Bouts Other [facility] Office Procedures Date Procedure Procedure Detail Performing Clinician Start: 12-11-2021 Docrev cur meds by toro Hand Bouts Start: 12-06-2021 Basic metabolic panel calcium total Yazan Adiran MD Work Phone: Start: 12-06-2021 Lipid panel Yazan Adrian MD Work Phone: Start: 12-06-2021 Urine albumin quantitative Yazan Ike Adrian MD Work Phone: Start: 11-14-2021 Basic metabolic panel calcium total Yazan Bouts Start: 11-14-2021 Hemoglobin A1c measurement Yazan Bouts Start: 11-14-2021 Lipid panel Yazan Bouts Start: 11-14-2021 MICROALBUMIN/Urine Creat Ratio Yazan Ilan ts Start: 08-14-2021 Docrev cur meds by [email or web address] Yazan Bouts Start: 08-06-2021 Hemoglobin A1c measurement Yazan Bouts Start: 08-06-2021 Lipid panel Yazan Bouts Start: 08-06-2021 Thyroid stimulating hormone measurement Yazan Bouts Start: 08-06-2021 End: 08-06-2021 Basic metabolic panel calcium total Yazan A Bouts Work Phone: Start: 08-06-2021 Lipid panel Yazan A Bouts Work Phone: Start: 06-06-2021 Docrev cur meds by [email or web address] Yazan Bouts Start: 06-05-2021 Basic metabolic panel calcium total Yazan A Bouts Work Phone: Start: 06-05-2021 Urnls dip stick/tablet rgnt auto w/o microscopy Yazan Ike Adrian MD Work Phone: Start: 05-06-2021 Docrev cur meds by [email or web address] Yazan Bouts Start: 05-06-2021 Hemoglobin A1c measurement Yazan Bouts Start: 05-06-2021 Blood chemistry Yazan Bouts Start: 05-06-2021 Dip UA (for Ketones) Yazan Bouts Start: 01-17-2021 Electrocardiogram with exercise test Yazan Bouts Start: 01-16-2021 Electrocardiogram with exercise test Yazan Bouts Start: 01-03-2021 Docrev cur meds by [email or web address] Yazan Bouts Start: 01-03-2021 Electrocardiographic procedure Yazan [...] Detail Author Start: 12-06-2022 Lipid panel Lipids [facility] [employer] Start: 08-06-2022 [facility] Start: 02-10-2022 Basic metabolic panel calcium ionized CHEM 8 PANEL [employer] Start: 02-10-2022 Hemoglobin glycosylated a1c A1c [employer] Start: 11-14-2021 Basic metabolic panel calcium total Chem 8 [employer] Start: 11-14-2021 Hemoglobin glycosylated a1c Hgb A1c [employer] Start: 11-14-2021 Lipid panel Lipid profile [employer] Start: 11-06-2021 Hemoglobin A1c measurement A1C test (Diabetic or Prediabetic) [facility] Start: 10-17-2021 Influenza vaccination Flu vaccine (Season Ended) [facility] Start: 09-16-2021 Influenza vaccination Flu vaccine (#1) [facility] Start: 08-06-2021 Assay of thyroid stimulating hormone tsh TSH [employer] Start: 08-06-2021 Basic metabolic panel calcium total Chem 8 [employer] Start: 08-06-2021 Hemoglobin glycosylated a1c A1c [employer] Start: 08-06-2021 Lipid panel Lipid panel [employer] Start: 06-03-2021 Basic metabolic panel calcium total Chem 8 [employer] Start: 06-03-2021 Hemoglobin glycosylated a1c A1c [employer] Start: 05-06-2021 Basic metabolic panel calcium total Chem 8 [employer] Start: 01-16-2021 Cv strs tst xers&/or rx cont ecg w/si&r Treadmill Stress [employer] [employer] [facility] Start: 01-03-2021 Screening mammography Mammogram breast screening digital [email or web address] Start: 12-01-2020 Creatinine measurement [employer] Start: 12-01-2020 Potassium [Moles/volume] in Serum or Plasma [employer] Start: 10-02-2020 Hemoglobin A1c measurement A1C test (Diabetic or Prediabetic) [facility] Start: 07-13-2020 Creatinine measurement Creatinine [facility] [place] Start: 07-13-2020 Lipid panel [facility] [employer] Start: 07-13-2020 Potassium monitoring Potassium monitoring [place], [place] Start: 03-11-2020 Diabetic microalbuminuria test Diabetic microalbuminuria test [place] Start: 03-11-2020 Urine screening for protein Diabetic microalbuminuria test [employer] Start: 12-05-2019 Creatinine monitoring Creatinine monitoring [employer] Work Phone: Start: 12-05-2019 Potassium monitoring [facility]assium [facility] Work Phone: Start: 12-03-2019 Basic metabolic panel calcium total Chem 8 [employer] Start: 12-03-2019 HbA1c (Bld) [Mass fraction] Hgb A1c [employer] [facility] Start: 12-03-2019 Lipid panel Lipid profile [employer] [facility] Start: 10-18-2019 Influenza vaccination [place] Start: 10-14-2019 HbA1c (Bld) [Mass fraction] A1C test (Diabetic or Prediabetic) [place] Start: 10-03-2019 HbA1c (Bld) [Mass fraction] A1c [email or web address] Start: 08-17-2019 Creatinine monitoring Creatinine monitoring [place], [place] Start: 08-17-2019 Potassium monitoring Potassium monitoring [place] Start: 07-25-2019 Diabetic microalbuminuria test Diabetic microalbuminuria test [place] Start: 07-25-2019 Lipid screen Lipid screen [place] Start: 07-14-2019 Assay of insulin total INSULIN [employer] Start: 07-14-2019 Basic metabolic panel calcium total Chem 8 [employer] Start: 07-14-2019 HbA1c (Bld) [Mass fraction] Hgb A1c [employer] Start: 07-14-2019 Lipid panel Lipid profile [employer] Start: 03-09-2019 Basic metabolic panel calcium total Chem 8 [employer] Start: 03-09-2019 HbA1c (Bld) [Mass fraction] Hgb A1c [employer] Start: 03-09-2019 Lipid panel Lipid profile [employer] Start: 03-06-2019 A1C test (Diabetic or Prediabetic) A1C test (Diabetic or Prediabetic) [facility] Work Phone: Start: 12-28-2018 Ultrasonography of abdomen and urinary system US kidney and bladder [employer] Start: 12-14-2018 Ultrasound Kidneys and Bladder [employer] Start: 11-28-2018 Basic metabolic panel calcium total Chem 8 [employer] Start: 11-28-2018 Hemoglobin A1c/Hemoglobin.total mass fraction (Bld) A1c [employer] Start: 10-24-2018 A1C test (Diabetic or Prediabetic) A1C test (Diabetic or Prediabetic) [place] Start: 10-17-2018 Influenza vaccination Flu vaccine (#1) [place] Start: 07-29-2018 Basic metabolic panel calcium total Chem 8 [employer] Start: 07-29-2018 Hemoglobin A1c/Hemoglobin.total mass fraction (Bld) A1c [facility] [employer] Start: 02-03-2016 Breast cancer screen Breast cancer screen [place] Start: 02-03-2016 Colon cancer screen colonoscopy Colon cancer screen colonoscopy [place] Start: 02-03-2016 Screening for malignant neoplasm of breast Breast cancer screen [facility] Start: 02-03-2016 Screening for malignant neoplasm of colon Colon cancer screen colonoscopy [place] Start: 02-03-2016 Shingles Vaccine (1 of 2) Shingles Vaccine (1 of 2) [facility] Start: 2011 Screening for malignant neoplasm of colon [facility] Start: 02-03-1996 Screening for malignant neoplasm of cervix [facility] Start: 1987 Cervical cancer screen Cervical cancer screen [place] Start: 1987 Screening for malignant neoplasm of cervix [facility] Start: 1985 DTaP/Tdap/Td vaccine (1 - Tdap) DTaP/Tdap/Td vaccine (1 - Tdap) [facility] Start: 02-03-1984 Diabetic retinal exam Diabetic retinal exam [facility] Start: 02-03-1984 Hepatitis C screening Hepatitis C screen [facility] Start: 1981 HIV screen HIV screen [place] Start: 1981 HIV screening HIV screen [facility] Start: 1978 Depression Screen Depression Screen [facility] Start: 1977 DTaP/Tdap/Td vaccine (1 - Tdap) DTaP/Tdap/Td vaccine (1 - Tdap) [facility] Work Phone: Start: 02-03-1976 [object Object] Diabetic foot exam [place] Start: 02-03-1976 Diabetic foot examination Diabetic foot exam [facility] Start: 02-03-1976 Diabetic retinal exam Diabetic retinal exam [place], [place] Start: 1971 COVID-19 Vaccine (1) COVID-19 Vaccine (1) [facility] Start: 1966 COVID-19 Vaccine (#1) COVID-19 Vaccine (#1) [facility] End: 12-02-2019 Culture, Blood 1 Culture, Blood 1 Microbiology STAT One Time for 1 Occurrences starting 12/02/2019 until 12/02/2019 [place] Comment on above: One Time for 1 Occurrences starting 11/16 until 12/02/2019 Culture, Blood 1 Culture, Blood 1 Microbiology STAT 12/02/2019 1:10 PM EDT [place] End: 12-02-2019 Culture, Blood 2 Culture, Blood 2 Microbiology STAT One Time for 1 Occurrences starting 12/02/2019 until 12/02/2019 [place] Comment on above: One Time for 1 Occurrences starting 11/16 until 12/02/2019 Culture, Blood 2 Culture, Blood 2 Microbiology STAT 12/02/2019 1:07 PM EDT [place] End: 12-06-2021 Hemoglobin A1c/Hemoglobin.total in Blood [facility] Work Phone: Comment on above: Once for 1 Occurrences starting 12/07/19 until 12/06/2021 Immunizations Immunization Date Immunization Notes Care Provider Collin botello 01-03-2021 Influenza, injectabl e, Madin Dai Canine Kidney, quadrivalent with preservative; Translations: [Influenza virus vaccine, quadrivalent (cciiv4), derived from cell cultures, subunit, antibiotic free, 0.5 ml dosage, for intramuscular use] [employer] 01-03-2021 influenza, injectabl e, quadrivalent, contains preservative [employer] 01-03-2021 IMMUNIZATION ADMIN; Translations: [IMMUNIZATION ADMIN] [employer] 12-02-2017 influenza, seasonal, injectable; Translations: [FLU VACCINE 3 YRS & > IM] [employer] 12-02-2017 IMMUNIZATION ADMIN; Translations: [IMMUNIZATION ADMIN] [employer] Payers Date Payer Category Payer Unknown 2016 Unknown [facility] [employer] [employer] xxxxxxxxxxxx 2016-Present [phone] [address] [place] [address] xxxxxxxxxxxx [id number] 1966 Unknown [id number] 1966 Unknown [id number] 1966 Unknown [id number] 1966 Unknown [id number] 1966 Unknown [id number] 1958 Medicaid [id number] Private Health Insurance [id number] Social History Date Type Detail Facility Start: [employer] Start: soda [employer] Start: 11-24-2017 End: 12-02-2019 Tobacco smoking status NHIS Never smoker [place], [place] Start: 1965 Sex Assigned At Not on file [place] Start: 11-24-2017 End: 12-02-2019 Tobacco use and exposure Never used [employer] [place] Exposure to SARS-CoV -2 (event) Yes [place], [place] Medical Equipment Procedure Code Equipment Code Equipment Origin al Text Equipment Identifier Dates USE DIRECTED Start: 03-04-2019 Advance Directives No Advanced Directives Records FoundDocuments on File Type Date Recorded 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 * Attachments The following attachments cannot be sent through Care Everywhere. 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 [facility]. provides no warranty or guarantee of the accuracy or completeness of information in this document.
== END 2023-04-05 12:58 | disposition home or self-care (01) ==
LOC: ER 14:16 → MS 04-05 11:30
PROVIDERS: Admitting Provider Family Medicine; Emergency Provider Emergency Medicine; Visit Provider Family Medicine
DX: E11.628 Type 2 diabetes mellitus with other skin complications (principal); L03.314 Cellulitis of groin; E11.65 Type 2 diabetes mellitus with hyperglycemia; E66.9 Obesity, unspecified; Z68.39 Body mass index [BMI] 39.0-39.9, adult; Z79.84 Long term (current) use of oral hypoglycemic drugs; Z79.899 Other long term (current) drug therapy
CPT/HCPCS: 36415; 72193; 80048; 80076; 81003; 82948; 83605; 84145; 85025; 87040; 96361; 96365; 96366; 96367; 96375; 96376; 99285; G0378; J1885; J2270; J2405; J3370; Q9967

== ENCOUNTER 2023-04-09 12:30 | Inpatient (IN) | payer OTHER, SELFPAY ==
[2023-04-09 12:40] VITALS: BP 167/86; PULSE 98; RESP 18; TEMP 37.2; O2SAT 100; BMI 43.3
--- OUTSIDE RECORDS SUMMARY | 2023-04-09 12:49 | XMS_ITS | CCD ---
Author Name Unknown Address [address] [place] [address] Organization [facility] Care Team Providers Care Lever Tender Name Role Phone Nguyễn, Yazan A Primary Care Physician Unavailab le Bouts, Yazan Trinh Unavailable Unavailable Bouts, Yazan Trinh Primary Care Provider [phone] Bouts, Yazan A Primary Care Physician Unavailab le Bouts, Yazan Trinh Primary Care Physician Unavailab le Bouts, Yazan Trinh Primary Care Provider Bouts, Yazan Trinh Primary Care Physician Unavailab le Bouts, Yazan Trinh Primary Care Physician Unavailab le Bouts, Yazan Trinh Primary Care Provider [phone] Bouts, Yazan Trinh Primary Care Physician Unavailab [...] Provider Bouts Yazan KELLER Primary Care Provider [phone] Bouts, Yazan Trinh Primary Care Physician [...] (1 source) Naproxen Drug Allergy 3 [facility] Repository (2 sources) atorvastatin; Translations: [atorvastatin] Drug Allergy unable to move legs [employer] (2 sources) Naproxen; Translations: [naproxen sodium] Drug Allergy nausea [employer] (8 sources) Naproxen; Translations: [naproxen] Drug Allergy [address] [place] [address] (13 sources) atorvastatin; Translations: [atorvastatin] Drug Allergy unable to move legs [employer] (13 sources) ceftibuten; Translations: [naproxen sodium] Drug Allergy nausea [employer] Medications Current Medications Medication Drug Class(es) Dates [...] Start: 09-03-2020 take 1 capsule by mo mth once daily Vitamin D3 50 mcg (2,000 [...] 08-22-2019 take 1 capsule by mo [facility] every week Vitamin D2 1,250 mcg (50,000 [...] 09-03-2020 take 2 tablets by mo [facility] twice daily metformin 500 mg oral tablet extended release 24 hr 09/03/2020 TAKE TWO TABLETS BY MOUTH TWICE DAILY Start: 03-15-2019 take 2 tablets by [facility] twice daily metformin 500 mg oral tablet extended release 24 hr 03/15/2019 TAKE TWO TABLETS BY MOUTH TWICE DAILY Start: 03-25-2018 take 2 tablets by [facility] twice daily metformin 500 mg oral tablet extended release 24 hr 03/25/2018 TAKE TWO TABLETS BY MOUTH TWICE DAILY take 1 tablet by [facility] twice daily at mealtime metFORMIN (GLUCOPHAGE) 500 [...] meal Start: 09-03-2020 take 1 capsule by [facility] once daily before mealtime omeprazole 20 mg oral capsule,delayed release(DR/EC) 09/03/2020 take 1 capsule (20 mg) by oral route once daily before a meal Start: 03-15-2019 take 1 capsule by [facility] once daily before mealtime omeprazole 20 mg oral capsule,delayed release(DR/EC) 03/15/2019 take 1 capsule (20 mg) by oral route once daily before a meal Start: 03-25-2018 take 1 capsule by [facility] once daily before mealtime omeprazole 20 mg [...] Onset: 08-28-2020 Episodic Unclassified (1 source) [id number] ss_[email or web address] Onset: 07-24-2014 Unclassified (1 source) [id number] ss_name_12 Onset: 10-04-2014 Unclassified (1 source) [id number] ss_name_13 Onset: 10-04-2014 Unclassified (1 source) [id number] ss_name_13 Onset: 10-04-2014 Unclassified (1 source) [id number] ss_name_10 Onset: 07-24-2014 Unclassified (1 source) [id number] ss_name_12 Onset: 10-04-2014 Unclassified (1 source) [id number] ss_name_13 Onset: 10-04-2014 Viral infection (20 sources) Other specified viral infection; Translations: [Other viral agents as the cause of diseases classified elsewhere] Onset: 03-19-2017 12-02-2019 Episodic Results Test Name Value Interpretation Reference Range Facility Hemoglobin A1Con 12-07-2021 Glucose [Mass/Vol] 335 mg/dL Normal [facility] Comment on above: Result Comment: The ADA and AACC recommend providing the estimated average glucose result to permit better patient understanding of their HBA1c result. Performed By: #### G LYHGB, LIPRF, URNMAB #### [facility] [address] [phone] Etl Software Engineer: Harlan Yates MD #### BMP #### [facility] [address] [place], [place] [phone] Etl Software Engineer: César Rueda MD HbA1c (Bld) [Mass fraction] 13.3 % High 4.0-6.0 [facility] Comment on above: Performed By: #### G LYHGB, LIPRF, URNMAB #### [address] [address] Etl Software Engineer: Harlan Yates MD #### BMP #### [facility] [address] [place] [phone] Etl Software Engineer: César Rueda MD Microalb.,Random Uron 2021 Creatinine [Mass/Vol] 32.1 mg/dL Normal 28.0-217.0 [facility] Comment on above: Performed By: #### G LYHGB, LIPRF, URNMAB #### [address] [address] Etl Software Engineer: Harlan Yates MD #### BMP #### [address] [place] [phone] Etl Software Engineer: César Rueda MD Microalb/Creat Ratio Can not be calculated Normal <25 [facility] Comment on above: Performed By: #### G LYHGB, LIPRF, URNMAB #### [address] [address] Etl Software Engineer: Harlan Yates MD #### BMP #### [facility] [address] [place] [address] [address] [place] [phone] Etl Software Engineer: César Rueda MD Microalbumin conc. <12 Normal <21 [facility] Comment on above: Performed By: #### G LYHGB, LIPRF, URNMAB #### [address] [address] Etl Software Engineer: Harlan Yates MD #### BMP #### [facility] [address] [place] [place] [address] Etl Software Engineer: César Rueda MD Basic Metabolic Panelon 10- Anion gap [Moles/Vol] 13 mmol/L 9 - 17 mmol/L [facility] Calcium [Mass/Vol] 9.1 mg/dL 8.6 - 10. 4 mg/dL [facility] Chloride [Moles/Vol] 98 mmol/L 98 - 10 7 mmol/L [facility] CO2 [Moles/Vol] 25 mmol/L 20 - 31 mmol/L [facility] Creatinine [Mass/Vol] 0.62 mg/dL 0.50 - 0.90 mg/dL [facility] GFR/1.73 sq M.predicted MDRD (S/P/Bld) [Vol rate/Area] - PINF [facility] Comment on above: Effective Nov 18, 2021 [...] Critically high 70 - 99 mg/d L [facility] Interpretation and review of laboratory results Abnormal [facility] Potassium [Moles/Vol] 4.6 mmol/L 3.7 - 5.3 mmol/L [facility] Sodium [Moles/Vol] 136 mmol/L 135 - 144 mmol/L [facility] Urea nitrogen (BldV) [Mass/Vol] 22 mg/dL High 6 - 20 mg/dL [facility] Urea nitrogen/Creatinine (Bld) [Mass ratio] 35 High 9 - 20 [facility] Basic Metabolic Profon 12-06 Glucose [Mass/Vol] 530 mg/dL Critically high 70-99 [facility] Comment on above: Performed By: #### G LYHGB, LIPRF, URNMAB #### [facility] [address] [place] [address] Etl Software Engineer: Harlan Yates MD #### BMP #### [facility] [address] [place], [place] [phone] Etl Software Engineer: César Rueda MD Anion gap [Moles/Vol] 13 mmol/L Normal 9-17 [facility] Comment on above: Performed By: #### G LYHGB, LIPRF, URNMAB #### [address] [address] Etl Software Engineer: Harlan Yates MD #### BMP #### [facility] [address] [place], [place] [phone] Etl Software Engineer: César Rueda MD BUN/CRE Ratio 35 High 9-20 [facility] Comment on above: Performed By: #### G LYHGB, LIPRF, URNMAB #### [address] [address] Etl Software Engineer: Harlan Yates MD #### BMP #### [facility] [address] [place] [address] [place], [place] [phone] Etl Software Engineer: César Rueda MD Calcium [Mass/Vol] 9.1 mg/dL Normal 8.6-10.4 [facility] Comment on above: Performed By: #### G LYHGB, LIPRF, URNMAB #### [address] [address] Etl Software Engineer: Harlan Yates MD #### BMP #### [facility] [address] [place], [place] [phone] Etl Software Engineer: César Rueda MD Chloride [Moles/Vol] 98 mmol/L Normal 98-107 [facility] Comment on above: Performed By: #### G LYHGB, LIPRF, URNMAB #### [facility] [address] [place] [address] Etl Software Engineer: Harlan Yates MD #### BMP #### [facility] [address] [place], [place] [phone] Etl Software Engineer: César Rueda MD CO2 [Moles/Vol] 25 mmol/L Normal 20-31 [facility] Comment on above: Performed By: #### G LYHGB, LIPRF, URNMAB #### [address] [place] [address] Etl Software Engineer: Harlan Yates MD #### BMP #### [facility] [address] [place] [phone] Etl Software Engineer: César Rueda MD Creatinine [Mass/Vol] 0.62 mg/dL Normal 0.50-0.90 [facility] Comment on above: Performed By: #### G LYHGB, LIPRF, URNMAB #### [address] [address] Etl Software Engineer: Harlan Yates MD #### BMP #### [facility] [address] [place] [address] [place], [place] [phone] Etl Software Engineer: César Rueda MD GFR/1.73 sq M.predicted among non-blacks MDRD (S/P/Bld) [Vol rate/Area] mL/min/{1.73_m2} Normal >60 [facility] Comment on above: Result Comment: Effective [...] By: #### G LYHGB, LIPRF, URNMAB #### [address] [place] [address] Etl Software Engineer: Harlan Yates MD #### BMP #### [facility] [address] [place] [address] [place], [place] [phone] Etl Software Engineer: César Rueda MD Potassium [Moles/Vol] 4.6 mmol/L Normal 3.7-5.3 [facility] Comment on above: Performed By: #### G LYHGB, LIPRF, URNMAB #### [address] [address] Etl Software Engineer: Harlan Yates MD #### BMP #### [address] [place], [place] [phone] Etl Software Engineer: César Rueda MD Sodium [Moles/Vol] 136 mmol/L Normal 135-144 [facility] Comment on above: Performed By: #### G LYHGB, LIPRF, URNMAB #### [address] [address] Etl Software Engineer: Harlan Yates MD #### BMP #### [address] [place] [address] Etl Software Engineer: César Rueda MD Urea nitrogen [Mass/Vol] 22 mg/dL High 6-20 [facility] Comment on above: Performed By: #### G LYHGB, LIPRF, URNMAB #### [address] [address] Etl Software Engineer: Harlan Yates MD #### BMP #### [address] [place], [place] [address] Etl Software Engineer: César Rueda MD Lipid Prof, Fastingon 2021 Cholesterol [Mass/Vol] 241 mg/dL High <200 [facility] Comment on above: Result Comment: Cholesterol Guidelines: <200 Desirable 200-240 Borderline >240 Undesirable Performed By: #### G LYHGB, LIPRF, URNMAB #### [address] [address] Etl Software Engineer: Harlan Yates MD #### BMP #### [facility] [address] [place] [address] [place] [place], [place] [phone] Etl Software Engineer: César Rueda MD Cholesterol in HDL [Mass/Vol] 34 mg/dL Low >40 [facility] Comment on above: Result Comment: HDL Guidelines: <40 Undesirable 40-59 Borderline >59 Desirable Performed By: #### G LYHGB, LIPRF, URNMAB #### [address] [address] Etl Software Engineer: Harlan Yates MD #### BMP #### [address] [place] [phone] Etl Software Engineer: César Rueda MD Cholesterol in LDL [Mass/Vol] 149 mg/dL High 0-130 [facility] Comment on above: Result Comment: LDL Guidelines: <100 Desirable 100-129 Near to/above Desirable 130-159 Borderline >159 Undesirable Direct (measured) LDL and calculated LDL are not interchangeable tests. Performed By: #### G LYHGB, LIPRF, URNMAB #### [address] [address] Etl Software Engineer: Harlan Yaets MD #### BMP #### [address] [place] [phone] Etl Software Engineer: César Rueda MD Cholesterol.total/Chol esterol in HDL [Mass ratio] 7.1 {ratio} High <5 [facility] Comment on above: Performed By: #### G LYHGB, LIPRF, URNMAB #### [address] [address] Etl Software Engineer: Harlan Yates MD #### BMP #### [facility] [address] [place] [address] Etl Software Engineer: César Rueda MD Triglyceride,Fasting 290 mg/dL High <150 [facility] Comment on above: Result Comment: Triglyceride Guidelines: <150 Desirable 150-199 Borderline 200-499 High >499 Very high Based on AHA Guidelines for fasting triglyceride, November 2011. Performed By: #### G LYHGB, LIPRF, URNMAB #### [facility] [address] [place], [place] [phone] Etl Software Engineer: Harlan Yates MD #### BMP #### [facility] [address] [place] [address] Etl Software Engineer: César Rueda MD Lipid, Fastingon 12-06-2021 Cholesterol [Mass/Vol] 241 mg/dL High NINF - 200 mg/dL [facility] Comment on above: Cholesterol Guidelines: <200 Desirable 200-240 Borderline >240 Undesirable Cholesterol in HDL [Mass/Vol] 34 mg/dL Low 40 - PINF mg/dL [facility] Comment on above: HDL Guidelines: <40 Undesirable 40-59 Borderline >59 Desirable Cholesterol in LDL [Mass/Vol] 149 mg/dL High 0 - 130 mg/dL [facility] Comment on above: LDL Guidelines: <100 Desirable 100-129 Near to/above Desirable 130-159 Borderline >159 Undesirable Direct (measured) LDL and calculated LDL are not interchangeable tests. Cholesterol.total/Chol esterol in HDL [Mass ratio] 7.1 {ratio} High NINF - 5 [facility] Interpretation and review of laboratory results Abnormal [facility] Triglyceride, Fasting 290 mg/dL High NINF - 150 mg/dL [facility] Comment on above: Triglyceride Guidelines: <150 Desirable 150-199 Borderline 200-499 High >499 Very high Based on AHA Guidelines for fasting triglyceride, November 2011. [facility] Microalbumin, Uron 2 Albumin/Creatinine DL <= 20 mg/L (24H U) [Mass ratio] mg/L NINF - 21 mg/L [facility] Albumin/Creatinine DL <= 20 mg/L (U) [Ratio] Can not be calculated NINF [facility] Creatinine [Mass/Vol] 32.1 mg/dL 28.0 - 217.0 mg/dL [facility] Basic Metabolic Panelon - Anion gap [Moles/Vol] 10 mmol/L 9 - 17 mmol/L [facility] Calcium [Mass/Vol] 8.9 mg/dL 8.6 - 10. 4 mg/dL [facility] Chloride [Moles/Vol] 106 mmol/L 98 - 10 7 mmol/L [facility] CO2 [Moles/Vol] 23 mmol/L 20 - 31 mmol/L [facility] Creatinine [Mass/Vol] 0.55 mg/dL 0.50 - 0.90 mg/dL [facility] GFR >60 >60 mL/min [facility] GFR Non- >60 >60 mL/min [facility] Glucose [Mass/Vol] 293 mg/dL High 70 - 99 mg/dL [facility] Interpretation and review of laboratory results Abnormal [facility] Potassium [Moles/Vol] 4.4 mmol/L 3.7 - 5.3 mmol/L [facility] Sodium [Moles/Vol] 139 mmol/L 135 - 144 mmol/L [facility] Urea nitrogen (BldV) [Mass/Vol] 20 mg/dL 6 - 20 mg/dL [facility] Urea nitrogen/Creatinine (Bld) [Mass ratio] 36 High [facility] Basic Metabolic Profon 08-06 (cont.) Normal [facility] Comment on above: Result Comment: Aver age GFR for 50-59 years old: 93 mL/min/1.73sq m Chronic Kidney Disease: <60 mL/min/1.73sq m Kidney failure: <15 mL/min/1.73sq m eGFR calculated using average adult body mass. Additional eGFR calculator available at: http://www.[employer]/multiple_crcl_2012.htm Performed By: #### B MP, TSH #### [facility] [address] [place] [address] [address] [place] [address] [phone] Etl Software Engineer: César Rueda MD #### GLYHGB, LIPR #### [address] [place], [place] [phone] Etl Software Engineer: Harlan Yates MD Anion gap [Moles/Vol] 10 mmol/L Normal 9-17 [facility] Comment on above: Performed By: #### B MP, TSH #### [facility] [address] [place] [address] [address] [place] [phone] Etl Software Engineer: César Rueda MD #### GLYHGB, LIPR #### [address] [address] Etl Software Engineer: Harlan Yates MD BUN/CRE Ratio 36 High 9-20 [facility] Comment on above: Performed By: #### B MP, TSH #### [address] [place] [phone] ( Etl Software Engineer: César Rueda MD #### GLYHGB, LIPR #### [address] [address] Etl Software Engineer: Harlan Yates MD Calcium [Mass/Vol] 8.9 mg/dL Normal 8.6-10.4 [facility] Comment on above: Performed By: #### B MP, TSH #### [facility] [address] [place] [address] [address] [place] [phone] Etl Software Engineer: César Rueda MD #### GLYHGB, LIPR #### [address] [address] Etl Software Engineer: Harlan Yates MD Chloride [Moles/Vol] 106 mmol/L Normal 98-107 [facility] Comment on above: Performed By: #### B MP, TSH #### [facility] [address] [place] [address] Dr[address] [place] [phone] Etl Software Engineer: César Rueda MD #### GLYHGB, LIPR #### [address] [place] [address] Etl Software Engineer: Harlan Yates MD CO2 [Moles/Vol] 23 mmol/L Normal 20-31 [facility] Comment on above: Performed By: #### B MP, TSH #### [facility] [address] [place], [place] 1093[address] Etl Software Engineer: César Rueda MD #### GLYHGB, LIPR #### [address] [address] Etl Software Engineer: Harlan Yates MD Creatinine [Mass/Vol] 0.55 mg/dL Normal 0.50-0.90 [facility] Comment on above: Performed By: #### B MP, TSH #### [facility] [address] [place], [place] [phone] Etl Software Engineer: César Rueda MD #### GLYHGB, LIPR #### [address] [address] Etl Software Engineer: Harlan Yates MD GFR, Amer >60 Normal >60 [facility] Comment on above: Performed By: #### B MP, TSH #### [facility] [address] [place], [place] [phone] Etl Software Engineer: César Rueda MD #### GLYHGB, LIPR #### [address] [address] Etl Software Engineer: Harlan Yates MD GFR,non Amer >60 Normal >60 [facility] Comment on above: Performed By: #### B MP, TSH #### [facility] [address] [place] [address] Etl Software Engineer: César Rueda MD #### GLYHGB, LIPR #### [address] [place] [address] Etl Software Engineer: Harlan Yates MD Glucose [Mass/Vol] 293 mg/dL High 70-99 [facility] Comment on above: Performed By: #### B MP, TSH #### [facility] [address] [place] [address] [address] [place], [place] [phone] Etl Software Engineer: César Rueda MD #### GLYHGB, LIPR #### [address] [address] Etl Software Engineer: Harlan Yates MD Potassium [Moles/Vol] 4.4 mmol/L Normal 3.7-5.3 [facility] Comment on above: Performed By: #### B MP, TSH #### [address] [place], [place] [phone] Etl Software Engineer: César Rueda MD #### GLYHGB, LIPR #### [address] [address] Etl Software Engineer: Harlan Yates MD Sodium [Moles/Vol] 139 mmol/L Normal 135-144 [facility] Comment on above: Performed By: #### B MP, TSH #### [address] [place], [place] [phone] Etl Software Engineer: César Rueda MD #### GLYHGB, LIPR #### [address] [address] Etl Software Engineer: Harlan Yates MD Staging: Normal [facility] Comment on above: Result Comment: Stag e 1: Some kidney damage normal GFR Stage 2: Mild kidney damage GFR 60-89 Stage 3: Moderate kidney damage GFR 30-59 Stage 4: Severe kidney damage GFR 15-29 Stage 5: Severe kidney damage GFR <15 ESRD - chronic treatment by dialysis or transplant Performed By: #### B MP, TSH #### [address] [place], [place] 222[address]83 Etl Software Engineer: César Rueda MD #### GLYHGB, LIPR #### [facility] [address] [place] [address] Etl Software Engineer: Harlan Yates MD Urea nitrogen [Mass/Vol] 20 mg/dL Normal 6-20 [facility] Comment on above: Performed By: #### B MP, TSH #### [facility] [address] [place] [address] [address]. [place], [place] [phone] Etl Software Engineer: César Rueda MD #### GLYHGB, LIPR #### [address] [place] [address] Etl Software Engineer: Harlan Yates MD Hemoglobin A1Con 08-06-2021 Glucose [Mass/Vol] 235 mg/dL [facility] Comment on above: Result Comment: The ADA and AACC recommend providing the estimated average glucose result to permit better patient understanding of their HBA1c result. Performed By: #### B MP, TSH #### [facility] [address] [place] [address] [address] [place], [place] [phone] Etl Software Engineer: César Rueda MD #### GLYHGB, LIPR #### [address] [place] [address] Etl Software Engineer: Harlan Yates MD HbA1c (Bld) [Mass fraction] 9.8 % High 4.0-6.0 [facility] Comment on above: Performed By: #### B MP, TSH #### [facility] [address] [place] [address] [address] [place], [place] [phone] Etl Software Engineer: César Rueda MD #### GLYHGB, LIPR #### [facility] [address] [place] [address] Etl Software Engineer: Harlan Yates MD Glucose [Mass/Vol] 235 mg/dL [facility] Comment on above: The ADA and AACC rec ommend providing the estimated average glucose result to permit better patient understanding of their HBA1c result. HbA1c (Bld) [Mass fraction] 9.8 % High 4.0 - 6.0 % [facility] Interpretation and review of laboratory results Abnormal [facility] [place] [facility] Laboratory - Chemistry and C hemistry - challengeon 08-06-2021 GFR/1.73 sq M.predicted MDRD (S/P/Bld) [Vol rate/Area] [facility] Comment on above: Average GFR for 50-5 9 years old: 93 mL/min/1.73sq m Chronic Kidney Disease: <60 mL/min/1.73sq m Kidney failure: <15 mL/min/1.73sq m eGFR calculated using average adult body mass. Additional eGFR calculator available at: http://www.[employer]/multiple_crcl_2012.htm Stage 1: Some kidney damage normal GFR Stage 2: Mild kidney damage GFR 60-89 Stage 3: Moderate kidney damage GFR 30-59 Stage 4: Severe kidney damage GFR 15-29 Stage 5: Severe kidney damage GFR <15 ESRD - chronic treatment by dialysis or transplant Lipid Panelon 08-06-2021 Cholesterol [Mass/Vol] 216 mg/dL High <200 [facility] [employer] Comment on above: Cholesterol Guidelines: <200 Desirable 200-240 Borderline >240 Undesirable Cholesterol in HDL [Mass/Vol] 32 mg/dL Low >40 [facility] [employer] Comment on above: HDL Guidelines: <40 Undesirable 40-59 Borderline >59 Desirable Cholesterol in LDL [Mass/Vol] 146 mg/dL High 0 - 130 mg/dL [facility] Comment on above: LDL Guidelines: <100 Desirable 100-129 Near to/above Desirable 130-159 Borderline >159 Undesirable Direct (measured) LDL and calculated LDL are not interchangeable tests. Cholesterol.total/Chol esterol in HDL [Mass ratio] 6.8 {ratio} High <5 [facility] [employer] Interpretation and review of laboratory results Abnormal [facility] Triglyceride [Mass/Vol] 189 mg/dL High <150 [facility] Comment on above: Triglyceride Guidelines: <150 Desirable 150-199 Borderline 200-499 High >499 Very high Based on AHA Guidelines for fasting triglyceride, November 2011. [facility] [employer] Lipid Profileon 08-06-2021 Cholesterol [Mass/Vol] 216 mg/dL High <200 [facility] Comment on above: Result Comment: Cholesterol Guidelines: <200 Desirable 200-240 Borderline >240 Undesirable Performed By: #### B MP, TSH #### [facility] [address] [place] [address] [address] [place], [place] [phone] Etl Software Engineer: César Rueda MD #### GLYHGB, LIPR #### [id number] [place], [place] [id number] Etl Software Engineer: Harlan Yates MD Cholesterol in HDL [Mass/Vol] 32 mg/dL Low >40 [facility] Comment on above: Result Comment: HDL Guidelines: <40 Undesirable 40-59 Borderline >59 Desirable Performed By: #### B MP, TSH #### [address] [place], [place] [phone] Etl Software Engineer: César Rueda MD #### GLYHGB, LIPR #### [address] [place] [address] Etl Software Engineer: Harlan Yates MD Cholesterol in LDL [Mass/Vol] 146 mg/dL High 0-130 [facility] Comment on above: Result Comment: LDL Guidelines: <100 Desirable 100-129 Near to/above Desirable 130-159 Borderline >159 Undesirable Direct (measured) LDL and calculated LDL are not interchangeable tests. Performed By: #### B ANILA, TSH #### [facility] [address] [place] [address] Dr. [place], [place] [phone] Etl Software Engineer: César Rueda MD #### GLYHGB, LIPR #### [address] [place], [place] [phone] Etl Software Engineer: Harlan Yates MD Cholesterol.total/Chol esterol in HDL [Mass ratio] 6.8 {ratio} High <5 [facility] Comment on above: Performed By: #### B ANILA, TSH #### [address] [place], [place] [phone] Etl Software Engineer: César Rueda MD #### GLYHGB, LIPR #### [facility] [address] [place] [address] Etl Software Engineer: Harlan Yates MD Triglyceride [Mass/Vol] 189 mg/dL High <150 [facility] Comment on above: Result Comment: Triglyceride Guidelines: <150 Desirable 150-199 Borderline 200-499 High >499 Very high Based on AHA Guidelines for fasting triglyceride, November 2011. Performed By: #### B MP, TSH #### [facility] [address] [place] [address] Etl Software Engineer: César Rueda MD #### ALIYAH, LIPR #### [facility] [address] [place], [place] [phone] Etl Software Engineer: Harlan Yates MD No Panel Informationon 08-06 [facility] TSHon 08-06-2021 TSH Qn 1.10 m[IU]/L [facility] Thyroid Stim. Horm.on 2021 Thyroid Stim. Horm. 1.10 uIU/mL Normal 0.30-5.00 [facility] Comment on above: Performed By: #### B MP, TSH #### [address] [place] [address] Etl Software Engineer: César Rueda MD #### ALIYAH, LIPR #### [facility] [address] [place] [address] Etl Software Engineer: Harlan Yates MD Basic Metabolic Panelon 04-2 Anion gap [Moles/Vol] 10 mmol/L 9 - 17 mmol/L [facility] Calcium [Mass/Vol] 9.3 mg/dL 8.6 - 10. 4 mg/dL [facility] Chloride [Moles/Vol] 102 mmol/L 98 - 10 7 mmol/L [facility] CO2 [Moles/Vol] 27 mmol/L 20 - 31 mmol/L [facility] Creatinine [Mass/Vol] 0.61 mg/dL 0.50 - 0.90 mg/dL [facility] GFR >60 >60 mL/min [facility] GFR Non- >60 >60 mL/min [facility] Glucose [Mass/Vol] 196 mg/dL High 70 - 99 mg/dL [facility] Interpretation and review of laboratory results Abnormal [facility] Potassium [Moles/Vol] 4.5 mmol/L 3.7 - 5.3 mmol/L [facility] Sodium [Moles/Vol] 139 mmol/L 135 - 144 mmol/L [facility] Urea nitrogen (BldV) [Mass/Vol] 21 mg/dL High 6 - 20 mg/dL [facility] Urea nitrogen/Creatinine (Bld) [Mass ratio] 34 High [facility] Basic Metabolic Profon 06-05 (cont.) Normal [facility] Comment on above: Result Comment: Aver age GFR for 50-59 years old: 93 mL/min/1.73sq m Chronic Kidney Disease: <60 mL/min/1.73sq m Kidney failure: <15 mL/min/1.73sq m eGFR calculated using average adult body mass. Additional eGFR calculator available at: http://www.[employer]/multiple_crcl_2012.htm Performed By: #### B ANILA UA #### [facility] [address] [place] [address] [place] [address] Etl Software Engineer: César Rueda MD #### GLYHGB #### [facility] [address] [place] [address] Etl Software Engineer: Harlan Yates MD Anion gap [Moles/Vol] 10 mmol/L Normal - [facility] Comment on above: Performed By: #### Pito HIGH, UA #### [facility] [address] [place] [address] Etl Software Engineer: César Rueda MD #### GLYHGB #### [facility] [address] [place] [address] Etl Software Engineer: Harlan Yates MD BUN/CRE Ratio 34 High - [facility] Comment on above: Performed By: #### B MP, UA #### [facility] [address] [place], [place] [phone] Etl Software Engineer: César Rueda MD #### GLYHGB #### [address] [phone] Etl Software Engineer: Harlan Yates MD Calcium [Mass/Vol] 9.3 mg/dL Normal 8.6-10.4 [facility] Comment on above: Performed By: #### B MP, UA #### [facility] [address] [place], [place] [phone] Etl Software Engineer: César Rueda MD #### GLYHGB #### [address] [address] Etl Software Engineer: Harlan Yates MD Chloride [Moles/Vol] 102 mmol/L Normal 98-107 [facility] Comment on above: Performed By: #### B MP, UA #### [facility] [address] [place] [address] Dr. [place], [place] [phone] Etl Software Engineer: César Rueda MD #### GLYHGB #### [address] [address] Etl Software Engineer: Harlan Yates MD CO2 [Moles/Vol] 27 mmol/L Normal 20-31 [facility] Comment on above: Performed By: #### B MP, UA #### [facility] [address] [place] [address] Dr. [place], [place] [phone] Etl Software Engineer: César Rueda MD #### GLYHGB #### [address] [address] Etl Software Engineer: Harlan Yates MD Creatinine [Mass/Vol] 0.61 mg/dL Normal 0.50-0.90 [facility] Comment on above: Performed By: #### B MP, UA #### [facility] [address] [place] [address] Dr. [place], [place] [phone] Etl Software Engineer: César Rueda MD #### GLYHGB #### [facility] [address] [place] [address] Etl Software Engineer: Harlan Yates MD GFR, Amer >60 Normal >60 [facility] Comment on above: Performed By: #### B MP, UA #### [facility] [address] [place], [place] [phone] Etl Software Engineer: César Rueda MD #### GLYHGB #### [address] [address] Etl Software Engineer: Harlan Yates MD GFR,non Amer >60 Normal >60 [facility] Comment on above: Performed By: #### B MP, UA #### [address] [place], [place] [phone] Etl Software Engineer: César Rueda MD #### GLYHGB #### [address] [address] Etl Software Engineer: Harlan Yates MD Glucose [Mass/Vol] 196 mg/dL High 70-99 [facility] Comment on above: Performed By: #### B MP, UA #### [facility] [address] [place] [address] Dr. [place], [place] [phone] Etl Software Engineer: César Rueda MD #### GLYHGB #### [address] [address] Etl Software Engineer: Harlan Yates MD Potassium [Moles/Vol] 4.5 mmol/L Normal 3.7-5.3 [facility] Comment on above: Performed By: #### B MP, UA #### [facility] [address] [place] [address] Dr. [place], [place] [phone] Etl Software Engineer: César Rueda MD #### GLYHGB #### [facility] [address] [place] [address] Etl Software Engineer: Harlan Yates MD Sodium [Moles/Vol] 139 mmol/L Normal 135-144 [facility] Comment on above: Performed By: #### B MP, UA #### [facility] [address] [place], [place] [phone] Etl Software Engineer: César Rueda MD #### GLYHGB #### [address] [place] [address] Etl Software Engineer: Harlan Yates MD Staging: Normal [facility] Comment on above: Result Comment: Stag e 1: Some kidney damage normal GFR Stage 2: Mild kidney damage GFR 60-89 Stage 3: Moderate kidney damage GFR 30-59 Stage 4: Severe kidney damage GFR 15-29 Stage 5: Severe kidney damage GFR <15 ESRD - chronic treatment by dialysis or transplant Performed By: #### B MP, UA #### [facility] [address] [place], [place] [phone] Etl Software Engineer: César Rueda MD #### GLYHGB #### [address] [address] Etl Software Engineer: Harlan Yates MD Urea nitrogen [Mass/Vol] 21 mg/dL High 6-20 [facility] Comment on above: Performed By: #### B MP, UA #### [facility] [address] [place] [address] [address] [place], [place] [phone] Etl Software Engineer: César Rueda MD #### GLYHGB #### [facility] [address] [place] [address] Etl Software Engineer: Harlan Yates MD Hemoglobin A1Con 06-05-2021 Glucose [Mass/Vol] 258 mg/dL [facility] Comment on above: Result Comment: The ADA and AACC recommend providing the estimated average glucose result to permit better patient understanding of their HBA1c result. Performed By: #### G LYHGB, MANDYRF, URNMAB #### [facility] [address] [place], [place] [phone] Etl Software Engineer: Harlan Yates MD #### BMP #### [facility] [address] [place] [address] [address] [place], [place] [phone] Etl Software Engineer: César Rueda MD HbA1c (Bld) [Mass fraction] 10.6 % High 4.0-6.0 [facility] Comment on above: Performed By: #### G LYHGB, LIPRF, URNMAB #### [facility] [address] [place], [place] [phone] Etl Software Engineer: Harlan Yates MD #### BMP #### [facility] [address] [place] [address] [place] [address] Etl Software Engineer: César Rueda MD Glucose [Mass/Vol] 258 mg/dL [facility] Comment on above: The ADA and AACC rec ommend providing the estimated average glucose result to permit better patient understanding of their HBA1c result. HbA1c (Bld) [Mass fraction] 10.6 % High 4.0 - 6.0 % [facility] Interpretation and review of laboratory results Abnormal [facility] - Chemistry and C hemistry - challengeon 06-05-2021 GFR/1.73 sq M.predicted MDRD (S/P/Bld) [Vol rate/Area] [facility] Comment on above: Average GFR for 50-5 9 years old: 93 mL/min/1.73sq m Chronic Kidney Disease: <60 mL/min/1.73sq m Kidney failure: <15 mL/min/1.73sq m eGFR calculated using average adult body mass. Additional eGFR calculator available at: http://www.[employer]/multiple_crcl_2012.htm Stage 1: Some kidney damage normal GFR Stage 2: Mild kidney damage GFR 60-89 Stage 3: Moderate kidney damage GFR 30-59 Stage 4: Severe kidney damage GFR 15-29 Stage 5: Severe kidney damage GFR <15 ESRD - chronic treatment by dialysis or transplant Urinalysison 04-20-2022 Bilirubin Urine Negative NEGATIVE [facility] Color, UA Yellow Yellow [facility] Glucose, Ur Negative NEGATIVE [facility] Interpretation and review of laboratory results Abnormal [facility] Ketones Ql (U) Negative NEGATIVE [facility] Leukocyte esterase Test strip Ql (U) Negative NEGATIVE [facility] Nitrite, Urine Negative NEGATIVE [facility] pH, UA 5.5 [facility] Protein, UA Negative NEGATIVE [facility] Specific [place], UA 1.025 High [facility] Turbidity UA Clear Clear [facility] Urine Hgb Negative NEGATIVE [facility] Urobilinogen, Urine Normal Normal [facility] Urinalysis, Routineon 2021 Bilirubin, SemiQt,Ur Negative Normal NEG [facility] Comment on above: Performed By: #### B MP, UA #### [address] [place] [address] Etl Software Engineer: César Rueda MD #### GLYHGB #### [address] [phone] Etl Software Engineer: Harlan Yates MD Blood, Urine Negative Normal NEG [facility] Comment on above: Performed By: #### B MP, UA #### [address] [place] [phone] Etl Software Engineer: César Rueda MD #### GLYHGB #### [address] [phone] Etl Software Engineer: Harlan Yates MD Clarity (U) Clear Normal CLEAR [facility] Comment on above: Performed By: #### B MP, UA #### [address] [place] [address] Etl Software Engineer: César Rueda MD #### GLYHGB #### [address] [address] Etl Software Engineer: Harlan Yates MD Color (U) Yellow Normal YEL [facility] Comment on above: Performed By: #### B MP, UA #### [facility] [address] [place] [address] [place] [address] Etl Software Engineer: César Rueda MD #### GLYHGB #### [facility] [address] [place] [address] Etl Software Engineer: Harlan Yates MD Glucose Ql (U) Negative Normal NEG [facility] Comment on above: Performed By: #### B MP, UA #### [facility] [address] [place] [address] [place] [address] Etl Software Engineer: César Rueda MD #### GLYHGB #### [facility] [address] [place] [address] Etl Software Engineer: Harlan Yates MD Ketones Ql (U) Negative Normal NEG [facility] Comment on above: Performed By: #### B MP, UA #### [address] [place] [address] Etl Software Engineer: César Rueda MD #### GLYHGB #### [address] [address] Etl Software Engineer: Harlan Yates MD Leukocyte esterase Test strip Ql (U) Negative Normal NEG [facility] Comment on above: Performed By: #### B MP, UA #### [address] [place], [place] [phone] Etl Software Engineer: César Rueda MD #### GLYHGB #### [facility] [address] [place] [address] Etl Software Engineer: Harlan Yates MD Nitrite,Ur Negative Normal NEG [facility] Comment on above: Performed By: #### B MP, UA #### [address] [place] [address] Etl Software Engineer: César Rueda MD #### GLYHGB #### [address] [address] Etl Software Engineer: Harlan Yates MD PH,Ur 5.5 Normal 5.0-9.0 [facility] Comment on above: Performed By: #### B MP, UA #### [facility] [address] [place] [address] [address], [place] [phone] Etl Software Engineer: César Rueda MD #### GLYHGB #### [address] [address] Etl Software Engineer: Harlan Yates MD Protein Ql (U) Negative Normal NEG [facility] Comment on above: Performed By: #### B ANILA, UA #### [facility] [address] [place] [address] [place] [address] Etl Software Engineer: César Rueda MD #### GLYHGB #### [address] [address] Etl Software Engineer: Harlan Yates MD Spec. [place],Ur 1.025 High 1.010-1.020 [facility] Comment on above: Performed By: #### B ANILA, UA #### [address] [place], [place] [phone] Etl Software Engineer: César Rueda MD #### GLYHGB #### [address] [address] Etl Software Engineer: Harlan Yates MD Urobilinogen,Ur Normal Normal NORM [facility] Comment on above: Performed By: #### B MP, UA #### [address] 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 Zachary Adrian [address] [place] [address] RE: Milana Hetal Carbajal 67 Dear Yazan, [...] Osei RICO/martha Dictated but not read Normal [facility] Surgery Office/Clinic Noteon 09-19-2020 Surgery [...] or pressure, No Edema, No History of GA/CAD, No History of A-Fib Gastrointestinal: No Abdominal [...] in this document, created by the medical office rep for me, accurately reflects the services I [...] by Heidi Hernandez 09/20/2020 06:46 EDT Normal [facility] Laboratory - Chemistry and C hemistry - challengeon 09-03-2020 Albumin [Mass/Vol] 4.20 g/dL Invalid Interpretation Code 3.7-4.5 [facility] Albumin/Globulin [Mass ratio] 1.3 {ratio} Invalid Interpretation Code 1.0-2.4 [facility] ALP [Catalytic activity/Vol] 83.0 U/L Invalid Interpretation Code 31-155 [facility] ALT [Catalytic activity/Vol] 23.0 U/L Invalid Interpretation Code 0-50 [facility] Anion gap [Moles/Vol] 15 mmol/L Invalid Interpretation Code 10-20 [facility] AST [Catalytic activity/Vol] 15.0 U/L Invalid Interpretation Code 0-40 [facility] Bilirubin [Mass/Vol] 0.40 mg/dL Invalid Interpretation Code 0.0-1.0 [facility] Bilirubin Ql (U) Negative Invalid Interpretation Code Negative [facility] Calcium [Mass/Vol] 9.40 mg/dL Invalid Interpretation Code 8.5-10.8 [facility] Chloride [Moles/Vol] 98.0 mmol/L Invalid Interpretation Code 100-112 [facility] Cholesterol [Mass/Vol] 275.0 mg/dL Invalid Interpretation Code 0-200 [facility] Cholesterol in HDL [Mass/Vol] 37.0 mg/dL Invalid Interpretation Code 50-100 [facility] Cholesterol in LDL [Mass/Vol] 167.0 mg/dL Invalid Interpretation Code 0-130 [facility] Cholesterol in VLDL [Mass/Vol] 71.0 mg/dL Invalid Interpretation Code 0-39 [facility] Cholesterol.total/Chol esterol in HDL [Mass ratio] 7 {ratio} Invalid Interpretation Code [facility] CO2 [Moles/Vol] 29.0 mmol/L Invalid Interpretation Code 23-30 [facility] Creatinine [Mass/Vol] 0.50 mg/dL Invalid Interpretation Code 0.5-1.5 [facility] GFR/1.73 sq M.predicted among non-blacks MDRD (S/P/Bld) [Vol rate/Area] 128 mL/min/{1.73_m2} Invalid Interpretation Code [facility] Glucose [Mass/Vol] 365.0 mg/dL Invalid Interpretation Code 80-117 [facility] Ketones Ql (U) 3+ Invalid Interpretation Code Negative [facility] pH (U) 5 [pH] Invalid Interpretation Code 5.0-9.0 [facility] Potassium [Moles/Vol] 5.0 mmol/L Invalid Interpretation Code 3.5-5.3 [facility] Protein [Mass/Vol] 7.40 g/dL Invalid Interpretation Code 6.3-7.9 [facility] Sodium [Moles/Vol] 137.0 mmol/L Invalid Interpretation Code 135-148 [facility] Specific gravity (U) [Rel density] 1.015 Invalid Interpretation Code 1.003-1.030 [facility] Triglyceride [Mass/Vol] 353.0 mg/dL Invalid Interpretation Code 30-150 [facility] Urea nitrogen [Mass/Vol] 12.0 mg/dL Invalid Interpretation Code 7-25 [facility] Urea nitrogen/Creatinine [Mass ratio] 24 mg/mg Invalid Interpretation Code 6-20 [facility] Urobilinogen (U) [Mass/Vol] normal Invalid Interpretation Code normal [facility] Laboratory - Hematology and Cell countson 09-03-2020 Erythrocyte distribution width (RBC) [Ratio] 12.40 % Invalid Interpretation Code 11.5-15.5 [facility] HbA1c (Bld) [Mass fraction] 13.20 % Invalid Interpretation Code 4.3-6.3 [facility] Hematocrit (Bld) [Volume fraction] 43.40 % Invalid Interpretation Code 35.7-47.1 [facility] Hemoglobin (Bld) [Mass/Vol] 14.50 g/dL Invalid Interpretation Code 11.9-15.7 [facility] Hemoglobin Ql (U) Negative Invalid Interpretation Code Negative [facility] MCH (RBC) [Entitic mass] 30.30 pg Invalid Interpretation Code 23.2-33.3 [facility] MCHC (RBC) [Mass/Vol] 33.40 g/dL Invalid Interpretation Code 32.0-36.0 [facility] MCV (RBC) [Entitic vol] 90.60 fL Invalid Interpretation Code 83.4-101.4 [facility] Platelet mean volume (Bld) [Entitic vol] 10.80 fL Invalid Interpretation Code 8.3-11.5 [facility] Platelets (Bld) [#/Vol] 278.0 10*3/uL Invalid Interpretation Code 150-400 [facility] RBC (Bld) [#/Vol] 4.790 10*6/uL Invalid Interpretation Code 3.72-5.24 [facility] WBC (Bld) [#/Vol] 6.80 10*3/uL Invalid Interpretation Code 3.9-10.3 [facility] Laboratory - Specimen inform ationon 09-03-2020 Clarity (U) clear Invalid Interpretation Code Clear [facility] Color (U) yellow Invalid Interpretation Code yellow [facility] - Urinalysison Glucose Test strip (U) [Mass/Vol] 4+ Invalid Interpretation Code Negative [facility] Leukocyte esterase Test strip Ql (U) Negative Invalid Interpretation Code Negative [facility] Nitrite Ql (U) Negative Invalid Interpretation Code Negative [facility] Protein Ql (U) Negative Invalid Interpretation Code Negative [facility] No Panel Informationon 09-03 332.0 mg/dL Invalid Interpretation Code [facility] 574 Invalid Interpretation Code 243-911 [facility] 15.3 Invalid Interpretation Code >5.4 [facility] XR ANKLE RT MIN 3 VIEWSon XR [...] of the midfoot. Electronically authenticated by: TONYA FLROES Date: 2020-08-25 19:17 Normal [facility] XR KNEE RT 4V or >on 021 [...] TONYA FLORES Date: 2020-08-25 19:20 Normal [facility] Basic Metabolic Panelon 11-16 Anion gap [Moles/Vol] 11 mmol/L 9 - 17 mmol/L [place] Bun/Cre Ratio 22 High [place] Calcium [Mass/Vol] 8.9 mg/dL 8.6 - 10. 4 mg/dL [place] Chloride [Moles/Vol] 93 mmol/L Low 98 - 10 7 mmol/L [place] CO2 [Moles/Vol] 26 mmol/L 20 - 31 mmol/L [place] Creatinine [Mass/Vol] 0.67 mg/dL 0.5 - 0.9 mg/dL [place] GFR >60 >60 mL/min [place] GFR Non- >60 >60 mL/min [place] Glucose [Mass/Vol] 365 mg/dL High 70 - 99 mg/dL [place] Interpretation and review of laboratory results Abnormal [place] Potassium [Moles/Vol] 4.3 mmol/L 3.7 - 5.3 mmol/L [place] Sodium [Moles/Vol] 130 mmol/L Low 135 - 144 mmol/L [place] Urea nitrogen [Mass/Vol] 15 mg/dL 6 - 20 mg/dL [place] CBC Auto Differentialon 11-16 Basophils (Bld) [#/Vol] 10*3/uL [place] Basophils/100 WBC (Bld) 0 % 0 - 2 % [place] Differential Type NOT REPORTED [place] Eosinophils (Bld) [#/Vol] 10*3/uL [place] Eosinophils/100 WBC (Bld) 0 % Low 1 - 4 % [place] Erythrocyte distribution width (RBC) [Ratio] 13.2 % 11.8 - 14.4 % [place] Hematocrit (Bld) [Volume fraction] 44.1 % 36.3 - 47.1 % [place] Hemoglobin (Bld) [Mass/Vol] 14.3 g/dL 11.9 - 15.1 g/dL [place] Immature granulocytes (Bld) [#/Vol] 10*3/uL [place] Immature granulocytes (Bld) [#/Vol] 0 % 0 [place] Interpretation and review of laboratory results Abnormal [place] Lymphocytes (Bld) [#/Vol] 1.03 10*3/uL Low [place] Lymphocytes/100 WBC (Bld) 18 % Low 24 - 43 % [place] MCH (RBC) [Entitic mass] 30.0 pg 25.2 - 33.5 pg [place] MCHC (RBC) [Mass/Vol] 32.4 g/dL 28.4 - 34.8 g/dL [place] MCV (RBC) [Entitic vol] 92.5 fL 82.6 - 102.9 fL [place] Monocytes (Bld) [#/Vol] 0.39 10*3/uL [place] Monocytes/100 WBC (Bld) 7 % 3 - 12 % [place] Platelet mean volume (Bld) [Entitic vol] 10.5 fL 8.1 - 13.5 fL [place] Platelets (Bld) [#/Vol] 220 10*3/uL [place] Platelets (Bld) [#/Vol] NOT REPORTED [place] RBC (Bld) [#/Vol] 4.77 10*6/uL 3.95 - 5.1 1 m/uL [place] RBC morphology finding Nom (Bld) NOT REPORTED [place] Segmented neutrophils/100 WBC (Bld) 75 % High 36 - 65 % [place] Segs Absolute 4.46 [place] WBC (Bld) [#/Vol] 5.9 10*3/uL [place] WBC (Bld) [#/Vol] 0.0 10*3/uL 0.0 per 10 0 WBC [place] WBC Morphology NOT REPORTED [place] COVID-19on 12-02-2019 Interpretation and review of laboratory results Abnormal [place] SARS-CoV-2, Rapid DETECTED Abnormal Not Detected [place] Comment on above: Rapid NAAT: The [...] this assay. Fact sheet for Healthcare Providers: https://www.fda.gov/media/769274/download Fact sheet for Patients: https://www.fda.gov/media/312236/download Methodology: Isothermal Nucleic Acid Amplification Results reported to the appropriate Health Department Source .NASOPHARYNGEAL SWAB [place] Glucose, Whole Bloodon 12-01 Glucose [Mass/Vol] 227 mg/dL High 74 - 100 mg/dL [place] Interpretation and review of laboratory results Abnormal [place] Lactate, Sepsison 12-02-2019 Interpretation and review of laboratory results Abnormal [place] Lactic Acid, Sepsis 2.0 mmol/L High 0.5 - 1. 9 mmol/L [place] Lactic Acid, Sepsis, Whole Blood NOT REPORTED 0.5 - 1.9 mmol/L [place] Metabolic Panelon 12-02-2019 GFR/1.73 sq M predicted among non-blacks MDRD (S/P/Bld) [Vol rate/Area] [place] Comment on above: Average GFR for 50-5 9 years old: 93 mL/min/1.73sq m Chronic Kidney Disease: <60 mL/min/1.73sq m Kidney failure: <15 mL/min/1.73sq m eGFR calculated using average adult body mass. Additional eGFR calculator available at: http://www.KidsCash.[employer]ensory [employer]/multiple_crcl_2012.htm Stage 1: Some kidney damage normal GFR Stage 2: Mild kidney damage GFR 60-89 Stage 3: Moderate kidney damage GFR 30-59 Stage 4: Severe kidney damage GFR 15-29 Stage 5: Severe kidney damage GFR <15 ESRD - chronic treatment by dialysis or transplant Otheron 12-02-2019 SARS-CoV-2 [place] POCT Glucoseon 12-02-2019 Glucose [Mass/Vol] 227 mg/dL [place] Interpretation and review of laboratory results Normal [place] QC OK? yes [place] XR CHEST 1 VIEWon 12-02-2019 Andrew, Mhpn Incoming Radiant Results From [employer] - 12/02/2019 12:43 PM EDT EXAMINATION: ONE [...] focal airspace consolidation, pleural effusion, or pneumothorax. [place] EXAMINATION: ONE XRAY VIEW OF THE CHEST 12/02/2019 12:28 pm COMPARISON: None. HISTORY: ORDERING SYSTEM PROVIDED HISTORY: ProbableCOVID-19 pneumonia TECHNOLOGIST PROVIDED HISTORY: ProbableCOVID-19 pneumonia FINDINGS: Limited low lung volume examination. Cardiac silhouette is borderline prominent. Generalized interstitial prominence noted with subtle lower lung opacities, accentuated by hypoaeration. No definite pleural effusion or pneumothorax. Osseous structures and soft tissues are grossly intact. [place] Generalized interstitial prominence accentuated by hypoaeration. Bibasilar opacities favor atelectasis/scarrin g. No obvious focal airspace consolidation, pleural effusion, or pneumothorax. [facility] [place] Laboratory - Chemistry and C hemistry - challengeon 10-03-2019 Bilirubin Ql (U) Negative Invalid Interpretation Code Negative [facility] Ketones Ql (U) 1+ Invalid Interpretation Code Negative [facility] pH (U) 6 [pH] Invalid Interpretation Code 5.0-9.0 [facility] Specific gravity (U) [Rel density] 1.010 Invalid Interpretation Code 1.003-1.030 [facility] Urobilinogen (U) [Mass/Vol] normal Invalid Interpretation Code normal [facility] - Hematology and Cell countson 10-03-2019 HbA1c (Bld) [Mass fraction] 10.10 % Invalid Interpretation Code 4.3-6.3 [facility] Hemoglobin Ql (U) Negative Invalid Interpretation Code Negative [facility] Laboratory - Specimen inform ationon 10-03-2019 Clarity (U) clear Invalid Interpretation Code Clear [facility] Color (U) yellow Invalid Interpretation Code yellow [facility] - Urinalysison Glucose Test strip (U) [Mass/Vol] 4+ Invalid Interpretation Code Negative [facility] Leukocyte esterase Test strip Ql (U) Negative Invalid Interpretation Code Negative [facility] Nitrite Ql (U) Negative Invalid Interpretation Code Negative [facility] Protein Ql (U) Negative Invalid Interpretation Code Negative [facility] No Panel Informationon 10-02 243.0 mg/dL Invalid Interpretation Code [facility] Basic Metabolic Panelon 06-17 Anion gap [Moles/Vol] 11 mmol/L 9 - 17 mmol/L [place] Bun/Cre Ratio 38 High [place] Calcium [Mass/Vol] 9.1 mg/dL 8.6 - 10. 4 mg/dL [place] Chloride [Moles/Vol] 103 mmol/L 98 - 10 7 mmol/L [place] CO2 [Moles/Vol] 25 mmol/L 20 - 31 mmol/L [place] Creatinine [Mass/Vol] 0.55 mg/dL 0.5 - 0.9 mg/dL [place] GFR >60 >60 mL/min [place] GFR Non- >60 >60 mL/min [place] Glucose [Mass/Vol] 291 mg/dL High 70 - 99 mg/dL [place] Potassium [Moles/Vol] 4.8 mmol/L 3.7 - 5.3 mmol/L [place] Sodium [Moles/Vol] 139 mmol/L 135 - 144 mmol/L [place] Urea nitrogen [Mass/Vol] 21 mg/dL High 6 - 20 mg/dL [place] Hemoglobin A1Con 07-14-2019 Glucose [Mass/Vol] 280 mg/dL [place] Comment on above: The ADA and AACC rec ommend providing the estimated average glucose result to permit better patient understanding of their HBA1c result. HbA1c (Bld) [Mass fraction] 11.4 % High 4.8 - 5.9 % [place] Interpretation and review of laboratory results Abnormal [place] Insulin, totalon 07-14-2019 INR Coag (Bld) [Relative time] [place] Comment on above: Fastin.6-24.9 30 min: 20-112 60 min: 29-88 90 min: 26-84 120 min: 22-79 Insulin 7.7 mU/L [place] Insulin Comment [address] [facility] [place] [place] Lipid Panelon 07-14-2019 Cholesterol [Mass/Vol] 219 mg/dL High <200 [place] Comment on above: Cholesterol Guidelines: <200 Desirable 200-240 Borderline >240 Undesirable Cholesterol in HDL [Mass/Vol] 33 mg/dL Low >40 [place] Comment on above: HDL Guidelines: <40 Undesirable 40-59 Borderline >59 Desirable Cholesterol in LDL [Mass/Vol] 110 mg/dL 0 - 130 mg/dL [place] Comment on above: LDL Guidelines: <100 Desirable 100-129 Near to/above Desirable 130-159 Borderline >159 Undesirable Direct (measured) LDL and calculated LDL are not interchangeable tests. Cholesterol in VLDL [Mass/Vol] NOT REPORTED High 1 - 30 mg/dL [place] Cholesterol.total/Chol esterol in HDL [Mass ratio] 6.6 {ratio} High <5 [place] Triglyceride [Mass/Vol] 381 mg/dL High <150 [place] Comment on above: Triglyceride Guidelines: <150 Desirable 150-199 Borderline 200-499 High >499 Very high Based on AHA Guidelines for fasting triglyceride, November 2011. Metabolic Panelon 07-14-2019 GFR/1.73 sq M predicted among non-blacks MDRD (S/P/Bld) [Vol rate/Area] [place] Comment on above: Stage 1: Some [...] body mass. Additional eGFR calculator available at: http://www.KidsCash.[employer]ensory [employer]/multiple_crcl_2012.htm Otheron 07-14-2019 Interpretation and review of laboratory results Abnormal [place] Basic Metabolic PanelOrdered By: Yazan Adrian on 03-11-2019 Anion gap [Moles/Vol] 13 mmol/L 9 - 17 mmol/L [facility] Work Phone: Bun/Cre Ratio 28 High [facility] Work Phone: Calcium [Mass/Vol] 8.9 mg/dL 8.6 - 10. 4 mg/dL [employer] Phone: Chloride [Moles/Vol] 102 mmol/L 98 - 10 7 mmol/L [facility] Phone: CO2 [Moles/Vol] 24 mmol/L 20 - 31 mmol/L [employer] Phone: Creatinine [Mass/Vol] 0.54 mg/dL 0.5 - 0.9 mg/dL [employer] Phone: GFR >60 >60 mL/min [employer] Phone: GFR Comment [facility] Phone: Comment on above: Average GFR for 50-5 9 years old: 93 mL/min/1.73sq m Chronic Kidney Disease: <60 mL/min/1.73sq m Kidney failure: <15 mL/min/1.73sq m eGFR calculated using average adult body mass. Additional eGFR calculator available at: http://www.Live Shuttle/multiple_crcl_2012.htm GFR Non- >60 >60 mL/min [facility] Phone: GFR Staging [facility] Phone: Comment on above: Stage 1: Some kidney damage normal GFR Stage 2: Mild kidney damage GFR 60-89 Stage 3: Moderate kidney damage GFR 30-59 Stage 4: Severe kidney damage GFR 15-29 Stage 5: Severe kidney damage GFR <15 ESRD - chronic treatment by dialysis or transplant Glucose [Mass/Vol] 333 mg/dL High 70 - 99 mg/dL [employer] Work Phone: Potassium [Moles/Vol] 4.3 mmol/L 3.7 - 5.3 mmol/L [facility] Phone: Sodium [Moles/Vol] 139 mmol/L 135 - 144 mmol/L [facility] Phone: Urea nitrogen [Mass/Vol] 15 mg/dL 6 - 20 mg/dL [employer] Phone: Hemoglobin [id number] By: Priya Adrian on 03-11-2019 Glucose [Mass/Vol] 298 mg/dL [employer] Phone: Comment on above: The ADA and AACC rec ommend providing the estimated average glucose result to permit better patient understanding of their HBA1c result. HbA1c (Bld) [Mass fraction] 12.0 % High 4.8 - 5.9 % [employer] Phone: Interpretation and review of laboratory results Abnormal [employer] Phone: Lipid PanelOrdered By: Yazan Adrian on 03-11-2019 Cholesterol [Mass/Vol] 239 mg/dL High <200 Me [employer] Phone: Comment on above: Cholesterol Guidelines: <200 Desirable 200-240 Borderline >240 Undesirable Cholesterol in HDL [Mass/Vol] 39 mg/dL Low >40 [employer] Phone: Comment on above: HDL Guidelines: <40 Undesirable 40-59 Borderline >59 Desirable Cholesterol in LDL [Mass/Vol] 150 mg/dL High 0 - 130 mg/dL [employer] Phone: Comment on above: LDL Guidelines: <100 Desirable 100-129 Near to/above Desirable 130-159 Borderline >159 Undesirable Direct (measured) LDL and calculated LDL are not interchangeable tests. Cholesterol.total/Chol esterol in HDL [Mass ratio] 6.1 {ratio} High <5 [employer] Phone: Triglyceride [Mass/Vol] 250 mg/dL High <150 [employer] Phone: Comment on above: Triglyceride Guidelines: <150 Desirable 150-199 Borderline 200-499 High >499 Very high Based on AHA Guidelines for fasting triglyceride, November 2011. VLDL NOT REPORTED High 1 - 30 mg/dL [employer] Work Phone: Microalbumin, UrOrdered By: Yazan Adrian on 03-11-2019 Albumin/Creatinine DL <= 20 mg/L (24H U) [Mass ratio] <12 <21 mg/L [facility] Phone: Albumin/Creatinine DL <= 20 mg/L (U) [Ratio] CANNOT BE CALCULATED <25 mcg/mg creat [employer] Phone: Creatinine [Mass/Vol] 120.7 mg/dL 28 - 2 17 mg/dL [employer] Phone: No Panel InformationOrdered By: Yazan Adrian on 03-11-2019 Interpretation and review of laboratory results Abnormal [facility] Phone: Basic Metabolic Panelon 11-16 Anion gap [Moles/Vol] 13 mmol/L 9 - 17 mmol/L [place] Bun/Cre Ratio 34 High [place] Calcium [Mass/Vol] 9.2 mg/dL 8.6 - 10. 4 mg/dL [place] Chloride [Moles/Vol] 97 mmol/L Low 98 - 10 7 mmol/L [place] CO2 [Moles/Vol] 24 mmol/L 20 - 31 mmol/L [place] Creatinine [Mass/Vol] 0.47 mg/dL Low 0.5 - 0.9 mg/dL [place] GFR >60 >60 mL/min [place] GFR Non- >60 >60 mL/min [place] Glucose [Mass/Vol] 288 mg/dL High 70 - 99 mg/dL [place] Interpretation and review of laboratory results Abnormal [place] Potassium [Moles/Vol] 4.6 mmol/L 3.7 - 5.3 mmol/L [place] Sodium [Moles/Vol] 134 mmol/L Low 135 - 144 mmol/L [place] Urea nitrogen [Mass/Vol] 16 mg/dL 6 - 20 mg/dL [place] Hemoglobin A1Con 12-04-2018 Glucose [Mass/Vol] 246 mg/dL [place] Comment on above: The ADA and AACC rec ommend providing the estimated average glucose result to permit better patient understanding of their HBA1c result. HbA1c (Bld) [Mass fraction] 10.2 % High 4.8 - 5.9 % [place] Interpretation and review of laboratory results Abnormal [place] Metabolic Panelon 12-04-2018 GFR/1.73 sq M predicted among non-blacks MDRD (S/P/Bld) [Vol rate/Area] [place] Comment on above: Stage 1: Some [...] body mass. Additional eGFR calculator available at: http://www.Live Shuttle/multiple_crcl_2012.htm [facility] 12-02-2017 Cholesterol [Mass/Vol] 200.0 mg/dL Invalid Interpretation Code 0-200 [facility] Cholesterol in HDL [Mass/Vol] 45.0 mg/dL Invalid Interpretation Code 50-100 [facility] Cholesterol in LDL [Mass/Vol] 126.0 mg/dL Invalid Interpretation Code 0-130 [facility] Triglyceride [Mass/Vol] 144.0 mg/dL Invalid Interpretation Code 30-150 [facility] Laboratory - Urinalysison Glucose Test strip (U) [Mass/Vol] Negative Invalid Interpretation Code negative [facility] Protein (U) [Mass/Vol] Negative Invalid Interpretation Code negative [facility] Metabolic Panelon 12-02-2017 Glucose [Mass/Vol] 147.0 mg/dL Invalid Interpretation Code 80-117 [facility] HbA1c (Bld) [Mass fraction] 6.50 % Invalid Interpretation Code 4.3-6.3 [facility] No Panel Informationon 12-02 140.0 mg/dL Invalid Interpretation Code [facility] Otheron 12-02-2017 Cholesterol in VLDL [Mass/Vol] 29.0 mg/dL Invalid Interpretation Code 0-39 [facility] Cholesterol.total/Chol esterol in HDL [Mass ratio] 4 {ratio} Invalid Interpretation Code [facility] Glucose Test strip (U) [Mass/Vol] Negative negative [facility] 140 [facility] Urinalysison 12-02-2017 Protein (U) [Mass/Vol] Negative negative Bl [facility] [employer] Hematologyon 05-09-2016 ESR Velocity (Bld) 10 mm/h Invalid Interpretation Code 0-20 [facility] Thyroidon 05-09-2016 T4 mass conc 4.82 ug/dL Invalid Interpretation Code 5.00-12.00 [facility] Thyrotropin Qn 1.41 m[IU]/L Invalid Interpretation Code 0.50-4.00 [facility] 01-29-2015 Cholesterol in HDL mass conc 42.0 mg/dL Invalid Interpretation Code 50-100 [facility] Cholesterol in LDL mass conc 155.0 mg/dL Invalid Interpretation Code 0-130 [facility] Cholesterol mass conc 224.0 mg/dL Invalid Interpretation Code 0-200 [facility] Triglyceride mass conc 135.0 mg/dL Invalid Interpretation Code 30-150 [facility] - Chemistry and C hemistry - challengeon 01-29-2015 Bilirubin Ql (U) Negative Invalid Interpretation Code Negative [facility] Ketones Ql (U) Negative Invalid Interpretation Code Negative [facility] Urobilinogen (U) [Mass/Vol] normal Invalid Interpretation Code normal [facility] - Hematology and Cell countson 01-29-2015 Hemoglobin Ql (U) Negative Invalid Interpretation Code Negative [facility] - Urinalysison Leukocyte esterase Test strip Ql (U) Negative Invalid Interpretation Code Negative [facility] Nitrite Ql (U) Negative Invalid Interpretation Code Negative [facility] Protein Ql (U) Negative Invalid Interpretation Code Negative [facility] Metabolic Panelon 01-29-2015 Anion gap molar conc 21 mmol/L Invalid Interpretation Code 10-20 [facility] Calcium mass conc 9.20 mg/dL Invalid Interpretation Code 8.5-10.8 [facility] Chloride molar conc 99 mmol/L Invalid Interpretation Code 100-112 [facility] CO2 molar conc 24 mmol/L Invalid Interpretation Code 23-30 [facility] Creatinine mass conc 0.70 mg/dL Invalid Interpretation Code 0.5-1.5 [facility] GFR/1.73 sq M predicted among non-blacks MDRD vol rate/area (S/P/Bld) 89 mL/min/{1.73_m2} Invalid Interpretation Code [facility] Glucose mass conc 172.0 mg/dL Invalid Interpretation Code 80-117 [facility] Hemoglobin A1c/Hemoglobin.total mass fraction (Bld) 6.90 % Invalid Interpretation Code 4.3-6.3 [place] [employer] Potassium molar conc 5.0 mmol/L Invalid Interpretation Code 3.5-5.3 [place] [employer] Sodium molar conc 139 mmol/L Invalid Interpretation Code 135-148 [place] [employer] Urea nitrogen mass conc 15.0 mg/dL Invalid Interpretation Code 7-25 [place] [employer] Urea nitrogen/Creatinine mass ratio 21 mg/mg Invalid Interpretation Code 6-20 [place] [employer] No Panel Informationon 01-29 151.0 mg/dL Invalid Interpretation Code [place] [employer] Otheron 01-29-2015 Bilirubin Ql (U) Negative Negative [facility] [employer] Cholesterol in VLDL mass conc 27.0 mg/dL Invalid Interpretation Code 0-39 [place] [employer] Cholesterol.total/Chol esterol in HDL mass ratio 5 {ratio} Invalid Interpretation Code [place] [employer] Glucose Test strip mass conc (U) 4+ Invalid Interpretation Code Negative [place] [employer] Hemoglobin Ql (U) Negative Negative [facility] Nitrite Ql (U) Negative Negative [place] [employer] pH (U) 5 [pH] Invalid Interpretation Code 4.5-7.8 [place] [employer] Protein Ql (U) Negative Negative [place] [employer] Urobilinogen Test strip mass conc (U) normal normal [place] [employer] 151 [facility] Urinalysison 01-29-2015 Clarity Nom (U) clear Invalid Interpretation Code Clear [facility] Color Nom (U) yellow Invalid Interpretation Code yellow [facility] Ketones Ql (U) Negative Negative [facility] Leukocyte esterase Test strip Ql (U) Negative Negative [facility] Specific gravity Relative Density (U) 1.020 Invalid Interpretation Code 1.003-1.029 [facility] 09-25-2014 Cholesterol in HDL mass conc 35.0 mg/dL Invalid Interpretation Code 50-100 [facility] Cholesterol in LDL mass conc 121.0 mg/dL Invalid Interpretation Code 0-130 [facility] Cholesterol mass conc 194.0 mg/dL Invalid Interpretation Code 0-200 [facility] Triglyceride mass conc 189.0 mg/dL Invalid Interpretation Code 30-150 [facility] - Chemistry and C hemistry - challengeon 09-25-2014 Bilirubin Ql (U) Negative Invalid Interpretation Code Negative [facility] Ketones Ql (U) Negative Invalid Interpretation Code Negative [facility] Urobilinogen (U) [Mass/Vol] normal Invalid Interpretation Code normal [facility] - Hematology and Cell countson 09-25-2014 Hemoglobin Ql (U) Negative Invalid Interpretation Code Negative [facility] - Urinalysison Nitrite Ql (U) Negative Invalid Interpretation Code Negative [facility] Protein Ql (U) Negative Invalid Interpretation Code Negative [facility] Metabolic Panelon 09-25-2014 Anion gap molar conc 17 mmol/L Invalid Interpretation Code 10-20 [place] [employer] Calcium mass conc 9.30 mg/dL Invalid Interpretation Code 8.5-10.8 [place] [employer] Chloride molar conc 105 mmol/L Invalid Interpretation Code 100-112 [place] [employer] CO2 molar conc 27 mmol/L Invalid Interpretation Code 23-30 [place] [employer] Creatinine mass conc 0.70 mg/dL Invalid Interpretation Code 0.5-1.5 [place] [employer] GFR/1.73 sq M predicted among non-blacks MDRD vol rate/area (S/P/Bld) 89 mL/min/{1.73_m2} Invalid Interpretation Code [place] [employer] Glucose mass conc 162.0 mg/dL Invalid Interpretation Code 80-117 [place] [employer] Hemoglobin A1c/Hemoglobin.total mass fraction (Bld) 7.70 % Invalid Interpretation Code 4.3-6.3 [place] [employer] Potassium molar conc 4.7 mmol/L Invalid Interpretation Code 3.5-5.3 [place] [employer] Sodium molar conc 144 mmol/L Invalid Interpretation Code 135-148 [place] [employer] Urea nitrogen mass conc 16.0 mg/dL Invalid Interpretation Code 7-25 [place] [employer] Urea nitrogen/Creatinine mass ratio 23 mg/mg Invalid Interpretation Code 6-20 [place] [employer] No Panel Informationon 09-25 174.0 mg/dL Invalid Interpretation Code [place] [employer] Otheron 09-25-2014 Bilirubin Ql (U) Negative Negative [facility] [employer] Cholesterol in VLDL mass conc 38.0 mg/dL Invalid Interpretation Code 0-39 [place] [employer] [facility] Cholesterol.total/Chol esterol in HDL mass ratio 6 {ratio} Invalid Interpretation Code [place] [employer] [facility] Glucose Test strip mass conc (U) 4+ Invalid Interpretation Code Negative [place] [employer] [facility] Hemoglobin Ql (U) Negative Negative [facility] [employer] [facility] Nitrite Ql (U) Negative Negative [place] [employer] [facility] pH (U) 5 [pH] Invalid Interpretation Code 4.5-7.8 [place] [employer] [facility] Protein Ql (U) Negative Negative [place] [employer] [facility] Urobilinogen Test strip mass conc (U) normal normal [place] [employer] [facility] 174 [place] [employer] Urinalysison 09-25-2014 Clarity Nom (U) clear Invalid Interpretation Code Clear [place] [employer] [facility] Color Nom (U) yellow Invalid Interpretation Code yellow [place] [employer] [facility] Ketones Ql (U) Negative Negative [place] [employer] [facility] Leukocyte esterase Test strip Ql (U) Trace Invalid Interpretation Code Negative [place] [employer] [facility] Specific gravity Relative Density (U) 1.020 Invalid Interpretation Code 1.003-1.029 [place] [facility] Laboratory - Chemistry and C hemistry - challengeon 07-21-2014 Bilirubin Ql (U) Negative Invalid Interpretation Code Negative [place] [employer] [facility] Ketones Ql (U) Negative Invalid Interpretation Code Negative [place] [employer] [facility] Urobilinogen (U) [Mass/Vol] normal Invalid Interpretation Code normal [facility] - Hematology and Cell countson 07-21-2014 Hemoglobin Ql (U) Negative Invalid Interpretation Code Negative [facility] - Urinalysison Leukocyte esterase Test strip Ql (U) Negative Invalid Interpretation Code Negative [facility] Nitrite Ql (U) Negative Invalid Interpretation Code Negative [facility] Metabolic Panelon 07-21-2014 Anion gap molar conc 18 mmol/L Invalid Interpretation Code 10-20 [facility] Calcium mass conc 9.40 mg/dL Invalid Interpretation Code 8.5-10.8 [facility] Chloride molar conc 103 mmol/L Invalid Interpretation Code 100-112 [facility] CO2 molar conc 24 mmol/L Invalid Interpretation Code 23-30 [facility] Creatinine mass conc 0.60 mg/dL Invalid Interpretation Code 0.5-1.5 [facility] GFR/1.73 sq M predicted among non-blacks MDRD vol rate/area (S/P/Bld) 106 mL/min/{1.73_m2} Invalid Interpretation Code [facility] Glucose mass conc 236.0 mg/dL Invalid Interpretation Code 80-117 [facility] Hemoglobin A1c/Hemoglobin.total mass fraction (Bld) 9.30 % Invalid Interpretation Code 4.3-6.3 [facility] Potassium molar conc 4.7 mmol/L Invalid Interpretation Code 3.5-5.3 [facility] Sodium molar conc 140 mmol/L Invalid Interpretation Code 135-148 [facility] Urea nitrogen mass conc 15.0 mg/dL Invalid Interpretation Code 7-25 [place] [employer] Urea nitrogen/Creatinine mass ratio 25 mg/mg Invalid Interpretation Code 6-20 [place] [employer] Otheron 07-21-2014 Bilirubin Ql (U) Negative Negative [facility] [employer] Glucose Test strip mass conc (U) 3+ Invalid Interpretation Code Negative [place] [employer] Hemoglobin Ql (U) Negative Negative [facility] [employer] Nitrite Ql (U) Negative Negative [place] [employer] pH (U) 5 [pH] Invalid Interpretation Code 4.5-7.8 [place] [employer] Protein Ql (U) 1+ Invalid Interpretation Code Negative [place] [employer] Urobilinogen Test strip mass conc (U) normal normal [place] [employer] 220.0 mg/dL Invalid Interpretation Code [place] [employer] Urinalysison 07-21-2014 Clarity Nom (U) clear Invalid Interpretation Code Clear [facility] [employer] Color Nom (U) yellow Invalid Interpretation Code yellow [place] [employer] Ketones Ql (U) Negative Negative [place] [employer] Leukocyte esterase Test strip Ql (U) Negative Negative [facility] [employer] Specific gravity Relative Density (U) 1.025 Invalid Interpretation Code 1.003-1.029 [place] [employer] Otheron 06-05-2014 MTHFR gene targeted mutation analysis [employer] [facility] (Bld/Tiss) COMMENT Invalid Interpretation Code [facility] [employer] COMMENT Invalid Interpretation Code [facility] - Chemistry and C hemistry - challengeon 05-03-2014 Bilirubin Ql (U) Negative Invalid Interpretation Code Negative [facility] Ketones Ql (U) Negative Invalid Interpretation Code Negative [facility] Urobilinogen (U) [Mass/Vol] normal Invalid Interpretation Code normal [facility] - Hematology and Cell countson 05-03-2014 Hemoglobin Ql (U) Negative Invalid Interpretation Code Negative [facility] - Urinalysison Leukocyte esterase Test strip Ql (U) Negative Invalid Interpretation Code Negative [facility] Nitrite Ql (U) Negative Invalid Interpretation Code Negative [facility] Protein Ql (U) Negative Invalid Interpretation Code Negative [facility] Metabolic Panelon 05-03-2014 Anion gap molar conc 19 mmol/L Invalid Interpretation Code 10-20 [facility] Calcium mass conc 9.50 mg/dL Invalid Interpretation Code 8.5-10.8 [facility] Chloride molar conc 97 mmol/L Invalid Interpretation Code 100-112 [facility] CO2 molar conc 28 mmol/L Invalid Interpretation Code 23-30 [facility] Creatinine mass conc 0.50 mg/dL Invalid Interpretation Code 0.5-1.5 [facility] GFR/1.73 sq M predicted among non-blacks MDRD vol rate/area (S/P/Bld) 132 mL/min/{1.73_m2} Invalid Interpretation Code [facility] Glucose mass conc 450.0 mg/dL Invalid Interpretation Code 80-117 [place] [employer] Hemoglobin A1c/Hemoglobin.total mass fraction (Bld) 11.30 % Invalid Interpretation Code 4.3-6.3 [place] [employer] Potassium molar conc 4.6 mmol/L Invalid Interpretation Code 3.5-5.3 [place] [employer] Sodium molar conc 139 mmol/L Invalid Interpretation Code 135-148 [place] [employer] Urea nitrogen mass conc 17.0 mg/dL Invalid Interpretation Code 7-25 [place] [employer] Urea nitrogen/Creatinine mass ratio 34 mg/mg Invalid Interpretation Code 6-20 [place] [employer] Otheron 05-03-2014 Bilirubin Ql (U) Negative Negative [facility] [employer] Collection time Date and time (Yahaira) 11:35 am Invalid Interpretation Code [place] [employer] Glucose Test strip mass conc (U) 4+ Invalid Interpretation Code Negative [place] [employer] Hemoglobin Ql (U) Negative Negative [facility] Nitrite Ql (U) Negative Negative [place] [employer] pH (U) 5 [pH] Invalid Interpretation Code 4.5-7.8 [place] [employer] Protein Ql (U) Negative Negative [facility] [employer] Urobilinogen Test strip mass conc (U) normal normal [place] [employer] 278.0 mg/dL Invalid Interpretation Code [place] [employer] Urinalysison 05-03-2014 Clarity Nom (U) clear Invalid Interpretation Code Clear [place] [employer] Color Nom (U) yellow Invalid Interpretation Code yellow [facility] Ketones Ql (U) Negative Negative [facility] Leukocyte esterase Test strip Ql (U) Negative Negative [facility] Specific gravity Relative Density (U) 1.015 Invalid Interpretation Code 1.003-1.029 [facility] Vital Signs Date Time Vital Sign Value Performing Clinician Mynori ashley 12-11-2021 10:08-0400 Body weight 108.41 kg Stand Offer 12-11-2021 10:08-0400 Diastolic blood pressure 86 mm[Hg] Stand Offer 12-11-2021 10:08-0400 Heart rate 72 /min Stand Offer 12-11-2021 10:08-0400 Systolic blood pressure 164 mm[Hg] Stand Offer 08-14-2021 10:25-0400 Body height 165.1 cm Stand Offer 08-14-2021 10:25-0400 Body mass index (BMI) [Ratio] 42.35 kg/m2 Stand Offer 08-14-2021 10:25-0400 Body surface area Derived from formula 2.3 m2 Stand Offer 08-14-2021 10:25-0400 Body weight 115.44 kg Stand Offer 08-14-2021 10:25-0400 Diastolic blood pressure 90 mm[Hg] Stand Offer 08-14-2021 10:25-0400 Heart rate 72 /min Stand Offer 08-14-2021 10:25-0400 Systolic blood pressure 186 mm[Hg] Yazan [employer] 06-06-2021 10:21-0400 Body height 165.1 cm Yazan [facility] 06-06-2021 10:21-0400 Body mass index (BMI) [Ratio] 43.1 kg/m2 Stand Offer 06-06-2021 10:21-0400 Body surface area Derived from formula 2.32 m2 Stand Offer 06-06-2021 10:040 Body weight 117.48 kg Stand Offer 06-06-2021 10:21-0400 Diastolic blood pressure 86 mm[Hg] Stand Offer 06-06-2021 10:21-0400 Heart rate 90 /min Stand Offer 06-06-2021 10:21-0400 Systolic blood pressure 162 mm[Hg] Stand Offer 05-06-2021 11:25-0400 Body height 165.1 cm Stand Offer 05-06-2021 11:25-0400 Body mass index (BMI) [Ratio] 40.77 kg/m2 Stand Offer 05-06-2021 11:25-0400 Body surface area Derived from formula 2.26 m2 Stand Offer 05-06-2021 11:25-0400 Body weight 111.13 kg Stand Offer 05-06-2021 11:25-0400 Diastolic blood pressure 60 mm[Hg] Yazan [facility] 05-06-2021 11:25-0400 Heart rate 72 /min Stand Offer 05-06-2021 11:25-0400 Systolic blood pressure 122 mm[Hg] Stand Offer 01-03-2021 10:10-0500 Body height 165.1 cm Stand Offer 01-03-2021 10:10-0500 Body mass index (BMI) [Ratio] 41.6 kg/m2 Stand Offer 01-03-2021 10:10-0500 Body surface area Derived from formula 2.28 m2 Stand Offer 01-03-2021 10:10-0500 Body weight 113.4 kg Stand Offer 01-03-2021 10:10-0500 Diastolic blood pressure 84 mm[Hg] Stand Offer 01-03-2021 10:10-0500 Heart rate 76 /min Stand Offer 01-03-2021 10:10-0500 Systolic blood pressure 160 mm[Hg] Stand Offer 09-03-2020 13:40-0400 Body height 165.1 cm Stand Offer 09-03-2020 13:40-0400 Body mass index (BMI) [Ratio] 41.6 kg/m2 Stand Offer 09-03-2020 13:40-0400 Body surface area Derived from formula 2.28 m2 Stand Offer 09-03-2020 13:40-0400 Body weight 113.4 kg Yazan [employer] 09-03-2020 13:40-0400 Diastolic blood pressure 90 mm[Hg] Yazan [employer] 09-03-2020 13:40-0400 Heart rate 72 /min Yazan [facility] 09-03-2020 13:40-0400 Systolic blood pressure 160 mm[Hg] Yazan [facility] 12-02-2019 14:56-0400 BP Diastolic 58 mm[Hg] Joey Richardtrick [employer] [facility] [place] 12-02-2019 14:56-0400 BP Systolic 147 mm[Hg] Joey [employer] [facility] 12-02-2019 14:56-0400 Pulse Oximetry 92 % [facility] [place] 12-02-2019 11:36-0400 BMI (Body Mass Index) 47.05 kg/m2 [facility] [place] 12-02-2019 11:36-0400 Body Temperature 100 [degF] Joey Rosa [facility], [place] 12-02-2019 11:36-0400 Body weight 112.95 kg Joey Waite [employer] [facility] [place] 12-02-2019 11:36-0400 Height 154.9 cm [facility] [place] 12-02-2019 11:36-0400 Pulse (Heart Rate) 98 /min [facility] [place] 12-02-2019 11:36-0400 Respiratory Rate 20 /min [facility] [place] 10-03-2019 10:30-0400 BMI (Body Mass Index) 42.1 kg/m2 Stand Offer 10-03-2019 10:30-0400 Body Temperature 98 [degF] [employer] [facility] 10-03-2019 10:30-0400 Body weight 114.76 kg Yazan [employer] 10-03-2019 10:30-0400 BP Diastolic 84 mm[Hg] Yazan [employer] 10-03-2019 10:30-0400 BP Systolic 154 mm[Hg] Yazan [employer] 10-03-2019 10:30-0400 BSA (Body Surface Area) 2.29 m2 Yazan [employer] 10-03-2019 10:30040 Height 165.1 cm Stand Offer 10-03-2019 10:30-0400 Pulse (Heart Rate) 84 /min Yazan [employer] 08-22-2019 11:26-0400 BMI (Body Mass Index) 41.49 kg/m2 Yazan [employer] 08-22-2019 11:26-0400 Body Temperature 98.7 [degF] Yazan [employer] 08-22-2019 11:26-0400 Body weight 113.09 kg Yazan [employer] 08-22-2019 11:26-0400 BP Diastolic 98 mm[Hg] Yazan [employer] 08-22-2019 11:26-0400 BP Systolic 160 mm[Hg] Stand Offer 08-22-2019 11:26-0400 BSA (Body Surface Area) 2.28 m2 Yazan [employer] 08-22-2019 11:260400 Height 165.1 cm Yazan [employer] 08-22-2019 11:26-0400 Pulse (Heart Rate) 84 /min Yazan [employer] 07-19-2019 10:20-0400 BMI (Body Mass Index) 41.35 kg/m2 Yazan [employer] 07-19-2019 10:20-0400 Body Temperature 97.6 [degF] Yazan [employer] 07-19-2019 10:20-0400 Body weight 112.72 kg Yazan [facility] 07-19-2019 10:20-0400 BP Diastolic 82 mm[Hg] Stand Offer 07-19-2019 10:20-0400 BP Systolic 130 mm[Hg] Stand Offer 07-19-2019 10:20-0400 BSA (Body Surface Area) 2.27 m2 Stand Offer 07-19-2019 10:20-0400 Height 165.1 cm Stand Offer 07-19-2019 10:20-0400 Pulse (Heart Rate) 78 /min [employer] 03-15-2019 18:47-0500 BMI (Body Mass Index) 41.68 kg/m2 Stand Offer 03-15-2019 18:47-0500 BMI (Body Mass Index) 41.69 kg/m2 Stand Offer 03-15-2019 18:47-0500 Body weight 113.63 kg Stand Offer 03-15-2019 18:47-0500 BP Diastolic 84 mm[Hg] Stand Offer 03-15-2019 18:47-0500 BP Systolic 140 mm[Hg] Yazan [employer] 03-15-2019 18:47-0500 BSA (Body Surface Area) 2.28 m2 Yazan [employer] 03-15-2019 18:47-0500 Height 165.1 cm Yazan [employer] 03-15-2019 18:47-0500 Pulse (Heart Rate) 78 /min Yazan [employer] 01-26-2019 11:20-0500 BMI (Body Mass Index) 40.64 kg/m2 [email or web address] 01-26-2019 11:20-0500 Body weight 112.49 kg [email or web address] 01-26-2019 11:20-0500 BP Diastolic 84 mm[Hg] [email or web address] 01-26-2019 11:20-0500 BP Systolic 150 mm[Hg] [email or web address] 01-26-2019 11:20-0500 BSA (Body Surface Area) 2.28 m2 Yazan [employer] 01-26-2019 11:20-0500 Height 166.37 cm [email or web address] 01-26-2019 11:20-0500 Pulse (Heart Rate) 80 /min [employer] 12-07-2018 10:01-0400 BMI (Body Mass Index) 39.82 kg/m2 Yazan [employer] 12-07-2018 10:01-0400 Body weight 110.22 kg Stand Offer 12-07-2018 10:-0400 BP Diastolic 76 mm[Hg] Yazan [employer] 12-07-2018 10:01-0400 BP Systolic 160 mm[Hg] Yazan [employer] 12-07-2018 10:0400 BSA (Body Surface Area) 2.26 m2 [email or web address] 12-07-2018 10:040 Height 166.37 cm [email or web address] 12-07-2018 10:01-0400 Pulse (Heart Rate) 78 /min [employer] 07-29-2018 10:24-0400 BMI (Body Mass Index) 39.99 kg/m2 [email or web address] 07-29-2018 10:24-0400 Body weight 110.68 kg [email or web address] 07-29-2018 10:24-0400 BP Diastolic 86 mm[Hg] [email or web address] 07-29-2018 10:24-0400 BP Systolic 150 mm[Hg] [email or web address] 07-29-2018 10:0400 BSA (Body Surface Area) 2.26 m2 [email or web address] 07-29-2018 10:24040 Height 166.37 cm Stand Offer 07-29-2018 10:24-0400 Pulse (Heart Rate) 90 /min [employer] 07-29-2018 10:24-0400 Weight 110.68 kg Stand Offer 03-25-2018 10:34-0500 BMI (Body Mass Index) 40.48 kg/m2 Stand Offer 03-25-2018 10:34-0500 Body weight 112.04 kg Yazan [employer] 03-25-2018 10:34-0500 BP Diastolic 96 mm[Hg] Stand Offer 03-25-2018 10:34-0500 BP Systolic 140 mm[Hg] Stand Offer 03-25-2018 10:34-0500 BSA (Body Surface Area) 2.28 m2 Stand Offer 03-25-2018 10:34-0500 Height 166.37 cm Stand Offer 03-25-2018 10:34-0500 Pulse (Heart Rate) 78 /min [employer] 03-25-2018 10:34-0500 Weight 112.04 kg Stand Offer 12-24-2017 10:13-0500 BMI (Body Mass Index) 39.99 kg/m2 Stand Offer 12-24-2017 10:13-0500 Body weight 110.68 kg Stand Offer 12-24-2017 10:13-0500 BP Diastolic 78 mm[Hg] Stand Offer 12-24-2017 10:13-0500 BP Systolic 152 mm[Hg] Stand Offer 12-24-2017 10:13-0500 BSA (Body Surface Area) 2.26 m2 Stand Offer 12-24-2017 10:13-0500 Height 166.37 cm Yazan [employer] 12-24-2017 10:13-0500 Pulse (Heart Rate) 72 /min [employer] 12-24-2017 10:13-0500 Weight 110.68 kg Stand Offer 12-02-2017 10:49-0400 BMI (Body Mass Index) 39.87 kg/m2 Stand Offer 12-02-2017 10:49-0400 Body weight 110.37 kg Stand Offer 12-02-2017 10:49-0400 BP Diastolic 80 mm[Hg] Stand Offer 12-02-2017 10:49-0400 BP Systolic 142 mm[Hg] Stand Offer 12-02-2017 10:49-0400 BSA (Body Surface Area) 2.26 m2 Stand Offer 12-02-2017 10:49-0400 Height 166.37 cm [email or web address] 12-02-2017 10:49-0400 Pulse (Heart Rate) 72 /min [employer] 12-02-2017 10:49-0400 Weight 110.37 kg Stand Offer 09-02-2017 10:52-0400 BMI (Body Mass Index) 39.25 kg/m2 Stand Offer 09-02-2017 10:52-0400 Body weight 108.64 kg Stand Offer 09-02-2017 10:52-0400 BP Diastolic 94 mm[Hg] Yazan [employer] 09-02-2017 10:52-0400 BP Systolic 150 mm[Hg] [email or web address] 09-02-2017 10:52-0400 BSA (Body Surface Area) 2.24 m2 [email or web address] 09-02-2017 10:52-0400 Height 166.37 cm Stand Offer 09-02-2017 10:52-0400 Pulse (Heart Rate) 78 /min [employer] 09-02-2017 10:52-0400 Weight 108.64 kg Stand Offer 08-04-2017 18:01-0400 BMI (Body Mass Index) 39.41 kg/m2 Stand Offer 08-04-2017 18:01-0400 Body weight 109.09 kg Stand Offer 08-04-2017 18:01-0400 BP Diastolic 76 mm[Hg] [email or web address] 08-04-2017 18:01-0400 BP Systolic 140 mm[Hg] Stand Offer 08-04-2017 18:01-0400 BSA (Body Surface Area) 2.25 m2 Stand Offer 08-04-2017 18:01-0400 Height 166.37 cm Stand Offer 08-04-2017 18:01-0400 Pulse (Heart Rate) 88 /min [employer] 08-04-2017 18:01-0400 Weight 109.09 kg Stand Offer 06-04-2017 17:52-0400 BMI (Body Mass Index) 39.99 kg/m2 Yazan [employer] 06-04-2017 17:52-0400 Body weight 110.68 kg Yazan [employer] 06-04-2017 17:52-0400 BP Diastolic 74 mm[Hg] [email or web address] 06-04-2017 17:52-0400 BP Systolic 128 mm[Hg] [email or web address] 06-04-2017 17:52-0400 BSA (Body Surface Area) 2.26 m2 [email or web address] 06-04-2017 17:52-0400 Height 166.37 cm Stand Offer 06-04-2017 17:52-0400 Pulse (Heart Rate) 78 /min [employer] 06-04-2017 17:52-0400 Weight 110.68 kg Stand Offer 03-19-2017 11:54-0500 BMI (Body Mass Index) 39.82 kg/m2 [email or web address] 03-19-2017 11:54-0500 Body Temperature 97.1 [degF] [facility] [facility] 03-19-2017 11:54-0500 Body weight 110.22 kg Stand Offer 03-19-2017 11:54-0500 BP Diastolic 66 mm[Hg] [email or web address] 03-19-2017 11:54-0500 BP Systolic 110 mm[Hg] Stand Offer 03-19-2017 11:54-0500 BSA (Body Surface Area) 2.26 m2 Stand Offer 03-19-2017 11:54-0500 Height 166.37 cm Stand Offer 03-19-2017 11:54-0500 Pulse (Heart Rate) 66 /min [employer] Sylvia [employer] 03-19-2017 11:54-0500 Weight 110.22 kg Stand Offer 01-30-2017 16:12-0500 BMI (Body Mass Index) 39.87 kg/m2 Stand Offer 01-30-2017 16:12-0500 Body weight 110.37 kg Stand Offer 01-30-2017 16:12-0500 BP Diastolic 72 mm[Hg] Stand Offer 01-30-2017 16:12-0500 BP Systolic 130 mm[Hg] Stand Offer 01-30-2017 16:12-0500 BSA (Body Surface Area) 2.26 m2 Stand Offer 01-30-2017 16:12-0500 Height 166.37 cm Stand Offer 01-30-2017 16:12-0500 Pulse (Heart Rate) 68 /min [employer] Sylvia [employer] 01-30-2017 16:12-0500 Weight 110.37 kg Stand Offer 10-03-2016 13:34-0400 BMI (Body Mass Index) 40.07 kg/m2 Stand Offer 10-03-2016 13:34-0400 Body weight 110.91 kg Yazan [employer] 10-03-2016 13:34-0400 BP Diastolic 76 mm[Hg] Yazan [employer] 10-03-2016 13:34-0400 BP Systolic 132 mm[Hg] Yaazn [employer] 10-03-2016 13:34-0400 BSA (Body Surface Area) 2.26 m2 Yazan [employer] 10-03-2016 13:34-0400 Height 166.37 cm Yazan [employer] 10-03-2016 13:34-0400 Pulse (Heart Rate) 72 /min Yazan [employer] 10-03-2016 13:34-0400 Weight 110.91 kg Yazan [employer] 08-21-2016 12:00-0400 BMI (Body Mass Index) 40.89 kg/m2 [email or web address] 08-21-2016 12:00-0400 Body weight 113.17 kg Yazan [employer] 08-21-2016 12:00-0400 BP Diastolic 88 mm[Hg] Yazan [employer] 08-21-2016 12:00-0400 BP Systolic 146 mm[Hg] Yazan [employer] 08-21-2016 12:00-0400 BSA (Body Surface Area) 2.29 m2 Yazan [employer] 08-21-2016 12:00-0400 Height 166.37 cm Stand Offer 08-21-2016 12:00-0400 Pulse (Heart Rate) 70 /min [employer] 08-21-2016 12:00-0400 Weight 113.17 kg Yazan [employer] 06-24-2016 13:39-0400 BMI (Body Mass Index) 41.54 kg/m2 Stand Offer 06-24-2016 13:39-0400 Body weight 114.99 kg Stand Offer 06-24-2016 13:39-0400 BP Diastolic 70 mm[Hg] Stand Offer 06-24-2016 13:39-0400 BP Systolic 122 mm[Hg] Stand Offer 06-24-2016 13:39-0400 BSA (Body Surface Area) 2.31 m2 Stand Offer 06-24-2016 13:39-0400 Height 166.37 cm Stand Offer 06-24-2016 13:39-0400 Pulse (Heart Rate) 76 /min [employer] 06-24-2016 13:39-0400 Weight 114.99 kg Stand Offer 05-23-2016 16:06-0400 Body weight 114 kg Stand Offer 05-23-2016 16:06-0400 BP Diastolic 70 mm[Hg] Stand Offer 05-23-2016 16:06-0400 BP Systolic 112 mm[Hg] Stand Offer 05-23-2016 16:06-0400 Pulse (Heart Rate) 68 /min [employer] 05-23-2016 16:06-0400 Weight 114 kg Yazan [employer] 05-09-2016 16:50-0400 BMI (Body Mass Index) 41.3 kg/m2 Stand Offer 05-09-2016 16:50-0400 Body weight 114.31 kg Stand Offer 05-09-2016 16:50-0400 BP Diastolic 80 mm[Hg] Stand Offer 05-09-2016 16:50-0400 BP Systolic 140 mm[Hg] Stand Offer 05-09-2016 16:50-0400 BSA (Body Surface Area) 2.3 m2 Stand Offer 05-09-2016 16:50-0400 Height 166.37 cm Stand Offer 05-09-2016 16:50-0400 Pulse (Heart Rate) 64 /min [employer] 05-09-2016 16:50-0400 Weight 114.31 kg Stand Offer 01-03-2016 11:53-0500 Body weight 115.21 kg Stand Offer 01-03-2016 11:53-0500 BP Diastolic 80 mm[Hg] Stand Offer 01-03-2016 11:53-0500 BP Systolic 140 mm[Hg] Stand Offer 01-03-2016 11:53-0500 Pulse (Heart Rate) 72 /min [employer] 01-03-2016 11:53-0500 Weight 115.21 kg Yazan [employer] 09-06-2015 12:07040 BMI (Body Mass Index) 40.27 kg/m2 [email or web address] 09-06-2015 12:07040 Body weight 109.77 kg Stand Offer 09-06-2015 12:07-0400 BP Diastolic 78 mm[Hg] Stand Offer 09-06-2015 12:070400 BP Systolic 122 mm[Hg] Stand Offer 09-06-2015 12:040 BSA (Body Surface Area) 2.24 m2 Stand Offer 09-06-2015 12:040 Height 165.1 cm Stand Offer 09-06-2015 12:070400 Pulse (Heart Rate) 76 /min [employer] 09-06-2015 12:070400 Weight 109.77 kg Stand Offer 05-03-2015 10:040 BMI (Body Mass Index) 41.35 kg/m2 Stand Offer 05-03-2015 10:29040 Body weight 112.72 kg Stand Offer 05-03-2015 10:29-0400 BP Diastolic 98 mm[Hg] Stand Offer 05-03-2015 10:290400 BP Systolic 138 mm[Hg] Stand Offer 05-03-2015 10:290400 BSA (Body Surface Area) 2.27 m2 Stand Offer 05-03-2015 10:290400 Height 165.1 cm Stand Offer 05-03-2015 10:290400 Pulse (Heart Rate) 72 /min [employer] 05-03-2015 10:290400 Weight 112.72 kg Stand Offer 02-05-2015 11:02-0500 BMI (Body Mass Index) 40.52 kg/m2 Stand Offer 02-05-2015 11:02-0500 Body weight 110.45 kg Stand Offer 02-05-2015 11:02-0500 BP Diastolic 68 mm[Hg] Stand Offer 02-05-2015 11:02-0500 BP Systolic 128 mm[Hg] Stand Offer 02-05-2015 11:02-0500 BSA (Body Surface Area) 2.25 m2 Stand Offer 02-05-2015 11:020500 Height 165.1 cm Stand Offer 02-05-2015 11:02-0500 Pulse (Heart Rate) 72 /min [employer] 02-05-2015 11:02-0500 Weight 110.45 kg Stand Offer 10-04-2014 12:26-0400 BMI (Body Mass Index) 40.77 kg/m2 Stand Offer 10-04-2014 12:26-0400 Body weight 111.13 kg Stand Offer 10-04-2014 12:26-0400 BP Diastolic 80 mm[Hg] Stand Offer 10-04-2014 12:26-0400 BP Systolic 130 mm[Hg] Stand Offer 10-04-2014 12:26-0400 BSA (Body Surface Area) 2.26 m2 Stand Offer 10-04-2014 12:260400 Height 165.1 cm Stand Offer 10-04-2014 12:26-0400 Pulse (Heart Rate) 80 /min [employer] 10-04-2014 12:26-0400 Weight 111.13 kg Stand Offer 07-24-2014 14:38-0400 BMI (Body Mass Index) 42.6 kg/m2 Stand Offer 07-24-2014 14:38-0400 Body weight 116.12 kg Stand Offer 07-24-2014 14:38-0400 BP Diastolic 78 mm[Hg] Stand Offer 07-24-2014 14:38-0400 BP Systolic 132 mm[Hg] Stand Offer 07-24-2014 14:38-0400 BSA (Body Surface Area) 2.31 m2 Stand Offer 07-24-2014 14:38-0400 Height 165.1 cm Stand Offer 07-24-2014 14:38-0400 Pulse (Heart Rate) 66 /min [employer] 07-24-2014 14:38-0400 Weight 116.12 kg [facility]an [facility] 06-05-2014 11:05-0400 Body weight 116.8 kg [facility] 06-05-2014 11:05-0400 Weight 116.8 kg [facility]azan [facility] 05-03-2014 12:54-0400 BMI (Body Mass Index) 43.77 kg/m2 [facility]azan [employer] [employer] 05-03-2014 12:54-0400 Body Temperature 98.7 [degF] Yazan [facility] 05-03-2014 12:54-0400 Body weight 119.3 kg Yazan [employer] 05-03-2014 12:54-0400 BP Diastolic 80 mm[Hg] [facility] [employer] 05-03-2014 12:54-0400 BP Systolic 120 mm[Hg] [facility] 05-03-2014 12:54-0400 BSA (Body Surface Area) 2.34 m2 [facility]an [facility] 05-03-2014 12:54-0400 Height 165.1 cm Y[facility]an [employer] 05-03-2014 12:54-0400 Pulse (Heart Rate) 72 /min Yazan Adrian [place] [facility] 05-03-2014 12:54-0400 Weight 119.3 kg Yazan [employer] Encounters Encounter Date Encounter Type Care Provider Facility Start: 12-11-2021 Office outpatient visit 15 minutes Yazan Ike Adrian Other [facility] Office Start: 12-06-2021 End: 12-07-2021 [facility] Start: 12-06-2021 End: 12-06-2021 Subsequent hospital visit by physician Yazan Adrian MD Work Phone: [facility] Start: 08-14-2021 Office outpatient visit 15 minutes Yazan A Bouts Other [facility] Office Start: 08-06-2021 End: 08-07-2021 [facility] Start: 08-06-2021 End: 08-06-2021 Subsequent hospital visit by physician Yazan Adrian MD Work Phone: [facility] Start: 06-06-2021 Office outpatient visit 15 minutes Yazan A Bouts Other [facility] Office Start: 06-05-2021 End: 06-06-2021 [facility] Start: 06-05-2021 End: 06-05-2021 Subsequent hospital visit by physician Yazan Adrian MD Work Phone: [facility] Start: 05-06-2021 Office outpatient visit 15 minutes Yazan A Bouts Other [facility] Office Start: 01-17-2021 End: 01-17-2021 Split Srvc Yazan A Bouts Other [facility] Office Start: 01-16-2021 ambulatory MD YAZAN ADRIAN Facili ty:[facility] Start: 01-03-2021 Office outpatient visit 25 minutes Yazan A Bouts Other [facility] Office Start: 09-03-2020 Office outpatient visit 25 minutes Yazan A Bouts Other [facility] Office Start: 08-25-2020 End: 08-25-2020 ambulatory ROSEMARIE NORAH Facility:[facility] Start: 12-02-2019 End: 12-02-2019 Emergency department patient visit [facility] ED Comment on above: COVID-19 virus infec tion (Primary Dx); Cough; Bronchitis Start: 10-03-2019 Office outpatient visit 15 minutes Yazan A Bouts Other [facility] Office Start: 08-22-2019 Office outpatient visit 15 minutes Yazan A Bouts Other [facility] Office Start: 07-19-2019 Office outpatient visit 15 minutes Yazan A Bouts Other [facility] Office Start: 07-14-2019 End: 07-14-2019 Subsequent hospital visit by physician Yazan Adrian [facility] Start: 03-15-2019 Office outpatient visit 15 minutes Yazan A Bouts Other [facility] Office Start: 03-11-2019 End: 03-11-2019 Subsequent hospital visit by physician Yazan Adrian MD Work Phone: [facility] Start: 01-26-2019 Office outpatient visit 15 minutes Yazan A Bouts Other [facility] Office Start: 12-07-2018 Office outpatient visit 25 minutes Yazan A Bouts Other [facility] Office Start: 12-04-2018 End: 12-04-2018 Subsequent hospital visit by physician Yzaan Adrian [facility] Start: 07-29-2018 Office outpatient visit 25 minutes Yazan A Bouts Other [facility] Office Start: 03-25-2018 Office outpatient visit 15 minutes Yazan A Bouts Other [facility] Office Start: 12-24-2017 Office outpatient visit 15 minutes Yazan A Bouts Other [facility] Office Start: 12-02-2017 Office outpatient visit 15 minutes Yazan A Bouts Other [facility] Office Start: 09-02-2017 Office outpatient visit 15 minutes Yazan A Bouts Other [facility] Office Start: 08-04-2017 Office outpatient visit 15 minutes Yazan A Bouts Other [facility] Office Start: 06-04-2017 Office outpatient visit 15 minutes Yazan A Bouts Other [facility] Office Start: 03-19-2017 Office outpatient visit 15 minutes Yazan A Bouts Other [facility] Office Start: 01-30-2017 Office outpatient visit 15 minutes Yazan A Bouts Other [facility] Office Start: 10-03-2016 Office outpatient visit 15 minutes Yazan A Bouts Other [facility] Office Start: 08-21-2016 Office outpatient visit 15 minutes Yazan A Bouts Other [facility] Office Start: 06-24-2016 Office outpatient visit 15 minutes Yazan A Bouts Other [facility] Office Start: 05-23-2016 Office outpatient visit 15 minutes Yazan A Bouts Other [facility] Office Start: 05-09-2016 Office outpatient visit 15 minutes Yazan A Bouts Other [facility] Office Start: 01-03-2016 Office outpatient visit 15 minutes Yazan A Bouts Other [facility] Office Start: 09-06-2015 Office outpatient visit 15 minutes Yazan A Bouts Other [facility] Office Start: 05-03-2015 Office outpatient visit 15 minutes Yazan A Bouts Other [facility] Office Start: 02-05-2015 Office outpatient visit 15 minutes Yazan A Bouts Other [facility] Office Start: 01-29-2015 Lab Yazan A Bouts Other [facility] Office Start: 10-04-2014 Office outpatient visit 15 minutes Yazan A Bouts Other [facility] Office Start: 09-25-2014 Lab Yazan A Bouts Other [facility] Office Start: 07-24-2014 Office outpatient visit 25 minutes Yazan A Bouts Other [facility] Office Start: 07-21-2014 Lab Yazan A Bouts Other [facility] Office Start: 06-05-2014 Postop follow up vis it related to original px Yazan A Bouts Other [facility] Office Start: 05-04-2014 Office Services [facility] [facility] Office Start: 05-03-2014 Office outpatient visit 15 minutes Yazan A Bouts Other [facility] Office Procedures Date Procedure Procedure Detail [...] ts Start: 08-14-2021 Docrev cur meds by [facility] Yazan Bouts Start: 08-06-2021 Hemoglobin A1c measurement Yazan Bouts Start: 08-06-2021 Lipid panel Yazan Bouts Start: 08-06-2021 Thyroid stimulating hormone measurement Yazan Bouts Start: 08-06-2021 End: 08-06-2021 Basic metabolic panel calcium total Yazan A Bouts Work Phone: Start: 08-06-2021 Lipid panel Yazan A Bouts Work Phone: Start: 06-06-2021 Docrev cur meds by [facility] Yazan Bouts Start: 06-05-2021 Basic metabolic panel calcium total Yazan A Bouts Work Phone: Start: 06-05-2021 Urnls dip stick/tablet rgnt auto w/o microscopy Yazan Ike Adrian MD Work Phone: Start: 05-06-2021 Docrev cur meds by [facility] Yazan Bouts Start: 05-06-2021 Hemoglobin A1c measurement Yazan Bouts Start: 05-06-2021 Blood chemistry Yazan Bouts Start: 05-06-2021 Dip UA (for Ketones) Yazan Bouts Start: 01-17-2021 Electrocardiogram with exercise test Yazan Bouts Start: 01-16-2021 Electrocardiogram with exercise test Yazan Bouts Start: 01-03-2021 Docrev cur meds by [facility] Yazan Bouts Start: 01-03-2021 Electrocardiographic procedure Yazan [...] Bouts Start: 01-07-2016 MICROALBUMIN/Urine Creat Ratio Yazan Ialn ts Start: 09-02-2015 Basic metabolic panel calcium [...] Yazan Bouts Start: 09-23-2014 Hemoglobin glycosylated a1c Yzaan Bouts Start: 09-23-2014 Lipid panel Yazan Bouts [...] Detail Author Start: 12-06-2022 Lipid panel Lipids [facility] Start: 08-06-2022 [facility] Start: 02-10-2022 Basic metabolic panel calcium ionized CHEM 8 PANEL [facility] Start: 02-10-2022 Hemoglobin glycosylated a1c A1c [facility] Start: 11-14-2021 Basic metabolic panel calcium total Chem 8 [facility] Start: 11-14-2021 Hemoglobin glycosylated a1c Hgb A1c [facility] Start: 11-14-2021 Lipid panel Lipid profile [facility] Start: 11-06-2021 Hemoglobin A1c measurement A1C test (Diabetic or Prediabetic) [facility] Start: 10-17-2021 Influenza vaccination Flu vaccine (Season Ended) [facility] Start: 09-16-2021 Influenza vaccination Flu vaccine (#1) [facility] Start: 08-06-2021 Assay of thyroid stimulating hormone tsh TSH [facility] Start: 08-06-2021 Basic metabolic panel calcium total Chem 8 [facility] Start: 08-06-2021 Hemoglobin glycosylated a1c A1c [facility] Start: 08-06-2021 Lipid panel Lipid panel [facility] Start: 06-03-2021 Basic metabolic panel calcium total Chem 8 [facility] Start: 06-03-2021 Hemoglobin glycosylated a1c A1c [facility] Start: 05-06-2021 Basic metabolic panel calcium total Chem 8 [facility] Start: 01-16-2021 Cv strs tst xers&/or rx cont ecg w/si&r Treadmill Stress [facility] Start: 01-03-2021 Screening mammography Mammogram breast screening digital [facility] Start: 12-01-2020 Creatinine measurement Creatinine [facility] Start: 12-01-2020 Potassium [Moles/volume] in Serum or Plasma Potassium [facility] Start: 10-02-2020 Hemoglobin A1c measurement A[facility]C test (Diabetic [facility] Prediabetic) [facility] Start: 07-13-2020 Creatinine measurement Creatinine [facility] [place] Start: 07-13-2020 Lipid panel [facility] Start: 07-13-2020 Potassium monitoring Potassium monitoring [place], [place] Start: 03-11-2020 Diabetic microalbuminuria test Diabetic microalbuminuria test [place] Start: 03-11-2020 Urine screening for protein Diabetic microalbuminuria test [facility] Start: 12-05-2019 Creatinine monitoring Creatinine monitoring [facility] Work Phone: Start: 12-05-2019 Potassium [facility] Work Phone: Start: 12-03-2019 Basic metabolic panel calcium total Chem 8 [facility] Start: 12-03-2019 HbA1c (Bld) [Mass fraction] Hgb A1c [facility] Start: 12-03-2019 Lipid panel Lipid profile [facility] Start: 10-18-2019 Influenza vaccination [place], [place] Start: 10-14-2019 HbA1c (Bld) [Mass fraction] A1C test (Diabetic or Prediabetic) [place] Start: 10-03-2019 HbA1c (Bld) [Mass fraction] A1c [facility] Start: 08-17-2019 Creatinine monitoring Creatinine monitoring [place], [place] Start: 08-17-2019 Potassium monitoring Potassium monitoring [place] Start: 07-25-2019 Diabetic microalbuminuria test Diabetic microalbuminuria test [place] Start: 07-25-2019 Lipid screen Lipid screen [place] Start: 07-14-2019 Assay of insulin total INSULIN [facility] Start: 07-14-2019 Basic metabolic panel calcium total Chem 8 [facility] Start: 07-14-2019 HbA1c (Bld) [Mass fraction] Hgb A1c [facility] Start: 07-14-2019 Lipid panel Lipid profile [facility] Start: 03-09-2019 Basic metabolic panel calcium total Chem 8 [facility] Start: 03-09-2019 HbA1c (Bld) [Mass fraction] Hgb A1c [facility] Start: 03-09-2019 Lipid panel Lipid profile [facility] Start: 03-06-2019 A1C test (Diabetic or Prediabetic) A1C test (Diabetic or Prediabetic) [facility] Work Phone: Start: 12-28-2018 Ultrasonography of abdomen and urinary system US kidney and bladder [facility] Start: 12-14-2018 Ultrasound Kidneys and Bladder [facility] Start: 11-28-2018 Basic metabolic panel calcium total Chem 8 [facility] Start: 11-28-2018 Hemoglobin A1c/Hemoglobin.total mass fraction (Bld) A1c [facility] Start: 10-24-2018 A1C test (Diabetic or Prediabetic) A1C test (Diabetic or Prediabetic) [place] Start: 10-17-2018 Influenza vaccination Flu vaccine (#1) [place] Start: 07-29-2018 Basic metabolic panel calcium total Chem 8 [facility] Start: 07-29-2018 Hemoglobin A1c/Hemoglobin.total mass fraction (Bld) A1c [facility] Start: 02-03-2016 Breast cancer screen Breast cancer screen [place], [place] Start: 02-03-2016 Colon cancer screen colonoscopy Colon cancer screen colonoscopy [place] Start: 02-03-2016 Screening for malignant neoplasm of breast Breast cancer screen [facility] Start: 02-03-2016 Screening for malignant neoplasm of colon Colon cancer screen colonoscopy [place] Start: 02-03-2016 Shingles Vaccine (1 of 2) Shingles Vaccine (1 of 2) [facility] Start: 2011 Screening for malignant neoplasm of colon [facility] Start: 02-03-1996 Screening for malignant neoplasm of cervix [facility] Start: 1987 Cervical cancer screen Cervical cancer screen [place], [place] Start: 1987 Screening for malignant neoplasm of cervix [facility] Start: 1985 DTaP/Tdap/Td vaccine (1 - Tdap) DTaP/Tdap/Td vaccine (1 - Tdap) [facility] Start: 02-03-1984 Diabetic retinal exam Diabetic retinal exam [facility] Start: 02-03-1984 Hepatitis C screening Hepatitis C screen [facility] Start: 1981 HIV screen HIV screen [place], [place] Start: 1981 HIV screening HIV screen [facility] Start: 1978 Depression Screen Depression Screen [facility] Start: 1977 DTaP/Tdap/Td vaccine (1 - Tdap) DTaP/Tdap/Td vaccine (1 - Tdap) [facility] Work Phone: Start: 02-03-1976 [object Object] Diabetic foot exam [place], [place] Start: 02-03-1976 Diabetic foot examination Diabetic foot exam [facility] Start: 02-03-1976 Diabetic retinal exam Diabetic retinal exam [place] Start: 1971 COVID-19 Vaccine (1) COVID-19 Vaccine (1) [facility] Start: 1966 COVID-19 Vaccine (#1) COVID-19 [facility]ine (#1) [facility] End: 12-02-2019 Culture, Blood 1 Culture, Blood 1 Microbiology STAT One Time for 1 Occurrences starting 12/02/2019 until 12/02/2019 [place] Comment on above: One Time for 1 Occurrences starting 11/16 until 12/02/2019 Culture, Blood 1 Culture, Blood 1 Microbiology STAT 12/02/2019 1:10 PM EDT [place] End: 12-02-2019 Culture, Blood 2 Culture, Blood 2 Microbiology STAT One Time for 1 Occurrences starting 12/02/2019 until 12/02/2019 [place] Comment on above: One Time for 1 Occurrences starting 11/16 until 12/02/2019 Culture, Blood 2 Culture, Blood 2 Microbiology STAT 12/02/2019 1:07 PM EDT [place] End: 12-06-2021 Hemoglobin A1c/Hemoglobin.total in Blood [facility] Work Phone: Comment on above: Once for 1 Occurrences starting 12/07/19 until 12/06/2021 Immunizations Immunization Date Immunization Notes Care Provider Collin botello 01-03-2021 Influenza, injectabl e, Madin Dai Canine Kidney, quadrivalent with preservative; Translations: [Influenza virus vaccine, quadrivalent (cciiv4), derived from cell cultures, subunit, antibiotic free, 0.5 ml dosage, for intramuscular use] Stand Offer 01-03-2021 influenza, injectabl e, quadrivalent, contains preservative Stand Offer 01-03-2021 IMMUNIZATION ADMIN; Translations: [IMMUNIZATION ADMIN] Stand Offer 12-02-2017 influenza, seasonal, injectable; Translations: [FLU VACCINE 3 YRS & > IM] Stand Offer 12-02-2017 IMMUNIZATION ADMIN; Translations: [IMMUNIZATION ADMIN] Stand Offer Payers Date Payer Category Payer Unknown 2016 Unknown [facility] [employer] [facility] xxxxxxxxxxxx 2016-Present [phone] [address] [place] [address] xxxxxxxxxxxx [id number] 1965 Unknown [id number] 1965 Unknown [id number] 1965 Unknown [id number] 1965 Unknown [id number] 1965 Unknown [id number] 1958 Medicaid [id number] Private Health Insurance [id number] Social History Date Type Detail Facility Start: [facility] Start: soda [facility] Start: 11-24-2017 End: 12-02-2019 Tobacco smoking status NHIS Never smoker [place], [place] Start: 1965 Sex Assigned At Not on file [place] Start: 11-24-2017 End: 12-02-2019 Tobacco use and exposure Never used [employer] [place] Exposure to SARS-CoV -2 (event) Yes [place], [place] Medical Equipment Procedure Code Equipment Code Equipment Origin al Text Equipment Identifier Dates USE DIRECTED Start: 03-04-2019 Advance Directives No Advanced Directives Records FoundDocuments on File Type Date Recorded Patient Rolfer Expl anation Advance Directives and Living Will Power of [employer] Documents on File Type Date Recorded Patient Rolfer Expl anation ACP-Advance Directive ACP-Power of Teacher [employer] Discharge Instructions * Instructions* Joey Waite MD - 12/02/2019 Please return to the ED if you are feeling worse or short of breath. * Attachments The following attachments cannot be sent through Care Everywhere. * Coronavirus Disease (COVID-19): General Info (Sammarinese) * Video: COVID-19: Taking Care of Yourself If You Have It (Sammarinese) documented in this encounter Assessments Diagnosis COVID-19 [...] and content) DATE CREATED AUTHOR 08/29/2020 [facility] DATE CREATED AUTHOR AUTHOR'S ORGANIZ ATION 01/17/2021 [facility] DATE CREATED AUTHOR AUTHOR'S ORGANIZ ATION 12/10/2021 [facility] Care Teams (unrecognized sec tion and content) Lever Tender Relationship Specialty Start Date End Date Yazan Adrian MD [address] [place] [address] PCP - General Internal Medicine 04/26/15 Lever Tender Relationship Specialty Start Date End Date Yazan Adrian MD [address] [place] [address] PCP - General Internal Medicine 04/26/15 Lever Tender Relationship Specialty Start Date End Date Yazan Adrian MD [address] [place] [address] PCP - General Internal Medicine [...] BE BASED ON THE PRIMARY CLINICAL RECORDS. [facility] [employer] [facility]. provides no warranty or guarantee of the accuracy or completeness of information in this document.
--- NOTE | 2023-04-09 13:26 | ED_ITS ---
HPI - General Adult General Chief complaint: Extremity Problem, Nontraumatic Stated complaint: LOWER EXTREMITY PAIN - L LEG Time Seen by Provider: 04/09/23 13:14 Source: patient Mode of arrival: walk-in Limitations: no limitations History of Present Illness HPI narrative: Patient is a 58-year-old female with a history of diabetes who presents to the emergency department for continued pain, swelling and drainage from the left groin abscess. She was seen in this emergency department on Thursday, diagnosed with cellulitis, CT was performed showing no evidence of abscess. She was discharged home the next day on clindamycin, she states some days she feels as though the area is improved and other days she feels as though it is not. She has been taking clindamycin 4 times daily for the last 4 days. She states in the last day she has been running fevers as high as 101.7 Fahrenheit. She has not taken any medications today for fever and arrives to the emergency department with normal vital signs. She states the area to the left groin has started draining. She also further complains of a tender area to the left medial calf distally. There has been no redness or swelling. No falls or injuries. She has not had any vomiting. Related Data Previous Rx's Medication Instructions Recorded clindamycin HCl 300 mg capsule 300 mg PO Q6H 10 days #40 caps 04/05/23 Allergies Allergy/AdvReac Type Severity Reaction Status Date / Time naproxen [From Naprosyn] Allergy Intermediate Verified 12/14/22 13:22 Review of Systems ROS Constitutional Reports: fever; Denies: chills Ears, nose, mouth, and throat Denies: throat pain or nasal congestion Respiratory Denies: shortness of breath Gastrointestinal Denies: nausea or vomiting Musculoskeletal Reports: extremity pain; Denies: back pain, neck pain or extremity swelling Integumentary/Breast Reports: rash, redness, skin pain, skin tenderness and skin swelling Endocrine Denies: excessive urination Hematologic/Lymphatic Denies: easy bruising or easy bleeding [facility] Medical History (Updated 04/09/23 @ 15:27 by KARIN Kay) Obesity (BMI 30-39.9) ?E66.9 - Obesity, unspecified (ICD-10) Type 2 diabetes mellitus with hyperglycemia ?E11.65 - Type 2 diabetes mellitus with hyperglycemia (ICD-10) Cellulitis ?L03.90 - Cellulitis, unspecified (ICD-10) Acute pain of right knee ?M25.561 - Pain in right knee (ICD-10) Social History Smoking status: Never smoker Exam Narrative Exam Narrative: Gen.: Awake, alert, in no distress Head: Normocephalic, atraumatic ENT: Moist mucous membranes Respiratory: No respiratory distress Extremities: Tenderness with area of induration to the left medial, proximal thigh at the groin. No extension to the genitals. The area is raised, tender and firm with no palpable fluctuance. The top layer of skin appears to have blistered off, no active drainage or bleeding. Left medial calf is without swe lling, redness. Diffusely tender to palpation, no appreciable skin changes noted. Psych: Normal mood and affect Neuro: No focal neuro deficit Skin: Warm, dry, intact Constitutional Vital Signs, click to edit/add: Last Vital Signs Temp 98.9 F 04/09/23 12:40 Pulse 92 H 04/09/23 14:05 Resp 20 04/09/23 14:05 BP 137/81 04/09/23 14:05 Pulse Ox 97 04/09/23 14:05 O2 Del Method Room Air 04/09/23 12:40 Course Vital Signs Vital signs: Vital Signs Temperature 98.9 F 04/09/23 12:40 Pulse Rate 98 H 04/09/23 12:40 Respiratory Rate 18 04/09/23 12:40 Blood Pressure 167/86 H 04/09/23 12:40 Pulse Oximetry 100 04/09/23 12:40 Oxygen Delivery Method Room Air 04/09/23 12:40 Temperature 98.9 F 04/09/23 12:40 Pulse Rate 92 H 04/09/23 14:05 Respiratory Rate 20 04/09/23 14:05 Blood Pressure 137/81 04/09/23 14:05 Pulse Oximetry 97 04/09/23 14:05 Oxygen Delivery Method Room Air 04/09/23 12:40 Medical Decision Making MDM Narrative Medical decision making narrative: Labs are grossly unremarkable, patient feels as though she has not had any consistent improvement in her symptoms in the last 4 to 5 days. She was treated with Zosyn and vancomycin For change in antibiotic coverage in the ER, Percocet given for pain. Ultrasound with no evidence of DVT or other acute abnormality. Given the patient's poorly controlled diabetes and no significant improvement, we will readmit for IV antibiotics. Medical Records Medical records reviewed: Yes I reviewed the patient's medical records Lab Data Lab results reviewed: Yes I reviewed the patient's lab results Labs: Lab Results 04/09/23 Range/Units 12:55 WBC 10.9 (4.0-11.0) 10^3/uL RBC 4.53 (4.20-5.40) 10^6/uL Hgb 13.6 (12.0-16.0) g/dL Hct 42.9 (36.0-48.0) % MCV 94.7 (81.0-99.0) fL MCH 30.0 (26.7-34.0) pg MCHC 31.7 (29.9-35.2) g/dL RDW 13.0 (11.0-15.0) % Plt Count 329 (150-450) 10^3/uL MPV 10.1 (9.5-13.5) fL Neut % (Auto) 80.6 H (43.0-75.0) % Lymph % (Auto) 11.0 L (20.5-60.0) % [place] % (Auto) 6.4 (1.7-12.0) % Eos % (Auto) 1.0 (0.9-7.0) % Baso % (Auto) 0.5 (0.2-2.0) % Neut # (Auto) 8.8 H (1.4-6.5) 10^3/uL Lymph # (Auto) 1.2 (1.2-3.8) 10^3/uL [place] # (Auto) 0.7 (0.3-0.8) 10^3/uL Eos # (Auto) 0.1 (0.0-0.7) 10^3/uL Baso # (Auto) 0.1 (0.0-0.1) 10^3/uL Abs Immat Gran (auto) 0.06 H (0.00-0.03) 10^3/uL Imm/Tot Granulo (auto) 0.5 (0.0-0.5) % ESR 129 H (<=30) mm/hr Sodium 136 (136-145) mmol/L Potassium 4.2 (3.5-5.1) mmol/L Chloride 100 (98-107) mmol/L Carbon Dioxide 17.5 L (21.0-32.0) mmol/L Anion Gap 22.7 BUN 16.0 (7.0-18.0) mg/dL Creatinine 0.73 (0.55-1.02) mg/dL Est GFR ( Amer) >60 (>=60) Est GFR (Non-Af Amer) >60 (>=60) BUN/Creatinine Ratio 21.9 Glucose 402 H (74-106) mg/dL Lactate 1.4 (0.4-2.0) mmol/L Calcium 9.3 (8.5-10.1) mg/dL Total Bilirubin 0.5 (0.2-1.0) mg/dL AST 12 L (15-37) U/L ALT 20 (14-59) U/L Alkaline Phosphatase 107 (46-116) U/L C-Reactive Protein 11.43 H (<=0.50) mg/dL Total Protein 8.3 H (6.4-8.2) g/dL Albumin 2.8 L (3.4-5.0) g/dL Globulin 5.5 g/dL Albumin/Globulin Ratio 0.5 Imaging Data Venous US: Attestation: I have reviewed the pertinent imaging results. Radiologist's impression: ITS Impressions Venous Doppler Study 04/09/23 13:40 IMPRESSION: There is no direct or indirect evidence of deep vein thrombosis in the left lower extremity at this time. Electronically authenticated by: YOGI HERRMANN Date: 04/09/2023 15:07 Discharge Plan Discharge Chief Complaint: Extremity Problem, Nontraumatic Patient Disposition: Admitted as Observation Time of Disposition Decision: 15:26 Prescriptions / Home Meds: No Action clindamycin HCl 300 mg capsule 300 mg PO Q6H 10 Days Qty: 40 0RF Stand Alone Forms: Portal Instructions Referrals: Physician,Non-Staff, MD [Primary Care Provider] - 1 week
[2023-04-09 13:39] LABS: Basophils Absolute Auto 0.1 10^3/uL (0.0-0.1); Basophils Percent Auto 0.5 % (0.2-2.0); Eosinophils Absolute Auto 0.1 10^3/uL (0.0-0.7); Hematocrit 42.9 % (36.0-48.0); Hemoglobin 13.6 g/dL (12.0-16.0); Immature Granulocytes Abs Auto 0.06 10^3/uL (0.00-0.03); Immature Granulocytes Pct Auto 0.5 % (0.0-0.5); Lymphocytes Absolute Auto 1.2 10^3/uL (1.2-3.8); Mean Corpuscular HGB Conc 31.7 g/dL (29.9-35.2); Mean Corpuscular Volume 94.7 fL (81.0-99.0); Mean Platelet Volume 10.1 fL (9.5-13.5); Monocytes Absolute Auto 0.7 10^3/uL (0.3-0.8); Monocytes Percent Auto 6.4 % (1.7-12.0); Neutrophils Absolute Auto 8.8 10^3/uL (1.4-6.5); Neutrophils Percent Auto 80.6 % (43.0-75.0); Platelet Count 329 10^3/uL (150-450); Red Blood Count 4.53 10^6/uL (4.20-5.40); White Blood Count 10.9 10^3/uL (4.0-11.0)
--- NOTE | 2023-04-09 13:40 | US_ITS ---
The [address] [address] Patient Name: BRENDON FONG MRN: [id number] date: 1965 Sex: F Assigned Patient Location: ER Current Patient Location: ER Accession/Order Number: [id number] Exam Date: 04/09/2023 13:40 Report Date: 04/09/2023 15:07 At the request of: TASNEEM ROSARIO Procedure: US venous doppler LE LT EXAM: US venous doppler LE LT HISTORY: Left calf pain for one week COMPARISON: None. TECHNIQUE: Multiple sonographic images of the deep veins of the left lower extremity were obtained, supplemented with Doppler. FINDINGS: The deep veins of the left lower extremity are fairly well-visualized from the groin to the mid calf. No filling defect is identified to indicate a thrombus. There is normal compression augmentation of flow throughout. US/US venous doppler LE LT IMPRESSION: There is no direct or indirect evidence of deep vein thrombosis in the left lower extremity at this time. Electronically authenticated by: YOGI HERRMANN Date: 04/09/2023 15:07
[2023-04-09 13:46] LABS: Alanine Aminotransferase 20 U/L (14-59); Albumin Globulin Ratio 0.5; Albumin Level 2.8 g/dL (3.4-5.0); Alkaline Phosphatase 107 U/L (46-116); Anion Gap 22.7; Aspartate Amino Transferase 12 U/L (15-37); BUN Creatinine Ratio 21.9; Bilirubin Total 0.5 mg/dL (0.2-1.0); Calcium 9.3 mg/dL (8.5-10.1); Carbon Dioxide 17.5 mmol/L (21.0-32.0); Chloride 100 mmol/L (98-107); Estimated GFR (African America >60 (>=60); Estimated GFR (Non-African Ame >60 (>=60); Globulin 5.5 g/dL; Glucose 402 mg/dL (74-106); Potassium 4.2 mmol/L (3.5-5.1); Sodium 136 mmol/L (136-145); Total Protein 8.3 g/dL (6.4-8.2)
[2023-04-09 13:48] LABS: C Reactive Protein 11.43 mg/dL (<=0.50)
--- NOTE | 2023-04-09 13:48 | PC.NURSE ---
Patient has abscess to left thigh that she is treating with oral antibiotics. Past several days the area has been more tender and has drainage. On assessment with MEDICAL OFFICE ASSISTANT noted warm, hard area to left inner thigh.
[2023-04-09 13:49] LABS: Erythrocyte Sedimentation Rate 129 mm/hr (<=30)
[2023-04-09 13:51] LABS: Lactate/Lactic Acid 1.4 mmol/L (0.4-2.0)
[2023-04-09] MEDS: OXYCODONE HCL/ACETAMINOPHEN 5MG/325MG 1 TAB PO (14:02)
[2023-04-09] MEDS: PIPERACILLIN SODIUM/TAZOBACTAM 4.5 GM in 0.9 % SODIUM CHLORIDE 50 ML IV (14:03)
[2023-04-09 14:05] VITALS: BP 137/81; PULSE 92; RESP 20; O2SAT 97
[2023-04-09] MEDS: 0.9 % SODIUM CHLORIDE 1,000 ML 999 ML IV (14:11)
[2023-04-09] MEDS: VANCOMYCIN HCL 2,000 MG in 0.9 % SODIUM CHLORIDE 500 ML 250 MG IV (14:57)
[2023-04-09 16:51] VITALS: BP 133/77; PULSE 86; RESP 18; TEMP 36.9; O2SAT 91; BMI 39.8
[2023-04-09] MEDS: GLIPIZIDE 5 MG TABLET 10 MG PO (17:46)
[2023-04-09] MEDS: INSULIN ASPART 300 UNIT/3 ML PEN SUBQ ×2 (17:46→21:21)
[2023-04-09 17:50] LABS: Glucometer 311 mg/dL (74-106)
[2023-04-09 21:01] VITALS: BP 168/70; PULSE 99; RESP 18; TEMP 37.2; O2SAT 94
[2023-04-09 21:10] LABS: Glucometer 234 mg/dL (74-106)
[2023-04-10] MEDS: PIPERACILLIN SODIUM/TAZOBACTAM 3.375 GM in 0.9 % SODIUM CHLORIDE 50 ML IV ×4 (02:22→21:48)
[2023-04-10] MEDS: IBUPROFEN 400 MG TABLET 800 MG PO ×3 (02:28→19:41)
[2023-04-10] MEDS: VANCOMYCIN HCL 1,750 MG in 0.9 % SODIUM CHLORIDE 500 ML 250 MG IV ×2 (02:57→15:37)
[2023-04-10 05:10] VITALS: BP 155/87; PULSE 78; RESP 16; TEMP 36.7; O2SAT 95
[2023-04-10 05:16] LABS: Basophils Absolute Auto 0.1 10^3/uL (0.0-0.1); Basophils Percent Auto 0.6 % (0.2-2.0); Eosinophils Absolute Auto 0.2 10^3/uL (0.0-0.7); Eosinophils Percent Auto 2.3 % (0.9-7.0); Hematocrit 37.4 % (36.0-48.0); Hemoglobin 11.5 g/dL (12.0-16.0); Immature Granulocytes Abs Auto 0.03 10^3/uL (0.00-0.03); Immature Granulocytes Pct Auto 0.4 % (0.0-0.5); Lymphocytes Absolute Auto 1.8 10^3/uL (1.2-3.8); Lymphocytes Percent Auto 21.1 % (20.5-60.0); Mean Corpuscular HGB Conc 30.7 g/dL (29.9-35.2); Mean Corpuscular Hemoglobin 30.1 pg (26.7-34.0); Mean Corpuscular Volume 97.9 fL (81.0-99.0); Monocytes Absolute Auto 0.8 10^3/uL (0.3-0.8); Neutrophils Absolute Auto 5.6 10^3/uL (1.4-6.5); Neutrophils Percent Auto 66.6 % (43.0-75.0); Platelet Count 247 10^3/uL (150-450); Red Blood Count 3.82 10^6/uL (4.20-5.40); White Blood Count 8.4 10^3/uL (4.0-11.0)
[2023-04-10 05:30] LABS: Anion Gap 17.8; BUN Creatinine Ratio 27.1; Carbon Dioxide 16.3 mmol/L (21.0-32.0); Chloride 107 mmol/L (98-107); Estimated GFR (African America >60 (>=60); Estimated GFR (Non-African Ame >60 (>=60); Glucose 289 mg/dL (74-106); Potassium 4.1 mmol/L (3.5-5.1); Sodium 137 mmol/L (136-145)
[2023-04-10 07:45] LABS: Glucometer 283 mg/dL (74-106)
[2023-04-10] MEDS: GLIPIZIDE 5 MG TABLET 10 MG PO ×2 (08:57→17:24)
[2023-04-10] MEDS: INSULIN ASPART 300 UNIT/3 ML PEN SUBQ ×4 (08:57→21:48)
[2023-04-10] MEDS: LISINOPRIL 20 MG TABLET 40 MG PO (08:57)
[2023-04-10 11:09] LABS: Glucometer 344 mg/dL (74-106)
--- NOTE | 2023-04-10 11:23 | CM.NOTE ---
Rounds made with Dr. Lamar, no discharge today. Will continue IV antibiotics and consult wound.
[2023-04-10] MEDS: ACETAMINOPHEN 500 MG TABLET 1000 MG PO ×2 (11:27→19:41)
--- NOTE | 2023-04-10 12:28 | P.HP_ITS ---
H&P: HPI History of Present Illness Chief complaint: LOWER EXTREMITY PAIN - L LEG Cellulitis left leg p Narrative: 58 y/o female to ER with Cellulitis and drainage from left groin. Admitted 04/04-04/05 with cellulitis and given IV clindamycin. Improved with treatment and home with oral clindamycin. Reports skin opened and started to drain next day after discharge. Over next few days at times would seem like pain and swelling improving and other times worse. Developed temp 101.7 at home. Developed nausea and fatigue. To ER and Noticed redness in groin. WBC normal and afebrile. Admitted for IV antibiotics after failed outpatient treatment with oral clindamycin. Review of Systems ROS Constitutional Reports: fever, chills and fatigue Cardiovascular Denies: chest pain, palpitations or edema Respiratory Denies: shortness of breath, cough or wheezing Gastrointestinal Reports: nausea; Denies: abdominal pain, vomiting or diarrhea Genitourinary Denies: painful urination [facility] Medical History (Updated 04/10/23 @ 09:16 by Dalton Lamar MD) Acute pain of left lower extremity ?M79.605 - Pain in left leg (ICD-10) Cellulitis ?L03.90 - Cellulitis, unspecified (ICD-10) Acute hyperglycemia ?R73.9 - Hyperglycemia, unspecified (ICD-10) Cellulitis ?L03.90 - Cellulitis, unspecified (ICD-10) Acute pain of right knee ?M25.561 - Pain in right knee (ICD-10) Social History Smoking status: Never smoker Highest level of school completed/degree received: high school graduate Meds Home Medications and Allergies Home Medications Medication Instructions Recorded Confirmed Type clindamycin HCl 300 mg capsule 300 mg PO Q6H 10 days #40 caps 04/05/23 04/09/23 Rx glipizide 5 mg tablet 10 mg PO BID 04/09/23 04/09/23 History ibuprofen 800 mg tablet 800 mg PO Q8H PRN pain 04/09/23 04/09/23 History lisinopril 20 mg tablet 40 mg PO DAILY 04/09/23 04/09/23 History Allergies Allergy/AdvReac Type Severity Reaction Status Date / Time naproxen [From Naprosyn] AdvReac Mild Nausea Verified 04/09/23 17:02 Exam Constitutional Vital Signs, click to edit/add: Last Vital Signs Temp 98.0 F 04/10/23 05:10 Pulse 78 04/10/23 05:10 Resp 16 04/10/23 05:10 BP 155/87 H 04/10/23 05:10 Pulse Ox 95 04/10/23 05:10 O2 Del Method Room Air 04/10/23 05:10 Documenting provider has reviewed patient's vital signs: yes Common normals: no apparent distress, oriented x3 and alert HENMT Common normals: normocephalic Eye Common normals: PERRL and EOMs intact bilaterally Respiratory Common normals: normal respiratory effort and clear to auscultation bilaterally Cardio Common normals: regular rate, regular rhythm, no gallops, no murmurs and no rub GI Common normals: Normal to inspection, nondistended, normoactive bowel sounds present and non-tender Extremity Common normals: no pedal edema Other: Mild erythema in left groin Results Labs Labs: Short CBC 04/09/23 04/10/23 Range/Units 12:55 04:52 WBC 10.9 8.4 (4.0-11.0) 10^3/uL Hgb 13.6 11.5 L (12.0-16.0) g/dL Hct 42.9 37.4 (36.0-48.0) % Plt Count 329 247 (150-450) 10^3/uL BMP 04/09/23 04/10/23 12:55 04:52 Sodium 136 137 Potassium 4.2 4.1 Chloride 100 107 Carbon Dioxide 17.5 L 16.3 L BUN 16.0 13.0 Creatinine 0.73 0.48 L Glucose 402 H 289 H Calcium 9.3 8.0 L Liver Function 04/09/23 Range/Units 12:55 Total Bilirubin 0.5 (0.2-1.0) mg/dL AST 12 L (15-37) U/L ALT 20 (14-59) U/L Alkaline Phosphatase 107 (46-116) U/L Albumin 2.8 L (3.4-5.0) g/dL Assessment and Plan Assessment and Plan (1) Cellulitis of left groin: (2) Type 2 diabetes mellitus with hyperglycemia: (3) Obesity (BMI 30-39.9): Plan Patient returned with worsening cellulitis and fever at home after failing outpatient treatment with oral clindamycin. Continue zosyn and vanco for infection. Monitor labs and vitals. Resume home medication and need to improve BS. Plan at least 2-3 days in the hospital for IV antibiotics.
[2023-04-10] MEDS: 0.9 % SODIUM CHLORIDE 250 ML 10 ML IV (13:34)
[2023-04-10 13:40] VITALS: BP 137/62; PULSE 76; RESP 18; TEMP 36.8; O2SAT 92
[2023-04-10 16:20] LABS: Glucometer 263 mg/dL (74-106)
[2023-04-10 19:40] LABS: A. calcoaceticus-baumannii Cpx NOT DETECTED (NOT DETECTE); Bacteroides fragilis NOT DETECTED (NOT DETECTE); Candida albicans NOT DETECTED (NOT DETECTE); Candida auris NOT DETECTED (NOT DETECTE); Candida glabrata NOT DETECTED (NOT DETECTE); Candida krusei NOT DETECTED (NOT DETECTE); Candida parapsilosis NOT DETECTED (NOT DETECTE); Candida tropicalis NOT DETECTED (NOT DETECTE); Cryptococcus neoformans/gattii NOT DETECTED (NOT DETECTE); Enterobacter cloacae complex NOT DETECTED (NOT DETECTE); Enterobacterales NOT DETECTED (NOT DETECTE); Enterococcus faecalis NOT DETECTED (NOT DETECTE); Enterococcus faecium NOT DETECTED (NOT DETECTE); Haemophilus influenzae NOT DETECTED (NOT DETECTE); Klebsiella aerogenes NOT DETECTED (NOT DETECTE); Klebsiella pneumoniae group NOT DETECTED (NOT DETECTE); Listeria monocytogenes NOT DETECTED (NOT DETECTE); Neisseria meningitidis NOT DETECTED (NOT DETECTE); Proteus spp. NOT DETECTED (NOT DETECTE); Pseudomonas aeruginosa NOT DETECTED (NOT DETECTE); Salmonella spp. NOT DETECTED (NOT DETECTE); Serratia marcescens NOT DETECTED (NOT DETECTE); Staphylococcus epidermidis NOT DETECTED (NOT DETECTE); Staphylococcus lugdunensis NOT DETECTED (NOT DETECTE); Staphylococcus spp. NOT DETECTED (NOT DETECTE); Stenotrophomonas maltophilia NOT DETECTED (NOT DETECTE); Streptococcus agalactiae NOT DETECTED (NOT DETECTE); Streptococcus pneumoniae NOT DETECTED (NOT DETECTE); Streptococcus pyogenes NOT DETECTED (NOT DETECTE); Streptococcus spp. NOT DETECTED (NOT DETECTE)
[2023-04-10 19:48] VITALS: BP 144/80; PULSE 86; RESP 20; TEMP 36.8; O2SAT 92
[2023-04-10 21:47] LABS: Glucometer 316 mg/dL (74-106)
--- NOTE | 2023-04-11 | CONS_ITS ---
CONSULTATION DATE: 04/11/2023 CHIEF COMPLAINT: Left thigh abscess. HISTORY OF PRESENT ILLNESS: Patient is a 58-year-old female with history of hypertension, type 2 diabetes and obesity, who reports a two week history of swelling and soreness and erythema of the left medial upper thigh. She was admitted on 04/05 and placed on antibiotics. Emergency room workup revealed normal white blood cell count. She also had a CT scan of the area which revealed no abscess. She was treated for cellulitis and was discharged several days ago, and then developed spontaneous drainage, just within the last couple days, from a smaller area of the erythema. She represented to the emergency room yesterday and was admitted for IV antibiotics. She had a normal white blood cell count at that time, as well as has been afebrile. She has had some intermittent drainage from a small area of the center of the erythema. Culture was just sent today. Her glucose has been out of control, with the last Accu- Chek being over 400. Insulin has been added to her regimen. She denies any history of similar problems. Does report just noticing a swelling there that became more and more inflamed and tender. She denies any injury or breaks in the skin or history of other similar problems. ALLERGIES: She reportedly has allergies to naproxen which causes nausea. MEDICATIONS: Home medications were Clindamycin, glipizide, ibuprofen and lisinopril. PAST SURGICAL HISTORY: She denies any previous surgical history. SOCIAL HISTORY: She is a non-smoker. Denies tobacco use or illicit drug use. FAMILY HISTORY: Noncontributory. REVIEW OF SYSTEMS: Ten system review of systems is negative for recent weight loss or weight gain. She denies any increased fatigue or light-headedness. Has had no earache or tinnitus. No sinus congestion. No sore throat or hoarseness. No chest pain, palpitations or syncope. No chronic cough, shortness of breath or hemoptysis. No abdominal pain, nausea or vomiting. No diarrhea, constipation or decreased caliber of the stool. No melena, hematochezia or bright red blood per rectum. No dysuria, frequency, urgency or hematuria. No headaches, seizures or tremors. No easy bruising or bleeding. No heat or cold intolerance. No polydipsia, polyphagia or polyuria. PHYSICAL EXAM: On physical exam, patient is an obese female, currently in no acute distress. HEENT: Normocephalic, atraumatic. Sclerae anicteric. Conjunctiva not injected. Oral mucosa is moist without lesions. NECK: Supple. LUNGS: Clear bilaterally. CARDIAC EXAM: Regular rhythm and rate without appreciable murmurs, rubs or gallops. ABDOMEN: Obese, soft, non-tender, non-distended. SKIN: Left upper medial thigh reveals approximately 7 cm area of induration, resolving erythema, with approximately 4 cm area of fluctuance. There is no crepitus, no active drainage currently, no open areas or skin necrosis. It is tender to palpation. Skin is otherwise warm and dry without lesions, rashes or ulcers. NEURO EXAM: Non-focal. Non-lateralizing. LABORATORY DATA: White blood cell count today is normal. Glucose is elevated at 419 for the last one. She is currently on vancomycin and Zosyn. BUN was 11. Creatinine was 0.5. Electrolytes were otherwise unremarkable. ASSESSMENT: A 58-year-old female with diabetes, obesity, hypertension, with two week history of cellulitis of the upper medial thigh, now with evidence of abscess and fluctuance with intermittent drainage, but no significant open area. RECOMMENDATIONS: I would recommend incision, drainage, irrigation and packing to help speed up the resolution of this, particularly given the patient?s comorbid conditions. Cultures currently pending. This was sent today. Since patient did eat today, we will plan on proceeding tomorrow morning under anesthesia. Informed consent was obtained. CC: Patient?s family physician ESSIE
[2023-04-11] MEDS: VANCOMYCIN HCL 1,750 MG in 0.9 % SODIUM CHLORIDE 500 ML 250 MG IV ×2 (02:13→15:25)
[2023-04-11 04:41] LABS: Basophils Percent Auto 0.5 % (0.2-2.0); Eosinophils Absolute Auto 0.2 10^3/uL (0.0-0.7); Eosinophils Percent Auto 2.2 % (0.9-7.0); Hematocrit 37.5 % (36.0-48.0); Hemoglobin 11.9 g/dL (12.0-16.0); Immature Granulocytes Abs Auto 0.03 10^3/uL (0.00-0.03); Immature Granulocytes Pct Auto 0.4 % (0.0-0.5); Lymphocytes Absolute Auto 1.4 10^3/uL (1.2-3.8); Lymphocytes Percent Auto 18.8 % (20.5-60.0); Mean Corpuscular HGB Conc 31.7 g/dL (29.9-35.2); Mean Corpuscular Hemoglobin 30.4 pg (26.7-34.0); Mean Corpuscular Volume 95.7 fL (81.0-99.0); Mean Platelet Volume 9.6 fL (9.5-13.5); Monocytes Absolute Auto 0.6 10^3/uL (0.3-0.8); Monocytes Percent Auto 8.6 % (1.7-12.0); Neutrophils Absolute Auto 5.1 10^3/uL (1.4-6.5); Neutrophils Percent Auto 69.5 % (43.0-75.0); Platelet Count 267 10^3/uL (150-450); Red Blood Count 3.92 10^6/uL (4.20-5.40); Red Cell Distribution Width 12.9 % (11.0-15.0); White Blood Count 7.3 10^3/uL (4.0-11.0)
[2023-04-11 04:57] LABS: Anion Gap 12.7; BUN Creatinine Ratio 22.4; Calcium 8.4 mg/dL (8.5-10.1); Carbon Dioxide 23.4 mmol/L (21.0-32.0); Chloride 108 mmol/L (98-107); Estimated GFR (African America >60 (>=60); Estimated GFR (Non-African Ame >60 (>=60); Glucose 301 mg/dL (74-106); Potassium 4.1 mmol/L (3.5-5.1); Sodium 140 mmol/L (136-145)
[2023-04-11 05:22] LABS: Vancomycin Trough 47.6 ug/mL (5.0-20.0)
[2023-04-11 06:00] VITALS: BP 169/73; PULSE 91; RESP 20; TEMP 36.9; O2SAT 95
[2023-04-11] MEDS: IBUPROFEN 400 MG TABLET 800 MG PO ×2 (06:10→21:20)
[2023-04-11] MEDS: ACETAMINOPHEN 500 MG TABLET 1000 MG PO ×3 (06:10→21:19)
[2023-04-11] MEDS: PIPERACILLIN SODIUM/TAZOBACTAM 3.375 GM in 0.9 % SODIUM CHLORIDE 50 ML IV ×3 (06:11→23:10)
--- NOTE | 2023-04-11 06:23 | PC.NURSE ---
Patient returned from bathroom and stated her wound was draining. Small amount of drainage in toilet. Bloody purulent drainage noted from pinpoint area. Area cleaned and marked with a skin marker.
[2023-04-11] MEDS: INSULIN ASPART 300 UNIT/3 ML PEN SUBQ ×4 (08:00→23:15)
[2023-04-11] MEDS: GLIPIZIDE 5 MG TABLET 10 MG PO ×2 (08:42→16:52)
[2023-04-11] MEDS: LISINOPRIL 20 MG TABLET 40 MG PO (08:42)
--- NOTE | 2023-04-11 08:47 | PM.PN ---
Progress Note: Subjective Subjective Interval history: patient is a 58-year-old female with past medical history of [id number] type 2 diabetes,hypertension who presented initially on 04/05 and was admitted for IV clinda, failed outpatient clinda and returned with worsening left groin erythema, pain and abscess that also started to drain. She notes green discharge. Fevers and sweats and pain in that area. Exam Narrative Exam Narrative: General: Patient is alert, and oriented to person, place and time with normal affect, proper hygiene Skin: 3cm x 4cm area of induration, and surrounding erythema on the inner/upper left thigh, greenish/yellow discharge can be expressed Head: atraumatic, acephalic Heart: Normal rate and rhythm, no murmurs/rubs/gallops Lungs: no audible wheezes, crackles and normal breath sounds all lung goncalves Constitutional Vital Signs, click to edit/add: Last Vital Signs Temp 98.5 F 04/11/23 06:00 Pulse 91 H 04/11/23 06:00 Resp 20 04/11/23 06:00 BP 169/73 H 04/11/23 06:00 Pulse Ox 95 04/11/23 06:00 O2 Del Method Room Air 04/11/23 06:00 Progress Note: Objective Labs Labs: Short CBC 04/11/23 Range/Units 04:21 WBC 7.3 (4.0-11.0) 10^3/uL Hgb 11.9 L (12.0-16.0) g/dL Hct 37.5 (36.0-48.0) % Plt Count 267 (150-450) 10^3/uL BMP 04/11/23 04:21 Sodium 140 Potassium 4.1 Chloride 108 H Carbon Dioxide 23.4 BUN 11.0 Creatinine 0.49 L Glucose 301 H Calcium 8.4 L Progress Note: A&P Assessment and Plan (1) Cellulitis of left groin: Assessment and Plan: consult general surgery, Dr. Nagy today. I believe this needs surgical I&D. Continue rogelio and tran. (2) Type 2 diabetes mellitus with hyperglycemia: Assessment and Plan: SSI as needed, qac and qhs FSBS (3) Obesity (BMI 30-39.9): Plan Patient will still require 1-2 days of treatment. Gen Surg consult today. Probable OR tomorrow.
[2023-04-11 10:08] LABS: Source blood
[2023-04-11 11:41] LABS: Glucometer 419 mg/dL (74-106)
--- NOTE | 2023-04-11 12:53 | P.GSCN_ITS ---
History of Present Illness Consult details Consult date: 04/11/23 Requesting physician: Francisca Shields Narrative: patient seen, examined, chart and x-ray images reviewed, consult dictated; 58 yo female with DMII, htn, obesity with 2 week h/o swelling, pain, cellulitis left upper medial thigh, now with evidence of abscess with minimal intermittent drainage, but no significant open area; culture just sent today; on broad spectrum antibiotics; plan I & D, debridement and packing under anesthesia in am since patient ate today; informed consent obtained. [facility] Medical History (Updated 04/10/23 @ 09:16 by Dalton Lamar MD) Acute pain of left lower extremity ?M79.605 - Pain in left leg (ICD-10) Cellulitis ?L03.90 - Cellulitis, unspecified (ICD-10) Acute hyperglycemia ?R73.9 - Hyperglycemia, unspecified (ICD-10) Cellulitis ?L03.90 - Cellulitis, unspecified (ICD-10) Acute pain of right knee ?M25.561 - Pain in right knee (ICD-10) Social History Smoking status: Never smoker Highest level of school completed/degree received: high school graduate Meds Home Medications and Allergies Home Medications Medication Instructions Recorded Confirmed Type clindamycin HCl 300 mg capsule 300 mg PO Q6H 10 days #40 caps 04/05/23 04/09/23 Rx glipizide 5 mg tablet 10 mg PO BID 04/09/23 04/09/23 History ibuprofen 800 mg tablet 800 mg PO Q8H PRN pain 04/09/23 04/09/23 History lisinopril 20 mg tablet 40 mg PO DAILY 04/09/23 04/09/23 History Allergies Allergy/AdvReac Type Severity Reaction Status Date / Time naproxen [From Naprosyn] AdvReac Mild Nausea Verified 04/09/23 17:02 Exam Constitutional Vital Signs, click to edit/add: Last Vital Signs Temp 98.5 F 04/11/23 06:00 Pulse 91 H 04/11/23 06:00 Resp 20 04/11/23 06:00 BP 169/73 H 04/11/23 06:00 Pulse Ox 95 04/11/23 06:00 O2 Del Method Room Air 04/11/23 06:00 Results Labs Labs: Abnormal lab results 04/10/23 04/10/23 04/11/23 Range/Units 16:19 21:46 04:21 RBC 3.92 L (4.20-5.40) 10^6/uL Hgb 11.9 L (12.0-16.0) g/dL Lymph % (Auto) 18.8 L (20.5-60.0) % Chloride 108 H (98-107) mmol/L Creatinine 0.49 L (0.55-1.02) mg/dL Glucose 301 H (74-106) mg/dL Calcium 8.4 L (8.5-10.1) mg/dL Vancomycin Trough 47.6 H* (5.0-20.0) ug/mL POC Glucose 263 H 316 H (74-106) mg/dL 04/11/23 Range/Units 11:40 RBC (4.20-5.40) 10^6/uL Hgb (12.0-16.0) g/dL Lymph % (Auto) (20.5-60.0) % Chloride (98-107) mmol/L Creatinine (0.55-1.02) mg/dL Glucose (74-106) mg/dL Calcium (8.5-10.1) mg/dL Vancomycin Trough (5.0-20.0) ug/mL POC Glucose 419 H (74-106) mg/dL Diabetes panel 04/11/23 Range/Units 04:21 Sodium 140 (136-145) mmol/L Potassium 4.1 (3.5-5.1) mmol/L Chloride 108 H (98-107) mmol/L Carbon Dioxide 23.4 (21.0-32.0) mmol/L BUN 11.0 (7.0-18.0) mg/dL Creatinine 0.49 L (0.55-1.02) mg/dL Glucose 301 H (74-106) mg/dL Calcium 8.4 L (8.5-10.1) mg/dL Calcium panel 04/11/23 Range/Units 04:21 Calcium 8.4 L (8.5-10.1) mg/dL Pituitary panel 04/11/23 Range/Units 04:21 Sodium 140 (136-145) mmol/L Potassium 4.1 (3.5-5.1) mmol/L Chloride 108 H (98-107) mmol/L Carbon Dioxide 23.4 (21.0-32.0) mmol/L BUN 11.0 (7.0-18.0) mg/dL Creatinine 0.49 L (0.55-1.02) mg/dL Glucose 301 H (74-106) mg/dL Calcium 8.4 L (8.5-10.1) mg/dL Adrenal panel 04/11/23 Range/Units 04:21 Sodium 140 (136-145) mmol/L Potassium 4.1 (3.5-5.1) mmol/L Chloride 108 H (98-107) mmol/L Carbon Dioxide 23.4 (21.0-32.0) mmol/L BUN 11.0 (7.0-18.0) mg/dL Creatinine 0.49 L (0.55-1.02) mg/dL Glucose 301 H (74-106) mg/dL Calcium 8.4 L (8.5-10.1) mg/dL All other labs normal. Assessment and Plan Assessment and Plan (1) Cellulitis of left groin: (2) Type 2 diabetes mellitus with hyperglycemia: (3) Obesity (BMI 30-39.9):
[2023-04-11 13:25] VITALS: BP 149/83; PULSE 83; RESP 20; TEMP 36.8; O2SAT 96
[2023-04-11 14:42] LABS: Vancomycin Trough 8.6 ug/mL (5.0-20.0)
[2023-04-11] MEDS: 0.9 % SODIUM CHLORIDE 250 ML 10 ML IV (15:25)
[2023-04-11 16:13] LABS: Glucometer 258 mg/dL (74-106)
[2023-04-11 20:43] LABS: Glucometer 240 mg/dL (74-106)
[2023-04-11 21:06] VITALS: BP 176/84; PULSE 97; RESP 18; TEMP 37.1; O2SAT 93
[2023-04-12] VITALS (14 sets, daily range): BP systolic 125–171; BP diastolic 64–86; PULSE 77–85; RESP 10–24; TEMP 36.3–36.9; O2SAT 92–98
--- NOTE | 2023-04-12 | OP_ITS ---
OPERATION DATE: 04/12/2023 PREOPERATIVE DIAGNOSIS: Left medial thigh abscess. POSTOPERATIVE DIAGNOSIS: Left medial thigh abscess. PROCEDURE: Incision and drainage, irrigation and packing of left medial thigh abscess. SURGEON: Joey Nagy M.D. ANESTHESIA: General endotracheal. ESTIMATED BLOOD LOSS: Less than 10 mL. INDICATIONS AND CONSENT: Patient is a 58-year-old female with diabetes, hypertension and obesity, who has had a two week history of cellulitis and developing abscess of the left medial thigh. She has had small amounts of drainage from the small pore, but continues to have low grade fevers and elevated glucose, tenderness in the area, which has not resolved with antibiotics. Indications, risks, benefits, alternatives of proceeding incision, drainage, irrigation and packing of the abscess cavity were explained extensively to the patient, including the risks of bleeding, infection, scarring, pain, recurrence, need for further surgery, anesthetic complications. All of her questions were answered. Informed consent was obtained. PROCEDURE: Patient was brought to the operating room, placed in the supine position. General anesthesia was induced. She was then placed in the modified jackknife position in [facility]. She was prepped and draped in the usual sterile fashion. Incision was made over the area of maximum fluctuance, in the area of the skin crease. A large amount of thick purulent drainage was encounter, which was sent for culture. This was all drained out. There was some necrotic fat as well. No crepitus. No foul smell. The wound was irrigated half strength peroxide. There was healthy granulation tissue in the base. The cavity extended approximately up to the groin fold and inferiorly, total size of approximately 10-12 cm. Some superficial fat was debrided with a small curette. There was good hemostasis. The wound was then packed with 2? Kerlix gauze soaked in half strength Betadine. ABD pad was placed as well as mesh panties. Patient tolerated procedure well, was placed back in the supine position, extubated and sent to recovery room in good condition. CC: Patient?s family physician ESSIE
[2023-04-12] MEDS: VANCOMYCIN HCL 1,750 MG in 0.9 % SODIUM CHLORIDE 500 ML 250 MG IV (03:11)
[2023-04-12 05:25] LABS: Basophils Absolute Auto 0.1 10^3/uL (0.0-0.1); Basophils Percent Auto 0.7 % (0.2-2.0); Eosinophils Absolute Auto 0.2 10^3/uL (0.0-0.7); Eosinophils Percent Auto 3.1 % (0.9-7.0); Hematocrit 34.7 % (36.0-48.0); Hemoglobin 11.1 g/dL (12.0-16.0); Immature Granulocytes Abs Auto 0.03 10^3/uL (0.00-0.03); Immature Granulocytes Pct Auto 0.4 % (0.0-0.5); Lymphocytes Percent Auto 28.5 % (20.5-60.0); Mean Corpuscular Hemoglobin 30.5 pg (26.7-34.0); Mean Corpuscular Volume 95.3 fL (81.0-99.0); Mean Platelet Volume 9.6 fL (9.5-13.5); Monocytes Absolute Auto 0.7 10^3/uL (0.3-0.8); Monocytes Percent Auto 9.5 % (1.7-12.0); Neutrophils Absolute Auto 4.1 10^3/uL (1.4-6.5); Neutrophils Percent Auto 57.8 % (43.0-75.0); Platelet Count 283 10^3/uL (150-450); Red Blood Count 3.64 10^6/uL (4.20-5.40); Red Cell Distribution Width 12.8 % (11.0-15.0); White Blood Count 7.1 10^3/uL (4.0-11.0)
[2023-04-12] MEDS: PIPERACILLIN SODIUM/TAZOBACTAM 3.375 GM in 0.9 % SODIUM CHLORIDE 50 ML IV ×3 (05:37→22:03)
[2023-04-12 05:38] LABS: Anion Gap 10.3; Carbon Dioxide 27.6 mmol/L (21.0-32.0); Chloride 109 mmol/L (98-107); Estimated GFR (African America >60 (>=60); Glucose 246 mg/dL (74-106); Potassium 3.9 mmol/L (3.5-5.1); Sodium 143 mmol/L (136-145)
[2023-04-12 05:39] LABS: BUN Creatinine Ratio 12.7; Calcium 8.3 mg/dL (8.5-10.1); Estimated GFR (Non-African Ame >60 (>=60)
[2023-04-12 05:54] LABS: Estimated Average Glucose 355 mg/dL; Glycohemoglobin A1C >14.0 % (4.5-6.2)
--- NOTE | 2023-04-12 08:36 | PM.PN ---
Progress Note: Subjective Subjective Interval history: patient was taken to the OR today for I and D, and packing. I have seen patient postop and she denies any current pain. She denies any fevers chills nausea vomiting or diarrhea. Discussed keeping her through tomorrow for IV antibiotics and packing changes tomorrow. we also discussed elevated hemoglobin A1c of fourteen. She reports she has been on insulin metformin and glipizide in the past. Discussed addition of long-acting insulin tonight. No other issues or concerns. Exam Narrative Exam Narrative: General: Patient is alert, and oriented to person, place and time with normal affect, proper hygiene Head: atraumatic, acephalic Heart: Normal rate and rhythm, no murmurs/rubs/gallops Lungs: no audible wheezes, crackles and normal breath sounds all lung goncalves Neuro: CN II-X grossly intact Constitutional Vital Signs, click to edit/add: Last Vital Signs Temp 98.0 F 04/12/23 05:51 Pulse 80 04/12/23 05:51 Resp 18 04/12/23 05:51 BP 171/84 H 04/12/23 05:51 Pulse Ox 96 04/12/23 05:51 O2 Del Method Room Air 04/12/23 05:51 Progress Note: Objective Labs Labs: Short CBC 04/12/23 Range/Units 04:53 WBC 7.1 (4.0-11.0) 10^3/uL Hgb 11.1 L (12.0-16.0) g/dL Hct 34.7 L (36.0-48.0) % Plt Count 283 (150-450) 10^3/uL BMP 04/12/23 04:53 Sodium 143 Potassium 3.9 Chloride 109 H Carbon Dioxide 27.6 BUN 8.0 Creatinine 0.63 Glucose 246 H Calcium 8.3 L Progress Note: A&P Assessment and Plan (1) Cellulitis of left groin: Assessment and Plan: surgical I&D today with packing, start packing changes tomorrow, continue Vanc and Zosyn (2) Type 2 diabetes mellitus with hyperglycemia: Assessment and Plan: SSI as needed, qac and qhs FSBS, Ha1c 14, add lantus 10 units tonight. (3) Obesity (BMI 30-39.9): Plan Surgery today, hopeful discharge tomorrow.
[2023-04-12] MEDS: LISINOPRIL 20 MG TABLET 40 MG PO (09:32)
[2023-04-12] MEDS: GLIPIZIDE 5 MG TABLET 10 MG PO ×2 (09:32→16:33)
[2023-04-12 11:55] LABS: Glucometer 354 mg/dL (74-106)
[2023-04-12] MEDS: INSULIN ASPART 300 UNIT/3 ML PEN SUBQ ×3 (12:02→21:25)
[2023-04-12] MEDS: VANCOMYCIN HCL 2,000 MG in 0.9 % SODIUM CHLORIDE 500 ML 250 MG IV (15:02)
[2023-04-12] MEDS: IBUPROFEN 400 MG TABLET 800 MG PO (15:56)
[2023-04-12 16:16] LABS: Glucometer 334 mg/dL (74-106)
[2023-04-12] MEDS: 0.9 % SODIUM CHLORIDE 250 ML 10 ML IV (16:53)
[2023-04-12 19:53] LABS: Glucometer 303 mg/dL (74-106)
[2023-04-12] MEDS: INSULIN DETEMIR 300 UNIT/3 ML INSULN.PEN 20 UNIT SUBQ (21:24)
[2023-04-12] MEDS: ACETAMINOPHEN 500 MG TABLET 1000 MG PO (21:26)
[2023-04-13] MEDS: VANCOMYCIN HCL 2,000 MG in 0.9 % SODIUM CHLORIDE 500 ML 250 MG IV (02:16)
[2023-04-13] MEDS: IBUPROFEN 400 MG TABLET 800 MG PO ×2 (02:20→11:42)
[2023-04-13] MEDS: PIPERACILLIN SODIUM/TAZOBACTAM 3.375 GM in 0.9 % SODIUM CHLORIDE 50 ML IV (05:02)
[2023-04-13 05:10] VITALS: BP 153/77; PULSE 75; RESP 18; TEMP 36.6; O2SAT 92
[2023-04-13 05:14] LABS: Basophils Absolute Auto 0.1 10^3/uL (0.0-0.1); Basophils Percent Auto 0.8 % (0.2-2.0); Eosinophils Absolute Auto 0.2 10^3/uL (0.0-0.7); Eosinophils Percent Auto 3.5 % (0.9-7.0); Hematocrit 35.6 % (36.0-48.0); Hemoglobin 11.2 g/dL (12.0-16.0); Immature Granulocytes Abs Auto 0.03 10^3/uL (0.00-0.03); Immature Granulocytes Pct Auto 0.5 % (0.0-0.5); Lymphocytes Absolute Auto 1.6 10^3/uL (1.2-3.8); Lymphocytes Percent Auto 27.5 % (20.5-60.0); Mean Corpuscular HGB Conc 31.5 g/dL (29.9-35.2); Mean Corpuscular Hemoglobin 30.3 pg (26.7-34.0); Mean Corpuscular Volume 96.2 fL (81.0-99.0); Mean Platelet Volume 9.5 fL (9.5-13.5); Monocytes Absolute Auto 0.6 10^3/uL (0.3-0.8); Monocytes Percent Auto 9.8 % (1.7-12.0); Neutrophils Absolute Auto 3.4 10^3/uL (1.4-6.5); Neutrophils Percent Auto 57.9 % (43.0-75.0); Platelet Count 297 10^3/uL (150-450); White Blood Count 5.9 10^3/uL (4.0-11.0)
[2023-04-13 05:38] LABS: Anion Gap 11.1; Calcium 8.3 mg/dL (8.5-10.1); Carbon Dioxide 27.7 mmol/L (21.0-32.0); Chloride 111 mmol/L (98-107); Estimated GFR (African America >60 (>=60); Estimated GFR (Non-African Ame >60 (>=60); Glucose 242 mg/dL (74-106); Potassium 3.8 mmol/L (3.5-5.1); Sodium 146 mmol/L (136-145)
[2023-04-13 07:17] VITALS: BP 148/82; PULSE 78; RESP 16; TEMP 36.8; O2SAT 91
[2023-04-13 07:17] LABS: Glucometer 250 mg/dL (74-106)
[2023-04-13] MEDS: INSULIN ASPART 300 UNIT/3 ML PEN SUBQ ×2 (07:44→11:42)
[2023-04-13] MEDS: LISINOPRIL 20 MG TABLET 40 MG PO (08:36)
[2023-04-13] MEDS: GLIPIZIDE 5 MG TABLET 10 MG PO (08:37)
[2023-04-13] MEDS: INSULIN DETEMIR 300 UNIT/3 ML INSULN.PEN 20 UNIT SUBQ (08:37)
--- NOTE | 2023-04-13 08:58 | PM.PN ---
Progress Note: Subjective Subjective Interval history: patient was taken to the OR today for I and D, and packing. I have seen patient postop and she denies any current pain. She denies any fevers chills nausea vomiting or diarrhea. Discussed keeping her through tomorrow for IV antibiotics and packing changes tomorrow. we also discussed elevated hemoglobin A1c of fourteen. She reports she has been on insulin metformin and glipizide in the past. Discussed addition of long-acting insulin tonight. No other issues or concerns. Exam Constitutional Vital Signs, click to edit/add: Last Vital Signs Temp 98.2 F 04/13/23 07:17 Pulse 78 04/13/23 07:17 Resp 16 04/13/23 07:17 BP 148/82 H 04/13/23 07:17 Pulse Ox 91 L 04/13/23 07:17 O2 Del Method Room Air 04/13/23 07:17 O2 Flow Rate 10 04/12/23 08:34 Progress Note: Objective Labs Labs: Short CBC 04/13/23 Range/Units 04:21 WBC 5.9 (4.0-11.0) 10^3/uL Hgb 11.2 L (12.0-16.0) g/dL Hct 35.6 L (36.0-48.0) % Plt Count 297 (150-450) 10^3/uL BMP 04/13/23 04:21 Sodium 146 H Potassium 3.8 Chloride 111 H Carbon Dioxide 27.7 BUN 6.0 L Creatinine 0.50 L Glucose 242 H Calcium 8.3 L Progress Note: A&P Assessment and Plan (1) Cellulitis of left groin: (2) Type 2 diabetes mellitus with hyperglycemia: (3) Obesity (BMI 30-39.9):
[2023-04-13] MEDS: ACETAMINOPHEN 500 MG TABLET 1000 MG PO (08:59)
[2023-04-13 11:37] LABS: Glucometer 234 mg/dL (74-106)
[2023-04-13 11:46] VITALS: BP 178/79; PULSE 81; RESP 16; TEMP 36.8; O2SAT 95
--- NOTE | 2023-04-13 11:48 | CM.NOTE ---
Rounds made with Dr. Shields, discussed with pt discharge to home today. Discussed with RN about dressing changes and teaching for . is at bedside for teaching. Pt will f/u with Dr. Nagy.
--- NOTE | 2023-04-13 11:59 | P.DS_ITS ---
DS: Providers Provider Date of admission: 04/11/23 13:51 Primary care physician: Non-Staff Physician, Admitting clinician: Dalton Lamar Consults: 04/11/23 11:40 Consult to General Surgeon Routine Consulting Provider: Joey Nagy Reason for consultation: abscess left upper thigh Has provider been notified: Yes Discharging clinician: Francisca Shields DS: Diagnosis Discharge Diagnosis (1) Abscess: (2) Cellulitis of left groin: (3) Type 2 diabetes mellitus with hyperglycemia: Assessment and plan: contributing to #1 and #2 (4) Obesity (BMI 30-39.9): DS: Summary Hospital Course Hospital Course: patient was admitted for cellulitis and abscess of the left upper thigh groin. She was placed on vancomycin and Zosyn. She was taken to the operating room on 04/12/23 with an I and D and packing per Dr. Nagy. She was continued on Vanco and Zosyn, wound cultures have grown group B strep with sensitivity to Levaquin. Patient was educated by nursing staff today on how to change packing twice a day. She will have close follow-up with Dr. Torres in the surgical office. She'll be placed on Levaquin 500 mg daily ?7 days. She is to return to the hospital if any worsening signs or symptoms including increased redness, fevers or chills. Also discussed her significant elevation of A1c which is contributing to her healing process and an abscess and cellulitis formation. She plans to follow up with her primary care physician in regards to this. Continue on Levemir twenty units twice a day, glipizide, metformin. No other changes to her medications. Status at Discharge Functional status at discharge: independent ambulation Overall status at discharge: patient is progressing back to baseline Time Spent with Patient Time attestation: Total time spent providing and/or coordinating discharge services: Time spent: greater than 30 minutes Exam Narrative Exam Narrative: General: Patient is alert, and oriented to person, place and time with normal affect, proper hygiene Head: atraumatic, acephalic Heart: Normal rate and rhythm, no murmurs/rubs/gallops Lungs: no audible wheezes, crackles and normal breath sounds all lung goncalves Neuro: CN II-X grossly intact Constitutional Vital Signs, click to edit/add: Last Vital Signs Temp 98.3 F 04/13/23 11:46 Pulse 81 04/13/23 11:46 Resp 16 04/13/23 11:46 BP 178/79 H 04/13/23 11:46 Pulse Ox 95 04/13/23 11:46 O2 Del Method Room Air 04/13/23 11:46 O2 Flow Rate 10 04/12/23 08:34 DS: Data Data Completed and Pending Labs on day of discharge: Labs from last 24 hours 04/13/23 04/13/23 04/13/23 11:36 07:16 04:21 WBC 5.9 RBC 3.70 L Hgb 11.2 L Hct 35.6 L MCV 96.2 MCH 30.3 MCHC 31.5 RDW 13.0 Plt Count 297 MPV 9.5 Neut % (Auto) 57.9 Lymph % (Auto) 27.5 [place] % (Auto) 9.8 Eos % (Auto) 3.5 Baso % (Auto) 0.8 Neut # (Auto) 3.4 Lymph # (Auto) 1.6 [place] # (Auto) 0.6 Eos # (Auto) 0.2 Baso # (Auto) 0.1 Abs Immat Gran (auto) 0.03 Imm/Tot Granulo (auto) 0.5 Sodium 146 H Potassium 3.8 Chloride 111 H Carbon Dioxide 27.7 Anion Gap 11.1 BUN 6.0 L Creatinine 0.50 L Est GFR ( Amer) >60 Est GFR (Non-Af Amer) >60 BUN/Creatinine Ratio 12.0 Glucose 242 H Calcium 8.3 L POC Glucose 234 H 250 H 04/12/23 04/12/23 19:42 16:15 WBC RBC Hgb Hct MCV MCH MCHC RDW Plt Count MPV Neut % (Auto) Lymph % (Auto) [place] % (Auto) Eos % (Auto) Baso % (Auto) Neut # (Auto) Lymph # (Auto) [place] # (Auto) Eos # (Auto) Baso # (Auto) Abs Immat Gran (auto) Imm/Tot Granulo (auto) Sodium Potassium Chloride Carbon Dioxide Anion Gap BUN Creatinine Est GFR ( Amer) Est GFR (Non-Af Amer) BUN/Creatinine Ratio Glucose Calcium POC Glucose 303 H 334 H Preliminary micro results at discharge 04/12/23 08:40 Abscess Culture - Preliminary Thigh Left 04/11/23 12:10 Wound Culture - Preliminary Abscess - Abscess Strep agalactiae - (group b) 04/09/23 12:52 - Preliminary Blood Micrococcus luteus 04/09/23 13:40 Blood Culture Result 1 - Preliminary Blood NO GROWTH AT 36-48 HOURS. FINAL TO FOLLOW. Discharge Plan Discharge Disposition: Home, Self-Care Condition: Good Discharge Medications: New Levemir FlexPen 100 unit/mL (3 mL) Insulin Pen 20 unit subcut BID 30 Days Qty: 12 0RF levofloxacin 500 mg tablet 500 mg PO DAILY 7 Days Qty: 7 0RF metformin 500 mg tablet 1,000 mg PO BID 30 Days Qty: 120 0RF Continued glipizide 5 mg tablet 10 mg PO BID ibuprofen 800 mg tablet 800 mg PO Q8H PRN (Reason: pain) lisinopril 20 mg tablet 40 mg PO DAILY Discontinued clindamycin HCl 300 mg capsule 300 mg PO Q6H 10 Days Qty: 40 0RF Patient Comments: 04/05/23-04/15/23 Activity: increase activity as tolerated Diet: advance to your usual diet Patient Instructions: Levofloxacin (By mouth), Hemoglobin A1c (GEN), Acute Wounds (GEN) Activity Restrictions/Additional Instructions: continue with wound packing twice daily as instructed, take and complete all antibiotic Forms: Portal Instructions Follow Up Appointments: Dr Faulkner office nurse will call you for follow up appointment. [address] [facility] [phone], follow up with pcp as scheduled to address diabetes Discharge Date/Time: 04/13/23 12:44
--- NOTE | 2023-04-13 12:28 | PC.NURSE ---
1130 Wound packing removed. Packing deep red in color. New saline soaked Kurlex packed into wound. ABD dressing applied.
--- NOTE | 2023-04-14 15:08 | CM.DCFOLLOWU ---
04/14- Fast busy signal-unable to contact.
--- NOTE | 2023-04-16 14:09 | CM.DCFOLLOWU ---
2nd attempt- fast busy signal
--- NOTE | 2023-04-17 15:34 | CM.DCFOLLOWU ---
3rd attempt. No answer
== END 2023-04-13 12:44 | disposition home or self-care (01) | DRG 951 ==
LOC: ER 15:27 → MS 16:12
PROVIDERS: Physician Assistant; Surgery; Admitting Provider Family Medicine; Emergency Provider Emergency Medicine; Visit Provider Family Medicine
DX: E11.628 Type 2 diabetes mellitus with other skin complications (principal); L03.314 Cellulitis of groin; L02.416 Cutaneous abscess of left lower limb; E11.65 Type 2 diabetes mellitus with hyperglycemia; B95.1 Streptococcus, group B, as the cause of diseases classified elsewhere; I10 Essential (primary) hypertension; E66.01 Morbid (severe) obesity due to excess calories; Z79.84 Long term (current) use of oral hypoglycemic drugs; Z68.39 Body mass index [BMI] 39.0-39.9, adult; Z88.6 Allergy status to analgesic agent; Z79.1 Long term (current) use of non-steroidal anti-inflammatories (NSAID); Z79.899 Other long term (current) drug therapy
CPT/HCPCS: 36415; 80048; 80053; 80202; 82948; 83036; 83605; 85025; 85652; 86140; 87040; 87070; 87075; 87076; 87150; 87186; 87205; 93971; 96365; 96366; 96367; 96368; 99285; 99999; G0378; J0330; J1170; J1290; J1885; J2405; J2543; J2704; J3010; J3370

== ENCOUNTER 2023-07-26 05:00 | Emergency (ER) | payer OTHER, SELFPAY ==
[2023-07-26 05:08] VITALS: BP 216/99; PULSE 118; TEMP 36.8; O2SAT 95; BMI 41.6
--- OUTSIDE RECORDS SUMMARY | 2023-07-26 05:09 | XMS_ITS ---
Patient Summarization (C-CDA 2.1 CCD) Created on: July 26, 2023 Milana Fong : 1965 Sex: Female Author Organization Sample organization Care Team Providers Care Jukebox Routeman Name Role Phone Nguyễn, Yazan A Primary Care Physician Unavailab le Bouts, Yazan Trinh Unavailable Unavailable Bouts, Yazan A Primary Care Provider Bouts, Yazan A Primary Care Physician Unavailab le Bouts, Yazan A Primary Care Physician Unavailab le Bouts, Yazan A Primary Care Provider Bouts, Yazan A Primary Care Physician Unavailab le Bouts, Yazan A Primary Care Physician Unavailab le Bouts, Yazan Trinh Primary Care Provider Bouts, Yazan A Primary Care Physician Unavailab le Bouts, Yazan A Primary Care Physician Unavailab le ROSEMARIE ALMAZAN Attending Unavailable MISC, DR JOHNS Primary Care Unavailable ABRAHAM, KARIN BOATENG Consulting Unavailable NORAH, ROSEMARIE Admitting Unavailable MARK, TONYA Consulting Unavailable Bouts, Yazan A Primary Care Physician Unavailab le Bouts, Yazan Trinh Unavailable Unavailable NGUYỄN, MD YAZAN Trinh Primary Care Unavailable NGUYỄN, MD YAZAN Trinh Attending Unavailable Bouts, Yazan A Primary Care Physician Unavailab le Bouts , Yazan Trinh Primary Care Provider [phone] Bouts Yazan KELLER Primary Care Provider [phone] Bouts, Yazan Trinh Primary Care Physician Unavailab le Bouts, Yazan A Primary Care Physician Unavailab le Bouts , Yazan Trinh Primary Care Provider Bouts, Yazan Trinh Primary Care Physician Unavailab le BOUTS, YAZAN Trinh Primary Care Physician [phone] Ghislaine Pacheco Primary Care Physician Unavailab le GHISLAINE PACHECO Referring Unavailable BOUTS, YAZAN Trinh Primary Care Unavailable BOUTS, YAZAN Primary Care Unavailable NILL, Joey Esposito Attending Unavailable NILL, Joey Esposito Attending Unavailable BOUTS, YAZAN Primary Care Unavailable BOUTS, YAZAN Primary Care Unavailable NILL, Joey Esposito Attending Unavailable NILL, Joey Esposito Attending Unavailable BOUTS, YAZAN Primary Care Unavailable NILL, Joey Esposito Attending Unavailable BOUTS, YAZAN Primary Care Unavailable BOUTS, YAZAN Primary Care Unavailable NILL, Joey Esposito Attending Unavailable Bouts, Yazan Trinh Primary Care Physician Unavailab le Allergies Allergy Classification Reported Allergen(s) Allergy Type Date of Onset Reaction(s) Facility NSAIDs (1 source) Naproxen Drug Allergy 3 [facility] [place] Repository (2 sources) atorvastatin; Translations: [atorvastatin] Drug Allergy unable to move legs [facility] (2 sources) Naproxen; Translations: [naproxen sodium] Drug Allergy nausea [facility] (12 sources) Naproxen; Translations: [naproxen] Drug Allergy 8 Nausea (finding) [place], [place] (16 sources) atorvastatin; Translations: [atorvastatin] Drug Allergy unable to move legs [facility] (16 sources) ceftibuten; Translations: [naproxen sodium] Drug Allergy nausea [facility] Encounters Encounter Date Encounter Type Care Provider Facility Start: 05-29-2023 Encounter for genera l adult medical examination without abnormal findings Yazan Nguyễn [facility] Start: 05-29-2023 Periodic preventive med est patient 40-64yrs Yazan Adrian Other [facility] Office Start: 05-22-2023 End: 05-23-2023 ambulatory GHISLAINE JUNIOR [facility] Start: 05-19-2023 End: 05-20-2023 ambulatory YAZAN ADRIAN Facility:[facility] Start: 05-19-2023 End: 05-19-2023 Patient encounter procedure Joey AMAYA General Surgery [facility] Start: 05-01-2023 End: 05-02-2023 ambulatory YAZAN ADRIAN Facility:[facility] Start: 05-01-2023 End: 05-01-2023 Patient encounter procedure Joey AMAYA [facility] [place] Start: 04-29-2023 ambulatory Joey Esposito ASHLEYL Facility :[facility] Start: 04-29-2023 Office outpatient vi sit 40 minutes Ghislaine Pacheco Other [facility] Office Start: 04-21-2023 End: 04-22-2023 ambulatory Joey R ASHLEYL Facility:[facility] Start: 04-21-2023 End: 04-21-2023 Patient encounter procedure Joey AMAYA General Surgery Nill/Said Han Start: 04-17-2023 ambulatory YAZAN BOUTS Facility:[facility] Start: 04-13-2023 ambulatory YAZAN BOUTS Facility:[facility] Start: 04-12-2023 ambulatory Joey R NILL Facility : [place] Start: 04-11-2023 End: 04-13-2023 ambulatory YAZAN BOUTS [facility] Start: 12-11-2021 Office outpatient vi sit 15 minutes Yazan A Bouts Other [facility] Office Start: 12-06-2021 End: 12-06-2021 Subsequent hospital visit by physician Yazan Adrian MD Work Phone: [facility] Start: 08-14-2021 Office outpatient vi sit 15 minutes Yazan A Bouts Other [facility] Office Start: 08-06-2021 End: 08-06-2021 Subsequent hospital visit by physician Yazan Adrian MD Work Phone: [facility] Start: 06-06-2021 Office outpatient vi sit 15 minutes Yazan A Bouts Other [facility] Office Start: 06-05-2021 End: 06-05-2021 Subsequent hospital visit by physician Yazan Adrian MD Work Phone: [facility] Start: 05-06-2021 Office outpatient vi sit 15 minutes Yazan A Bouts Other [facility] Office Start: 01-17-2021 End: 01-17-2021 Split Srvc Yazan A Nguyễn Other [facility] Office Start: 01-16-2021 ambulatory MD YAZAN ADRIAN Facili ty:[facility] Start: 01-03-2021 Office outpatient vi sit 25 minutes Yazan A Bouts Other [facility] Office Start: 09-03-2020 Office outpatient vi sit 25 minutes Yazan A Bouts Other [facility] Office Start: 08-25-2020 End: 08-25-2020 ambulatory ROSEMARIE NORAH Facility: Start: 12-02-2019 End: 12-02-2019 Emergency department patient visit Joey Boothepatrick [facility] ED Comment on above: COVID-19 virus infec tion (Primary Dx); Cough; Bronchitis Start: 10-03-2019 Office outpatient vi sit 15 minutes Yazan A Bouts Other [facility] Office Start: 08-22-2019 Office outpatient vi sit 15 minutes Yazan A Bouts Other [facility] Office Start: 07-19-2019 Office outpatient vi sit 15 minutes Yazan A Bouts Other [facility] Office Start: 07-14-2019 End: 07-14-2019 Subsequent hospital visit by physician Yazan Adrian [facility] Start: 03-15-2019 Office outpatient vi sit 15 minutes Yazan A Bouts Other [facility] Office Start: 03-11-2019 End: 03-11-2019 Subsequent hospital visit by physician Yazan Adrian MD Work Phone: [facility] Start: 01-26-2019 Office outpatient vi sit 15 minutes Yazan A Bouts Other [facility] Office Start: 12-07-2018 Office outpatient vi sit 25 minutes Yazan A Bouts Other [facility] Office Start: 12-04-2018 End: 12-04-2018 Subsequent hospital visit by physician Yazan Adrian [facility] Start: 07-29-2018 Office outpatient vi sit 25 minutes Yazan A Bouts Other [facility] Office Start: 03-25-2018 Office outpatient vi sit 15 minutes Yazan A Bouts Other [facility] Office Start: 12-24-2017 Office outpatient vi sit 15 minutes Yazan A Bouts Other [facility] Office Start: 12-02-2017 Office outpatient vi sit 15 minutes Yazan A Bouts Other [facility] Office Start: 09-02-2017 Office outpatient vi sit 15 minutes Yazan A Bouts Other [facility] Office Start: 08-04-2017 Office outpatient vi sit 15 minutes Yazan A Bouts Other [facility] Office Start: 06-04-2017 Office outpatient vi sit 15 minutes Yazan A Bouts Other [facility] Office Start: 03-19-2017 Office outpatient vi sit 15 minutes Yazan A Bouts Other [facility] Office Start: 01-30-2017 Office outpatient vi sit 15 minutes Yazan A Bouts Other [facility] Office Start: 10-03-2016 Office outpatient vi sit 15 minutes Yazan A Bouts Other [facility] Office Start: 08-21-2016 Office outpatient vi sit 15 minutes Yazan A Bouts Other [facility] Office Start: 06-24-2016 Office outpatient vi sit 15 minutes Yazan A Bouts Other [facility] Office Start: 05-23-2016 Office outpatient vi sit 15 minutes Yazan A Bouts Other [facility] Office Start: 05-09-2016 Office outpatient vi sit 15 minutes Yazan A Bouts Other [facility] Office Start: 01-03-2016 Office outpatient vi sit 15 minutes Yazan A Bouts Other [facility] Office Start: 09-06-2015 Office outpatient vi sit 15 minutes Yazan A Bouts Other [facility] Office Start: 05-03-2015 Office outpatient vi sit 15 minutes Yazan A Bouts Other [facility] Office Start: 02-05-2015 Office outpatient vi sit 15 minutes Yazan A Bouts Other [facility] Office Start: 01-29-2015 Lab Yazan A Bouts Other [facility] Office Start: 10-04-2014 Office outpatient vi sit 15 minutes Yazan A Bouts Other [facility] Office Start: 09-25-2014 Lab Yazan A Bouts Other [facility] Office Start: 07-24-2014 Office outpatient vi sit 25 minutes Yazan A Bouts Other [facility] Office Start: 07-21-2014 Lab Yazan Adrian Other [facility] Office Start: 06-05-2014 Postop follow up vis it related to original px Yazan Adrian Other [facility] Office Start: 05-04-2014 Office Services Yazan Adrian Other [facility] Office Start: 05-03-2014 Office outpatient vi sit 15 minutes Yazan Adrian Other [facility] Office Medical Equipment Procedure Code Equipment Code Equipment Origin al Text Equipment Identifier Dates USE DIRECTED Start: 03-04-2019 Immunizations Immunization Date Immunization Notes Care Provider Collin botello 01-03-2021 Influenza, injectabl e, [employer] Kidney, quadrivalent with preservative; Translations: [Influenza virus vaccine, quadrivalent (cciiv4), derived from cell cultures, subunit, antibiotic free, 0.5 ml dosage, for intramuscular use] Yazan [employer] 01-03-2021 influenza, injectabl e, quadrivalent, contains preservative Yazan [employer] 01-03-2021 IMMUNIZATION ADMIN; Translations: [IMMUNIZATION ADMIN] [employer] 12-02-2017 influenza, seasonal, injectable; Translations: [FLU VACCINE 3 YRS & > IM] [employer] 12-02-2017 IMMUNIZATION ADMIN; Translations: [IMMUNIZATION ADMIN] [employer] Medications Current Medications Medication Drug Class(es) Dates Sig (Normalized) Sig (Original) 24 hr metFORMIN hydrochloride 500 mg extended release oral tablet (20 sources) Biguanide Start: 04-29-2023 End: 10-26-2023 take 2 tablets by mouth twice daily metformin 500 mg oral tablet extended release 24 hr 04/29/2023 10/26/2023 TAKE TWO TABLETS BY MOUTH TWICE DAILY for 30 days Start: 04-21-2023 take 2 tablets by mo uth twice daily metformin 500 mg Tab 1,000 mg = 2 tab(s), Oral, BID, Refills(s) 0 Start Date: 04/21/23 Status: Ordered Start: 08-14-2021 take 2 tablets by [facility] twice daily metformin 500 mg oral tablet extended release 24 hr 08/14/2021 TAKE TWO TABLETS BY MOUTH TWICE DAILY Start: 09-03-2020 take 2 tablets by [facility] twice daily metformin 500 mg oral tablet extended release 24 hr 09/03/2020 TAKE TWO TABLETS BY MOUTH TWICE DAILY Start: 03-15-2019 take 2 tablets by [facility] twice daily metformin 500 mg oral tablet extended release 24 hr 03/15/2019 TAKE TWO TABLETS BY MOUTH TWICE DAILY Start: 03-25-2018 take 2 tablets by [facility] twice daily metformin 500 mg oral tablet extended release 24 hr 03/25/2018 TAKE TWO TABLETS BY MOUTH TWICE DAILY take 1 tablet by [facility] twice daily at mealtime metFORMIN (GLUCOPHAGE) 500 MG tablet Take 500 mg by mouth 2 times daily (with meals) 0 Active oxyCODONE hydrochloride 10 mg oral [...] / HYDROcodone bitartrate 5 mg oral tablet (19 sources) Opioid Agonist Start: 12-02-2019 End: 12-02-2019 HYDROcodone-acetam inophen (NORCO) 5-325 MG per tablet 1 tablet End: 05-23-2016 take 1 tablet by mouth every six hours as needed for pain hydrocodone-acetaminophen 5-325 mg oral tablet 05/23/2016 take 1 tablet by oral route every 6 hours as needed for pain atorvastatin 20 mg oral tablet (18 sources) HMG-CoA Reductase Inhibitor Start: 02-05-2015 End: 05-03-2015 take 1 tablet by mouth once daily atorvastatin 20 mg oral tablet 02/05/2015 05/03/2015 take 1 tablet (20 mg) by oral route once daily azithromycin 250 mg oral tablet (18 sources) Macrolide Antimicrobial Start: 05-03-2014 End: 07-24-2014 [...] per day canagliflozin 300 mg oral tablet (18 sources) Sodium-Glucose Cotransporter 2 Inhibitor Start: 05-19-2017 End: 08-04-2017 take 1 tablet by mouth once daily at mealtime Invokana 300 mg oral tablet 05/19/2017 08/04/2017 TAKE ONE TABLET BY MOUTH ONCE DAILY BEFORE THE FIRST MEAL OF THE DAY cefuroxime 500 mg oral tablet (18 sources) Cephalosporin Antibacterial Start: 07-24-2014 End: 08-03-2014 take 1 tablet by mouth twice daily cefuroxime axetil 500 mg oral tablet 07/24/2014 08/03/2014 take 1 tablet (500 mg) by oral route 2 times per day for 10 days cholecalciferol 0.05 mg oral capsule (15 sources) Vitamin D Start: 08-14-2021 take 1 capsule by mouth once daily Vitamin D3 50 mcg (2,000 unit) capsule 08/14/2021 take 1 capsule by oral route daily Start: 09-03-2020 take 1 capsule by mo [facility] once daily Vitamin D3 50 mcg (2,000 unit) capsule 09/03/2020 take 1 capsule by oral route daily take 1 tablet by [facility] every week Cholecalciferol (VITAMIN D3) 5000 units TABS Take 5,000 Units by mouth once a week 0 Active citalopram 10 mg oral tablet (18 sources) Serotonin Reuptake Inhibitor Start: 12-07-2018 citalopram 10 mg ora l tablet 12/07/2018 ON HOLD Start: 02-11-2018 take 1 tablet by [facility] once daily citalopram 10 mg oral tablet [...] DUPLICATE Start: 08-22-2019 take 1 capsule by [facility] every week Vitamin D2 1,250 mcg (50,000 unit) oral capsule 08/22/2019 TAKE 1 CAPSULE BY MOUTH ONCE A WEEK Start: 05-23-2019 take 1 capsule by mo [facility] every week Vitamin D2 1,250 mcg (50,000 [...] on list glipiZIDE 5 mg oral tablet (10 sources) Sulfonylurea Start: 04-29-2023 take 1 tablet by mouth twice daily before mealtime glipiZIDE 5 MG Oral Tablet 04/29/2023 TAKE 1 TABLET BY MOUTH TWICE DAILY BEFORE MEAL(S) Start: 04-29-2023 take 1 tablet by juan carlos th twice daily before mealtime glipiZIDE 5 MG Oral Tablet 04/29/2023 TAKE 1 TABLET BY MOUTH TWICE DAILY BEFORE MEAL(S) Start: 04-16-2023 take 5 mg by mouth once daily glipiZIDE 5 mg, Oral, Daily, Refills(s) 0 Start Date: 04/16/23 Status: Ordered Start: 05-06-2021 take 1 tablet by [facility] car[facility] th twice daily before mealtime glipizide oral tablet 5 mg 05/06/2021 take 1 tablet (5 mg) by oral route 2 times per day before meals hydroCHLOROthiazide 25 mg oral tablet (18 sources) Thiazide Diuretic Start: 08-15-2016 End: 08-21-2016 take 1 tablet by mouth once daily hydrochlorothiazide 25 mg Oral tablet 08/15/2016 08/21/2016 take 1 tablet (25 mg) by oral route once daily ibuprofen 800 mg oral tablet (20 sources) Nonsteroidal Anti-inflammator y Drug Start: 04-29-2023 take 1 tablet by mouth three times daily at mealtime Ibuprofen 800 MG Oral Tablet 05/01/2023 TAKE 1 TABLET BY MOUTH THREE TIMES DAILY WITH FOOD Start: 08-14-2021 take 1 tablet by juan [...] needed for Pain 0 Active 3 ml insulin detemir 100 unt/ml pen injector (7 sources) Insulin Analog Start: 04-29-2023 Levemir FlexPe n 100 unit/mL (3 mL) solution subcutaneous insulin pen 04/29/2023 inject 20 units by subcutaneous route 2 times a day Start: 04-29-2023 Levemir FlexPe n 100 unit/mL (3 mL) solution subcutaneous insulin pen 04/29/2023 inject 20 unit by subcutaneous route 2 times a day Start: 04-21-2023 inject 20 [IU] by clancy bcutaneous injection once daily Levemir 20 unit(s), SubCutaneous, Daily, Refills(s) 0 Start Date: 04/21/23 Status: Ordered Start: 12-11-2021 Levemir FlexTo uch U-100 Insulin 100 unit/mL (3 mL) subcutaneous pen 12/11/2021 inject 20 units by subcutaneous route twice 3 ml insulin glargine 100 unt/ml / lixisenatide 0.033 mg/ml pen injector (15 sources) Insulin Analog Start: 08-14-2021 End: 12-11-2021 Soliqua 100/33 subcutaneous insulin pen 100 unit-33 mcg/mL 08/14/2021 12/11/2021 40 units sq daily Start: 05-06-2021 Soliqua 100/33 subcutaneous insulin pen 100 unit-33 mcg/mL 05/06/2021 40 units sq daily Start: 01-03-2021 Soliqua 100/33 subcutaneous insulin pen 100 unit-33 mcg/mL 01/03/2021 30 units daily SQ Start: 08-22-2019 inject 25 [IU] by clancy bcutaneous injection once daily at mealtime Soliqua 100/33 100 unit-33 mcg/mL subcutaneous insulin pen 08/22/2019 inject 25 unit as insulin glargine by subcutaneous route once daily within the hour prior to the first meal of the day Start: 07-19-2019 inject 20 [IU] by clancy bcutaneous injection once daily at mealtime Soliqua 100/33 100 unit-33 mcg/mL subcutaneous insulin pen 07/19/2019 inject 20 unit as insulin glargine by subcutaneous route once daily within the hour prior to the first meal of the day Insulin Glargine -Lixisenatide (SOLIQUA) 100-33 UNT-MCG/ML SOPN Inject 25 Units into the skin every morning 0 Active 3 ml liraglutide 6 mg/ml [...] 1.2 mg by subcutaneous route once daily lisinopril 20 mg oral tablet (20 sources) Angiotensin Converting Enzyme Inhibitor Start: 04-30-2023 take 2 tablets by mouth once daily lisinopril 20 mg tablet 04/30/2023 take 2 tablets by oral route daily Start: 04-29-2023 take 2 tablets by [facility] once daily lisinopril 20 mg tablet 04/29/2023 take 2 tablets by oral route daily Start: 04-29-2023 take 2 tablets by [facility] once daily lisinopril 20 mg tablet 04/29/2023 take 2 tablets by oral route daily Start: 04-16-2023 take 20 mg by mouth once daily lisinopril 20 mg, Oral, Daily, Refills(s) 0 Start Date: 04/16/23 Status: Ordered Start: 12-11-2021 take 2 tablets by [facility] once daily lisinopril 20 mg tablet 12/11/2021 take 2 tablets by oral route daily Start: 08-14-2021 take 1 tablet by [facility] once daily lisinopril 20 mg tablet 08/14/2021 [...] 5 mg by mouth daily 0 Active loratadine 10 mg oral tablet (20 sources) Start: 09-03-2020 End: 04-29-2023 take 1 tablet by mouth once daily Allergy Relief (loratadine) 10 mg oral tablet 09/03/2020 04/29/2023 TAKE 1 TABLET BY MOUTH ONCE DAILY Start: 08-24-2019 take 1 tablet by [facility] carlos [facility] once daily Allergy Relief (loratadine) 10 mg oral tablet 08/24/2019 TAKE 1 TABLET BY MOUTH ONCE DAILY Start: 08-22-2019 take 1 tablet by juan calros th once daily Allergy Relief (loratadine) 10 mg [...] (10 mg) by oral route once daily 1 ml morphine sulfate 4 mg/ml cartridge (1 source) Opioid Agonist Start: 12-02-2019 End: 12-02-2019 morphine injection 4 mg omeprazole 20 mg delayed release oral capsule (18 sources) Proton Pump Inhibitor Start: 08-14-2021 End: 04-29-2023 take 1 capsule by mouth once daily before mealtime omeprazole 20 mg oral capsule,delayed release(DR/EC) 08/14/2021 04/29/2023 take 1 capsule (20 mg) by oral route once daily before a meal Start: 09-03-2020 take 1 capsule by [facility] once daily before mealtime omeprazole 20 mg oral capsule,delayed release(DR/EC) 09/03/2020 take 1 capsule (20 mg) by oral route once daily before a meal Start: 03-15-2019 take 1 capsule by [facility] once daily before mealtime omeprazole 20 mg oral capsule,delayed release(DR/EC) 03/15/2019 take 1 capsule (20 mg) by oral route once daily before a meal Start: 03-25-2018 take 1 capsule by [facility] once daily before mealtime omeprazole 20 mg oral capsule,delayed release(DR/EC) 03/25/2018 take 1 capsule (20 mg) by oral route once daily before a meal 2 ml ondansetron 2 mg/ml injection (1 source) Serotonin-3 Receptor Antagonist Start: 12-02-2019 End: 12-02-2019 ondansetron (ZOFRAN) injection 4 mg oseltamivir 75 mg oral capsule (18 sources) Neuraminidase Inhibitor Start: 03-19-2017 End: 03-24-2017 [...] bolus tamsulosin hydrochloride 0.4 mg oral capsule (14 sources) alpha-Adrenergic June Start: 12-14-2018 End: 11-18-2021 take 1 capsule by mouth once daily at mealtime tamsulosin 0.4 mg oral capsule 12/14/2018 01/03/2021 take 1 capsule (0.4 mg) by oral route once daily 1/2 hour following the same meal each day triamcinolone acetonide 0.001 mg/mg topical ointment (11 sources) Corticosteroid Start: 05-25-2019 End: 07-19-2019 triamcinolone acetonide 0.1 % topical ointment 05/25/2019 07/19/2019 apply a thin layer to the affected area(s) by topical route 2 times per day Payers Date Payer Category Payer Unknown 2016 Unknown [facility] xxxxxxxxxxxx 2016-Present [phone] [address] [place] [address] xxxxxxxxxxxx [id number] 1965 Unknown [id number] 1965 Unknown [id number] 1965 Unknown [id number] 1965 Unknown [id number] 1965 Unknown [id number] 1965 Unknown [id number] 1965 Unknown [id number] 1965 Unknown [id number] 1965 Unknown [id number] 1958 Medicaid [id number] Private Health Insurance [id number] Plan of Treatment Date Care Activity Detail Author Start: 08-28-2023 Basic metabolic panel calcium total Chem 8 [facility] Start: 08-28-2023 Hemoglobin glycosylated a1c Hgb A1c [facility] Start: 08-28-2023 Lipid panel Lipid profile [facility] Start: 05-30-2023 Basic metabolic panel calcium total Chem 8 [employer] Start: 05-30-2023 Blood count complete automated CBC & PLATELET COUNT; AUTOMATED [employer] Start: 05-30-2023 Hemoglobin glycosylated a1c Hemoglobin A1C [facility] Start: 05-30-2023 Lipid panel Lipid panel [facility] Start: 05-30-2023 Urnls dip stick/tablet rgnt auto w/o microscopy Urinalysis auto [facility] Start: 12-06-2022 [facility] Start: 08-06-[facility]22 [facility] Start: 02-10-2022 Basic metabolic panel calcium ionized CHEM 8 PANEL [facility] Start: 02-10-2022 Hemoglobin glycosylated a1c A1c [facility] Start: 11-14-2021 Basic metabolic panel calcium total Chem 8 [employer] Start: 11-14-2021 Hemoglobin glycosylated a1c Hgb A1c [facility] Start: 11-14-2021 Lipid panel Lipid profile [facility] Start: 11-06-2021 Hemoglobin A1c measurement A1C test (Diabetic or Prediabetic) [facility] [employer] Start: 10-17-2021 Influenza vaccination Flu vaccine (Season Ended) [employer] Start: 09-16-2021 Influenza vaccination Flu vaccine (#1) [facility] [employer] Start: 08-06-2021 Assay of thyroid stimulating hormone tsh TSH [employer] Start: 08-06-2021 Basic metabolic panel calcium total Chem 8 [facility] Start: 08-06-2021 Hemoglobin glycosylated a1c A1c [facility] Start: 08-06-2021 Lipid panel Lipid panel [facility] Start: 06-03-2021 Basic metabolic panel calcium total Chem 8 [facility] Start: 06-03-2021 Hemoglobin glycosylated a1c A1c [employer] Start: 05-06-2021 Basic metabolic panel calcium total Chem 8 [facility] Start: 01-16-2021 Cv strs tst xers&/or rx cont ecg w/si&r Treadmill Stress [facility] Start: 01-03-2021 Screening mammography Mammogram breast screening digital [facility] Start: 12-01-2020 Creatinine measurement Creatinine [employer] Start: 12-01-2020 Potassium [Moles/volume] in Serum or Plasma Potassium [employer] Start: 10-02-2020 Hemoglobin A1c measurement A1C test (Diabetic or Prediabetic) [employer] Start: 07-13-2020 Creatinine measurement Creatinine monitoring [employer], Start: 07-13-2020 Lipid panel [employer] Start: 07-13-2020 [facility] Start: 01-24-2021 Diabetic microalbuminuria test Diabetic microalbuminuria test [place] Start: 03-11-2020 Urine screening for protein Diabetic microalbuminuria test [facility] Start: 12-05-2019 Creatinine monitoring Creatinine monitoring [facility] Work Phone: Start: 12-05-2019 Potassium monitoring Potassium monitoring [facility] Work Phone: Start: 12-03-2019 Basic metabolic panel calcium total Chem 8 [facility] Start: 12-03-2019 HbA1c (Bld) [Mass fraction] Hgb A1c [facility] Start: 12-03-2019 Lipid panel Lipid profile [facility] Start: 10-18-2019 Influenza vaccination [place] Start: 10-14-2019 HbA1c (Bld) [Mass fraction] A1C test (Diabetic or Prediabetic) [place] Start: 10-03-2019 HbA1c (Bld) [Mass fraction] A1c [facility] Start: 08-17-2019 Creatinine monitoring Creatinine monitoring [place], [place] Start: 08-17-2019 Potassium monitoring Potassium monitoring [place] Start: 07-25-2019 Diabetic microalbuminuria test Diabetic microalbuminuria test [place] Start: 07-25-2019 Lipid screen Lipid [place] Start: 07-14-2019 Assay of insulin total INSULIN [facility] Start: 07-14-2019 Basic metabolic panel calcium total Chem 8 [facility] Start: 07-14-2019 HbA1c (Bld) [Mass fraction] Hgb A1c [facility] Start: 07-14-2019 Lipid panel Lipid profile [facility] Start: 03-09-2019 Basic metabolic panel calcium total Chem 8 [facility] Start: 03-09-2019 HbA1c (Bld) [Mass fraction] Hgb A1c [facility] Start: 03-09-2019 Lipid panel Lipid profile [facility] Start: 03-06-2019 A1C test (Diabetic or Prediabetic) A1C test (Diabetic or Prediabetic) [facility] Work Phone: Start: 12-28-2018 Ultrasonography of abdomen and urinary system US kidney and bladder [facility] Start: 12-14-2018 Ultrasound Kidneys and Bladder [facility] Start: 11-28-2018 Basic metabolic panel calcium total Chem 8 [facility] Start: 11-28-2018 Hemoglobin A1c/Hemoglobin.total mass fraction (Bld) A1c [facility] Start: 10-24-2018 A1C test (Diabetic or Prediabetic) A1C test (Diabetic or Prediabetic) [place] Start: 10-17-2018 Influenza vaccination Flu vaccine (#1) [place] Start: 07-29-2018 Basic metabolic panel calcium total Chem 8 [facility] Start: 07-29-2018 Hemoglobin A1c/Hemoglobin.total mass fraction (Bld) A1c [facility] Start: 02-03-2016 Breast cancer screen Breast cancer screen [place], [place] Start: 02-03-2016 Colon cancer screen colonoscopy Colon cancer screen colonoscopy [place] Start: 02-03-2016 Screening for malignant neoplasm of breast Breast cancer screen [facility] Start: 02-03-2016 Screening for malignant neoplasm of colon Colon cancer screen colonoscopy [place] Start: 02-03-2016 Shingles Vaccine (1 of 2) Shingles Vaccine (1 of 2) [facility] Start: 2011 Screening for malignant neoplasm of colon [facility] Start: 02-03-1996 Screening for malignant neoplasm of cervix [facility] Start: 1987 Cervical cancer screen Cervical cancer screen [place], [place] Start: 1987 Screening for malignant neoplasm of cervix [facility] Start: 1985 DTaP/Tdap/Td vaccine (1 - Tdap) DTaP/Tdap/Td vaccine (1 - Tdap) [facility] Start: 02-03-1984 Diabetic retinal exam Diabetic retinal exam [facility] Start: 02-03-1984 Hepatitis C screening Hepatitis C screen [facility] Start: 1981 HIV screen HIV screen [place], [place] Start: 1981 HIV screening HIV screen [facility] Start: 1978 Depression Screen Depression Screen [facility] Start: 1977 DTaP/Tdap/Td vaccine (1 - Tdap) DTaP/Tdap/Td vaccine (1 - Tdap) [facility] Work Phone: Start: 02-03-1976 [object Object] Diabetic foot exam [place] Start: 02-03-1976 Diabetic foot examination Diabetic foot exam [facility] Start: 02-03-1976 Diabetic retinal exam Diabetic retinal exam [place], [place] Start: 1971 COVID-19 Vaccine (1) COVID-19 Vaccine (1) [facility] Start: 1966 COVID-19 Vaccine (#1) COVID-19 Vaccine (#1) [facility] End: 12-02-2019 Culture, Blood 1 Culture, Blood 1 Microbiology STAT One Time for 1 Occurrences starting 12/02/2019 until 12/02/2019 [place] Comment on above: One Time for 1 Occurrences starting 11/16 until 12/02/2019 Culture, Blood 1 Culture, Blood 1 Microbiology STAT 12/02/2019 1:10 PM EDT [place] End: 12-02-2019 Culture, Blood 2 Culture, Blood 2 Microbiology STAT One Time for 1 Occurrences starting 12/02/2019 until 12/02/2019 [place] Comment on above: One Time for 1 Occurrences starting 11/16 until 12/02/2019 Culture, Blood 2 Culture, Blood 2 Microbiology STAT 12/02/2019 1:07 PM EDT [place] End: 12-06-2021 Hemoglobin A1c/Hemoglobin.total in Blood [facility] [employer] Work Phone: Comment on above: Once for 1 Occurrences starting 12/07/19 until 12/06/2021 Problems Active Problems Problem Classification Problem Date [...] 2 diabetes mellitus without complications] Onset: 05-04-2014 04-16-2023 Chronic Disorders of lipid metabolism (20 sources) Mixed hyperlipidemia; Translations: [Mixed hyperlipidemia] Onset: 02-05-2015 Chronic E Codes: Fall (1 source) Other fall on same level, initial encounter; Translations: [OTHER FALL ON SAME LEVEL INITIAL] Onset: 08-28-2020 Episodic Esophageal disorders (18 sources) Reflux esophagitis; Translations: [Gastro-esophageal reflux disease with esophagitis] Onset: 12-02-2017 Chronic Essential hypertension (20 sources) Unspecified essential hypertension; Translations: [Essential (primary) hypertension] Onset: 06-24-2016 04-16-2023 Chronic Osteoarthritis (2 sources) Primary osteoarthritis, right ankle and foot; Translations: [Unilateral primary osteoarthritis, right knee] Onset: 08-28-2020 Chronic Other non-traumatic joint disorders (3 sources) Pain in right ankle and joints of right foot; Translations: [PAIN IN RIGHT ANKLE] Onset: 08-25-2020 Episodic Other nutritional; endocrine; and metabolic disorders (3 sources) Obesity 04-16-2023 Chronic Other upper respiratory infections (18 sources) Unspecified sinusitis (chronic); Translations: [Chronic sinusitis, unspecified] Onset: 07-24-2014 Chronic Skin and subcutaneous tissue infections (8 sources) Abscess of lower limb; Translations: [Cutaneous abscess of left lower limb] Onset: 04-21-2023 Episodic Past or Other Problems Problem Classification Problem Date Documented Date Episodic/Chronic Abdominal pain (20 sources) Abdominal pain, other specified site; Translations: [Abdominal pain, epigastric] Onset: 02-05-2015 Episodic Chronic obstructive pulmonary disease and bronchiectasis (20 sources) Bronchitis, not specified as acute or chronic; Translations: [Bronchitis] Onset: 05-03-2014 12-02-2019 Episodic Diabetes mellitus without complication (20 sources) Diabetes mellitus without complication Onset: 06-04-2017 Genitourinary symptoms and ill-defined conditions (20 sources) Dysuria; Translations: [Polyuria] Onset: 05-03-2014 Episodic Malaise and fatigue (10 sources) Other malaise and fatigue Onset: 10-04-2014 Episodic Nonspecific chest pain (7 sources) Other chest pain Onset: 01-17-2021 Episodic Other connective tissue disease (20 sources) Myalgia and myositis, unspecified Onset: 05-09-2016 Episodic Other connective tissue disease (20 sources) Trigger finger (acquired) Onset: 07-29-2018 Episodic Other connective tissue disease (16 sources) Myalgia Onset: 05-09-2016 Episodic Other connective tissue disease (20 sources) Trigger finger, right ring finger Onset: 07-29-2018 Episodic Other lower respiratory disease (5 sources) Cough; Translations: [Cough] Onset: 12-02-2019 Resolved: 01-01-2020 12-02-2019 Episodic Other lower respiratory disease (20 sources) Dyspnea, unspecified Onset: 01-03-2021 Episodic Other screening for suspected conditions (not mental disorders or infectious disease) (7 sources) Abnormal electrocardiogram [ECG] [EKG] Onset: 01-17-2021 Episodic Other skin disorders (20 sources) Sebaceous cyst Onset: 09-02-2017 Episodic Other skin disorders (20 sources) Alopecia, unspecified Onset: 05-09-2016 Episodic Other skin disorders (16 sources) Nonscarring hair loss, unspecified Onset: 05-09-2016 Episodic Other skin disorders (20 sources) Epidermal cyst Onset: 09-02-2017 Episodic Other upper respiratory infections (20 sources) Acute upper respiratory infections of unspecified site; Translations: [Acute upper respiratory infection, unspecified] Onset: 03-19-2017 Episodic Residual codes; unclassified (18 sources) Family history of other blood disorders Onset: 06-05-2014 Episodic Sprains and strains (10 sources) Sprain of unspecified ligament of right ankle, initial encounter; Translations: [Sprain of unspecified site of right knee, initial encounter] Onset: 08-28-2020 Episodic Unclassified (1 source) [id number] ss_[email or web address] Onset: 07-24-2014 Unclassified (1 source) [id number] ss_name_12 Onset: 10-04-2014 Unclassified (1 source) [id number] ss_name_13 Onset: 10-04-2014 Unclassified (1 source) [id number] ss_name_13 Onset: 10-04-2014 Unclassified (1 source) [id number] ss_name_10 Onset: 07-24-2014 Unclassified (1 source) [id number] ss_name_12 Onset: 10-04-2014 Unclassified (1 source) [id number] ss_name_13 Onset: 10-04-2014 Unclassified (1 source) [id number] ss_name_11 Onset: 07-24-2014 Unclassified (1 source) [id number] ss_name_13 Onset: 10-04-2014 Unclassified (1 source) [id number] ss_name_14 Onset: 10-04-2014 Unclassified (1 source) [id number] ss_name_11 Onset: 07-24-2014 Unclassified (1 source) [id number] ss_name_13 Onset: 10-04-2014 Unclassified (1 source) [id number] ss_[email or web address] Onset: 10-04-2014 Unclassified (1 source) [id number] ss_name_12 Onset: 07-24-2014 Unclassified (1 source) [id number] ss_[id number] Onset: 10-04-2014 Unclassified (1 source) [id number] ss_[id number] Onset: 10-04-2014 Viral infection (20 sources) Other specified viral infection; Translations: [Other viral agents as the cause of diseases classified elsewhere] Onset: 03-19-2017 12-02-2019 Episodic Procedures Date Procedure Procedure Detail Performing Clinician Start: 04-12-2023 Incision and drainag e of abscess Joey AMAYA Comment on above: left thigh Start: 02-10-2022 Blood chemistry Ghislaine Pacheco Start: 02-10-2022 Hemoglobin A1c measurement Ghislaine Pacheco Start: 12-11-2021 Docrev cur meds by [employer] Yazan Adrian Start: 12-06-2021 Basic metabolic pane l calcium total Yazan Adrian MD Work Phone: Start: 12-06-2021 Lipid panel Yazan white MD Work Phone: Start: 12-06-2021 Urine albumin quantitative Yazan Adrian MD Work Phone: Start: 11-14-2021 Basic metabolic pane l calcium total Yazan Adrian Start: 11-14-2021 Hemoglobin A1c measurement Yazan Nguyễn Start: 11-14-2021 Lipid panel Yazan Bout s Start: 11-14-2021 MICROALBUMIN/Urine Creat Ratio Yazan Adrian Start: 08-14-2021 Docrev cur meds by [employer] Yazan Adrian Start: 08-06-2021 Hemoglobin A1c measurement Yazan Nguyễn Start: 08-06-2021 Lipid panel Yazan Bout s Start: 08-06-2021 Thyroid stimulating hormone measurement Yazan Adrian Start: 08-06-2021 End: 08-06-2021 Basic metabolic panel calcium total Yazan Adrian MD Work Phone: Start: 08-06-2021 Lipid panel Yazan white MD Work Phone: Start: 06-06-2021 Docrev cur meds by toro [employer] Yazan Adrian Start: 06-05-2021 Basic metabolic pane l calcium total Yazan Adrian MD Work Phone: Start: 06-05-2021 Urnls dip stick/tabl et rgnt auto w/o microscopy Yazan Adrian MD Work Phone: Start: 06-03-2021 Basic metabolic pane l calcium total Ghislaine Pacheco Start: 06-03-2021 Hemoglobin A1c measurement Ghislaine Junior Start: 05-06-2021 Basic metabolic pane l calcium total Ghislaine Pacheco Start: 05-06-2021 Docrev cur meds by [employer] Yazan Bouts Start: 05-06-2021 Hemoglobin A1c measurement Yazan Bouts Start: 05-06-2021 Blood chemistry Yazan B outs Start: 05-06-2021 Dip UA (for Ketones) Br uce [facility]outs Start: 01-17-2021 Electrocardiogram wi th exercise test Yazan Bouts Start: 01-16-2021 Electrocardiogram wi th exercise test Yazan Bouts Start: 01-03-2021 Basic metabolic pane l calcium total Ghislaine Pacheco Start: 01-03-2021 Docrev cur meds by [employer] Yazan Bouts Start: 01-03-2021 Electrocardiographic procedure Yazan Bouts Start: 01-03-2021 Hemoglobin A1c measurement Yazan Bouts Start: 01-03-2021 Lipid panel Yazan Bout s Start: 01-03-2021 MICROALBUMIN/Urine Creat Ratio Yazan Bouts Start: 01-03-2021 Screening mammography Gamal mullencarolina Junior Start: 01-03-2021 Blood chemistry Yazan B outs Start: 01-03-2021 Dip UA (for Ketones) [facility] Start: 01-03-2021 Mammogram, screening Br uce A Bouts Other Start: 09-03-2020 Dip UA (for Ketones) [facility] Start: 09-03-2020 Comprehensive metabolic panel Yazan Bouts Start: 09-03-2020 Docrev cur meds by [employer] Yazan Bouts Start: 09-03-2020 Erythrocyte mean cor puscular volume determination Yazan Bouts Start: 09-03-2020 Hemoglobin A1c measurement Yazan Bouts Start: 09-03-2020 Lipid panel Yazan Bout s Start: 09-03-2020 Vitamin B12 and Folate Yazan Bouts Start: 12-03-2019 Basic metabolic pane l calcium total Yazan Bouts Start: 12-03-2019 Hemoglobin A1c measurement Yazan Bouts Start: 12-03-2019 Lipid panel Yazan Bout s Start: 12-03-2019 MICROALBUMIN/Urine Creat Ratio Yazan Bouts Start: 12-02-2019 Gluc bld gluc mntr d ev cleared fda spec home use Joey Waite Start: 12-02-2019 GLUCOSE, WHOLE BLOOD Mi scott Waite Start: 12-02-2019 Basic metabolic pane l calcium total Joey Palma Mariann Start: 12-02-2019 Blood count complete auto&auto difrntl wbc Joey Palma Mariann Start: 12-02-2019 LACTATE, SEPSIS Joey Palma Mariann Start: 12-02-2019 Radiologic exam ches t single view Joey Palma Mariann Start: 12-02-2019 COVID-19 Joey Palma Mariann Start: 10-03-2019 Doc meds verified w/pt or re Yazan Bouts Start: 10-03-2019 Hemoglobin A1c measurement Yazan Bouts Start: 10-03-2019 Hemoglobin glycosylated a1c Yazan Bouts Start: 10-03-2019 Dip UA (for Ketones) Br [facility]ce [facility]outs Start: 08-22-2019 Doc meds verified w/pt or re Yazan Bouts Start: 07-19-2019 Doc meds verified w/pt or re Yazan Bouts Start: 07-14-2019 Hemoglobin A1c measurement Yazan Bouts Start: 07-14-2019 Insulin, total measurement Yazan Bouts Start: 07-14-2019 Lipid panel Yazan Bout s Start: 07-14-2019 End: 07-14-2019 Assay of insulin [...] re Yazan Bouts Start: 03-11-2019 Basic metabolic pane l calcium total Yazan A Bouts Work Phone: Start: 03-11-2019 Lipid panel Yazan A Velma christopher [employer] Work Phone: Start: 03-11-2019 Urine albumin quantitative Yazan A Nguyễn [employer] Work Phone: Start: 03-09-2019 Basic metabolic pane l calcium total Yazan Bouts Start: 03-09-2019 Hemoglobin A1c measurement Yazan Bouts Start: 03-09-2019 Hemoglobin glycosylated a1c Yazan Bouts Start: 03-09-2019 Lipid panel Yazan Bout s Start: 03-09-2019 Lipid panel Yazan Bout s Start: 03-09-2019 MICROALBUMIN/Urine Creat Ratio Yazan Bouts Start: 01-26-2019 Doc meds verified w/pt or re Yazan Bouts Start: 12-28-2018 Ultrasonography of a bdomen and urinary system Yazan Bouts Start: 12-28-2018 Us retroperitoneal r eal time w/image complete Yazan Bouts Start: 12-14-2018 Us retroperitoneal r eal time w/image complete Yazan Bouts Start: 12-14-2018 Us retroperitoneal r eal time w/image limited Yazan Bouts Start: 12-07-2018 Doc meds verified w/pt or re Yazan Bouts Start: 12-07-2018 Us retroperitoneal r eal time w/image limited Yazan A Bouts Other Start: 12-04-2018 Basic metabolic pane l calcium total Yazan A Bouts Work Phone: Start: 12-04-2018 Hemoglobin glycosylated a1c Yazan A Bouts Work Phone: Start: 11-28-2018 Basic metabolic pane l calcium total Yazan Bouts Start: 11-28-2018 Hemoglobin A1c measurement Yazan Bouts Start: 07-29-2018 Basic metabolic pane l calcium total Ghisliane Junior Start: 07-29-2018 Doc meds verified w/pt or re Yazan Bouts Start: 07-29-2018 Hemoglobin A1c measurement Ghislaine Junior Start: 07-23-2018 Basic metabolic pane l calcium total Yazan Bouts Start: 07-23-2018 Hemoglobin A1c measurement Yazan Bouts Start: 07-23-2018 Hemoglobin glycosylated a1c Yazan Bouts Start: 07-23-2018 Lipid panel Yazan Bout s Start: 07-23-2018 Lipid panel Yazan Bout s Start: 07-23-2018 MICROALBUMIN/Urine Creat Ratio Yazan Bouts Start: 03-26-2018 Basic metabolic pane l calcium total Yazan Bouts Start: 03-26-2018 Hemoglobin A1c measurement Yazan Bouts Start: 03-26-2018 Hemoglobin glycosylated a1c Yazan Bouts Start: 03-26-2018 Lipid panel Yazan Bout s Start: 03-26-2018 Lipid panel Yazan Bout s Start: 03-26-2018 MICROALBUMIN/Urine Creat Ratio Yazan Bouts Start: 03-25-2018 Doc meds verified w/pt or [...] Yazan Bouts Start: 12-02-2017 Lipid panel Yazan Bout s Start: 12-02-2017 Lipid panel Yazan Bout s Start: 12-02-2017 BS-Dip Yazan Bout s Start: 09-02-2017 Doc meds verified w/pt or re Yazan Bouts Start: 09-02-2017 Incision & drainage abscess simple/single Yazan Bouts Start: 09-02-2017 Incision and drainag e of abscess Yazan Bouts Start: 08-04-2017 Doc meds verified w/pt or re Yazan Bouts Start: 06-04-2017 Doc meds verified w/pt or re Yazan Bouts Start: 05-31-2017 Basic metabolic pane l calcium ionized Yazan Bouts Start: 05-31-2017 Blood chemistry Yazan B outs Start: 05-31-2017 Hemoglobin A1c measurement Yazan Bouts Start: 05-31-2017 Hemoglobin glycosylated a1c Yazan Bouts Start: 03-19-2017 Doc meds verified w/pt or re Yazan Bouts Start: 2017 Basic metabolic pane l calcium total Yazan Bouts Start: 2017 Hemoglobin A1c measurement Yazan Bouts Start: 2017 Hemoglobin glycosylated a1c Yazan Bouts Start: 2017 Lipid panel Yazan Bout s Start: 2017 Lipid panel Yazan Bout s Start: 2017 MICROALBUMIN/Urine Creat Ratio Yazan Bouts Start: 01-30-2017 Current Medications Verified MIPS Yazan Bouts Start: 09-24-2016 Basic metabolic pane l calcium ionized Yazan Bouts Start: 09-24-2016 Blood chemistry Yazan B outs Start: 09-24-2016 Hemoglobin A1c measurement Yazan Bouts Start: 09-24-2016 Hemoglobin glycosylated a1c Yazan Bouts Start: 05-23-2016 Computed tomography of abdomen and pelvis with contrast Ghislaine Pacheco Start: 05-14-2016 Pelvic echography Yazan Bouts Start: 05-14-2016 Ultrasonography of abdomen Yazan Bouts Start: 05-14-2016 Us abdominal real ti me w/image documentation Yazan Bouts Start: 05-14-2016 Us pelvic nonobstetr ic real-time image complete Yazan Bouts Start: 05-09-2016 Ct abdomen & pelvis w/contrast material Yazan A Bouts Other Start: 05-09-2016 Assay of thyroid sti mulating hormone tsh Yazan Bouts Start: 05-09-2016 Assay of thyroxine total Yazan Bouts Start: 05-09-2016 Erythrocyte sediment ation rate, non-automated Yazan Bouts Start: 05-09-2016 Sedimentation rate r bc non-automated Yazan Bouts Start: 05-09-2016 Thyroid stimulating hormone measurement Yazan Bouts Start: 05-09-2016 Thyroxine measurement B ruce Bouts Start: 05-02-2016 Basic metabolic pane l calcium total Yazan Bouts Start: 05-02-2016 Hemoglobin A1c measurement Yazan Bouts Start: 05-02-2016 Hemoglobin glycosylated a1c Yazan Bouts Start: 05-02-2016 Lipid panel Yazan Bout s Start: 05-02-2016 Lipid panel Yazan Bout s Start: 01-07-2016 Basic metabolic pane l calcium total Yazan Bouts Start: 01-07-2016 Hemoglobin A1c measurement Yazan Bouts Start: 01-07-2016 Hemoglobin glycosylated a1c Yazan Bouts Start: 01-07-2016 Lipid panel Yazan Bout s Start: 01-07-2016 Lipid panel Yazan Bout s Start: 01-07-2016 MICROALBUMIN/Urine Creat Ratio Yazan Bouts Start: 09-02-2015 Basic metabolic pane l calcium total Yazan Bouts Start: 09-02-2015 Hemoglobin A1c measurement Yazan Bouts Start: 09-02-2015 Hemoglobin glycosylated a1c Yazan Bouts Start: 09-02-2015 Lipid panel Yazan Bout s Start: 09-02-2015 Lipid panel Yazan Bout s Start: 05-07-2015 Basic metabolic pane l calcium total Yazan Bouts Start: 05-07-2015 Hemoglobin A1c measurement Yazan Bouts Start: 05-07-2015 Hemoglobin glycosylated a1c Yazan Bouts Start: 05-07-2015 Lipid panel Yazan Bout s Start: 05-07-2015 Lipid panel Yazan Bout s Start: 02-12-2015 Ultrasonography of abdomen Yazan Bouts Start: 02-12-2015 Us abdominal real ti me w/image limited Yazan Bouts Start: 02-03-2015 Basic metabolic pane l calcium total Yazan Bouts Start: 02-03-2015 Hemoglobin A1c measurement Yazan Bouts Start: 02-03-2015 Hemoglobin glycosylated a1c Yazan Bouts Start: 02-03-2015 Lipid panel Yazan Bout s Start: 02-03-2015 Lipid panel Yazan Bout s Start: 10-04-2014 Basic metabolic pane l calcium total Ghislaine Junior Start: 10-04-2014 Doc meds verified w/pt or re Yazan Bouts Start: 10-04-2014 Hemoglobin A1c measurement Yazan Bouts Start: 10-04-2014 Hemoglobin glycosylated a1c Yazan Bouts Start: 10-04-2014 Lipid panel Yazan Bout s Start: 10-04-2014 Lipid panel Yazan Bout s Start: 10-04-2014 TOBACCO NON-USER Yazan Bouts Start: 09-23-2014 Basic metabolic pane l calcium total Yazan Bouts Start: 09-23-2014 Hemoglobin A1c measurement Yazan Bouts Start: 09-23-2014 Hemoglobin glycosylated a1c Yazan Bouts Start: 09-23-2014 Lipid panel Yazan Bout s Start: 09-23-2014 Lipid panel Yazan Bout s Start: 07-24-2014 Doc meds verified w/pt or re Yazan Bouts Start: 07-24-2014 TOBACCO NON-USER Yazan Bouts Start: 07-21-2014 Basic metabolic pane l calcium total Yazan Bouts Start: 07-21-2014 Hemoglobin A1c measurement Yazan Bouts Start: 07-21-2014 Hemoglobin glycosylated a1c Yazan Bouts Start: 07-21-2014 Urnls dip stick/tabl et rgnt auto w/o microscopy Yazan Bouts Start: 06-05-2014 5,10-methylenetetrah ydrofolate reductase gene analysis Yazan Bouts Start: 06-05-2014 Mthfr gene analysis common variants Yazan Bouts Start: 05-04-2014 Diab manage trn per indiv Yazan Bouts Start: 05-04-2014 Diabetes self-monito ring health education Yazan Bouts Start: 05-03-2014 Basic metabolic pane l calcium ionized Yazan Bouts Start: 05-03-2014 Basic metabolic pane l calcium total Yazan Bouts Start: 05-03-2014 Blood chemistry Yazan B outs Start: 05-03-2014 Doc meds verified w/pt or re Yazan Bouts Start: 05-03-2014 Flu immunize no order/admin Yazan Bouts Start: 05-03-2014 Hemoglobin glycosylated a1c Yazan Bouts Start: 05-03-2014 TOBACCO NON-USER Yazan Bouts Start: 05-03-2014 Urinalysis, automated B ruce Bouts Start: 05-03-2014 Urnls dip stick/tabl et rgnt auto w/o microscopy Yazan Bouts Appendectomy Joey AMAYA section Joey Palma Results Test Name Value Interpretation Reference Range Facility General Surgery Office/Clini c Noteon 05-28-2023 General Surgery Office/Clinic Note Chief Complaint post operative follow up HPI Staff 5 weeks post I/D left thigh abscess. Denies discomfort, no use of pain medication. Denies bleeding or drainage. Has been unable to pack area for the past two weeks due to opening too small to insert packing. History of Present Illness 5 weeks s/p I & D of left thigh abscess; no longer packing area, no pain or drainage; no fevers. Review of Systems ROS - Provider Constitutional: no fever, no sweats, no weight loss. Eyes: no glasses, no blurred vision, no visual loss. ENMT: no dentures, no hoarseness, no swallowing difficulties, no hearing loss, no ear infection(s), no nose bleeds. Cardiovascular: normal blood pressure, no chest pain, regular heartbeat, no heart murmur. Respiratory: no shortness of breath, no cough, no asthma, no wheezing. Gastrointestinal: no nausea, no vomiting, no diarrhea, no constipation, no blood in stool, no change in bowel habits, no abdominal pain, no hepatitis. Genitourinary: no kidney stones, no urine infection, no dysuria. Musculoskeletal: no pain, no weakness. Skin: no changing moles, no rash, no skin lumps. Neurologic: no seizures, no epilepsy, no headache. Psychiatric: no emotional or psychiatric problem. Heme/Lymph: no bleeding problems, no anemia, no blood clots, no transfusions. Allergy/Immunologic : no swollen lymph nodes/glands, no IV drug abuse. Other: Additional ROS info: Except as noted in the above Review of Systems and in the History of Present Illness, all other systems have been reviewed and are negative or noncontributory. Physical Exam skin: left groin incision healed, no open areas, no drainage or fluctuance, nontender Assessment/Plan 1. Abscess of left thigh (L02.416: Cutaneous abscess of left lower limb) healed; call with problems/questions. Follow-up No qualifying data available Problem List/Past Medical History Ongoing Abscess of left thigh Diabetes HTN (hypertension) Obesity Historical No qualifying data Procedure/Surgical History Incision and drainage of abscess (04/12/2023), Appendectomy, section. Medications glipiZIDE, 5 mg, Oral, Daily Levemir, 20 unit(s), SubCutaneous, Daily lisinopril, 20 mg, Oral, Daily metformin 500 mg Tab, 1000 mg= 2 tab(s), Oral, BID Allergies naproxen (Nausea) Social History Alcohol - Denies Alcohol Use, 04/21/2023 Substance Abuse - Denies Substance Abuse, 04/21/2023 Tobacco Never (less than 100 in lifetime) Tobacco Use:. Never Smokeless Tobacco Use:., 04/21/2023 Family History Family history is negative Normal [facility] Comment on above: Result Comment: Elec tronically Signed By: MONIQUE KELLER, Joey Escobar\Date and Time Signed: 05/28/23 10:14 EDT Basic Metabolic Profon 05-21 Anion gap [Moles/Vol] 10 mmol/L Normal 9-17 [facility] Comment on above: Performed By: #### C DP, BMP, UA, UMICAO #### [facility] [address] [place] [address] Tube Room Supervisor: César Rudea MD #### LIPR, GLYHGB, URNMAB #### [id number] [place] [address] Tube Room Supervisor: Harlan Yates MD BUN/CRE Ratio 34 High 9-20 [facility] Comment on above: Performed By: #### C DP, BMP, UA, UMICAO #### [facility] [address] [place] [address] Tube Room Supervisor: César Rueda MD #### LIPR, GLYHGB, URNMAB #### [address] [address] [place], [place] [phone] Tube Room Supervisor: Harlan Yates MD Calcium [Mass/Vol] 8.9 mg/dL Normal 8.6-10.4 [facility] Comment on above: Performed By: #### C DP, BMP, UA, UMICAO #### [facility] [address] [place] [address] Tube Room Supervisor: César Rueda MD #### LIPR, GLYHGB, URNMAB #### [address] [place] [address] Tube Room Supervisor: Harlan Yates MD Chloride [Moles/Vol] 103 mmol/L Normal 98-107 [facility] Comment on above: Performed By: #### C DP, BMP, UA, UMICAO #### [facility] [address] [place] [address] [address] [place] [phone] ( Tube Room Supervisor: César Rueda MD #### LIPR, GLYHGB, URNMAB #### [address] [id number] Tube Room Supervisor: Harlan Yates MD CO2 [Moles/Vol] 26 mmol/L Normal 20-31 [facility] Comment on above: Performed By: #### C DP, BMP, UA, UMICAO #### [address] [place] [id number] Tube Room Supervisor: César Rueda MD #### LIPR, GLYHGB, URNMAB #### [address] [id number] Tube Room Supervisor: Harlan Yates MD Creatinine [Mass/Vol] 0.5 mg/dL Normal 0.5-0.9 [facility] Comment on above: Performed By: #### C DP, BMP, UA, UMICAO #### [address] [place] [id number] Tube Room Supervisor: César Rueda MD #### LIPR, GLYHGB, URNMAB #### [address] [id number] Tube Room Supervisor: Harlan Yates MD GFR/1.73 sq M.predicted among non-blacks MDRD (S/P/Bld) [Vol rate/Area] mL/min/{1.73_m2} Normal >60 [facility] Comment on above: Result Comment: These results are not intended for use [...] affects renal tubular secretion. Performed By: #### C DP, BMP, UA, UMICAO #### [address] [place] [address]17 ( Tube Room Supervisor: César Rueda MD #### LIPR, GLYHGB, URNMAB #### [address] [id number] Tube Room Supervisor: Harlan Yates MD Glucose [Mass/Vol] 270 mg/dL High 70-99 [facility] Comment on above: Performed By: #### C DP, BMP, UA, UMICAO #### [address] [place] [address] Tube Room Supervisor: César Rueda MD #### LIPCate, GLYHGB, URNMAB #### [place] [id number] Tube Room Supervisor: Harlan Yates MD Potassium [Moles/Vol] 4.9 mmol/L Normal 3.7-5.3 [facility] Comment on above: Performed By: #### C DP, BMP, UA, UMICAO #### [address] [place] [phone] Tube Room Supervisor: César Rueda MD #### LIPR, GLYHGB, URNMAB #### [address] [id number] Tube Room Supervisor: Harlan Yates MD Sodium [Moles/Vol] 139 mmol/L Normal 135-144 [facility] Comment on above: Performed By: #### C DP, BMP, UA, UMICAO #### [address] [place] [phone] Tube Room Supervisor: César Rueda MD #### LIPR, GLYHGB, URNMAB #### [address] [place], [place] 5049408 Tube Room Supervisor: Harlan Yates MD Urea nitrogen [Mass/Vol] 17 mg/dL Normal 6-20 [facility] Comment on above: Performed By: #### C DP, BMP, UA, UMICAO #### [address] [place] [phone] Tube Room Supervisor: César Rueda MD #### LIPR, GLYHGB, URNMAB #### [place] [address] Tube Room Supervisor: Harlan Yates MD CBC with Diffon 05-22-2023 Abs. Basophil 0.05 k/uL Normal 0.00-0.20 [facility] Comment on above: Performed By: #### C DP, BMP, UA, UMICAO #### [address] [place], [facility] Tube Room Supervisor: César Rueda MD #### LIPCate, GLYHGB, URNMAB #### [address] [address] Tube Room Supervisor: Harlan Yates MD Abs.Imm.Granulocyte <0.03 Normal 0.00-0.30 [facility] Comment on above: Performed By: #### C DP, BMP, UA, UMICAO #### [address] [place] [address] Tube Room Supervisor: César Rueda MD #### LIPR, GLYHGB, URNMAB #### [address] [place], [place] 6351808 Tube Room Supervisor: Harlan Yates MD Abs.Neutrophil (Seg) 4.73 k/uL Normal 1.50-8.10 [facility] Comment on above: Performed By: #### C DP, BMP, UA, UMICAO #### [facility] [address] [place] [address] Dr[address] [place] [phone] Tube Room Supervisor: César Rueda MD #### LIPR, GLYHGB, URNMAB #### [address] [id number] Tube Room Supervisor: Harlan Yates MD Basophils/100 WBC (Bld) 1 % Normal 0-2 [facility] Comment on above: Performed By: #### C DP, BMP, UA, UMICAO #### [address] [place] [phone] Tube Room Supervisor: César Rueda MD #### LIPR, GLYHGB, URNMAB #### [address] [address] Tube Room Supervisor: Harlan Yates MD Eosinophils (Bld) [#/Vol] 0.20 10*3/uL Normal 0.00-0.44 [facility] Comment on above: Performed By: #### C DP, BMP, UA, UMICAO #### [address] [place] [phone] Tube Room Supervisor: César Rueda MD #### LIPR, GLYHGB, URNMAB #### [address] [address] Tube Room Supervisor: Harlan Yates MD Eosinophils/100 WBC (Bld) 3 % Normal 1-4 [facility] Comment on above: Performed By: #### C DP, BMP, UA, UMICAO #### [address] [place], [place] 6149483 Tube Room Supervisor: César Rueda MD #### LIPR, GLYHGB, URNMAB #### [address] [phone] Tube Room Supervisor: Harlan Yates MD Erythrocyte distribution width (RBC) [Ratio] 12.9 % Normal 11.8-14.4 [facility] Comment on above: Performed By: #### C DP, BMP, UA, UMICAO #### [address] [place], [place] 4410583 Tube Room Supervisor: César Rueda MD #### LIPR, GLYHGB, URNMAB #### [address] [address] Tube Room Supervisor: Harlan Yates MD Hematocrit (Bld) [Volume fraction] 42.1 % Normal 36.3-47.1 [facility] Comment on above: Performed By: #### C DP, BMP, UA, UMICAO #### [address] [place] [phone] Tube Room Supervisor: César Rueda MD #### LIPR, GLYHGB, URNMAB #### [address] [address] Tube Room Supervisor: Harlan Yates MD Hemoglobin (Bld) [Mass/Vol] 13.6 g/dL Normal 11.9-15.1 [facility] Comment on above: Performed By: #### C DP, BMP, UA, UMICAO #### [address] [place] [phone] Tube Room Supervisor: César Rueda MD #### LIPR, GLYHGB, URNMAB #### [address] [phone] Tube Room Supervisor: Harlan Yates MD Immature granulocytes/100 WBC (Bld) 0 % Normal 0 [facility] Comment on above: Performed By: #### C DP, BMP, UA, UMICAO #### [address] [place] [address]83 Tube Room Supervisor: César Rueda MD #### LIPR, GLYHGB, URNMAB #### [address] [place], [place] 5169708 Tube Room Supervisor: Harlan Yates MD Lymphocytes (Bld) [#/Vol] 1.66 10*3/uL Normal 1.10-3.70 [facility] Comment on above: Performed By: #### C DP, BMP, UA, UMICAO #### [address] [place] [phone] Tube Room Supervisor: César Rueda MD #### LIPR, GLYHGB, URNMAB #### [place] [address] Tube Room Supervisor: Harlan Yates MD Lymphocytes/100 WBC (Bld) 23 % Low 24-43 [facility] Comment on above: Performed By: #### C DP, BMP, UA, UMICAO #### [address] [place] [phone] Tube Room Supervisor: César Rueda MD #### LIPCate, KACIHGB, URNMAB #### [place] [address] Tube Room Supervisor: Harlan Yates MD MCH (RBC) [Entitic mass] 30.4 pg Normal 25.2-33.5 [facility] Comment on above: Performed By: #### C DP, BMP, UA, UMICAO #### [address] [place] [phone] Tube Room Supervisor: César Rueda MD #### LIPR, GLYHGB, URNMAB #### [address] [place] 1667008 Tube Room Supervisor: Harlan Yates MD MCHC (RBC) [Mass/Vol] 32.3 g/dL Normal 28.4-34.8 [facility] Comment on above: Performed By: #### C DP, BMP, UA, UMICAO #### [address] [place] [phone] Tube Room Supervisor: César Rueda MD #### LIPR, GLYHGB, URNMAB #### [address] [address] Tube Room Supervisor: Harlan Yates MD MCV (RBC) [Entitic vol] 94.2 fL Normal 82.6-102.9 [facility] Comment on above: Performed By: #### C DP, BMP, UA, UMICAO #### [address] [place] [phone] Tube Room Supervisor: César Rueda MD #### LIPR, GLYHGB, URNMAB #### [place] [address] Tube Room Supervisor: Harlan Yates MD Monocytes (Bld) [#/Vol] 0.50 10*3/uL Normal 0.10-1.20 [facility] Comment on above: Performed By: #### C DP, BMP, UA, UMICAO #### [address] [place] [phone] Tube Room Supervisor: César Rueda MD #### LIPR, GLYHGB, URNMAB #### [address] [address] Tube Room Supervisor: Harlan Yates MD Monocytes/100 WBC (Bld) 7 % Normal 3-12 [facility] Comment on above: Performed By: #### C DP, BMP, UA, UMICAO #### [address] [place] [phone] Tube Room Supervisor: César Rueda MD #### LIPR, GLYHGB, URNMAB #### [address] [address] Tube Room Supervisor: Harlan Yates MD Neutrophil (Seg) 66 % High 36-65 [facility] Comment on above: Performed By: #### C DP, BMP, UA, UMICAO #### [facility] [address] [place] [address] [place] [phone] Tube Room Supervisor: César Rueda MD #### LIPR, GLYHGB, URNMAB #### [address] [place], [place] 3600108 Tube Room Supervisor: Harlan Yates MD NRBC Automated 0.0 per 100 WBC Normal 0.0 [facility] Comment on above: Performed By: #### C DP, BMP, UA, UMICAO #### [address] [place] [phone] Tube Room Supervisor: César Rueda MD #### LIPR, GLYHGB, URNMAB #### [place] [address] Tube Room Supervisor: Harlan Yates MD Platelet mean volume (Bld) [Entitic vol] 10.3 fL Normal 8.1-13.5 [facility] Comment on above: Performed By: #### C DP, BMP, UA, UMICAO #### [address] [place] [phone] Tube Room Supervisor: César Rueda MD #### LIPR, GLYHGB, URNMAB #### [place] [address] Tube Room Supervisor: Harlan Yates MD Platelets (Bld) [#/Vol] 301 10*3/uL Normal 138-453 [facility] Comment on above: Performed By: #### C DP, BMP, UA, UMICAO #### [facility] [address] [place] [address] [place] [phone] Tube Room Supervisor: César Rueda MD #### LIPR, GLYHGB, URNMAB #### [address] [place] [address] Tube Room Supervisor: Harlan Yates MD RBC (Bld) [#/Vol] 4.47 10*6/uL Normal 3.95-5.11 [facility] Comment on above: Performed By: #### C DP, BMP, UA, UMICAO #### [facility] [address] [place] [address] [place]. [place], [place] 2349783 Tube Room Supervisor: César Rueda MD #### LIPR, GLYHGB, URNMAB #### [facility] [address] [place] [address] Tube Room Supervisor: Harlan Yates MD WBC (Bld) [#/Vol] 7.2 10*3/uL Normal 3.5-11.3 [facility] Comment on above: Performed By: #### C DP, BMP, UA, UMICAO #### [address] [place], [place] 0940483 Tube Room Supervisor: César Rueda MD #### LIPR, GLYHGB, URNMAB #### [facility] [address] [place] [address] Tube Room Supervisor: Harlan Yates MD Hemoglobin A1Con 05-22-2023 Glucose [Mass/Vol] 226 mg/dL Normal [facility] Comment on above: Result Comment: The ADA and AACC recommend providing the estimated average glucose result to permit better patient understanding of their HBA1c result. Performed By: #### C DP, BMP, UA, UMICAO #### [address] [place], [place] [phone] Tube Room Supervisor: César Rueda MD #### LIPR, GLYHGB, URNMAB #### [facility] [address] [place] [address] Tube Room Supervisor: Harlan Yates MD HbA1c (Bld) [Mass fraction] 9.5 % High 4.0-6.0 [facility] Comment on above: Performed By: #### C DP, BMP, UA, UMICAO #### [address] [place] [address] Tube Room Supervisor: César Rueda MD #### LIPR, GLYHGB, URNMAB #### [address] [place], [place] 3717908 Tube Room Supervisor: Harlan Yates MD Lipid Profileon 05-22-2023 Cholesterol [Mass/Vol] 212 mg/dL High 0-199 [facility] Comment on above: Result Comment: Cholesterol Guidelines: <200 Desirable 200-240 Borderline >240 Undesirable Performed By: #### C DP, BMP, UA, UMICAO #### [address] [place] [address] Tube Room Supervisor: César Rueda MD #### LIPR, GLYHGB, URNMAB #### [address] [id number] Tube Room Supervisor: Harlan Yates MD Cholesterol in HDL [Mass/Vol] 36 mg/dL Low >40 [facility] Comment on above: Result Comment: HDL Guidelines: <40 Undesirable 40-59 Borderline >59 Desirable Performed By: #### C DP, BMP, UA, UMICAO #### [address] [place], [place] [phone] Tube Room Supervisor: César Rueda MD #### LIPR, GLYHGB, URNMAB #### [address] [place], [place] 5614008 Tube Room Supervisor: Harlan Yates MD Cholesterol in LDL [Mass/Vol] 134 mg/dL High 0-100 [facility] Comment on above: Result Comment: LDL Guidelines: <100 Desirable 100-129 Near to/above Desirable 130-159 Borderline >159 Undesirable Direct (measured) LDL and calculated LDL are not interchangeable tests. Performed By: #### C DP, BMP, UA, UMICAO #### [facility] [address] [place] [address] Dr. [place], [place] 7505583 Tube Room Supervisor: César Rueda MD #### LIPR, GLYHGB, URNMAB #### [address] [address] Tube Room Supervisor: Harlan Yates MD Cholesterol in VLDL [Mass/Vol] 41 mg/dL Normal [facility] Comment on above: Performed By: #### C DP, BMP, UA, UMICAO #### [address] [place], [place] 4007783 Tube Room Supervisor: César Rueda MD #### LIPR, GLYHGB, URNMAB #### [address] [address] Tube Room Supervisor: Harlan Yates MD Cholesterol.total/Chol esterol in HDL [Mass ratio] 6.0 {ratio} Normal [facility] Comment on above: Performed By: #### C DP, BMP, UA, UMICAO #### [address] [place], [place] 6160383 Tube Room Supervisor: César Rueda MD #### LIPR, GLYHGB, URNMAB #### [address] [address] Tube Room Supervisor: Harlan Yates MD Triglyceride [Mass/Vol] 207 mg/dL High <150 [facility] Comment on above: Result Comment: Triglyceride Guidelines: <150 Desirable 150-199 Borderline 200-499 High >499 Very high Based on AHA Guidelines for fasting triglyceride, November 2011. Performed By: #### C DP, BMP, UA, UMICAO #### [address] [place], [place] 0825583 Tube Room Supervisor: César Rueda MD #### LIPR, GLYHGB, URNMAB #### [address] [address] Tube Room Supervisor: Harlan Yates MD Microalb.,Random Uron 2023 Creatinine [Mass/Vol] 102.0 mg/dL Normal 28.0-217.0 [facility] Comment on above: Performed By: #### C DP, BMP, UA, UMICAO #### [facility] [address] [place] [address]83 Tube Room Supervisor: César Rueda MD #### LIPR, GLYHGB, URNMAB #### [address] [id number] Tube Room Supervisor: Harlan Yates MD Microalb/Creat Ratio 25 mcg/mg creat Normal 0.0-25.0 [facility] Comment on above: Performed By: #### C DP, BMP, UA, UMICAO #### [address] [place] 543[address]83 Tube Room Supervisor: César Rueda MD #### LIPR, GLYHGB, URNMAB #### [address] [phone] Tube Room Supervisor: Harlan Yates MD Microalbumin conc. 25 mg/L High 0-20 [facility] Comment on above: Performed By: #### C DP, BMP, UA, UMICAO #### [facility] [address] [place] [address] [address] [place] [address]83 Tube Room Supervisor: César Rueda MD #### LIPR, GLYHGB, URNMAB #### [address] [id number] Tube Room Supervisor: Harlan Yates MD Urinalysis, Routineon 2023 Bilirubin, SemiQt,Ur Negative Normal NEG [facility] Comment on above: Performed By: #### C DP, BMP, UA, UMICAO #### [facility] [address] [place] [address] [address] [place] [address] Tube Room Supervisor: César Rueda MD #### LIPR, GLYHGB, URNMAB #### [address] [id number] Tube Room Supervisor: Harlan Yates MD Blood, Urine Negative Normal NEG [facility] Comment on above: Performed By: #### C DP, BMP, UA, UMICAO #### [facility] [address] [place] [address] Dr. [place] [phone] Tube Room Supervisor: César Rueda MD #### LIPR, GLYHGB, URNMAB #### [address] [phone] Tube Room Supervisor: Harlan Yates MD Clarity (U) Clear Normal CLEAR [facility] Comment on above: Performed By: #### C DP, BMP, UA, UMICAO #### [address] [place] 543[address]83 Tube Room Supervisor: César Rueda MD #### LIPR, GLYHGB, URNMAB #### [address] [phone] Tube Room Supervisor: Harlan Yates MD Color (U) Yellow Normal YEL [facility] Comment on above: Performed By: #### C DP, BMP, UA, UMICAO #### [address] [place] 5431383 Tube Room Supervisor: César Rueda MD #### LIPR, GLYHGB, URNMAB #### [address] [id number] Tube Room Supervisor: Harlan Yates MD Glucose Ql (U) 1+ mg/dL Abnormal NEG [facility] Comment on above: Performed By: #### C DP, BMP, UA, UMICAO #### [address] [place], [place] 6024183 Tube Room Supervisor: César Rueda MD #### LIPR, GLYHGB, URNMAB #### [address] [place], [place] 3593008 Tube Room Supervisor: Harlan Yates MD Ketones Ql (U) Negative Normal NEG [facility] Comment on above: Performed By: #### C DP, BMP, UA, UMICAO #### [address] [place] [address] Tube Room Supervisor: César Rueda MD #### LIPR, GLYHGB, URNMAB #### [address] [phone] Tube Room Supervisor: Harlan Yates MD Leukocyte esterase Test strip Ql (U) Negative Normal NEG [facility] Comment on above: Performed By: #### C DP, BMP, UA, UMICAO #### [address] [place] [address] Tube Room Supervisor: César Rueda MD #### LIPR, GLYHGB, URNMAB #### [address] [address] Tube Room Supervisor: Harlan aYtes MD Nitrite,Ur Negative Normal NEG [facility] Comment on above: Performed By: #### C DP, BMP, UA, UMICAO #### [address] [place] [phone] Tube Room Supervisor: César Rueda MD #### LIPR, GLYHGB, URNMAB #### [address] [id number] Tube Room Supervisor: Harlan Yates MD PH,Ur 6.0 Normal 5.0-9.0 [facility] Comment on above: Performed By: #### C DP, BMP, UA, UMICAO #### [address] [place] 543[address]83 Tube Room Supervisor: César Rueda MD #### LIPR, GLYHGB, URNMAB #### [place] [address] [place] [address] Tube Room Supervisor: Harlan Yates MD Protein Ql (U) Negative Normal NEG [facility] Comment on above: Performed By: #### C DP, BMP, UA, UMICAO #### [address] [place] [address] Tube Room Supervisor: César Rueda MD #### LIPR, GLYHGB, URNMAB #### [address] [address] Tube Room Supervisor: Harlan Yates MD Spec. Tea,Ur >1.030 High 1.010-1.020 [facility] Comment on above: Performed By: #### C DP, BMP, UA, UMICAO #### [address] [place] 543[address]02 ( Tube Room Supervisor: César Rueda MD #### LIPR, GLYHGB, URNMAB #### [address] [address] Tube Room Supervisor: Harlan Yates MD Urobilinogen,Ur Normal Normal 0.0-1.0 [facility] Comment on above: Performed By: #### C DP, BMP, UA, UMICAO #### [address] [place] 5431384 ( Tube Room Supervisor: César Rueda MD #### LIPR, GLYHGB, URNMAB #### [address] [address] Tube Room Supervisor: Harlan Yates MD Urinalysis,Microon 4 Amorphous sediment LM Ql (Urine sed) 1+ Abnormal NONE [facility] Comment on above: Performed By: #### C DP, BMP, UA, UMICAO #### [address] [place] 5431383 Tube Room Supervisor: César Rueda MD #### LIPR, GLYHGB, URNMAB #### [id number] Tube Room Supervisor: Harlan Yates MD Bacteria TRACE Abnormal NONE [facility] Comment on above: Performed By: #### C DP, BMP, UA, UMICAO #### [address] [place] 5431383 Tube Room Supervisor: César Rueda MD #### LIPR, GLYHGB, URNMAB #### [place] [address] Tube Room Supervisor: Harlan Yates MD Crystals LM Nom (Urine sed) 2 TO 5 Abnormal [facility] Comment on above: Result Comment: URIC ACID Performed By: #### C DP, BMP, UA, UMICAO #### [address] [place] [id number] Tube Room Supervisor: César Rueda MD #### LIPR, GLYHGB, URNMAB #### [place] [address] Tube Room Supervisor: Harlan Yates MD Epithelial cells LM Ql (Urine sed) 0 TO 2 Normal 0-25 [facility] Comment on above: Performed By: #### C DP, BMP, UA, UMICAO #### [address] [place] [id number] Tube Room Supervisor: César Rueda MD #### LIPR, GLYHGB, URNMAB #### [address] [id number] Tube Room Supervisor: Harlan Yates MD Mucus Strands TRACE Abnormal [facility] Comment on above: Performed By: #### C DP, BMP, UA, UMICAO #### [address] [place] [address] Tube Room Supervisor: César Rueda MD #### LIPR, GLYHGB, URNMAB #### [facility] [address] [place], [place] [id number] Tube Room Supervisor: Harlan Yates MD Urine RBC's None Normal 0-2 [facility] Comment on above: Performed By: #### C DP, BMP, UA, UMICAO #### [facility] [address] [place] [address] [place] [address] Tube Room Supervisor: César Rueda MD #### LIPR, GLYHGB, URNMAB #### [facility] [address] [place], [place] [id number] Tube Room Supervisor: Harlan Yates MD Urine WBC's 0 TO 2 Normal 0-5 [facility] Comment on above: Performed By: #### C DP, BMP, UA, UMICAO #### [address] [place] [address] Tube Room Supervisor: César Rueda MD #### LIPR, GLYHGB, URNMAB #### [facility] [address] [place], [place] [id number] Tube Room Supervisor: Harlan Yates MD Ambulatory Visit Summaryon 0 05-19-2023 Ambulatory Visit Summary MILANA FONG :1965 Visit Date:05/19/2023 Ambulatory Visit Instructions Your Care Team Attending Physician - MONIQUE KELLER, Joey Esposito Primary Care Physician - NGUYỄN KELLER, YAZAN Trinh This Is Your Medications List glipiZIDE insulin detemir (Levemir) lisinopril metformin (metformin 500 mg Tab) Procedures Performed Incision and drainage of abscess (04/12/2023), Appendectomy, section. Medications What How Much When Instructions Unchanged glipiZIDE 5 Milligram By Mouth Every day Unchanged insulin detemir (Levemir) 20 Units Subcutaneous Every day Unchanged lisinopril 20 Milligram By Mouth Every day Unchanged metformin (metformin 500 mg Tab) 2 Tablets By Mouth 2 times a day Allergies naproxen (Nausea) Problems Ongoing - Any problem that you are currently receiving treatment for. Abscess of left thigh Diabetes HTN (hypertension) Obesity Patient Survey You may receive a survey via text or e-mail asking about your office visit. Please share your experience with us by completing your survey. We appreciate your feedback and thank you for choosing us for your care. [facility] Ambulatory Visit Summaryon 0 05-01-2023 Ambulatory Visit Summary MILANA FONG :1965 Visit Date:05/01/2023 Ambulatory Visit Instructions Your Care Team Attending Physician - MONIQUE KELLER, Joey Esposito Primary Care Physician - NGUYỄN KELLER, YAZAN Trinh This Is Your Medications List glipiZIDE insulin detemir (Levemir) lisinopril metformin (metformin 500 mg Tab) Procedures Performed Incision and drainage of abscess (04/12/2023), Appendectomy, section. Medications What How Much When Instructions Unchanged glipiZIDE 5 Milligram By Mouth Every day Unchanged insulin detemir (Levemir) 20 Units Subcutaneous Every day Unchanged lisinopril 20 Milligram By Mouth Every day Unchanged metformin (metformin 500 mg Tab) 2 Tablets By Mouth 2 times a day Allergies naproxen (Nausea) Problems Ongoing - Any problem that you are currently receiving treatment for. Abscess of left thigh Diabetes HTN (hypertension) Obesity Patient Survey You may receive a survey via text or e-mail asking about your office visit. Please share your experience with us by completing your survey. We appreciate your feedback and thank you for choosing us for your care. [facility] General Surgery Office/Clini c Noteon 05-01-2023 General Surgery Office/Clinic Note Chief Complaint post operative follow up HPI Staff 19 day post operative follow up post I/D left thigh abscess. Packing daily with less packing required. Reports scant bleeding, denies drainage. Minimal soreness, no use of pain medication. History of Present Illness f/u for left thigh abscess, s/p I & D 19 days ago; decreasing in size, no drainage, minimal soreness; no fevers. Review of Systems ROS - Provider Constitutional: no fever, no sweats, no weight loss. Eyes: no glasses, no blurred vision, no visual loss. ENMT: no dentures, no hoarseness, no swallowing difficulties, no hearing loss, no ear infection(s), no nose bleeds. Cardiovascular: normal blood pressure, no chest pain, regular heartbeat, no heart murmur. Respiratory: no shortness of breath, no cough, no asthma, no wheezing. Gastrointestinal: no nausea, no vomiting, no diarrhea, no constipation, no blood in stool, no change in bowel habits, no abdominal pain, no hepatitis. Genitourinary: no kidney stones, no urine infection, no dysuria. Musculoskeletal: no pain, no weakness. Skin: no changing moles, no rash, no skin lumps. Neurologic: no seizures, no epilepsy, no headache. Psychiatric: no emotional or psychiatric problem. Heme/Lymph: no bleeding problems, no anemia, no blood clots, no transfusions. Allergy/Immunologic : no swollen lymph nodes/glands, no IV drug abuse. Other: Additional ROS info: Except as noted in the above Review of Systems and in the History of Present Illness, all other systems have been reviewed and are negative or noncontributory. Physical Exam skin: wound clean, tracks 2 cm, healthy granulation tissue, no purulence or necrotic tissue, no cellulitis. Assessment/Plan 1. Abscess of left thigh (L02.416: Cutaneous abscess of left lower limb) continue daily packing; once it fills in, cover with pad until it scabs over; follow up in 2 weeks, call sooner if problems/questions. Follow-up No qualifying data available Problem List/Past Medical History Ongoing Abscess of left thigh Diabetes HTN (hypertension) Obesity Historical No qualifying data Procedure/Surgical History Incision and drainage of abscess (04/12/2023), Appendectomy, section. Medications glipiZIDE, 5 mg, Oral, Daily Levemir, 20 unit(s), SubCutaneous, Daily lisinopril, 20 mg, Oral, Daily metformin 500 mg Tab, 1000 mg= 2 tab(s), Oral, BID Allergies naproxen (Nausea) Social History Alcohol - Denies Alcohol Use, 04/21/2023 Substance Abuse - Denies Substance Abuse, 04/21/2023 Tobacco Never (less than 100 in lifetime) Tobacco Use:. Never Smokeless Tobacco Use:., 04/21/2023 Family History Family history is negative [facility] Comment on above: Result Comment: Elec tronically Signed By: MONIQUE KELLER, Joey Esposito\.br\Date and Time Signed: 05/01/23 10:55 EDT Facesheeton 04-22-2023 Facesheet [id number] 7#1.00TIFF [facility] Ambulatory Visit Summaryon 0 04-21-2023 Ambulatory Visit Summary MILANA FONG :1965 Visit Date:04/21/2023 Ambulatory Visit Instructions Your Diagnosis Abscess of left thigh Your Care Team Attending Physician - MONIQUE KELLER, Joey Esposito Primary Care Physician - YAZAN ADRIAN MD This Is Your Medications List Contact prescribing physician if questions or concerns glipiZIDE insulin detemir (Levemir) lisinopril metformin (metformin 500 mg Tab) Procedures Performed Incision and drainage of abscess (04/12/2023), Appendectomy, section. Medications What How Much When Instructions Unchanged glipiZIDE 5 Milligram By Mouth Every day Contact prescribing physician if questions or concerns Unchanged insulin detemir (Levemir) 20 Units Subcutaneous Every day Contact prescribing physician if questions or concerns Unchanged lisinopril 20 Milligram By Mouth Every day Contact prescribing physician if questions or concerns Unchanged metformin (metformin 500 mg Tab) 2 Tablets By Mouth 2 times a day Contact prescribing physician if questions or concerns Allergies naproxen (Nausea) Problems Ongoing - Any problem that you are currently receiving treatment for. Abscess of left thigh Diabetes HTN (hypertension) Obesity Patient Survey You may receive a survey via text or e-mail asking about your office visit. Please share your experience with us by completing your survey. We appreciate your feedback and thank you for choosing us for your care. [facility] General Surgery Office/Clini c Noteon 04-21-2023 General Surgery Office/Clinic Note Chief Complaint post operative follow up HPI Staff 9 day post operative follow up post I/D, irrigation and packing of left thigh abscess completed while in-patient at [facility] [place]. History of Present Illness 9 days s/p I & D of left medial thigh abscess; denies drainage, abscess cavity decreasing; no fevers; completed antibiotics. Review of Systems PHQ Score Initial Depression Screen Score: 0 SCORE ROS - Provider Constitutional: no fever, no sweats, no weight loss. Eyes: no glasses, no blurred vision, no visual loss. ENMT: no dentures, no hoarseness, no swallowing difficulties, no hearing loss, no ear infection(s), no nose bleeds. Cardiovascular: normal blood pressure, no chest pain, regular heartbeat, no heart murmur. Respiratory: no shortness of breath, no cough, no asthma, no wheezing. Gastrointestinal: no nausea, no vomiting, no diarrhea, no constipation, no blood in stool, no change in bowel habits, no abdominal pain, no hepatitis. Genitourinary: no kidney stones, no urine infection, no dysuria. Musculoskeletal: no pain, no weakness. Skin: no changing moles, no rash, no skin lumps. Neurologic: no seizures, no epilepsy, no headache. Psychiatric: no emotional or psychiatric problem. Heme/Lymph: no bleeding problems, no anemia, no blood clots, no transfusions. Allergy/Immunologic : no swollen lymph nodes/glands, no IV drug abuse. Other: Additional ROS info: Except as noted in the above Review of Systems and in the History of Present Illness, all other systems have been reviewed and are negative or noncontributory. Physical Exam skin: wound clean; no drainage, clean granulation tissue, no purulence; tracks 3 cm; no cellulitis or induration. Assessment/Plan 1. Abscess of left thigh (L02.416: Cutaneous abscess of left lower limb) doing well, continue daily packing; follow up next week, call sooner if problems/questions. Follow-up No qualifying data available Problem List/Past Medical History Ongoing Abscess of left thigh Diabetes HTN (hypertension) Obesity Historical No qualifying data Procedure/Surgical History Incision and drainage of abscess (04/12/2023), Appendectomy, section. Medications glipiZIDE, 5 mg, Oral, Daily Levemir, 20 unit(s), SubCutaneous, Daily lisinopril, 20 mg, Oral, Daily metformin 500 mg Tab, 1000 mg= 2 tab(s), Oral, BID Allergies naproxen (Nausea) Social History Alcohol - Denies Alcohol Use, 04/21/2023 Substance Abuse - Denies Substance Abuse, 04/21/2023 Tobacco Never (less than 100 in lifetime) Tobacco Use:. Never Smokeless Tobacco Use:., 04/21/2023 Family History Family history is negative [facility] Comment on above: Result Comment: Elec tronically Signed By: MONIQUE KELLER, Joey Escobar\Date and Time Signed: 04/21/23 16:20 EST Lab Reportson 04-16-2023 Lab Reports [id number] D0#1.00TIFF [facility] Lab Reportson 04-15-2023 Lab Reports [id number] 50#1.00TIFF [facility] Lab Reports [id number] AB#1.00TIFF [facility] Consultation Noteon 04-14-19 Consultation Note [id number] 82#1.00TIFF [facility] Consultation Note [id number] F9#1.00TIFF [facility] Lab Reportson 04-14-2023 Lab Reports [id number] 17#1.00TIFF [facility] Lab Reports [id number] 27#1.00TIFF [facility] Operative Reporton Operative Report [id number] 0A#1.00TIFF [facility] Basic Metabolic Panelon 10-2 Anion gap [Moles/Vol] 13 mmol/L 9 - 17 mmol/L [facility] Calcium [Mass/Vol] 9.1 mg/dL 8.6 - 10. 4 mg/dL [facility] Chloride [Moles/Vol] 98 mmol/L 98 - 10 7 mmol/L [facility] CO2 [Moles/Vol] 25 mmol/L 20 - 31 mmol/L [facility] Creatinine [Mass/Vol] 0.62 mg/dL 0.50 - 0.90 mg/dL [employer] [facility] GFR/1.73 sq M.predicted MDRD (S/P/Bld) [Vol rate/Area] - PINF [facility] Comment on above: Effective Nov 18, 2021 [...] Critically high 70 - 99 mg/d L [facility] Interpretation and review of laboratory results Abnormal [facility] Potassium [Moles/Vol] 4.6 mmol/L 3.7 - 5.3 mmol/L [facility] Sodium [Moles/Vol] 136 mmol/L 135 - 144 mmol/L [facility] Urea nitrogen (BldV) [Mass/Vol] 22 mg/dL High 6 - 20 mg/dL [facility] Urea nitrogen/Creatinine (Bld) [Mass ratio] 35 High 9 - 20 [facility] Lipid, Fastingon 12-06-2021 Cholesterol [Mass/Vol] 241 mg/dL High NINF - 200 mg/dL [facility] Comment on above: Cholesterol Guidelines: <200 Desirable 200-240 Borderline >240 Undesirable Cholesterol in HDL [Mass/Vol] 34 mg/dL Low 40 - PINF mg/dL [facility] Comment on above: HDL Guidelines: <40 Undesirable 40-59 Borderline >59 Desirable Cholesterol in LDL [Mass/Vol] 149 mg/dL High 0 - 130 mg/dL [facility] Comment on above: LDL Guidelines: <100 Desirable 100-129 Near to/above Desirable 130-159 Borderline >159 Undesirable Direct (measured) LDL and calculated LDL are not interchangeable tests. Cholesterol.total/Chol esterol in HDL [Mass ratio] 7.1 {ratio} High NINF - 5 [facility] Interpretation and review of laboratory results Abnormal [facility] Triglyceride, Fasting 290 mg/dL High NINF - 150 mg/dL [facility] Comment on above: Triglyceride Guidelines: <150 Desirable 150-199 Borderline 200-499 High >499 Very high Based on AHA Guidelines for fasting triglyceride, November 2011. [facility] Microalbumin, Uron Albumin/Creatinine DL <= 20 mg/L (24H U) [Mass ratio] mg/L NINF - 21 mg/L [facility] Albumin/Creatinine DL <= 20 mg/L (U) [Ratio] Can not be calculated NINF [facility] Creatinine [Mass/Vol] 32.1 mg/dL 28.0 - 217.0 mg/dL [facility] Basic Metabolic Panelon 07-18 Anion gap [Moles/Vol] 10 mmol/L 9 - 17 mmol/L [facility] [employer] Calcium [Mass/Vol] 8.9 mg/dL 8.6 - 10. 4 mg/dL [facility] Chloride [Moles/Vol] 106 mmol/L 98 - 10 7 mmol/L [facility] CO2 [Moles/Vol] 23 mmol/L 20 - 31 mmol/L [facility] Creatinine [Mass/Vol] 0.55 mg/dL 0.50 - 0.90 mg/dL [facility] GFR >60 >60 mL/min [facility] GFR Non- >60 >60 mL/min [facility] Glucose [Mass/Vol] 293 mg/dL High 70 - 99 mg/dL [facility] Interpretation and review of laboratory results Abnormal [facility] Potassium [Moles/Vol] 4.4 mmol/L 3.7 - 5.3 mmol/L [facility] Sodium [Moles/Vol] 139 mmol/L 135 - 144 mmol/L [facility] Urea nitrogen (BldV) [Mass/Vol] 20 mg/dL 6 - 20 mg/dL [facility] [employer] Urea nitrogen/Creatinine (Bld) [Mass ratio] 36 High [facility] Hemoglobin A1Con 08-06-2021 Glucose [Mass/Vol] 235 mg/dL [facility] Comment on above: The ADA and AACC rec ommend providing the estimated average glucose result to permit better patient understanding of their HBA1c result. HbA1c (Bld) [Mass fraction] 9.8 % High 4.0 - 6.0 % [facility] - Chemistry and C hemistry - challengeon 08-06-2021 GFR/1.73 sq M.predicted MDRD (S/P/Bld) [Vol rate/Area] [facility] [employer] Comment on above: Average GFR for 50-5 9 years old: 93 mL/min/1.73sq m Chronic Kidney Disease: <60 mL/min/1.73sq m Kidney failure: <15 mL/min/1.73sq m eGFR calculated using average adult body mass. Additional eGFR calculator available at: http://www.[employer]/multiple_crcl_2012.htm Stage 1: Some kidney damage normal GFR Stage 2: Mild kidney damage GFR 60-89 Stage 3: Moderate kidney damage GFR 30-59 Stage 4: Severe kidney damage GFR 15-29 Stage 5: Severe kidney damage GFR <15 ESRD - chronic treatment by dialysis or transplant Lipid Panelon 08-06-2021 Cholesterol [Mass/Vol] 216 mg/dL High <200 [facility] [employer] Comment on above: Cholesterol Guidelines: <200 Desirable 200-240 Borderline >240 Undesirable Cholesterol in HDL [Mass/Vol] 32 mg/dL Low >40 [facility] [employer] Comment on above: HDL Guidelines: <40 Undesirable 40-59 Borderline >59 Desirable Cholesterol in LDL [Mass/Vol] 146 mg/dL High 0 - 130 mg/dL [facility] Comment on above: LDL Guidelines: <100 Desirable 100-129 Near to/above Desirable 130-159 Borderline >159 Undesirable Direct (measured) LDL and calculated LDL are not interchangeable tests. Cholesterol.total/Chol esterol in HDL [Mass ratio] 6.8 {ratio} High <5 [facility] [employer] Triglyceride [Mass/Vol] 189 mg/dL High <150 [facility] [employer] Comment on above: Triglyceride Guidelines: <150 Desirable 150-199 Borderline 200-499 High >499 Very high Based on AHA Guidelines for fasting triglyceride, November 2011. No Panel Informationon 08-06 Interpretation and review of laboratory results Abnormal [facility] TSHon 08-06-2021 TSH Qn 1.10 m[IU]/L [facility] Basic Metabolic Panelon 05-18 Anion gap [Moles/Vol] 10 mmol/L 9 - 17 mmol/L [facility] Calcium [Mass/Vol] 9.3 mg/dL 8.6 - 10. 4 mg/dL [facility] Chloride [Moles/Vol] 102 mmol/L 98 - 10 7 mmol/L [facility] CO2 [Moles/Vol] 27 mmol/L 20 - 31 mmol/L [facility] Creatinine [Mass/Vol] 0.61 mg/dL 0.50 - 0.90 mg/dL [facility] GFR >60 >60 mL/min [facility] GFR Non- >60 >60 mL/min [facility] Glucose [Mass/Vol] 196 mg/dL High 70 - 99 mg/dL [facility] Interpretation and review of laboratory results Abnormal [facility] Potassium [Moles/Vol] 4.5 mmol/L 3.7 - 5.3 mmol/L [facility] Sodium [Moles/Vol] 139 mmol/L 135 - 144 mmol/L [facility] Urea nitrogen (BldV) [Mass/Vol] 21 mg/dL High 6 - 20 mg/dL [facility] Urea nitrogen/Creatinine (Bld) [Mass ratio] 34 High [facility] Hemoglobin A1Con 06-05-2021 Glucose [Mass/Vol] 258 mg/dL [facility] Comment on above: The ADA and AACC rec ommend providing the estimated average glucose result to permit better patient understanding of their HBA1c result. HbA1c (Bld) [Mass fraction] 10.6 % High 4.0 - 6.0 % [facility] Interpretation and review of laboratory results Abnormal [facility] - Chemistry and C hemistry - challengeon 06-05-2021 GFR/1.73 sq M.predicted MDRD (S/P/Bld) [Vol rate/Area] [facility] Comment on above: Average GFR for 50-5 9 years old: 93 mL/min/1.73sq m Chronic Kidney Disease: <60 mL/min/1.73sq m Kidney failure: <15 mL/min/1.73sq m eGFR calculated using average adult body mass. Additional eGFR calculator available at: http://www.[employer]/multiple_crcl_2012.htm Stage 1: Some kidney damage normal GFR Stage 2: Mild kidney damage GFR 60-89 Stage 3: Moderate kidney damage GFR 30-59 Stage 4: Severe kidney damage GFR 15-29 Stage 5: Severe kidney damage GFR <15 ESRD - chronic treatment by dialysis or transplant Urinalysison 06-05-2021 Bilirubin Urine Negative NEGATIVE [facility] Color, UA Yellow Yellow [facility] Glucose, Ur Negative NEGATIVE [facility] Interpretation and review of laboratory results Abnormal [facility] Ketones Ql (U) Negative NEGATIVE [facility] Leukocyte esterase Test strip Ql (U) Negative NEGATIVE [facility] Nitrite, Urine Negative NEGATIVE [facility] pH, UA 5.5 [facility] Protein, UA Negative NEGATIVE [facility] Specific Tea, UA 1.025 [facility] UA Clear Clear [employer] Urine Hgb Negative NEGATIVE [employer] Urobilinogen, Urine Normal Normal [facility] - Chemistry and C hemistry - challengeon 05-06-2021 Anion gap [Moles/Vol] 16 mmol/L Invalid Interpretation Code 10-20 [facility] Bilirubin Ql (U) Negative Invalid Interpretation Code Negative [facility] Calcium [Mass/Vol] 9.0 mg/dL Invalid Interpretation Code 8.5-10.8 [facility] Chloride [Moles/Vol] 98.0 mmol/L Invalid Interpretation Code 100-112 [facility] CO2 [Moles/Vol] 24.0 mmol/L Invalid Interpretation Code 23-30 [facility] Creatinine [Mass/Vol] 0.50 mg/dL Invalid Interpretation Code 0.5-1.5 [facility] GFR/1.73 sq M.predicted among non-blacks MDRD (S/P/Bld) [Vol rate/Area] 128 mL/min/{1.73_m2} Invalid Interpretation Code [facility] Glucose [Mass/Vol] 460.0 mg/dL Invalid Interpretation Code 80-117 [facility] Ketones Ql (U) Negative Invalid Interpretation Code Negative [facility] pH (U) 6 [pH] Invalid Interpretation Code 5.0-9.0 [facility] Potassium [Moles/Vol] 4.70 mmol/L Invalid Interpretation Code 3.5-5.3 [facility] Sodium [Moles/Vol] 133.0 mmol/L Invalid Interpretation Code 135-148 [facility] Specific gravity (U) [Rel density] 1.015 Invalid Interpretation Code 1.003-1.030 [facility] Urea nitrogen [Mass/Vol] 19.0 mg/dL Invalid Interpretation Code 7-25 [facility] Urea nitrogen/Creatinine [Mass ratio] 38 mg/mg Invalid Interpretation Code 6-20 [facility] Urobilinogen (U) [Mass/Vol] normal Invalid Interpretation Code normal [facility] - Hematology and Cell countson 05-06-2021 HbA1c (Bld) [Mass fraction] 13.90 % Invalid Interpretation Code 4.3-6.3 [facility] Hemoglobin Ql (U) Negative Invalid Interpretation Code Negative [facility] - Specimen inform ationon 05-06-2021 Clarity (U) Clear Invalid Interpretation Code Clear [facility] Color (U) yellow Invalid Interpretation Code yellow [facility] - Urinalysison Glucose Test strip (U) [Mass/Vol] 4+ Invalid Interpretation Code Negative [facility] Leukocyte esterase Test strip Ql (U) Negative Invalid Interpretation Code Negative [facility] Nitrite Ql (U) Negative Invalid Interpretation Code Negative [facility] Protein Ql (U) Negative Invalid Interpretation Code Negative [facility] No Panel Informationon 05-06 352.0 mg/dL Invalid Interpretation Code [facility] Gastroenterology Office/Clin ic Noteon 01-07-2021 Gastroenterology Office/Clinic [...] adequate bowel prep, the need for a independent driver the day of procedure, to call [...] History Colon cancer: Uncle. Electronically signed by Natalie PONY EDGER-CRATE REPAIRER, Monet Castellon 01/07/21 08:54 EST Normal [facility] - Chemistry and C hemistry - challengeon 01-03-2021 Albumin (U) [Mass/Vol] < 12.00 Invalid Interpretation Code < 17.0 ug/mL [facility] Anion gap [Moles/Vol] 12 mmol/L Invalid Interpretation Code 10-20 [facility] Bilirubin Ql (U) Negative Invalid Interpretation Code Negative [employer] [facility] Calcium [Mass/Vol] 9.40 mg/dL Invalid Interpretation Code 8.5-10.8 [facility] Chloride [Moles/Vol] 102.0 mmol/L Invalid Interpretation Code 100-112 [facility] Cholesterol [Mass/Vol] 233.0 mg/dL Invalid Interpretation Code 0-200 [facility] Cholesterol in HDL [Mass/Vol] 39.0 mg/dL Invalid Interpretation Code 50-100 [facility] Cholesterol in LDL [Mass/Vol] 162.0 mg/dL Invalid Interpretation Code 0-130 [facility] Cholesterol in VLDL [Mass/Vol] 32.0 mg/dL Invalid Interpretation Code 0-39 [facility] Cholesterol.total/Chol esterol in HDL [Mass ratio] 6 {ratio} Invalid Interpretation Code [facility] CO2 [Moles/Vol] 26.0 mmol/L Invalid Interpretation Code 23-30 [facility] Creatinine (U) [Mass/Vol] 91.60 mg/dL Invalid Interpretation Code Not Estab. mg/dL [facility] Creatinine [Mass/Vol] 0.60 mg/dL Invalid Interpretation Code 0.5-1.5 [facility] GFR/1.73 sq M.predicted among non-blacks MDRD (S/P/Bld) [Vol rate/Area] 104 mL/min/{1.73_m2} Invalid Interpretation Code [facility] Glucose [Mass/Vol] 290.0 mg/dL Invalid Interpretation Code 80-117 [facility] Ketones Ql (U) Negative Invalid Interpretation Code Negative [facility] pH (U) 5 [pH] Invalid Interpretation Code 5.0-9.0 [facility] Potassium [Moles/Vol] 4.30 mmol/L Invalid Interpretation Code 3.5-5.3 [facility] Sodium [Moles/Vol] 136.0 mmol/L Invalid Interpretation Code 135-148 [facility] Specific gravity (U) [Rel density] 1.025 Invalid Interpretation Code 1.003-1.030 [facility] Triglyceride [Mass/Vol] 159.0 mg/dL Invalid Interpretation Code 30-150 [facility] Urea nitrogen [Mass/Vol] 22.0 mg/dL Invalid Interpretation Code 7-25 [facility] Urea nitrogen/Creatinine [Mass ratio] 37 mg/mg Invalid Interpretation Code 6-20 [facility] Urobilinogen (U) [Mass/Vol] normal Invalid Interpretation Code normal [facility] - Hematology and Cell countson 01-03-2021 HbA1c (Bld) [Mass fraction] 11.90 % Invalid Interpretation Code 4.3-6.3 [facility] Hemoglobin Ql (U) Negative Invalid Interpretation Code Negative [facility] - Specimen inform ationon 01-03-2021 Clarity (U) clear Invalid Interpretation Code Clear [facility] Color (U) yellow Invalid Interpretation Code yellow [facility] - Urinalysison Glucose Test strip (U) [Mass/Vol] 4+ Invalid Interpretation Code Negative [facility] Leukocyte esterase Test strip Ql (U) Negative Invalid Interpretation Code Negative [facility] Nitrite Ql (U) Negative Invalid Interpretation Code Negative [facility] Protein Ql (U) Negative Invalid Interpretation Code Negative [facility] No Panel Informationon 01-03 295.0 mg/dL Invalid Interpretation Code [facility] Surgery Office/Clinic Noteon 10-05-2020 Surgery Office/Clinic Note [...] in this document, created by the medical management specialist for me, accurately reflects the services I [...] by Heidi Hernandez 10/08/2020 11:39 EDT Normal [facility] Provider Letteron 09-19-2020 Provider Letter September 19, 2020 Dr. Zachary Adrian [address] [place] [address] RE: Milana Carbajal 67 Dear Yazan, I saw your patient Milana Fong in the office today. 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 I will be excising it for her in the office in the near future. Thanks for allowing me to assist in her management. Sincerely, Osei M. Polder M.D. RMP/mt Dictated but not read Normal [facility] Surgery Office/Clinic Noteon 09-19-2020 Surgery Office/Clinic [...] or pressure, No Edema, No History of ND/CAD, No History of A-Fib Gastrointestinal: No Abdominal [...] in this document, created by the medical management specialist for me, accurately reflects the services I [...] MD 09/21/20 14:34 EDT Electronically signed by Sergio Jahaira L 09/19/2020 16:02 EDT Electronically signed by Heidi Hernandez Minerva 09/20/2020 06:46 EDT Normal [facility] Laboratory - Chemistry and C hemistry - challengeon 09-03-2020 Albumin [Mass/Vol] 4.20 g/dL Invalid Interpretation Code 3.7-4.5 [facility] Albumin/Globulin [Mass ratio] 1.3 {ratio} Invalid Interpretation Code 1.0-2.4 [facility] ALP [Catalytic activity/Vol] 83.0 U/L Invalid Interpretation Code 31-155 [facility] ALT [Catalytic activity/Vol] 23.0 U/L Invalid Interpretation Code 0-50 [facility] Anion gap [Moles/Vol] 15 mmol/L Invalid Interpretation Code 10-20 [facility] AST [Catalytic activity/Vol] 15.0 U/L Invalid Interpretation Code 0-40 [facility] Bilirubin [Mass/Vol] 0.40 mg/dL Invalid Interpretation Code 0.0-1.0 [facility] Bilirubin Ql (U) Negative Invalid Interpretation Code Negative [facility] Calcium [Mass/Vol] 9.40 mg/dL Invalid Interpretation Code 8.5-10.8 [facility] Chloride [Moles/Vol] 98.0 mmol/L Invalid Interpretation Code 100-112 [facility] Cholesterol [Mass/Vol] 275.0 mg/dL Invalid Interpretation Code 0-200 [facility] Cholesterol in HDL [Mass/Vol] 37.0 mg/dL Invalid Interpretation Code 50-100 [facility] Cholesterol in LDL [Mass/Vol] 167.0 mg/dL Invalid Interpretation Code 0-130 [facility] Cholesterol in VLDL [Mass/Vol] 71.0 mg/dL Invalid Interpretation Code 0-39 [facility] Cholesterol.total/Chol esterol in HDL [Mass ratio] 7 {ratio} Invalid Interpretation Code [facility] CO2 [Moles/Vol] 29.0 mmol/L Invalid Interpretation Code 23-30 [facility] Creatinine [Mass/Vol] 0.50 mg/dL Invalid Interpretation Code 0.5-1.5 [facility] GFR/1.73 sq M.predicted among non-blacks MDRD (S/P/Bld) [Vol rate/Area] 128 mL/min/{1.73_m2} Invalid Interpretation Code [facility] Glucose [Mass/Vol] 365.0 mg/dL Invalid Interpretation Code 80-117 [facility] Ketones Ql (U) 3+ Invalid Interpretation Code Negative [facility] pH (U) 5 [pH] Invalid Interpretation Code 5.0-9.0 [facility] Potassium [Moles/Vol] 5.0 mmol/L Invalid Interpretation Code 3.5-5.3 [facility] Protein [Mass/Vol] 7.40 g/dL Invalid Interpretation Code 6.3-7.9 [facility] Sodium [Moles/Vol] 137.0 mmol/L Invalid Interpretation Code 135-148 [facility] Specific gravity (U) [Rel density] 1.015 Invalid Interpretation Code 1.003-1.030 [facility] Triglyceride [Mass/Vol] 353.0 mg/dL Invalid Interpretation Code 30-150 [facility] Urea nitrogen [Mass/Vol] 12.0 mg/dL Invalid Interpretation Code 7-25 [facility] Urea nitrogen/Creatinine [Mass ratio] 24 mg/mg Invalid Interpretation Code 6-20 [facility] Urobilinogen (U) [Mass/Vol] normal Invalid Interpretation Code normal [facility] - Hematology and Cell countson 09-03-2020 Erythrocyte distribution width (RBC) [Ratio] 12.40 % Invalid Interpretation Code 11.5-15.5 [facility] HbA1c (Bld) [Mass fraction] 13.20 % Invalid Interpretation Code 4.3-6.3 [facility] Hematocrit (Bld) [Volume fraction] 43.40 % Invalid Interpretation Code 35.7-47.1 [facility] Hemoglobin (Bld) [Mass/Vol] 14.50 g/dL Invalid Interpretation Code 11.9-15.7 [facility] Hemoglobin Ql (U) Negative Invalid Interpretation Code Negative [facility] MCH (RBC) [Entitic mass] 30.30 pg Invalid Interpretation Code 23.2-33.3 [facility] MCHC (RBC) [Mass/Vol] 33.40 g/dL Invalid Interpretation Code 32.0-36.0 [facility] MCV (RBC) [Entitic vol] 90.60 fL Invalid Interpretation Code 83.4-101.4 [facility] Platelet mean volume (Bld) [Entitic vol] 10.80 fL Invalid Interpretation Code 8.3-11.5 [facility] Platelets (Bld) [#/Vol] 278.0 10*3/uL Invalid Interpretation Code 150-400 [facility] RBC (Bld) [#/Vol] 4.790 10*6/uL Invalid Interpretation Code 3.72-5.24 [facility] WBC (Bld) [#/Vol] 6.80 10*3/uL Invalid Interpretation Code 3.9-10.3 [facility] Laboratory - Specimen inform ationon 09-03-2020 Clarity (U) clear Invalid Interpretation Code Clear [facility] Color (U) yellow Invalid Interpretation Code yellow [facility] - Urinalysison Glucose Test strip (U) [Mass/Vol] 4+ Invalid Interpretation Code Negative [facility] Leukocyte esterase Test strip Ql (U) Negative Invalid Interpretation Code Negative [facility] Nitrite Ql (U) Negative Invalid Interpretation Code Negative [facility] Protein Ql (U) Negative Invalid Interpretation Code Negative [facility] No Panel Informationon 09-03 332.0 mg/dL Invalid Interpretation Code [facility] 574 Invalid Interpretation Code 243-911 [facility] 15.3 Invalid Interpretation Code >5.4 [facility] XR ANKLE RT MIN 3 VIEWSon XR [...] by: TONYA FLORES Date: 2020-08-25 19:17 Normal [facility] XR KNEE RT 4V or [...] by: TONYA FLORES Date: 2020-08-25 19:20 Normal [facility] Basic Metabolic Panelon 11-16 Anion gap [Moles/Vol] 11 mmol/L 9 - 17 mmol/L [facility], [place] Bun/Cre Ratio 22 High [facility], [place] Calcium [Mass/Vol] 8.9 mg/dL 8.6 - 10. 4 mg/dL [place] Chloride [Moles/Vol] 93 mmol/L Low 98 - 10 7 mmol/L [place] CO2 [Moles/Vol] 26 mmol/L 20 - 31 mmol/L [place] Creatinine [Mass/Vol] 0.67 mg/dL 0.5 - 0.9 mg/dL [place] GFR >60 >60 mL/min [place] GFR Non- >60 >60 mL/min [place] Glucose [Mass/Vol] 365 mg/dL High 70 - 99 mg/dL [place] Potassium [Moles/Vol] 4.3 mmol/L 3.7 - 5.3 mmol/L [place] Sodium [Moles/Vol] 130 mmol/L Low 135 - 144 mmol/L [place] Urea nitrogen [Mass/Vol] 15 mg/dL 6 - 20 mg/dL [place] CBC Auto Differentialon 11-16 Basophils (Bld) [#/Vol] 10*3/uL [place] Basophils/100 WBC (Bld) 0 % 0 - 2 % [place] Differential Type NOT REPORTED [place] Eosinophils (Bld) [#/Vol] 10*3/uL [place] Eosinophils/100 WBC (Bld) 0 % Low 1 - 4 % [place] Erythrocyte distribution width (RBC) [Ratio] 13.2 % 11.8 - 14.4 % [place] Hematocrit (Bld) [Volume fraction] 44.1 % 36.3 - 47.1 % [place] Hemoglobin (Bld) [Mass/Vol] 14.3 g/dL 11.9 - 15.1 g/dL [place] Immature granulocytes (Bld) [#/Vol] 10*3/uL [place] Immature granulocytes (Bld) [#/Vol] 0 % 0 [place] Lymphocytes (Bld) [#/Vol] 1.03 10*3/uL Low [place] Lymphocytes/100 WBC (Bld) 18 % Low 24 - 43 % [place] MCH (RBC) [Entitic mass] 30.0 pg 25.2 - 33.5 pg [place] MCHC (RBC) [Mass/Vol] 32.4 g/dL 28.4 - 34.8 g/dL [place] MCV (RBC) [Entitic vol] 92.5 fL 82.6 - 102.9 fL [place] Monocytes (Bld) [#/Vol] 0.39 10*3/uL [place] Monocytes/100 WBC (Bld) 7 % 3 - 12 % [place] Platelet mean volume (Bld) [Entitic vol] 10.5 fL 8.1 - 13.5 fL [place] Platelets (Bld) [#/Vol] 220 10*3/uL [place] Platelets (Bld) [#/Vol] NOT REPORTED [place] RBC (Bld) [#/Vol] 4.77 10*6/uL 3.95 - 5.1 1 m/uL [place] RBC morphology finding Nom (Bld) NOT REPORTED [place] Segmented neutrophils/100 WBC (Bld) 75 % High 36 - 65 % [place] Segs Absolute 4.46 [place] WBC (Bld) [#/Vol] 5.9 10*3/uL [place] WBC (Bld) [#/Vol] 0.0 10*3/uL 0.0 per 10 0 WBC [place] WBC Morphology NOT REPORTED [place], [place] COVID-19on 12-02-2019 SARS-CoV-2, Rapid DETECTED Abnormal Not Detected [place] Comment on above: Rapid NAAT: The [...] this assay. Fact sheet for Healthcare Providers: https://www.fda.gov/media/669574/download Fact sheet for Patients: https://www.fda.gov/media/222181/download Methodology: Isothermal Nucleic Acid Amplification Results reported to the appropriate Health Department Source .NASOPHARYNGEAL SWAB [place] Glucose, Whole Bloodon 12-01 Interpretation and review of laboratory results Abnormal [place] Lactate, Sepsison 12-02-2019 Lactic Acid, Sepsis 2.0 mmol/L High 0.5 - 1. 9 mmol/L [place] Lactic Acid, Sepsis, Whole Blood NOT REPORTED 0.5 - 1.9 mmol/L [place] Metabolic Panelon 12-02-2019 GFR/1.73 sq M predicted among non-blacks MDRD (S/P/Bld) [Vol rate/Area] [place] Comment on above: Average GFR for 50-5 9 years old: 93 mL/min/1.73sq m Chronic Kidney Disease: <60 mL/min/1.73sq m Kidney failure: <15 mL/min/1.73sq m eGFR calculated using average adult body mass. Additional eGFR calculator available at: http://www.Hythiam/multiple_crcl_2012.htm Stage 1: Some kidney damage normal GFR Stage 2: Mild kidney damage GFR 60-89 Stage 3: Moderate kidney damage GFR 30-59 Stage 4: Severe kidney damage GFR 15-29 Stage 5: Severe kidney damage GFR <15 ESRD - chronic treatment by dialysis or transplant Glucose [Mass/Vol] 227 mg/dL [place] Otheron 12-02-2019 Interpretation and review of laboratory results Abnormal [place] SARS-CoV-2 [place] POCT Glucoseon 12-02-2019 Interpretation and review of laboratory results Normal [place] QC OK? yes [place] XR CHEST 1 VIEWon 12-02-2019 Andrew, M[facility] Incoming Radiant Results From [facility] - 12/02/2019 12:43 PM EDT EXAMINATION: ONE [...] focal airspace consolidation, pleural effusion, or pneumothorax. [place] EXAMINATION: ONE XRAY VIEW OF THE CHEST 12/02/2019 12:28 pm COMPARISON: None. HISTORY: ORDERING SYSTEM PROVIDED HISTORY: ProbableCOVID-19 pneumonia TECHNOLOGIST PROVIDED HISTORY: ProbableCOVID-19 pneumonia FINDINGS: Limited low lung volume examination. Cardiac silhouette is borderline prominent. Generalized interstitial prominence noted with subtle lower lung opacities, accentuated by hypoaeration. No definite pleural effusion or pneumothorax. Osseous structures and soft tissues are grossly intact. [facility] [place] Generalized interstitial prominence accentuated by hypoaeration. Bibasilar opacities favor atelectasis/scarrin g. No obvious focal airspace consolidation, pleural effusion, or pneumothorax. [facility] [place] Laboratory - Chemistry and C hemistry - challengeon 10-03-2019 Bilirubin Ql (U) Negative Invalid Interpretation Code Negative [facility] Ketones Ql (U) 1+ Invalid Interpretation Code Negative [facility] pH (U) 6 [pH] Invalid Interpretation Code 5.0-9.0 [facility] Specific gravity (U) [Rel density] 1.010 Invalid Interpretation Code 1.003-1.030 [facility] Urobilinogen (U) [Mass/Vol] normal Invalid Interpretation Code normal [facility] Laboratory - Hematology and Cell countson 10-03-2019 HbA1c (Bld) [Mass fraction] 10.10 % Invalid Interpretation Code 4.3-6.3 [facility] Hemoglobin Ql (U) Negative Invalid Interpretation Code Negative [facility] Laboratory - Specimen inform ationon 10-03-2019 Clarity (U) clear Invalid Interpretation Code Clear [facility] Color (U) yellow Invalid Interpretation Code yellow [facility] Laboratory - Urinalysison Glucose Test strip (U) [Mass/Vol] 4+ Invalid Interpretation Code Negative [facility] Leukocyte esterase Test strip Ql (U) Negative Invalid Interpretation Code Negative [facility] Nitrite Ql (U) Negative Invalid Interpretation Code Negative [facility] Protein Ql (U) Negative Invalid Interpretation Code Negative [facility] No Panel Informationon 10-02 243.0 mg/dL Invalid Interpretation Code [facility] Basic Metabolic Panelon 05-2 Anion gap [Moles/Vol] 11 mmol/L 9 - 17 mmol/L [place] Bun/Cre Ratio 38 High [place] Calcium [Mass/Vol] 9.1 mg/dL 8.6 - 10. 4 mg/dL [place] Chloride [Moles/Vol] 103 mmol/L 98 - 10 7 mmol/L [place] CO2 [Moles/Vol] 25 mmol/L 20 - 31 mmol/L [place] Creatinine [Mass/Vol] 0.55 mg/dL 0.5 - 0.9 mg/dL [place] GFR >60 >60 mL/min [place] GFR Non- >60 >60 mL/min [place] Glucose [Mass/Vol] 291 mg/dL High 70 - 99 mg/dL [place] Potassium [Moles/Vol] 4.8 mmol/L 3.7 - 5.3 mmol/L [place] Sodium [Moles/Vol] 139 mmol/L 135 - 144 mmol/L [place] Urea nitrogen [Mass/Vol] 21 mg/dL High 6 - 20 mg/dL [place] Hemoglobin A1Con 07-14-2019 Glucose [Mass/Vol] 280 mg/dL [place] Comment on above: The ADA and AACC rec ommend providing the estimated average glucose result to permit better patient understanding of their HBA1c result. HbA1c (Bld) [Mass fraction] 11.4 % High 4.8 - 5.9 % [place] Insulin, totalon 07-14-2019 INR Coag (Bld) [Relative time] [place], [place] Comment on above: Fastin.6-24.9 30 min: 20-112 60 min: 29-88 90 min: 26-84 120 min: 22-79 Insulin 7.7 mU/L [place] Insulin Comment [address] [place], [place] Lipid Panelon 07-14-2019 Cholesterol [Mass/Vol] 219 mg/dL High <200 [place] Comment on above: Cholesterol Guidelines: <200 Desirable 200-240 Borderline >240 Undesirable Cholesterol in HDL [Mass/Vol] 33 mg/dL Low >40 [place] Comment on above: HDL Guidelines: <40 Undesirable 40-59 Borderline >59 Desirable Cholesterol in LDL [Mass/Vol] 110 mg/dL 0 - 130 mg/dL [place] Comment on above: LDL Guidelines: <100 Desirable 100-129 Near to/above Desirable 130-159 Borderline >159 Undesirable Direct (measured) LDL and calculated LDL are not interchangeable tests. Cholesterol in VLDL [Mass/Vol] NOT REPORTED High 1 - 30 mg/dL [place] Cholesterol.total/Chol esterol in HDL [Mass ratio] 6.6 {ratio} High <5 [place] Triglyceride [Mass/Vol] 381 mg/dL High <150 [place] Comment on above: Triglyceride Guidelines: <150 Desirable 150-199 Borderline 200-499 High >499 Very high Based on AHA Guidelines for fasting triglyceride, November 2011. Metabolic Panelon 07-14-2019 GFR/1.73 sq M predicted among non-blacks MDRD (S/P/Bld) [Vol rate/Area] [facility] [place] Comment on above: Stage 1: Some [...] body mass. Additional eGFR calculator available at: http://www.[employer]th[employer]/multiple_crcl_2012.htm Otheron 07-14-2019 Interpretation and review of laboratory results Abnormal [place] Basic Metabolic PanelOrdered By: Yazan Adrian on 03-11-2019 Anion gap [Moles/Vol] 13 mmol/L 9 - 17 mmol/L [facility] Phone: Bun/Cre Ratio 28 High [facility] [employer] Phone: Calcium [Mass/Vol] 8.9 mg/dL 8.6 - 10. 4 mg/dL [facility] Phone: Chloride [Moles/Vol] 102 mmol/L 98 - 10 7 mmol/L [facility] Phone: CO2 [Moles/Vol] 24 mmol/L 20 - 31 mmol/L [facility] Phone: Creatinine [Mass/Vol] 0.54 mg/dL 0.5 - 0.9 mg/dL [employer] Phone: GFR >60 >60 mL/min [place] Phone: GFR Comment [facility] Phone: Comment on above: Average GFR for 50-5 9 years old: 93 mL/min/1.73sq m Chronic Kidney Disease: <60 mL/min/1.73sq m Kidney failure: <15 mL/min/1.73sq m eGFR calculated using average adult body mass. Additional eGFR calculator available at: http://www.Hythiam/multiple_crcl_2012.htm GFR Non- >60 >60 mL/min [facility] Phone: GFR Staging [facility] Phone: Comment on above: Stage 1: Some kidney damage normal GFR Stage 2: Mild kidney damage GFR 60-89 Stage 3: Moderate kidney damage GFR 30-59 Stage 4: Severe kidney damage GFR 15-29 Stage 5: Severe kidney damage GFR <15 ESRD - chronic treatment by dialysis or transplant Glucose [Mass/Vol] 333 mg/dL High 70 - 99 mg/dL [facility] [employer] Phone: Potassium [Moles/Vol] 4.3 mmol/L 3.7 - 5.3 mmol/L [facility] Phone: Sodium [Moles/Vol] 139 mmol/L 135 - 144 mmol/L [facility] Phone: Urea nitrogen [Mass/Vol] 15 mg/dL 6 - 20 mg/dL [facility] Phone: Hemoglobin [id number] By: Priya Adrian on 03-11-2019 Glucose [Mass/Vol] 298 mg/dL [facility] Phone: Comment on above: The ADA and AACC rec ommend providing the estimated average glucose result to permit better patient understanding of their HBA1c result. HbA1c (Bld) [Mass fraction] 12.0 % High 4.8 - 5.9 % [facility] Phone: Lipid PanelOrdered By: Yazan Adrian on 03-11-2019 Cholesterol [Mass/Vol] 239 mg/dL High <200 [facility] [employer] Phone: Comment on above: Cholesterol Guidelines: <200 Desirable 200-240 Borderline >240 Undesirable Cholesterol in HDL [Mass/Vol] 39 mg/dL Low >40 [facility] Phone: Comment on above: HDL Guidelines: <40 Undesirable 40-59 Borderline >59 Desirable Cholesterol in LDL [Mass/Vol] 150 mg/dL High 0 - 130 mg/dL [employer] Phone: Comment on above: LDL Guidelines: <100 Desirable 100-129 Near to/above Desirable 130-159 Borderline >159 Undesirable Direct (measured) LDL and calculated LDL are not interchangeable tests. Cholesterol.total/Chol esterol in HDL [Mass ratio] 6.1 {ratio} High <5 [facility] Phone: Triglyceride [Mass/Vol] 250 mg/dL High <150 [employer] Phone: Comment on above: Triglyceride Guidelines: <150 Desirable 150-199 Borderline 200-499 High >499 Very high Based on AHA Guidelines for fasting triglyceride, November 2011. VLDL NOT REPORTED High 1 - 30 mg/dL [employer] Phone: Microalbumin, UrOrdered By: Yazan Adrian on 03-11-2019 Albumin/Creatinine DL <= 20 mg/L (24H U) [Mass ratio] <12 <21 mg/L [employer] Phone: Albumin/Creatinine DL <= 20 mg/L (U) [Ratio] CANNOT BE CALCULATED <25 mcg/mg creat [employer] Phone: Creatinine [Mass/Vol] 120.7 mg/dL 28 - 2 17 mg/dL [employer] Phone: No Panel InformationOrdered By: Yazan Adrian on 03-11-2019 Interpretation and review of laboratory results Abnormal [employer] Phone: Basic Metabolic Panelon 11-16 Anion gap [Moles/Vol] 13 mmol/L 9 - 17 mmol/L [employer] Bun/Cre Ratio 34 High [employer] [facility] [place] Calcium [Mass/Vol] 9.2 mg/dL 8.6 - 10. 4 mg/dL [facility] [employer] Chloride [Moles/Vol] 97 mmol/L Low 98 - 10 7 mmol/L [place] CO2 [Moles/Vol] 24 mmol/L 20 - 31 mmol/L [place] Creatinine [Mass/Vol] 0.47 mg/dL Low 0.5 - 0.9 mg/dL [place] GFR >60 >60 mL/min [place] GFR Non- >60 >60 mL/min [place] Glucose [Mass/Vol] 288 mg/dL High 70 - 99 mg/dL [place] Potassium [Moles/Vol] 4.6 mmol/L 3.7 - 5.3 mmol/L [place] Sodium [Moles/Vol] 134 mmol/L Low 135 - 144 mmol/L [place] Urea nitrogen [Mass/Vol] 16 mg/dL 6 - 20 mg/dL [place] Hemoglobin A1Con 12-04-2018 Glucose [Mass/Vol] 246 mg/dL [place] Comment on above: The ADA and AACC rec ommend providing the estimated average glucose result to permit better patient understanding of their HBA1c result. HbA1c (Bld) [Mass fraction] 10.2 % High 4.8 - 5.9 % [place] Metabolic Panelon 12-04-2018 GFR/1.73 sq M predicted among non-blacks MDRD (S/P/Bld) [Vol rate/Area] [place], [place] Comment on above: Stage 1: Some [...] body mass. Additional eGFR calculator available at: http://www.Errplane.[employer]/multiple_crcl_2012.htm Otheron 12-04-2018 Interpretation and review of laboratory results Abnormal [facility] [place], [place] [facility] 12-02-2017 Cholesterol [Mass/Vol] 200.0 mg/dL Invalid Interpretation Code 0-200 [facility] Cholesterol in HDL [Mass/Vol] 45.0 mg/dL Invalid Interpretation Code 50-100 [facility] Cholesterol in LDL [Mass/Vol] 126.0 mg/dL Invalid Interpretation Code 0-130 [facility] Triglyceride [Mass/Vol] 144.0 mg/dL Invalid Interpretation Code 30-150 [facility] Laboratory - Urinalysison Glucose Test strip (U) [Mass/Vol] Negative Invalid Interpretation Code negative [facility] Protein (U) [Mass/Vol] Negative Invalid Interpretation Code negative [facility] Metabolic Panelon 12-02-2017 Glucose [Mass/Vol] 147.0 mg/dL Invalid Interpretation Code 80-117 [facility] HbA1c (Bld) [Mass fraction] 6.50 % Invalid Interpretation Code 4.3-6.3 [facility] No Panel Informationon 12-02 140.0 mg/dL Invalid Interpretation Code [facility] Otheron 12-02-2017 Cholesterol in VLDL [Mass/Vol] 29.0 mg/dL Invalid Interpretation Code 0-39 [facility] Cholesterol.total/Chol esterol in HDL [Mass ratio] 4 {ratio} Invalid Interpretation Code [facility] Glucose Test strip (U) [Mass/Vol] Negative negative [facility] 140 [facility] Urinalysison 12-02-2017 Protein (U) [Mass/Vol] Negative negative Bl [facility] Postcard [facility] Tag Hematologyon 05-09-2016 ESR Velocity (Bld) 10 mm/h Invalid Interpretation Code 0-20 [facility] Thyroidon 05-09-2016 T4 mass conc 4.82 ug/dL Invalid Interpretation Code 5.00-12.00 [facility] Thyrotropin Qn 1.41 m[IU]/L Invalid Interpretation Code 0.50-4.00 [facility] 01-29-2015 Cholesterol in HDL mass conc 42.0 mg/dL Invalid Interpretation Code 50-100 [facility] Cholesterol in LDL mass conc 155.0 mg/dL Invalid Interpretation Code 0-130 [facility] Cholesterol mass conc 224.0 mg/dL Invalid Interpretation Code 0-200 [facility] Triglyceride mass conc 135.0 mg/dL Invalid Interpretation Code 30-150 [facility] Laboratory - Chemistry and C hemistry - challengeon 01-29-2015 Bilirubin Ql (U) Negative Invalid Interpretation Code Negative [facility] Ketones Ql (U) Negative Invalid Interpretation Code Negative [facility] Urobilinogen (U) [Mass/Vol] normal Invalid Interpretation Code normal [facility] - Hematology and Cell countson 01-29-2015 Hemoglobin Ql (U) Negative Invalid Interpretation Code Negative [facility] Laboratory - Urinalysison Leukocyte esterase Test strip Ql (U) Negative Invalid Interpretation Code Negative [facility] Nitrite Ql (U) Negative Invalid Interpretation Code Negative [facility] Protein Ql (U) Negative Invalid Interpretation Code Negative [facility] Metabolic Panelon 01-29-2015 Anion gap molar conc 21 mmol/L Invalid Interpretation Code 10-20 [facility] Calcium mass conc 9.20 mg/dL Invalid Interpretation Code 8.5-10.8 [facility] Chloride molar conc 99 mmol/L Invalid Interpretation Code 100-112 [facility] CO2 molar conc 24 mmol/L Invalid Interpretation Code 23-30 [facility] Creatinine mass conc 0.70 mg/dL Invalid Interpretation Code 0.5-1.5 [facility] GFR/1.73 sq M predicted among non-blacks MDRD vol rate/area (S/P/Bld) 89 mL/min/{1.73_m2} Invalid Interpretation Code [facility] Glucose mass conc 172.0 mg/dL Invalid Interpretation Code 80-117 [facility] Hemoglobin A1c/Hemoglobin.total mass fraction (Bld) 6.90 % Invalid Interpretation Code 4.3-6.3 [facility] Potassium molar conc 5.0 mmol/L Invalid Interpretation Code 3.5-5.3 [facility] Sodium molar conc 139 mmol/L Invalid Interpretation Code 135-148 [facility] Urea nitrogen mass conc 15.0 mg/dL Invalid Interpretation Code 7-25 [facility] Urea nitrogen/Creatinine mass ratio 21 mg/mg Invalid Interpretation Code 6-20 [facility] No Panel Informationon 01-29 151.0 mg/dL Invalid Interpretation Code [facility] Otheron 01-29-2015 Bilirubin Ql (U) Negative [facility] Cholesterol in VLDL mass conc 27.0 mg/dL Invalid Interpretation Code 0-39 [place] [facility] Cholesterol.total/Chol esterol in HDL mass ratio 5 {ratio} Invalid Interpretation Code [place] [facility] Glucose Test strip mass conc (U) 4+ Invalid Interpretation Code Negative [place] [facility]l (U) [facility] Nitrite Ql (U) Negative Negative [place] [facility] pH (U) 5 [pH] Invalid Interpretation Code 4.5-7.8 [place] [facility] Protein Ql (U) Negative Negative [place] [facility] Urobilinogen Test strip mass conc (U) normal normal [place] [facility] 151 [place] [facility] Urinalysison 01-29-2015 Clarity Nom (U) clear Invalid Interpretation Code Clear [place] [facility] Color Nom (U) yellow Invalid Interpretation Code yellow [place] [facility] Ketones Ql (U) Negative Negative [place] [facility] Leukocyte esterase Test strip Ql (U) Negative Negative [facility] Specific gravity Relative Density (U) 1.020 Invalid Interpretation Code 1.003-1.029 [place] [facility] 09-25-2014 Cholesterol in HDL mass conc 35.0 mg/dL Invalid Interpretation Code 50-100 [place] [facility] Cholesterol in LDL mass conc 121.0 mg/dL Invalid Interpretation Code 0-130 [place] [facility] Cholesterol mass conc 194.0 mg/dL Invalid Interpretation Code 0-200 [facility] Triglyceride mass conc 189.0 mg/dL Invalid Interpretation Code 30-150 [facility] Laboratory - Chemistry and C hemistry - challengeon 09-25-2014 Bilirubin Ql (U) Negative Invalid Interpretation Code Negative [facility] Ketones Ql (U) Negative Invalid Interpretation Code Negative [facility] Urobilinogen (U) [Mass/Vol] normal Invalid Interpretation Code normal [facility] - Hematology and Cell countson 09-25-2014 Hemoglobin Ql (U) Negative Invalid Interpretation Code Negative [facility] - Urinalysison Nitrite Ql (U) Negative Invalid Interpretation Code Negative [facility] Protein Ql (U) Negative Invalid Interpretation Code Negative [facility] Metabolic Panelon 09-25-2014 Anion gap molar conc 17 mmol/L Invalid Interpretation Code 10-20 [facility] Calcium mass conc 9.30 mg/dL Invalid Interpretation Code 8.5-10.8 [facility] Chloride molar conc 105 mmol/L Invalid Interpretation Code 100-112 [facility] CO2 molar conc 27 mmol/L Invalid Interpretation Code 23-30 [facility] Creatinine mass conc 0.70 mg/dL Invalid Interpretation Code 0.5-1.5 [facility] GFR/1.73 sq M predicted among non-blacks MDRD vol rate/area (S/P/Bld) 89 mL/min/{1.73_m2} Invalid Interpretation Code [facility] Glucose mass conc 162.0 mg/dL Invalid Interpretation Code 80-117 [place] [facility] Hemoglobin A1c/Hemoglobin.total mass fraction (Bld) 7.70 % Invalid Interpretation Code 4.3-6.3 [place] [facility] Potassium molar conc 4.7 mmol/L Invalid Interpretation Code 3.5-5.3 [place] [facility] Sodium molar conc 144 mmol/L Invalid Interpretation Code 135-148 [place] [facility] Urea nitrogen mass conc 16.0 mg/dL Invalid Interpretation Code 7-25 [place] [facility] Urea nitrogen/Creatinine mass ratio 23 mg/mg Invalid Interpretation Code 6-20 [place] [facility] No Panel Informationon 09-25 174.0 mg/dL Invalid Interpretation Code [place] [facility] Otheron 09-25-2014 Bilirubin Ql (U) Negative Negative [facility] Cholesterol in VLDL mass conc 38.0 mg/dL Invalid Interpretation Code 0-39 [place] [facility] Cholesterol.total/Chol esterol in HDL mass ratio 6 {ratio} Invalid Interpretation Code [place] [facility] Glucose Test strip mass conc (U) 4+ Invalid Interpretation Code Negative [place] [facility] Hemoglobin Ql (U) Negative Negative [facility] Nitrite Ql (U) Negative Negative [place] [facility] pH (U) 5 [pH] Invalid Interpretation Code 4.5-7.8 [place] [facility] Protein Ql (U) Negative Negative [place] [facility] Urobilinogen Test strip mass conc (U) normal normal [facility] 174 [facility] Urinalysison 09-25-2014 Clarity Nom (U) clear Invalid Interpretation Code Clear [facility] Color Nom (U) yellow Invalid Interpretation Code yellow [facility] Ketones Ql (U) Negative Negative [facility] Leukocyte esterase Test strip Ql (U) Trace Invalid Interpretation Code Negative [facility] Specific gravity Relative Density (U) 1.020 Invalid Interpretation Code 1.003-1.029 [facility] - Chemistry and C hemistry - challengeon 07-21-2014 Bilirubin Ql (U) Negative Invalid Interpretation Code Negative [facility] Ketones Ql (U) Negative Invalid Interpretation Code Negative [facility] Urobilinogen (U) [Mass/Vol] normal Invalid Interpretation Code normal [facility] - Hematology and Cell countson 07-21-2014 Hemoglobin Ql (U) Negative Invalid Interpretation Code Negative [facility] - Urinalysison Leukocyte esterase Test strip Ql (U) Negative Invalid Interpretation Code Negative [facility] Nitrite Ql (U) Negative Invalid Interpretation Code Negative [facility] Metabolic Panelon 07-21-2014 Anion gap molar conc 18 mmol/L Invalid Interpretation Code 10-20 [facility] Calcium mass conc 9.40 mg/dL Invalid Interpretation Code 8.5-10.8 [facility] Chloride molar conc 103 mmol/L Invalid Interpretation Code 100-112 [facility] CO2 molar conc 24 mmol/L Invalid Interpretation Code 23-30 [place] [facility] Creatinine mass conc 0.60 mg/dL Invalid Interpretation Code 0.5-1.5 [place] [facility] GFR/1.73 sq M predicted among non-blacks MDRD vol rate/area (S/P/Bld) 106 mL/min/{1.73_m2} Invalid Interpretation Code [place] [facility] Glucose mass conc 236.0 mg/dL Invalid Interpretation Code 80-117 [place] [facility] Hemoglobin A1c/Hemoglobin.total mass fraction (Bld) 9.30 % Invalid Interpretation Code 4.3-6.3 [place] [facility] Potassium molar conc 4.7 mmol/L Invalid Interpretation Code 3.5-5.3 [place] [facility] Sodium molar conc 140 mmol/L Invalid Interpretation Code 135-148 [place] [facility] Urea nitrogen mass conc 15.0 mg/dL Invalid Interpretation Code 7-25 [place] [facility] Urea nitrogen/Creatinine mass ratio 25 mg/mg Invalid Interpretation Code 6-20 [place] [facility] Otheron 07-21-2014 Bilirubin Ql (U) Negative Negative [facility] Glucose Test strip mass conc (U) 3+ Invalid Interpretation Code Negative [place] [facility] Hemoglobin Ql (U) [facility] Nitrite Ql (U) Negative Negative [place] [facility] pH (U) 5 [pH] Invalid Interpretation Code 4.5-7.8 [place] [facility] Protein Ql (U) 1+ Invalid Interpretation Code Negative [facility] Urobilinogen Test strip mass conc (U) normal normal [facility] 220.0 mg/dL Invalid Interpretation Code [facility] Urinalysison 07-21-2014 Clarity Nom (U) clear Invalid Interpretation Code Clear [facility] Color Nom (U) yellow Invalid Interpretation Code yellow [facility] Ketones Ql (U) Negative Negative [facility] Leukocyte esterase Test strip Ql (U) Negative Negative [facility] Specific gravity Relative Density (U) 1.025 Invalid Interpretation Code 1.003-1.029 [facility] Otheron 06-05-2014 MTHFR gene targeted mutation analysis [employer] Nom (Bld/Tiss) COMMENT Invalid Interpretation Code [facility] COMMENT Invalid Interpretation Code [facility] Laboratory - Chemistry and C hemistry - challengeon 05-03-2014 Bilirubin Ql (U) Negative Invalid Interpretation Code Negative [facility] Ketones Ql (U) Negative Invalid Interpretation Code Negative [facility] Urobilinogen (U) [Mass/Vol] normal Invalid Interpretation Code normal [facility] - Hematology and Cell countson 05-03-2014 Hemoglobin Ql (U) Negative Invalid Interpretation Code Negative [facility] - Urinalysison Leukocyte esterase Test strip Ql (U) Negative Invalid Interpretation Code Negative [facility] Nitrite Ql (U) Negative Invalid Interpretation Code Negative [facility] Protein Ql (U) Negative Invalid Interpretation Code Negative [place] [facility] Metabolic Panelon 05-03-2014 Anion gap molar conc 19 mmol/L Invalid Interpretation Code 10-20 [place] [facility] Calcium mass conc 9.50 mg/dL Invalid Interpretation Code 8.5-10.8 [place] [facility] Chloride molar conc 97 mmol/L Invalid Interpretation Code 100-112 [place] [facility] CO2 molar conc 28 mmol/L Invalid Interpretation Code 23-30 [place] [facility] Creatinine mass conc 0.50 mg/dL Invalid Interpretation Code 0.5-1.5 [place] [facility] GFR/1.73 sq M predicted among non-blacks MDRD vol rate/area (S/P/Bld) 132 mL/min/{1.73_m2} Invalid Interpretation Code [place] [facility] Glucose mass conc 450.0 mg/dL Invalid Interpretation Code 80-117 [place] [facility] Hemoglobin A1c/Hemoglobin.total mass fraction (Bld) 11.30 % Invalid Interpretation Code 4.3-6.3 [place] [facility] Potassium molar conc 4.6 mmol/L Invalid Interpretation Code 3.5-5.3 [place] [facility] Sodium molar conc 139 mmol/L Invalid Interpretation Code 135-148 [place] [facility] Urea nitrogen mass conc 17.0 mg/dL Invalid Interpretation Code 7-25 [place] [facility] Urea nitrogen/Creatinine mass ratio 34 mg/mg Invalid Interpretation Code 6-20 [place] [facility] Otheron 05-03-2014 Bilirubin Ql (U) Negative Negative [facility] Collection time Date and time (Yahaira) 11:35 am Invalid Interpretation Code [facility] Glucose Test strip mass conc (U) 4+ Invalid Interpretation Code Negative [facility] Hemoglobin Ql (U) [facility] Nitrite Ql (U) Negative Negative [facility] pH (U) 5 [pH] Invalid Interpretation Code 4.5-7.8 [facility] Protein Ql (U) Negative Negative [facility] Urobilinogen Test strip mass conc (U) normal normal [facility] 278.0 mg/dL Invalid Interpretation Code [facility] Urinalysison 05-03-2014 Clarity Nom (U) clear Invalid Interpretation Code Clear [facility] Color Nom (U) yellow Invalid Interpretation Code yellow [facility] Ketones Ql (U) Negative Negative [facility] Leukocyte esterase Test strip Ql (U) Negative Negative [facility] Specific gravity Relative Density (U) 1.015 Invalid Interpretation Code 1.003-1.029 [facility] Social History Date Type Detail Facility Start: 11-24-2017 End: 12-02-2019 Tobacco use and exposure Never used [employer] Start: 11-24-2017 End: 04-21-2023 Tobacco smoking status NHIS Never smoker [facility] [employer] Start: 1965 Sex Assigned At Not on file M [facility] [employer] [place] [place] Start: [facility] Start: soda [facility] Exposure to SARS-CoV -2 (event) Yes [facility], [place] Tobacco smoking status Never [facility] [place] Sex Assigned At Female [facility] Vital Signs Date Time Vital Sign Value Performing Clinician Karoline ramirez 05-29-2023 13:42-0400 Body height 164.85 cm [facility] 05-29-2023 13:42-0400 Body mass index (BMI) [Ratio] 41.23 kg/m2 [facility] 05-29-2023 13:42-0400 Body surface area Derived from formula 2.27 m2 [facility] 05-29-2023 13:42-0400 Body weight 112.04 kg [facility] 05-29-2023 13:42-0400 Diastolic blood pressure 72 mm[Hg] [facility] 05-29-2023 13:42-0400 Heart rate 80 /min [facility] 05-29-2023 13:42-0400 Systolic blood pressure 140 mm[Hg] [facility] 04-29-2023 11:56-0400 Body height 164.85 cm Ghislaine Pacheco [facility] 04-29-2023 11:56-0400 Body mass index (BMI) [Ratio] 40.81 kg/m2 Ghislaine Pacheco [facility] 04-29-2023 11:56-0400 Body surface area Derived from formula 2.25 m2 Ghislaine Pacheco [facility] 04-29-2023 11:56-0400 Body weight 110.91 kg Ghislaine Pacheco [facility] 04-29-2023 11:56-0400 Diastolic blood pressure 96 mm[Hg] Ghislaine Junior [facility] 04-29-2023 11:56-0400 Heart rate 84 /min Ghislaine Pacheco [facility] 04-29-2023 11:56-0400 Systolic blood pressure 154 mm[Hg] Ghislaine Pacheco [facility] 12-11-2021 10:08-0400 Body weight 108.41 kg [facility] 12-11-2021 10:08-0400 Diastolic blood pressure 86 mm[Hg] [facility] 12-11-2021 10:08-0400 Heart rate 72 /min [facility] 12-11-2021 10:08-0400 Systolic blood pressure 164 mm[Hg] [facility] 08-14-2021 10:25-0400 Body height 165.1 cm [facility] 08-14-2021 10:25-0400 Body mass index (BMI) [Ratio] 42.35 kg/m2 [facility] 08-14-2021 10:25-0400 Body surface area Derived from formula 2.3 m2 [facility] 08-14-2021 10:25-0400 Body weight 115.44 kg [facility] 08-14-2021 10:25-0400 Diastolic blood pressure 90 mm[Hg] [facility] 08-14-2021 10:25-0400 Heart rate 72 /min [facility] 08-14-2021 10:25-0400 Systolic blood pressure 186 mm[Hg] Yazan [employer] 06-06-2021 10:0400 Body height 165.1 cm [facility] [employer] 06-06-2021 10:-0400 Body mass index (BMI) [Ratio] 43.1 kg/m2 [facility] 06-06-2021 10:040 Body surface area Derived from formula 2.32 m2 [facility] 06-06-2021 10:040 Body weight 117.48 kg [facility] 06-06-2021 10:-0400 Diastolic blood pressure 86 mm[Hg] [facility] 06-06-2021 10:21-0400 Heart rate 90 /min [facility] 06-06-2021 10:21-0400 Systolic blood pressure 162 mm[Hg] [facility] 05-06-2021 11:25-0400 Body height 165.1 cm [facility] 05-06-2021 11:25-0400 Body mass index (BMI) [Ratio] 40.77 kg/m2 [facility] 05-06-2021 11:25-0400 Body surface area Derived from formula 2.26 m2 [facility] 05-06-2021 11:25-0400 Body weight 111.13 kg [facility] 05-06-2021 11:25-0400 Diastolic blood pressure 60 mm[Hg] [facility] 05-06-2021 11:25-0400 Heart rate 72 /min [facility] 05-06-2021 11:25-0400 Systolic blood pressure 122 mm[Hg] [facility] 01-03-2021 10:10-0500 Body height 165.1 cm [facility] 01-03-2021 10:10-0500 Body mass index (BMI) [Ratio] 41.6 kg/m2 [facility] 01-03-2021 10:10-0500 Body surface area Derived from formula 2.28 m2 [facility] 01-03-2021 10:10-0500 Body weight 113.4 kg [facility] 01-03-2021 10:10-0500 Diastolic blood pressure 84 mm[Hg] [facility] 01-03-2021 10:10-0500 Heart rate 76 /min [facility] 01-03-2021 10:10-0500 Systolic blood pressure 160 mm[Hg] [facility] 09-03-2020 13:40-0400 Body height 165.1 cm [facility] 09-03-2020 13:40-0400 Body mass index (BMI) [Ratio] 41.6 kg/m2 [facility] 09-03-2020 13:40-0400 Body surface area Derived from formula 2.28 m2 [facility] 09-03-2020 13:40-0400 Body weight 113.4 kg [facility] [employer] 09-03-2020 13:40-0400 Diastolic blood pressure 90 mm[Hg] [facility] [employer] 09-03-2020 13:40-0400 Heart rate 72 /min [facility] [employer] 09-03-2020 13:40-0400 Systolic blood pressure 160 mm[Hg] [facility] [employer] 12-02-2019 14:56-0400 BP Diastolic 58 mm[Hg] Joey [employer] [facility] [place] 12-02-2019 14:56-0400 BP Systolic 147 mm[Hg] Joey [employer] [facility] [place] 12-02-2019 14:56-0400 Pulse Oximetry 92 % Joey [employer] [facility], [place] 12-02-2019 11:36-0400 BMI (Body Mass Index) 47.05 kg/m2 Joey [employer] [facility], [place] 12-02-2019 11:36-0400 Body Temperature 100 [degF] Joey Rosa [facility], [place] 12-02-2019 11:36-0400 Body weight 112.95 kg Joey Boot[employer] [facility] [place] 12-02-2019 11:36-0400 Height 154.9 cm Joey [employer] [facility] [place] 12-02-2019 11:36-0400 Pulse (Heart Rate) 98 /min [facility] [place] 12-02-2019 11:36-0400 Respiratory Rate 20 /min Joey [employer] [facility], [place] 10-03-2019 10:30-0400 BMI (Body Mass Index) 42.1 kg/m2 [employer] [employer] 10-03-2019 10:30-0400 Body Temperature 98 [degF] Yazan [employer] 10-03-2019 10:30-0400 Body weight 114.76 kg [facility] [employer] 10-03-2019 10:30-0400 BP Diastolic 84 mm[Hg] [facility] [employer] 10-03-2019 10:30-0400 BP Systolic 154 mm[Hg] [facility] 10-03-2019 10:30-0400 BSA (Body Surface Area) 2.29 m2 [facility] 10-03-2019 10:300400 Height 165.1 cm [facility] 10-03-2019 10:30-0400 Pulse (Heart Rate) 84 /min [employer] 08-22-2019 11:26-0400 BMI (Body Mass Index) 41.49 kg/m2 [facility] 08-22-2019 11:26-0400 Body Temperature 98.7 [degF] [employer] 08-22-2019 11:26-0400 Body weight 113.09 kg [facility] 08-22-2019 11:26-0400 BP Diastolic 98 mm[Hg] [facility] 08-22-2019 11:26-0400 BP Systolic 160 mm[Hg] [facility] 08-22-2019 11:26-0400 BSA (Body Surface Area) 2.28 m2 [facility] 08-22-2019 11:26-0400 Height 165.1 cm [facility] 08-22-2019 11:26-0400 Pulse (Heart Rate) 84 /min Yazan [employer] 07-19-2019 10:20-0400 BMI (Body Mass Index) 41.35 kg/m2 [employer] [employer] 07-19-2019 10:20-0400 Body Temperature 97.6 [degF] Yazan [employer] 07-19-2019 10:20-0400 Body weight 112.72 kg [facility] [employer] 07-19-2019 10:20-0400 BP Diastolic 82 mm[Hg] [employer] [employer] 07-19-2019 10:20-0400 BP Systolic 130 mm[Hg] [facility] [employer] 07-19-2019 10:20-0400 BSA (Body Surface Area) 2.27 m2 [facility] 07-19-2019 10:20-0400 Height 165.1 cm [facility] 07-19-2019 10:20-0400 Pulse (Heart Rate) 78 /min [facility]an [employer] 03-15-2019 18:47-0500 BMI (Body Mass Index) 41.68 kg/m2 [employer] [employer] 03-15-2019 18:47-0500 BMI (Body Mass Index) 41.69 kg/m2 [employer] [employer] 03-15-2019 18:47-0500 Body weight 113.63 kg [employer] [employer] 03-15-2019 18:47-0500 BP Diastolic 84 mm[Hg] [employer] 03-15-2019 18:47-0500 BP Systolic 140 mm[Hg] Yazan [employer] 03-15-2019 18:47-0500 BSA (Body Surface Area) 2.28 m2 [facility] [employer] 03-15-2019 18:47-0500 Height 165.1 cm [facility] [employer] 03-15-2019 18:47-0500 Pulse (Heart Rate) 78 /min [employer] 01-26-2019 11:20-0500 BMI (Body Mass Index) 40.64 kg/m2 [facility] 01-26-2019 11:20-0500 Body weight 112.49 kg [facility] 01-26-2019 11:20-0500 BP Diastolic 84 mm[Hg] [facility] 01-26-2019 11:20-0500 BP Systolic 150 mm[Hg] [facility] 01-26-2019 11:20-0500 BSA (Body Surface Area) 2.28 m2 [facility] 01-26-2019 11:20-0500 Height 166.37 cm [facility] 01-26-2019 11:20-0500 Pulse (Heart Rate) 80 /min [employer] 12-07-2018 10:01-0400 BMI (Body Mass Index) 39.82 kg/m2 [facility] 12-07-2018 10:01-0400 Body weight 110.22 kg [facility] 12-07-2018 10:-0400 BP Diastolic 76 mm[Hg] Y[facility]an [employer] 12-07-2018 10:01-0400 BP Systolic 160 mm[Hg] [employer] [employer] 12-07-2018 10:0400 BSA (Body Surface Area) 2.26 m2 [employer] [employer] 12-07-2018 10:040 Height 166.37 cm Y[facility]an [employer] 12-07-2018 10:-0400 Pulse (Heart Rate) 78 /min [employer] 07-29-2018 10:-0400 BMI (Body Mass Index) 39.99 kg/m2 [employer] [employer] 07-29-2018 10:24-0400 Body weight 110.68 kg [employer] [employer] 07-29-2018 10:24-0400 BP Diastolic 86 mm[Hg] [employer] [employer] 07-29-2018 10:24-0400 BP Systolic 150 mm[Hg] [employer] 07-29-2018 10:0400 BSA (Body Surface Area) 2.26 m2 [employer] [employer] 07-29-2018 10:040 Height 166.37 cm [employer] [employer] 07-29-2018 10:24-0400 Pulse (Heart Rate) 90 /min [employer] 07-29-2018 10:24-0400 Weight 110.68 kg Y[facility]an [employer] 03-25-2018 10:34-0500 BMI (Body Mass Index) 40.48 kg/m2 [facility] 03-25-2018 10:34-0500 Body weight 112.04 kg [employer] 03-25-2018 10:34-0500 BP Diastolic 96 mm[Hg] [employer] 03-25-2018 10:34-0500 BP Systolic 140 mm[Hg] [employer] 03-25-2018 10:34-0500 BSA (Body Surface Area) 2.28 m2 [employer] 03-25-2018 10:34-0500 Height 166.37 cm [facility] 03-25-2018 10:34-0500 Pulse (Heart Rate) 78 /min [employer] 03-25-2018 10:34-0500 Weight 112.04 kg [employer] 12-24-2017 10:13-0500 BMI (Body Mass Index) 39.99 kg/m2 [employer] 12-24-2017 10:13-0500 Body weight 110.68 kg [facility] 12-24-2017 10:13-0500 BP Diastolic 78 mm[Hg] [facility] 12-24-2017 10:13-0500 BP Systolic 152 mm[Hg] [facility] 12-24-2017 10:13-0500 BSA (Body Surface Area) 2.26 m2 [facility] 12-24-2017 10:13-0500 Height 166.37 cm [facility] [employer] 12-24-2017 10:13-0500 Pulse (Heart Rate) 72 /min [employer] 12-24-2017 10:13-0500 Weight 110.68 kg [facility] 12-02-2017 10:49-0400 BMI (Body Mass Index) 39.87 kg/m2 [facility] 12-02-2017 10:49-0400 Body weight 110.37 kg [facility] 12-02-2017 10:49-0400 BP Diastolic 80 mm[Hg] [facility] 12-02-2017 10:49-0400 BP Systolic 142 mm[Hg] [facility] 12-02-2017 10:49-0400 BSA (Body Surface Area) 2.26 m2 [facility] 12-02-2017 10:49-0400 Height 166.37 cm [facility] 12-02-2017 10:49-0400 Pulse (Heart Rate) 72 /min [employer] 12-02-2017 10:49-0400 Weight 110.37 kg [facility] 09-02-2017 10:52-0400 BMI (Body Mass Index) 39.25 kg/m2 [facility] 09-02-2017 10:52-0400 Body weight 108.64 kg [facility] 09-02-2017 10:52-0400 BP Diastolic 94 mm[Hg] [facility] [employer] 09-02-2017 10:52-0400 BP Systolic 150 mm[Hg] [facility] 09-02-2017 10:52-0400 BSA (Body Surface Area) 2.24 m2 [facility] 09-02-2017 10:52-0400 Height 166.37 cm [facility] 09-02-2017 10:52-0400 Pulse (Heart Rate) 78 /min [employer] 09-02-2017 10:52-0400 Weight 108.64 kg [facility] 08-04-2017 18:01-0400 BMI (Body Mass Index) 39.41 kg/m2 [facility] 08-04-2017 18:01-0400 Body weight 109.09 kg [facility] 08-04-2017 18:01-0400 BP Diastolic 76 mm[Hg] [facility] 08-04-2017 18:01-0400 BP Systolic 140 mm[Hg] [facility] 08-04-2017 18:01-0400 BSA (Body Surface Area) 2.25 m2 [facility] 08-04-2017 18:01-0400 Height 166.37 cm [facility] 08-04-2017 18:01-0400 Pulse (Heart Rate) 88 /min [employer] 08-04-2017 18:01-0400 Weight 109.09 kg [facility] 06-04-2017 17:52-0400 BMI (Body Mass Index) 39.99 kg/m2 [facility] [employer] 06-04-2017 17:52-0400 Body weight 110.68 kg [facility]an [employer] 06-04-2017 17:52-0400 BP Diastolic 74 mm[Hg] [facility] 06-04-2017 17:52-0400 BP Systolic 128 mm[Hg] [facility] 06-04-2017 17:52-0400 BSA (Body Surface Area) 2.26 m2 [facility] 06-04-2017 17:52-0400 Height 166.37 cm [facility] 06-04-2017 17:52-0400 Pulse (Heart Rate) 78 /min [employer] 06-04-2017 17:52-0400 Weight 110.68 kg [facility] 03-19-2017 11:54-0500 BMI (Body Mass Index) 39.82 kg/m2 [facility] 03-19-2017 11:54-0500 Body Temperature 97.1 [degF] [employer] 03-19-2017 11:54-0500 Body weight 110.22 kg [facility] 03-19-2017 11:54-0500 BP Diastolic 66 mm[Hg] [facility] 03-19-2017 11:54-0500 BP Systolic 110 mm[Hg] [facility] 03-19-2017 11:54-0500 BSA (Body Surface Area) 2.26 m2 [facility] 03-19-2017 11:54-0500 Height 166.37 cm [facility] [employer] 03-19-2017 11:54-0500 Pulse (Heart Rate) 66 /min [employer] 03-19-2017 11:54-0500 Weight 110.22 kg [facility] 01-30-2017 16:12-0500 BMI (Body Mass Index) 39.87 kg/m2 [facility] 01-30-2017 16:12-0500 Body weight 110.37 kg [facility] 01-30-2017 16:12-0500 BP Diastolic 72 mm[Hg] [facility] 01-30-2017 16:12-0500 BP Systolic 130 mm[Hg] [facility] 01-30-2017 16:12-0500 BSA (Body Surface Area) 2.26 m2 [facility] 01-30-2017 16:12-0500 Height 166.37 cm [facility] 01-30-2017 16:12-0500 Pulse (Heart Rate) 68 /min [employer] 01-30-2017 16:12-0500 Weight 110.37 kg [facility] 10-03-2016 13:34-0400 BMI (Body Mass Index) 40.07 kg/m2 [facility] 10-03-2016 13:34-0400 Body weight 110.91 kg [facility]an [employer] 10-03-2016 13:34-0400 BP Diastolic 76 mm[Hg] [employer] 10-03-2016 13:34-0400 BP Systolic 132 mm[Hg] [employer] 10-03-2016 13:34-0400 BSA (Body Surface Area) 2.26 m2 [employer] 10-03-2016 13:34-0400 Height 166.37 cm [employer] 10-03-2016 13:34-0400 Pulse (Heart Rate) 72 /min [facility] 10-03-2016 13:34-0400 Weight 110.91 kg [employer] 08-21-2016 12:00-0400 BMI (Body Mass Index) 40.89 kg/m2 [employer] 08-21-2016 12:00-0400 Body weight 113.17 kg [employer] 08-21-2016 12:00-0400 BP Diastolic 88 mm[Hg] [employer] 08-21-2016 12:00-0400 BP Systolic 146 mm[Hg] [employer] 08-21-2016 12:00-0400 BSA (Body Surface Area) 2.29 m2 [facility] 08-21-2016 12:00-0400 Height 166.37 cm [facility] 08-21-2016 12:00-0400 Pulse (Heart Rate) 70 /min [facility] 08-21-2016 12:00-0400 Weight 113.17 kg [facility] [employer] 06-24-2016 13:39-0400 BMI (Body Mass Index) 41.54 kg/m2 [facility] 06-24-2016 13:39-0400 Body weight 114.99 kg [facility] [employer] 06-24-2016 13:39-0400 BP Diastolic 70 mm[Hg] [facility] 06-24-2016 13:39-0400 BP Systolic 122 mm[Hg] [facility] 06-24-2016 13:39-0400 BSA (Body Surface Area) 2.31 m2 [facility] 06-24-2016 13:39-0400 Height 166.37 cm [facility] 06-24-2016 13:39-0400 Pulse (Heart Rate) 76 /min [employer] 06-24-2016 13:39-0400 Weight 114.99 kg [facility] 05-23-2016 16:06-0400 Body weight 114 kg [facility] 05-23-2016 16:06-0400 BP Diastolic 70 mm[Hg] [facility] 05-23-2016 16:06-0400 BP Systolic 112 mm[Hg] [facility] 05-23-2016 16:06-0400 Pulse (Heart Rate) 68 /min [facility] 05-23-2016 16:06-0400 Weight 114 kg [facility] [employer] 05-09-2016 16:50-0400 BMI (Body Mass Index) 41.3 kg/m2 [facility] 05-09-2016 16:50-0400 Body weight 114.31 kg [facility] 05-09-2016 16:50-0400 BP Diastolic 80 mm[Hg] [facility] 05-09-2016 16:50-0400 BP Systolic 140 mm[Hg] [facility] 05-09-2016 16:50-0400 BSA (Body Surface Area) 2.3 m2 [facility] 05-09-2016 16:50-0400 Height 166.37 cm [facility] 05-09-2016 16:50-0400 Pulse (Heart Rate) 64 /min [employer] 05-09-2016 16:50-0400 Weight 114.31 kg [facility] 01-03-2016 11:53-0500 Body weight 115.21 kg [facility] 01-03-2016 11:53-0500 BP Diastolic 80 mm[Hg] [facility] 01-03-2016 11:53-0500 BP Systolic 140 mm[Hg] [facility] 01-03-2016 11:53-0500 Pulse (Heart Rate) 72 /min [facility] 01-03-2016 11:53-0500 Weight 115.21 kg [facility] 09-06-2015 12:070400 BMI (Body Mass Index) 40.27 kg/m2 [facility] 09-06-2015 12:070400 Body weight 109.77 kg [employer] 09-06-2015 12:07-0400 BP Diastolic 78 mm[Hg] [facility] 09-06-2015 12:07-0400 BP Systolic 122 mm[Hg] [facility] 09-06-2015 12:070400 BSA (Body Surface Area) 2.24 m2 [facility] 09-06-2015 12:07040 Height 165.1 cm [facility] 09-06-2015 12:070400 Pulse (Heart Rate) 76 /min [facility] 09-06-2015 12:070400 Weight 109.77 kg [facility] 05-03-2015 10:290400 BMI (Body Mass Index) 41.35 kg/m2 [facility] 05-03-2015 10:290400 Body weight 112.72 kg [facility] 05-03-2015 10:29-0400 BP Diastolic 98 mm[Hg] [facility] 05-03-2015 10:29-0400 BP Systolic 138 mm[Hg] [facility] 05-03-2015 10:29-0400 BSA (Body Surface Area) 2.27 m2 [facility] 05-03-2015 10:29040 Height 165.1 cm [facility] 05-03-2015 10:29040 Pulse (Heart Rate) 72 /min [facility] 05-03-2015 10:29040 Weight 112.72 kg [facility] 02-05-2015 11:02-0500 BMI (Body Mass Index) 40.52 kg/m2 [facility] 02-05-2015 11:02-0500 Body weight 110.45 kg [facility] 02-05-2015 11:02-0500 BP Diastolic 68 mm[Hg] [facility] 02-05-2015 11:02-0500 BP Systolic 128 mm[Hg] [facility] 02-05-2015 11:02-0500 BSA (Body Surface Area) 2.25 m2 [facility] 02-05-2015 11:020500 Height 165.1 cm [facility] 02-05-2015 11:02-0500 Pulse (Heart Rate) 72 /min [facility] 02-05-2015 11:02-0500 Weight 110.45 kg [facility] 10-04-2014 12:26-0400 BMI (Body Mass Index) 40.77 kg/m2 [facility] 10-04-2014 12:26-0400 Body weight 111.13 kg [facility] 10-04-2014 12:26-0400 BP Diastolic 80 mm[Hg] [facility] 10-04-2014 12:26-0400 BP Systolic 130 mm[Hg] [facility] 10-04-2014 12:26-0400 BSA (Body Surface Area) 2.26 m2 [facility] 10-04-2014 12:260400 Height 165.1 cm [facility] 10-04-2014 12:26-0400 Pulse (Heart Rate) 80 /min [facility] 10-04-2014 12:26-0400 Weight 111.13 kg [facility] 07-24-2014 14:38-0400 BMI (Body Mass Index) 42.6 kg/m2 [facility] 07-24-2014 14:38-0400 Body weight 116.12 kg [facility] 07-24-2014 14:38-0400 BP Diastolic 78 mm[Hg] [facility] 07-24-2014 14:38-0400 BP Systolic 132 mm[Hg] [facility] 07-24-2014 14:38-0400 BSA (Body Surface Area) 2.31 m2 [facility] 07-24-2014 14:38-0400 Height 165.1 cm [facility] 07-24-2014 14:38-0400 Pulse (Heart Rate) 66 /min [facility] 07-24-2014 14:38-0400 Weight 116.12 kg [facility] [employer] 06-05-2014 11:05-0400 Body weight 116.8 kg [facility] [employer] 06-05-2014 11:05-0400 Weight 116.8 kg [facility] [employer] 05-03-2014 12:54-0400 BMI (Body Mass Index) 43.77 kg/m2 [facility] 05-03-2014 12:54-0400 Body Temperature 98.7 [degF] [employer] 05-03-2014 12:54-0400 Body weight 119.3 kg Y[facility] [employer] 05-03-2014 12:54-0400 BP Diastolic 80 mm[Hg] [facility] 05-03-2014 12:54-0400 BP Systolic 120 mm[Hg] [facility] 05-03-2014 12:54-0400 BSA (Body Surface Area) 2.34 m2 [facility] 05-03-2014 12:54-0400 Height 165.1 cm [facility] 05-03-2014 12:54-0400 Pulse (Heart Rate) 72 /min [employer] [employer] 05-03-2014 12:54-0400 Weight 119.3 kg [facility] Functional Status Date Assessment Result Facility 04-21-2023 Functional Status N/A General [facility] Short Evaluation + Plan note Note Date & Type Note Facility Evaluation + Plan note Future Appointments Appointment Date:04/29/2023 01:00:00 PM Scheduled Provider:Joey AMAYA MD Location:[facility] Appointment Type:GS Post Op 15 General Surgery [place] Evaluation + Plan note Note Date & Type Note Facility Evaluation + Plan note Future Appointments Appointment Date:05/19/2023 01:00:00 PM Scheduled Provider:Joey AMAYA MD Location:[facility] Appointment Type:GS Post Op 15 [facility] General Surgery [place] [facility] course Narrative Note Date & Type Note Facility Hospital course Narrative No data available for this section General [facility] [place] [facility] Discharge instructions Note Date & Type Note Facility Hospital Discharge instructions No data available for this section General Surgery [place] Progress note Note Date & Type Note Facility Progress note No data available for this section General Surgery [place] Advance Directives No Advanced Directives Records FoundDocuments on File Type Date Recorded 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 * Attachments The following attachments cannot be sent through Care Everywhere. * Coronavirus Disease (COVID-19): General Info (Spanish) * Video: COVID-19: Taking Care of Yourself If You Have It (Spanish) documented in this encounter Assessments Diagnosis COVID-19 virus infection Cough Bronchitis Bronchitis, not specified as acute or chronic Summary Purpose Family History No Family History Records FoundNo Family History Records Found No data available for this section No data available for this section No data available for this section No Family History Records FoundNo Family History Records Found Additional Source Comments Reason for Visit (unrecogniz ed section and content) Reason Comments Cough Daughter tested posi tive for Covid. C/o cough and fever. Fever INFORMATION SOURCE (unrecogn ized section and content) DATE CREATED AUTHOR 08/29/2020 [facility] DATE CREATED AUTHOR AUTHOR'S ORGANIZ ATION 01/17/2021 [facility] DATE CREATED AUTHOR AUTHOR'S ORGANIZ ATION 05/23/2023 [facility] DATE CREATED AUTHOR AUTHOR'S ORGANIZ ATION 05/29/2023 Buddy Delaney [facility] Care Teams (unrecognized sec tion and content) [employer] Relationship Specialty Start Date End Date Yazan Adrian MD [address] [place] [address] PCP - General Internal Medicine 04/26/15 [employer] Relationship Specialty Start Date End Date Yazan Adrian MD [address] [place] [facility] [address] PCP - General Internal Medicine 04/26/15 [employer] Relationship Specialty Start Date End Date Yazan Adrian MD [address] [place] [address] PCP - General Internal Medicine [...] BE BASED ON THE PRIMARY CLINICAL RECORDS. [employer] provides no warranty or guarantee of the accuracy or completeness of information in this document.
--- NOTE | 2023-07-26 05:14 | XR_ITS ---
The [address] [address] Patient Name: BRENDON FONG MRN: [id number] date: 1965 Sex: F Assigned Patient Location: ER Current Patient Location: ER Accession/Order Number: [id number] Exam Date: 07/26/2023 05:25 Report Date: 07/26/2023 05:59 At the request of: EFRAIN TOLEDO Procedure: XR ribs RT min 3V w CXR1V EXAM: XR shoulder RT min 2V, XR ribs RT min 3V w CXR1V HISTORY: fall COMPARISON: None. TECHNIQUE: 3 views of the right shoulder were obtained. One view of the chest and frontal and oblique views of the right ribs were obtained. FINDINGS: Right shoulder: No acute fracture or dislocation is seen. The right humeral head is well-seated on the glenoid. There are mild degenerative changes of the right acromioclavicular joint. The right coracoclavicular distance is preserved. The imaged lungs are clear. Chest and right ribs: The cardiac silhouette is normal in size. The lungs are clear. There is no significant pneumothorax or pleural effusion. No acute osseous abnormality is seen. No definite displaced rib fracture is seen. XR/XR ribs RT min 3V w CXR1V IMPRESSION: 1. No acute fracture or dislocation of the right shoulder is seen. If there is concern for internal derangement, a nonemergent outpatient MRI is recommended. 2. No acute cardiopulmonary abnormality. 3. No definite displaced rib fracture is seen. Electronically authenticated by: Mercedes JAUREGUI Date: 07/26/2023 05:59
--- NOTE | 2023-07-26 05:14 | XR_ITS ---
The [address] [address] Patient Name: BRENDON FONG MRN: [id number] date: 1965 Sex: F Assigned Patient Location: ER Current Patient Location: ER Accession/Order Number: [id number] Exam Date: 07/26/2023 05:25 Report Date: 07/26/2023 05:59 At the request of: EFRAIN TOLEDO Procedure: XR shoulder RT min 2V EXAM: XR shoulder RT min 2V, XR ribs RT min 3V w CXR1V HISTORY: fall COMPARISON: None. TECHNIQUE: 3 views of the right shoulder were obtained. One view of the chest and frontal and oblique views of the right ribs were obtained. FINDINGS: Right shoulder: No acute fracture or dislocation is seen. The right humeral head is well-seated on the glenoid. There are mild degenerative changes of the right acromioclavicular joint. The right coracoclavicular distance is preserved. The imaged lungs are clear. Chest and right ribs: The cardiac silhouette is normal in size. The lungs are clear. There is no significant pneumothorax or pleural effusion. No acute osseous abnormality is seen. No definite displaced rib fracture is seen. XR/XR shoulder RT min 2V IMPRESSION: 1. No acute fracture or dislocation of the right shoulder is seen. If there is concern for internal derangement, a nonemergent outpatient MRI is recommended. 2. No acute cardiopulmonary abnormality. 3. No definite displaced rib fracture is seen. Electronically authenticated by: Mercedes JAUREGUI Date: 07/26/2023 05:59
--- NOTE | 2023-07-26 06:08 | ED_ITS ---
HPI HPI - Fall General Chief Complaint: Fall Stated Complaint: FALL Time Seen by Provider: 07/26/23 05:02 Source: patient Mode of arrival: walk-in Limitations: no limitations History of Present Illness HPI Narrative: 58-year-old female presents for pain in her right lower ribs. At 1:30 AM she tripped and fell and hit this area and she hit her right shoulder as well. No other injury was sustained. The pain is moderate and sharp. Related Data Home Medications ?Medication ?Instructions ?Recorded ?Confirmed glipizide 5 mg tablet 10 mg PO BID 04/09/23 04/09/23 ibuprofen 800 mg tablet 800 mg PO Q8H PRN pain 04/09/23 04/09/23 lisinopril 20 mg tablet 40 mg PO DAILY 04/09/23 04/09/23 Previous Rx's ?Medication ?Instructions ?Recorded insulin detemir U-100 100 unit/mL 20 unit (0.2 mL) subcut BID 30 04/13/23 (3 mL) subcutaneous pen (Levemir days #12 mL FlexPen) levofloxacin 500 mg tablet 500 mg PO DAILY 7 days #7 tabs 04/13/23 metformin 500 mg tablet 1,000 mg (2 x 500 mg) PO BID 30 04/13/23 days #120 tabs acetaminophen 300 mg-codeine 30 mg 1 tab PO Q6H PRN pain 5 days #20 07/26/23 tablet tabs Allergies Allergy/AdvReac Type Severity Reaction Status Date / Time naproxen [From Naprosyn] AdvReac Mild Nausea Verified 07/26/23 05:08 Opioid HPI Opioid Management Most Recent Pain and Opioid Data: Last Pain Scale 7 07/26/23 05:18 Last ED Pain Assessment 07/26/23 05:18 Review of Systems ROS Narrative A ten point review of systems is negative except as noted above. [facility] Medical History (Updated 07/26/23 @ 06:06 by Mikael San MD) Acute pain of left lower extremity ?M79.605 - Pain in left leg (ICD-10) Cellulitis ?L03.90 - Cellulitis, unspecified (ICD-10) Acute hyperglycemia ?R73.9 - Hyperglycemia, unspecified (ICD-10) Cellulitis ?L03.90 - Cellulitis, unspecified (ICD-10) Acute pain of right knee ?M25.561 - Pain in right knee (ICD-10) Social History Smoking status: Never smoker Highest level of school completed/degree received: high school graduate Exam Narrative Exam Narrative: Nurses note and vital signs reviewed and patient is not hypoxic. General: The patient appears well and in no apparent distress. Patient is resting comfortably on cart. Skin: Warm, dry, no pallor noted. There is no rash noted. Head: Normocephalic, atraumatic Eye: Normal conjunctiva, no drainage Ears, Nose, Mouth, and Throat: oral mucosa is moist. Nares patent. Cardiovascular: Regular Rate and Rhythm Respiratory: Patient is in no distress, no accessory muscle use, lungs are clear to auscultation, no wheezing, rales or rhonchi. She has some tenderness on the anterior lower rib area but no crepitus bruise or abrasion. No tenderne ss in the right upper quadrant. Back: non-tender GI: Normal bowel sounds, no tenderness to palpation, no masses appreciated. No rebound, guarding, or rigidity noted. Musculoskeletal: The right shoulder has Range of Motion: To full extent but it causes discomfort. No obvious deformity. Neurological: A&O, normal speech Psychiatric: Cooperative Constitutional Vital Signs, click to edit/add: Last Vital Signs Temp 98.3 F 07/26/23 05:08 Pulse 118 H 07/26/23 05:08 Resp 18 07/26/23 05:08 BP 216/99 H 07/26/23 05:08 Pulse Ox 95 07/26/23 05:08 O2 Del Method Room Air 07/26/23 05:08 Course Vital Signs Vital signs: Vital Signs Temperature 98.3 F 07/26/23 05:08 Pulse Rate 118 H 07/26/23 05:08 Respiratory Rate 18 07/26/23 05:08 Blood Pressure 216/99 H 07/26/23 05:08 Pulse Oximetry 95 07/26/23 05:08 Oxygen Delivery Method Room Air 07/26/23 05:08 Temperature 98.3 F 07/26/23 05:08 Pulse Rate 118 H 07/26/23 05:08 Respiratory Rate 18 07/26/23 05:08 Blood Pressure 216/99 H 07/26/23 05:08 Pulse Oximetry 95 07/26/23 05:08 Oxygen Delivery Method Room Air 07/26/23 05:08 MDM - Fall MDM Narrative Medical decision making narrative: X-rays of ribs and shoulder are negative. She will be treated symptomatically. Treatment diagnosis and follow-up were discussed with the patient. Differential Diagnosis Differential diagnosis: Likely other (Rib fracture, rib contusion, pneumothorax) Imaging Data Rib x-rays: Radiologist's impression: ITS Impressions Ribs X-Ray 07/26/23 05:14 IMPRESSION: 1. No acute fracture or dislocation of the right shoulder is seen. If there is concern for internal derangement, a nonemergent outpatient MRI is recommended. 2. No acute cardiopulmonary abnormality. 3. No definite displaced rib fracture is seen. Electronically authenticated by: Mercedes JAUREGUI Date: 07/26/2023 05:59 Shoulder X-Ray 07/26/23 05:14 IMPRESSION: 1. No acute fracture or dislocation of the right shoulder is seen. If there is concern for internal derangement, a nonemergent outpatient MRI is recommended. 2. No acute cardiopulmonary abnormality. 3. No definite displaced rib fracture is seen. Electronically authenticated by: Mercedes JAUREGUI Date: 07/26/2023 05:59 Discharge Plan Discharge Stand Alone Forms: Portal Instructions Chief Complaint: Fall Clinical Impression: Chest wall contusion Patient Disposition: Home, Self-Care Time of Disposition Decision: 06:06 Condition: Good Mode of Transportation: Private Vehicle Prescriptions / Home Meds: New acetaminophen-codeine 300-30 mg tablet 1 tab PO Q6H PRN (Reason: pain) 5 Days Qty: 20 0RF No Action glipizide 5 mg tablet 10 mg PO BID ibuprofen 800 mg tablet 800 mg PO Q8H PRN (Reason: pain) lisinopril 20 mg tablet 40 mg PO DAILY Levemir FlexPen 100 unit/mL (3 mL) Insulin Pen 20 unit subcut BID 30 Days Qty: 12 0RF levofloxacin 500 mg tablet 500 mg PO DAILY 7 Days Qty: 7 0RF metformin 500 mg tablet 1,000 mg PO BID 30 Days Qty: 120 0RF Print Language: Niuean Instructions: Rib Contusion (ED) Referrals: Physician,Non-Staff, MD [Primary Care Provider] - 1 week
[2023-07-26] MEDS: ACETAMINOPHEN 300 MG/ 30 MG CODEINE TABLET 1 TAB PO (06:15)
== END 2023-07-26 06:21 | disposition home or self-care (01) ==
PROVIDERS: Emergency Provider Emergency Medicine
DX: S20.219A Contusion of unspecified front wall of thorax, initial encounter (principal); W19.XXXA Unspecified fall, initial encounter
CPT/HCPCS: 71101; 73030; 99283